=== PATIENT | male | born 1955 | race Hispanic/Latino ===

== ENCOUNTER → 2018-12-17 | Outpatient (CLI) | payer MEDICARE, BC ==
[~2018-12-17] MED LIST: AMLODIPINE BESY10 MG PO; CARVEDILOL12.5 MG PO; FENOFIBRATE160 MG PO; FUROSEMIDE40 MG PO; LANTUS100 UNITS/ SC; LEVEMIR100 UNIT/1 SQ; NOVOLOG100 UNIT/1 SC; OMEGA 3 1,0001 EACH PO; PRAVASTATIN SOD40 MG PO; SIMVASTATIN10 MG PO; SODIUM CHLORIDE 0.9% 500ML 500 ML ONE; VITAMIN D32000 UNIT PO
--- OUTSIDE RECORDS SUMMARY | 2018-12-28 11:01 | XMS REPORT | Clinical Summary ---
Author Author [facility] Address Unknown Phone Unavailable Care Team Providers Care Office Machinery Or Equipment Installer Name Role Phone Monserrat Coates MD 3 Pcp, No PCP Unavailable Allergies No Known Allergies Medications End Date Status Medication Sig Dispensed Refills Start Date Active valsartan-hydrochlorothia Take 1 tablet 0 zide (DIOVAN-HCT) 320-25 by mouth mg per tablet daily. Active carvedilol (COREG) 12.5 Take 12.5 mg 0 MG tablet by mouth 2 (two) times daily with breakfast and dinner. Active simvastatin (ZOCOR) 10 MG Take 20 mg by 0 tablet mouth nightly . Active furosemide (LASIX) 40 MG Take 40 mg by 0 tablet mouth daily. Active fenofibrate (LOFIBRA) 54 Take 160 mg 0 MG tablet by mouth daily . Active ergocalciferol Take 50,000 0 (ERGOCALCIFEROL) 50,000 Units by unit capsule mouth every 30 (thirty) days. Active amLODIPine (NORVASC) 10 Take 10 mg by 0 MG tablet mouth daily. Active insulin glargine (LANTUS) Inject 40 0 100 unit/mL injection Units subcutaneousl y 2 (two) times daily Use as directed. Active calcium carbonate (TUMS) Take 3 0 500 mg chewable tablet tablets by mouth daily. Active INSULIN ASPART (NOVOLOG Inject 15 0 FLEXPEN SUBQ) Units subcutaneousl y 2 (two) times daily before meals. Active losartan (COZAAR) 50 MG Take 50 mg by 0 tablet mouth daily. Active cholecalciferol, vitamin Take 2,000 0 D3, 2,000 unit Tab Units by mouth daily. Active niacin 500 MG tablet Take 500 mg 0 by mouth 2 (two) times daily with breakfast and dinner. Active omega-3 acid ethyl esters Take 2 g by 0 (LOVAZA) 1 gram capsule mouth 2 (two) times daily. Active Problems Problem Noted Date ESRD (end stage renal disease) on dialysis 12/09/2016 DM (diabetes mellitus) 01/05/2015 Pre-transplant evaluation for ESRD (end stage renal disease) 08/09/2013 Encounters Care Team Description Date Type Specialty Nathalia Muñoz Appointment 12/11/2018 Telephone Transplant Malu Aguila RN Awaiting transplantation of kidney (Primary Dx) 09/26/2018 Orders Only Transplant Lien Pierre MD 06/25/2018 Orders Only Transplant [place] Ponce II, MD Yao, June, MD Patient awaiting renal transplant (Primary Dx) 06/13/2018 Evaluation Transplant France Ponce II, MD Patient awaiting renal transplant; ESRD (end stage renal disease) on dialysis ([facility]) 06/13/2018 Hospital Cardiology Encounter France Ponce II, MD Encounter for preprocedural cardiovascular examination ; Patient awaiting renal transplant; ESRD (end stage renal disease) on dialysis ([facility]) 06/13/2018 Hospital Radiology Encounter Flaca Noel RN 06/06/2018 Orders Only Transplant Roro Sosa 05/14/2018 Documentation Transplant Malu Aguila RN Patient awaiting renal transplant (Primary Dx); ESRD (end stage renal disease) on dialysis ([facility]); Encounter for preprocedural cardiovascular examination 03/06/2018 Documentation Transplant after 12/27/2017 Family History Medical History Relation Name Comments Diabetes Brother Diabetes Brother Unremarkable Daughter Unremarkable Daughter Diabetes Father Hypertension Mother Unremarkable Son Unremarkable Son Unremarkable Son Unremarkable Son Relation Name Status Comments Brother Alive Brother Alive Daughter Alive 39 Daughter Alive 18 Father mi (Age 74) Mother Alive 75 Sister Alive Sister Alive Sister Alive Sister Alive Sister Alive Sister Alive Sister Alive Son Alive 37 Son Alive 35 Son Alive 32 Son Alive 29 Social History Date Tobacco Use Types Packs/Day Years Used Former Smoker Smokeless Tobacco: Never Used Comments: stopped 30yrs ago Alcohol Use Drinks/Week oz/Week Comments No stopped 1 yr ago Sex Assigned at Date Recorded Not on file Industry Job Start Date Occupation Not on file Not on file Not on file Travel End Travel History Travel Start No recent travel history available. Last Filed Vital Signs Time Taken Vital Sign Reading 06/13/2018 1:35 PM CDT Blood Pressure 147/72 06/13/2018 1:35 PM CDT Pulse 79 06/13/2018 1:35 PM CDT Temperature 36.8 C (98.3 F) 06/13/2018 1:35 PM CDT Respiratory Rate 18 06/13/2018 11:05 AM CDT Oxygen Saturation 98% - Inhaled Oxygen - Concentration 06/13/2018 1:35 PM CDT Weight 79.8 kg (175 lb 14.4 oz) 06/13/2018 1:35 PM CDT Height 167.6 cm (5' 6") 06/13/2018 1:35 PM CDT Body Mass Index 28.39 Plan of Treatment Not on file Procedures Comments Procedure Name Priority Date/Time Associated Diagnosis FLOW PRA CLASS II WITH Routine 09/10/2018 Awaiting transplantation REFLEX TO ANTIBODY 2:59 PM RAIL CAR PAINTER/SANDBLASTER of kidney SPECIFICITY ESRD (end stage renal disease) on dialysis (HCC) FLOW PRA CLASS I WITH Routine 09/10/2018 Awaiting transplantation REFLEX TO ANTIBODY 2:59 PM RAIL CAR PAINTER/SANDBLASTER of kidney SPECIFICITY ESRD (end stage renal disease) on dialysis (HCC) ECHOCARDIOGRAM REPORT - 06/14/2018 SCAN 1:20 PM CDT PSA Routine 06/13/2018 Patient awaiting renal 12:45 PM CDT transplant ESRD (end stage renal disease) on dialysis (HCC) FLOW PRA CLASS II WITH Routine 06/13/2018 Awaiting transplantation REFLEX TO ANTIBODY 12:45 PM CDT of kidney SPECIFICITY ESRD (end stage renal disease) on dialysis (HCC) FLOW PRA CLASS I WITH Routine 06/13/2018 Awaiting transplantation REFLEX TO ANTIBODY 12:45 PM CDT of kidney SPECIFICITY ESRD (end stage renal disease) on dialysis (HCC) 2D ECHO W/ DOPPLER Routine 06/13/2018 Patient awaiting renal (CW/PW/COLOR) 12:13 PM CDT transplant ESRD (end stage renal disease) on dialysis (HCC) NM CARDIAC PET PERFUSION Routine 06/13/2018 Encounter for REST AND/OR STRESS 11:12 AM CDT preprocedural cardiovascular examination Patient awaiting renal transplant ESRD (end stage renal disease) on dialysis (HCC) TREADMILL Routine 06/13/2018 TOLERANCE(NON-NUCLEAR 10:52 AM CDT TREADMILL) ECG 12-LEAD Routine 06/13/2018 10:42 AM CDT ECG 12-LEAD Routine 06/13/2018 10:42 AM CDT Procedure Note - Interface, External Ris In - 06/13/2018 11:07 AM CDT Ventricula r Rate 72 BPM Atrial Rate 72 BPM P-R Interval 236 ms QRS Duration 98 ms Q-T Interval 378 ms QTC Calculatio n(Bazett) 413 ms P Coulter 71 degrees R Coulter 108 degrees T Coulter 106 degrees Sinus rhythm with 1st degree A-V block Rightward axis Nonspecifi c T wave abnormalit y Abnormal ECG FLOW PRA CLASS II WITH Routine 06/11/2018 Awaiting transplantation REFLEX TO ANTIBODY 3:51 PM CDT of kidney SPECIFICITY ESRD (end stage renal disease) on dialysis (HCC) FLOW PRA CLASS I WITH Routine 06/11/2018 Awaiting transplantation REFLEX TO ANTIBODY 3:51 PM CDT of kidney SPECIFICITY ESRD (end stage renal disease) on dialysis ([facility]) FLOW PRA CLASS II WITH Routine 03/09/2018 Awaiting transplantation REFLEX TO ANTIBODY 12:00 PM CDT of kidney SPECIFICITY ESRD (end stage renal disease) on dialysis ([facility]) FLOW PRA CLASS I WITH Routine 03/09/2018 Awaiting transplantation REFLEX TO ANTIBODY 12:00 PM CDT of kidney SPECIFICITY ESRD (end stage renal disease) on dialysis (HCC) ECHO W CONTRAST & DOPPLER Routine 02/19/2018 ECHO W CONTRAST & DOPPLER Routine 02/19/2018 after 12/27/2017 Results * FLOW PRA CLASS II WITH REFLEX TO ANTIBODY SPECIFICITY (09/10/2018 2:59 PM RAIL CAR PAINTER/SANDBLASTER) Only the most recent of 4 results within the time period is included. Flow Class II Percent [address] [facility] Positive Flow Class Report [facility] Comments Specimen Blood Narrative Performed At Disclaimer: [facility] This test was developed and its performance characteristics determined by the [facility]. It has not been cleared or approved by the U.S. Food and Drug Administration. The FDA has determined that such clearance or approval is not necessary. This test is used for clinical purposes. It should not be regarded as investigational or for research. This laboratory is certified under the Clinical Laboratory Improvement Amendments of 1988 (CLIA-88) as qualified to perform high complexity clinical laboratory testing. Performing Organization Address City/[facility] Phone Number [facility] ONE Michele Pinzon, MS: [id number], [place] [id number] CLIA#[id number] CAP#[id number] UNOS#[id number] * FLOW PRA CLASS I WITH REFLEX TO ANTIBODY SPECIFICITY (09/10/2018 2:59 PM RAIL CAR PAINTER/SANDBLASTER) Only the most recent of 4 results within the time period is included. Flow Class I Percent [address] [facility] Positive Flow Class Report [facility] Comments Specimen Blood Narrative Performed At Disclaimer: [facility] This test was developed and its performance characteristics determined by the [facility]. It has not been cleared or approved by the U.S. Food and Drug Administration. The FDA has determined that such clearance or approval is not necessary. This test is used for clinical purposes. It should not be regarded as investigational or for research. This laboratory is certified under the Clinical Laboratory Improvement Amendments of 1988 (CLIA-88) as qualified to perform high complexity clinical laboratory testing. Performing Organization Address [facility] Phone Number [facility] ONE Michele Pinzon, MS: [id number], [place] [address] CLIA#[id number] CAP#[id number] UNOS#[id number] * ECHOCARDIOGRAM REPORT - SCAN (06/14/2018 1:20 PM CDT) Narrative Performed At * PSA (06/13/2018 12:45 PM CDT) PSA 1.2 0.0 - 4.0 ng/mL [facility] Specimen Blood Performing Organization Address City/[facility]/Zipcode Phone Number [facility] [address] [place], [place] [id number] MEDICAL CENTER * 2D Echo W/Doppler(CW/PW/Color) (06/13/2018 12:13 PM CDT) Ejection Fraction [facility] Narrative Performed At Transthoracic Echocardiography Report (TTE) [facility] Demographics [facility] [place] [facility] Patient Name Corey FLORES of Study 06/13/2018 HECTOR [id number] GenderMale Visit Number [id number] Alfredo [id number] Number op Number Date of1955 Referring Rosario RolonShashank Silvestre Physician Age62 year(s) De Ionizer Operator Karthikeyan Jacobs, JOSE MIGUEL, RDCS,RVT,RDMS AnalystAlex Bridgette Lewis MD Physician Procedure Type of Study TTE procedure:2DECHO W DOPPLER(CW/PW/COLOR) (Routine) Indications:Renal transplant evaluation . Clinical History DM, HTN, ESRD, HLD, Stroke, PVD Height: 65 inches Weight: 80.29 kg (177 lbs) BSA: 1.88 m^2 BMI: 29.45 kg/m^2 HR: 77 bpm BP: 151/70 mmHg Summary Normal left ventricular chamber size. Normal wall thickness. Normal overall left ventricular systolic function. No apparent segmental wall motion abnormalities. Estimated LVEF by qualitative assessment is normal (>60%) . Grade 1 diastolic dysfunction (impaired relaxation and low-normal LA pressure). Unable to estimate peak systolic PA pressure; inadequate TR velocity signal. No evidence of pericardial effusion. Signature Findings Left Ventricle Normal left ventricular chamber size. Normal wall thickness. Normal overall left ventricular systolic function. No apparent segmental wall motion abnormalities. Estimated LVEF by qualitative assessment is normal (>60%) . Grade 1 diastolic dysfunction (impaired relaxation and low-normal LA pressure). Left AtriumLA size is normal . Right VentricleNormal right ventricle structure and function. Right Atrium Normal right atrium. Aortic Valve Mild AoV cusp thickening. Mitral Valve Normal MV structure. Tricuspid ValveA trace of tricuspid regurgitation. Unable to estimate peak systolic PA pressure; inadequate TR velocity signal. Pulmonic Valve Normal PV structure and function by limited views and Doppler. AortaAortic root size (SInus of Valsalva diameter) is normal . PericardiumNo evidence of pericardial effusion. An echo lucent space is noted consistent with prominent pericardial fat pad. IVC/SVC/PA/PV/PleuralThe estimated RA pressure by IVC dynamics 5-10mmHg . Chambers/Structures Left Atrium LA Dimension: 3.64 cmLA Area: 19.15 cm^2 LA Volume: 62.44 ml LA Vol. Index: 33 ml/m^2 Left Ventricle LVIDd: 3.95 cm LVEDV:78.32 ml LV Septum Diastolic: 0.98 cm LV PW Diastolic: 0.95 cm Aorta Ao Root S of Sia.: 3.17 cm Doppler/Quantitative Measurements Mitral Valve MV Peak E-Wave: 0.84 m/sMV Peak A-Wave: 0.86 m/s E/A Ratio: 0.98 Peak Gradient: 2.85 mmHg MV Chris. Peak: Aortic Valve Peak Velocity: 1.01 m/sMean Velocity: 0.73 m/s Peak Gradient: 4.07 mmHg Mean Gradient: 2.43 mmHg AV VTI: 25.06 cm AV DVI: 0.8 LVOT Peak Velocity: 0.92 m/s Peak Gradient: 3.37 mmHg Mean Velocity: 0.61 m/s Mean Gradient: 1.71 mmHg LVOT VTI: 20.13 cm Procedure Note Interface, External Ris In - 06/14/2018 12:52 PM CDT Transthoracic Echocardiography Report (TTE) Demographics Patient Name ASHOK FLORES Date of Study 06/13/2018 YOUNG Gender Male Visit Number [id number] Race Unknown Room Number op Number Date of 1955 Referring Rosario Silvestre Physician Age 62 year(s) De Ionizer Operator Karthikeyan Jacobs, JOSE MIGUEL, RDCS,RVT,RDMS Toll Settlement Clerk Panchito Sanchez Interpreting Tristian Lewis MD Physician Procedure Type of Study TTE procedure:2DECHO W DOPPLER(CW/PW/COLOR) (Routine) Indications:Renal transplant evaluation . Clinical History DM, HTN, ESRD, HLD, Stroke, PVD Height: 65 inches Weight: 80.29 kg (177 lbs) BSA: 1.88 m^2 BMI: 29.45 kg/m^2 HR: 77 bpm BP: 151/70 mmHg Summary Normal left ventricular chamber size. Normal wall thickness. Normal overall left ventricular systolic function. No apparent segmental wall motion abnormalities. Estimated LVEF by qualitative assessment is normal (>60%) . Grade 1 diastolic dysfunction (impaired relaxation and low-normal LA pressure). Unable to estimate peak systolic PA pressure; inadequate TR velocity signal. No evidence of pericardial effusion. Signature Findings Left Ventricle Normal left ventricular chamber size. Normal wall thickness. Normal overall left ventricular systolic function. No apparent segmental wall motion abnormalities. Estimated LVEF by qualitative assessment is normal (>60%) . Grade 1 diastolic dysfunction (impaired relaxation and low-normal LA pressure). Left Atrium LA size is normal . Right Ventricle Normal right ventricle structure and function. Right Atrium Normal right atrium. Aortic Valve Mild AoV cusp thickening. Mitral Valve Normal MV structure. Tricuspid Valve A trace of tricuspid regurgitation. Unable to estimate peak systolic PA pressure; inadequate TR velocity signal. Pulmonic Valve Normal PV structure and function by limited views and Doppler. Aorta Aortic root size (SInus of Valsalva diameter) is normal . Pericardium No evidence of pericardial effusion. An echo lucent space is noted consistent with prominent pericardial fat pad. IVC/SVC/PA/PV/Pleural The estimated RA pressure by IVC dynamics 5-10mmHg . Chambers/Structures Left Atrium LA Dimension: 3.64 cm LA Area: 19.15 cm^2 LA Volume: 62.44 ml LA Vol. Index: 33 ml/m^2 Left Ventricle LVIDd: 3.95 cm LVEDV:78.32 ml LV Septum Diastolic: 0.98 cm LV PW Diastolic: 0.95 cm Aorta Ao Root S of Sia.: 3.17 cm Doppler/Quantitative Measurements Mitral Valve MV Peak E-Wave: 0.84 m/s MV Peak A-Wave: 0.86 m/s E/A Ratio: 0.98 Peak Gradient: 2.85 mmHg MV Chris. Peak: Aortic Valve Peak Velocity: 1.01 m/s Mean Velocity: 0.73 m/s Peak Gradient: 4.07 mmHg Mean Gradient: 2.43 mmHg AV VTI: 25.06 cm AV DVI: 0.8 LVOT Peak Velocity: 0.92 m/s Peak Gradient: 3.37 mmHg Mean Velocity: 0.61 m/s Mean Gradient: 1.71 mmHg LVOT VTI: 20.13 cm Performing Organization Address City/State/Zipcode Phone Number [facility] * NM myocardial perfusion PET (rest and stress) (06/13/2018 11:12 AM CDT) Narrative Performed At FINAL REPORT [employer] PROCEDURE: Rest/Stress MYOCARDIAL PERFUSION PET with regadenoson\\XA9\\ CPT CODE: 65090 INDICATION: Preoperative evaluation for renal transplant, risk stratification HISTORY: Cardiac risk factors: Diabetes, hypertension, dyslipidemia, ESRD, stroke. Other cardiovascular history: No reported CAD. PROTOCOL: Limited low-dose CT imaging was performed for attenuation correction. 40.0 mCi of Rb-82 chloride was injected iv at rest, and gated PET (positron emission tomography) images were obtained. Subsequently, 40.2 mCi of Rb-82 chloride was injected iv at expected peak pharmacologic effect, and gated PET images were obtained. PRELIMINARY STRESS TEST DATA FROM NONINVASIVE CARDIOLOGY: Pharmacologic stress was by 10-second iv infusion of 0.4 mg of regadenoson. Radiotracer was injected 30 seconds after start of stress. Heart rate was 70 beats/min at rest and 75 beats/min (47% of MPHR) at tracer injection. BP was 137/57 mmHg at rest and 130/51 mmHg at tracer injection. Stress was stopped for predetermined endpoint. The patient experienced no symptoms; treatment was not required. Preliminary ECG evaluation revealed sinus rhythm at rest and no ischemic changes with stress. (Final ECG interpretation and other stress and monitoring data are reported separately by Cardiology.) IMAGING FINDINGS: Study quality is good. Images obtained after rest and stress injections show normal LV activity. LV and RV volumes appear normal. Gated images obtained at rest and with stress show normal LV wall motion and thickening. LVEF at rest is 61%. LVEF at stress is 69%. IMPRESSION: 1. Normal study.2. Appropriate pharmacologic stress.3. Normal myocardial perfusion.4. Normal resting LV function. No deterioration of function is noted with pharmacologic stress.5. Normal extracardiac tracer distribution.6. No previous [facility] study for comparison. NONINVASIVE RISK STRATIFICATION: The above findings are considered low risk (<1% annual or NC) based on the following criterion: - Normal or small myocardial perfusion defect at rest or with stress encumbering <5% of the myocardium - Normal stress or no change of limited resting wall motion abnormalities during stress (JACC. 2017;69(75):3312-73.) Signed: Aneta Polo MD Report Verified Date/Time:06/13/2018 20:46:58 Reading Location: [address] Reading Room Procedure Note Interface, External Ris In - 06/13/2018 8:49 PM CDT FINAL REPORT PROCEDURE: Rest/Stress MYOCARDIAL PERFUSION PET with regadenoson\\XA9\\ CPT CODE: 70792 INDICATION: Preoperative evaluation for renal transplant, risk stratification HISTORY: Cardiac risk factors: Diabetes, hypertension, dyslipidemia, ESRD, stroke. Other cardiovascular history: No reported CAD. PROTOCOL: Limited low-dose CT imaging was performed for attenuation correction. 40.0 mCi of Rb-82 chloride was injected iv at rest, and gated PET (positron emission tomography) images were obtained. Subsequently, 40.2 mCi of Rb-82 chloride was injected iv at expected peak pharmacologic effect, and gated PET images were obtained. PRELIMINARY STRESS TEST DATA FROM NONINVASIVE CARDIOLOGY: Pharmacologic stress was by 10-second iv infusion of 0.4 mg of regadenoson. Radiotracer was injected 30 seconds after start of stress. Heart rate was 70 beats/min at rest and 75 beats/min (47% of MPHR) at tracer injection. BP was 137/57 mmHg at rest and 130/51 mmHg at tracer injection. Stress was stopped for predetermined endpoint. The patient experienced no symptoms; treatment was not required. Preliminary ECG evaluation revealed sinus rhythm at rest and no ischemic changes with stress. (Final ECG interpretation and other stress and monitoring data are reported separately by Cardiology.) IMAGING FINDINGS: Study quality is good. Images obtained after rest and stress injections show normal LV activity. LV and RV volumes appear normal. Gated images obtained at rest and with stress show normal LV wall motion and thickening. LVEF at rest is 61%. LVEF at stress is 69%. IMPRESSION: 1. Normal study. 2. Appropriate pharmacologic stress. 3. Normal myocardial perfusion. 4. Normal resting LV function. No deterioration of function is noted with pharmacologic stress. 5. Normal extracardiac tracer distribution. 6. No previous [facility] study for comparison. NONINVASIVE RISK STRATIFICATION: The above findings are considered low risk (<1% annual or NC) based on the following criterion: - Normal or small myocardial perfusion defect at rest or with stress encumbering <5% of the myocardium - Normal stress or no change of limited resting wall motion abnormalities during stress (JACC. 2017;69(17):2212-41.) Signed: Aneta Polo MD Report Verified Date/Time: 06/13/2018 20:46:58 Reading Location: [address] Reading Room Performing Organization Address City/State/Zipcode Phone Number [facility] * Treadmill tolerance(Non-Nuclear Treadmill) (06/13/2018 10:52 AM CDT) Narrative Performed At Protocol Name Abcodia Time In Exercise Phase 00:01:00 Max. Systolic BP 130 mmHg Max Diastolic BP 51 mmHg Max Heart Rate 75 BPM Max Predicted Heart Rate 158 BPM Reason For Termination Predetermined end point Reason for Test Renal Transplant Work Up/Evaluation Target HR Formula (220 - Age)*100% Arrhythmias none Resting ECG Normal sinus rhythm with 1st degree AV block nonspecific T wave abnormality ST Changes No Significant Changes Overall Impression Indeterminate due to pharmacological stress Chest Pain none HR Response To Exercise BP Response To Exercise COREG COZAAR Diovan/HCTZ LASIX NORVASC Zocor Confirmed by fellow Eliud Shaw ([id number]) on 06/13/2018 1:17:03 PM Confirmed by MD SHIN JORGE [id number]) on 06/22/2018 12:26:46 PM Procedure Note Interface, External Ris In - 06/22/2018 12:26 PM CDT Protocol Name Regabyoson Time In Exercise Phase 00:01:00 Max. Systolic BP 130 mmHg Max Diastolic BP 51 mmHg Max Heart Rate 75 BPM Max Predicted Heart Rate 158 BPM Reason For Termination Predetermined end point Reason for Test Renal Transplant Work Up/Evaluation Target HR Formula (220 - Age)*100% Arrhythmias none Resting ECG Normal sinus rhythm with 1st degree AV block nonspecific T wave abnormality ST Changes No Significant Changes Overall Impression Indeterminate due to pharmacological stress Chest Pain none HR Response To Exercise BP Response To Exercise COREG OSWALDO Ken/HCTZ LASIX NORVASC Zocor Confirmed by fellow Eliud Shaw ([id number]) on 06/13/2018 1:17:03 PM Confirmed by MD SHIN JORGE ([id number]) on 06/22/2018 12:26:46 PM Performing Organization Address City/[email or web address] Phone Number [facility] * ECG 12 lead (06/13/2018 10:42 AM CDT) Narrative Performed At Ventricular Rate 72 BPM GE MUSE Atrial Rate 72 BPM P-R Interval 236 ms QRS Duration 98 ms Q-T Interval 378 ms QTC Calculation(Bazett) 413 ms P Coulter 71 degrees R Coulter 108 degrees T Coulter 106 degrees Sinus rhythm with 1st degree A-V block Rightward axis Nonspecific T wave abnormality Abnormal ECG No previous ECGs available Confirmed by Bora REYNA, CALDERON ([id number]) on 06/14/2018 8:14:19 AM Procedure Note Interface, External Ris In - 06/14/2018 8:14 AM CDT Ventricular Rate 72 BPM Atrial Rate 72 BPM P-R Interval 236 ms QRS Duration 98 ms Q-T Interval 378 ms QTC Calculation(Bazett) 413 ms P Coulter 71 degrees R Coulter 108 degrees T Coulter 106 degrees Sinus rhythm with 1st degree A-V block Rightward axis Nonspecific T wave abnormality Abnormal ECG No previous ECGs available Confirmed by Bora REYNA BASANT ([id number]) on 06/14/2018 8:14:19 AM Performing Organization Address [employer]/Zipcode Phone Number [facility] * ECHO W CONTRAST & DOPPLER (02/19/2018) * ECHO W CONTRAST & DOPPLER (02/19/2018) after 12/27/2017 Insurance Payer Benefit Subscriber ID Type Phone Address Plan / Group MEDICARE MEDICARE A xxxxxxxxxx Medicare B BLUE CROSS/BLUE SHIELD BCBS OS xxxxxxxxxxxx PPO [phone] [address] [place] [address] O
--- OUTSIDE RECORDS SUMMARY | 2018-12-28 11:06 | XMS REPORT | Summary of Care ---
Author Author [facility] Organization [facility] Address Unknown Phone Unavailable Encounter LUÍS Jeter(TEOFILO) [phone] Date(s): 11/08/17 - 11/08/17 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) - Dependence on renal dialysis (Final) - Discharge Disposition: Home or Self Care Attending Physician: Aquiles Ruano DPM Referring Physician: Aquiles Ruano DPM Vital Signs 1 2 3 Most recent to oldest [Reference Range]: 160.02 cm (11/07/17 3:59 PM) Height 155/75 mmHg *HI* (11/08/17 9:30 PM) 133/65 mmHg (11/08/17 8:45 PM) Blood Pressure [90-140/60-90 mmHg] 160 mmHg *HI* (11/08/17 8:00 PM) Systolic Blood Pressure [90-140 mmHg] 79 mmHg (11/08/17 8:00 PM) Diastolic Blood Pressure [60-90 mmHg] 18 BRMIN (11/08/17 9:30 PM) 15 BRMIN (11/08/17 9:00 PM) 17 BRMIN (11/08/17 8:45 PM) Respiratory Rate [14-20 BRMIN] 74 bpm (2/14/18 4:45 PM) Peripheral Pulse Rate [60-100 bpm] 81.818 kg (11/07/17 3:59 PM) Weight 31.95 m2 (11/07/17 3:59 PM) Body Mass Index Problem List Condition Effective Dates Status Health Status Informant Abdominal Active bloating(Confirmed) 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(Confirmed)1 Benign hypertensive Active heart and kidney disease and end stage renal disease(Confirmed) Body mass index 30+ 01/06/14 Active - obesity2 Congestive 03/20/13 Active cardiomyopathy(Confi rmed)3 Decreased hearing of Active left ear(Confirmed) Hemodialysis Active status(Confirmed) 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(Confirmed) Noncompliance(Confir Active med) ESRD (end stage Active renal disease)(Confirmed) Gastroparesis(Confir Active med) Gustatory Active hyperhidrosis(Confir med) History of Active gangrene(Confirmed) Hemodialysis-associa 04/29/13 Active manju hypotension4 Long-term insulin Active use(Confirmed) Status post Active amputation of lesser toe of right foot(Confirmed) History of stroke Active without residual deficits(Confirmed) History of colonic Active polyps(Confirmed) Medicare annual Active wellness visit, subsequent(Confirmed ) Mixed 03/20/13 Active hyperlipidemia(Confi rmed)5 Full Active dentures(Confirmed) Screening for colon Active cancer(Confirmed) Screening for Active prostate cancer(Confirmed) Type 2 diabetes Active mellitus with autonomic neuropathy(Confirmed ) Type 2 diabetes Active mellitus with ESRD (end-stage renal disease)(Confirmed) Type 2 diabetes Active mellitus with hyperglycemia(Confir med) Oliguria(Confirmed) Active Ventricular 01/12/15 Active premature beats6, 7 Vitamin D 01/12/15 Active deficiency8, 9 1Data migrated from [employer] on 02/21/15. 2Data migrated from [employer] on 02/21/15. 3Data migrated from [employer] on 02/21/15. 4Data migrated from [employer] on 02/21/15. 5Data migrated from [employer] on 02/21/15. 6Data migrated from [employer] on 04/01/15. 7Data migrated from [employer] on 02/24/15. 8Data migrated from [employer] on 04/01/15. 9Data migrated from [employer] on 02/24/15. Allergies, Adverse Reactions, Alerts Substance Reaction Severity Status NKDA Active Medications ANES dexamethasone 4 mg, 1 mL, Route: IVP, Drug form: INJ, ONCE, Dosing Weight 81.818, kg, PRN Naus ea & Vomiting, Start date: 11/08/17 19:07:00 MARBLE INSTALLATION HELPER Notes: Concentration: 4mg/ml Start Date: 11/08/17 Stop Date: 11/08/17 Status: Discontinued ANES diphenhydrAMINE 12.5 mg, 0.25 mL, Route: IVP, Drug form: INJ, Q6H, Dosing Weight 81.818, kg, PRN Itching, Start date: 11/08/17 19:07:00 MARBLE INSTALLATION HELPER, Duration: 30 day, Stop date: 19:06:00 CDT Notes: (Same as: Benadryl) Start Date: 11/08/17 Stop Date: 11/08/17 Status: Discontinued ANES fentaNYL 50 microgram, 1 mL, Route: IVP, Drug form: INJ, Q5Min, Dosing Weight 81.818, kg, PRN Pain Score 7-10, Priority: Routine, Start date: 11/08/17 19:07:00 MARBLE INSTALLATION HELPER, Dura tion: 2 doses or times, Stop date: Limited # of times Notes: (Same as: Sublimaze) Preservative free. Start Date: 11/08/17 Stop Date: 11/08/17 Status: Discontinued ANES flumazenil 0.2 mg, 2 mL, Route: IVP, Drug form: INJ, PRN, Dosing Weight 81.818, kg, PRN Getachew zodiazepine Reversal, Initial dose, Start date: 11/08/17 19:07:00 [employer]BLE INSTALLATION HELPER, Duration: 30 day, Stop date: 12/08/17 20:06:00 CDT Notes: (Same as: Romazicon) Start Date: 11/08/17 Stop Date: 11/08/17 Status: Discontinued ANES hydrALAZINE 10 mg, 0.5 mL, Route: IVP, Drug form: INJ, Q20Min, Dosing Weight 81.818, kg, PRN Elevated BP, Start date: 11/08/17 19:07:00 MARBLE INSTALLATION HELPER, Duration: 2 doses or times, Stop date: Limited # of times Notes: (Same as: Apresoline)Push over 5 minutes Start Date: 11/08/17 Stop Date: 11/08/17 Status: Discontinued ANES HYDROmorphone 0.5 mg, 0.25 mL, Route: IVP, Drug form: INJ, Q5Min, Dosing Weight 81.818, kg, [place] N Pain Score 7-10, Start date: 11/08/17 19:07:00 MARBLE INSTALLATION HELPER, Duration: 4 doses or times , Stop date: Limited # of times Notes: Same as Dilaudid Start Date: 11/08/17 Stop Date: 11/08/17 Status: Discontinued ANES ketOROLAC 30 mg, 1 mL, Route: IVP, Drug form: INJ, ONCE, Dosing Weight 81.818, kg, Start d ate: 11/08/17 19:07:00 MARBLE INSTALLATION HELPER, Stop date: 11/08/17 19:07:00 [employer]BLE INSTALLATION HELPER Notes: (Same as:Toradol) IV bolus must be given >15 seconds. Give IM administration slowly and deeply into the muscle.Not for use > 4 days MEDICATION WASTE Product Size: 30 mgProduct Wasted: ___ mg Start Date: 11/08/17 Stop Date: 11/08/17 Status: Discontinued ANES meperidine 12.5 mg, 0.25 mL, Route: IVP, Drug form: INJ, Q30Min, Dosing Weight 81.818, kg, PRN Other -See Comment, For shivering, Start date: 11/08/17 19:07:00 MARBLE INSTALLATION HELPER, Durati on: 2 doses or times, Stop date: Limited # of times Notes: (Same As: Demerol) Start Date: 11/08/17 Stop Date: 11/08/17 Status: Discontinued ANES morphine Sulfate 2 mg, 1 mL, Route: IVP, Drug form: INJ, Q5Min, Dosing Weight 81.818, kg, PRN Bella n Score 4-6, Start date: 11/08/17 19:07:00 MARBLE INSTALLATION HELPER, Duration: 5 doses or times, Stop date: Limited # of times Notes: (Same as:MORPhine Sulfate) Start Date: 11/08/17 Stop Date: 11/08/17 Status: Discontinued ANES naloxone 0.4 mg, 1 mL, Route: IVP, Drug form: INJ, Q2MIN, Dosing Weight 81.818, kg, PRN N arcotic Reversal, Start date: 11/08/17 19:07:00 MARBLE INSTALLATION HELPER, Duration: 8 doses or times, Stop date: Limited # of times Notes: Same as Narcan Start Date: 11/08/17 Stop Date: 11/08/17 Status: Discontinued ANES ondansetron 4 mg, 2 mL, Route: IVP, Drug form: INJ, ONCE, Dosing Weight 81.818, kg, PRN Naus ea & Vomiting, Start date: 11/08/17 19:07:00 MARBLE INSTALLATION HELPER Notes: (Same as: Zofran) MEDICATION WASTE Product Size: 4 mgProduct Was manju: ___ mg Start Date: 11/08/17 Stop Date: 11/08/17 Status: Discontinued lidocaine (ANES) Route: IV, Drug form: INJ, ONCE, Stop date: 11/08/17 19:13:00 MARBLE INSTALLATION HELPER Start Date: 11/08/17 Stop Date: 11/08/17 Status: Completed propofol (ANES) Route: IV, Drug form: INJ, ONCE, Stop date: 11/08/17 19:08:00 MARBLE INSTALLATION HELPER Start Date: 11/08/17 Stop Date: 11/08/17 Status: Completed Sodium Chloride 0.9% IV (ANES) 500 mL Route: IV, Total Volume: 500, Start date: 11/08/17 18:22:00 MARBLE INSTALLATION HELPER, Stop date: 10/26 01/10 19:22:00 MARBLE INSTALLATION HELPER Start Date: 11/08/17 Stop Date: 11/08/17 Status: Completed Results No data available for this section Immunizations Given and Recorded Vaccine Date Status Refusal Reason Hx influenza vaccine-unspecified1 06/25/17 Recorded Hx influenza vaccine-unspecified2 07/09/13 Given pneumococcal 23-valent vaccine 03/22/13 Given influenza virus vaccine, inactivated3 08/10/10 Given influenza virus vaccine, inactivated4 08/05/09 Given influenza virus vaccine, inactivated5 06/15/09 Given influenza virus vaccine, inactivated6 07/14/08 Given 1Location History: [facility] 2Result Comment: done @ dialysis. Migrated from OBS ; Data migrated from [employer] on 10/27/2015. 3Result Comment: fluvirin preservative free (>3 yrs.) [[id number]]. Migrated from OBS ; Data migrated from [employer] on 10/27/2015. 4Result Comment: fluvirin preservative free (>3 yrs.) [[id number]]. Migrated from OBS ; Data migrated from [facility] on 10/27/2015. 5Result Comment: fluvirin preservative free (>3 yrs.) [[id number]]. Migrated from OBS ; Data migrated from [facility] on 10/27/2015. 6Result Comment: fluvirin preservative free (>3 yrs.) [[id number]]. Migrated from OBS ; Data migrated from [employer] on 10/27/2015. Procedures Procedure Date Related Diagnosis Body Site Status Thrombectomy of arteriovenous fistula1 12/12/17 Completed Amputation lesser toe2 11/08/17 Completed Amputation lesser toe3 11/08/17 Completed Amputation lesser toe4 2016 Completed Echocardiogram5 07/27/16 Completed Myocardial perfusion scan6 07/27/16 Completed Colonoscopy7 01/29/14 Completed AV - Creation of arteriovenous fistula8 03/25/13 Completed Amputation great toe9 Completed Cataract extraction and insertion of Completed intraocular lens Insertion of dialysis catheter into femoral Completed vein 1PREOPERATIVE DIAGNOSIS: 1. End-stage renal disease 2. Thrombosis of right brachiocephalic AV fistula POSTOPERATIVE DIAGNOSIS: 1. End-stage renal disease 2. Thrombosis of right brachiocephalic AV fistula OPERATION: 1. Open thrombectomy of right brachiocephalic AV fistula 2. Upper extremity fistulogram 3. Balloon angioplasty and stenting of right subclavian vein 4. Open thrombectomy of brachial artery 2right foot 3PREOPERATIVE DIAGNOSIS: Gangrene, right fourth toe. POSTOPERATIVE DIAGNOSES: Gangrene, right fourth toe. PROCEDURE PERFORMED: Amputation, right fourth toe. PATHOLOGY: 1. Amputated fourth toe sent for pathological analysis. 2. Deep wound culture swab for culture and sensitivity. 4Right foot 5EF: 55-60%, LV size and systolic function normal 6Normal perfusion imaging with no evidence of stress induced ischemia 7polyps, repeat in 3 years 8PREOPERATIVE DIAGNOSIS: End-stage renal disease. POSTOPERATIVE DIAGNOSIS: End-stage renal disease. OPERATION: Creation of right brachiocephalic arteriovenous fistula. 9left foot Social History Social History Type Response Substance Abuse Use: None. Exercise Exercise duration: 15. Exercise frequency: 1-2 times/week. Self assessment: Fair condition. Exercise type: Walking. Employment/School Status: Disabled due to ESRD on HD. Other: . Alcohol Never Smoking Status Never smoker; Ready to change: No; Concerns about tobacco use in household: No; Lives with someone who smokes; Cigarette Smoking Last 365 Days No; Reg Smoking Cessation Counseling No entered on: 12/20/17 Assessment and Plan No data available for this section
--- OUTSIDE RECORDS SUMMARY | 2018-12-28 11:06 | XMS REPORT | Summary of Care ---
Author Author [facility] Organization [facility] Address Unknown Phone Unavailable Encounter HQ Steffany(TEOFILO) [phone] Date(s): 11/24/18 - 11/25/18 [facility] [address] [place] [address]- [phone] Discharge Disposition: Home or Self Care Attending Physician: Vamshi Thompson MD Admitting Physician: Vamshi Thompson MD Vital Signs 1 2 3 Most recent to oldest [Reference Range]: 162.56 cm (11/24/18 4:59 PM) 162.56 cm (11/24/18 11:19 AM) Height 98.6 DegF (11/25/18 11:41 AM) 99 DegF (11/25/18 7:35 AM) 98.6 DegF (11/25/18 3:17 AM) Temperature Oral [96.4-99.1 DegF] 125/65 mmHg (11/25/18 11:41 AM) 106/64 mmHg (11/25/18 7:35 AM) 106/56 mmHg (11/25/18 3:17 AM) Blood Pressure [90-140/60-90 mmHg] 17 BRMIN (11/25/18 11:41 AM) 19 BRMIN (11/25/18 7:35 AM) 17 BRMIN (11/25/18 3:17 AM) Respiratory Rate [14-20 BRMIN] 85 bpm (11/25/18 11:41 AM) 83 bpm (11/25/18 7:35 AM) 83 bpm (11/25/18 3:17 AM) Peripheral Pulse Rate [60-100 bpm] 82.273 kg (11/24/18 4:59 PM) 79.545 kg (11/24/18 11:19 AM) Weight 31.13 m2 (11/24/18 4:59 PM) 30.1 m2 (11/24/18 11:19 AM) Body Mass Index Problem List Condition Effective [...] med) ESRD (end stage Active renal disease)(Confirmed) Sebaceous Active cyst(Confirmed) Gastroparesis(Confir Active med) Gustatory Active hyperhidrosis(Confir med) History of Active gangrene(Confirmed) Hammertoe of right Active foot(Confirmed) Hemodialysis-associa 04/29/13 Active manju hypotension4 Long-term insulin Active use(Confirmed) Status post Active amputation of lesser toe of right foot(Confirmed) History of stroke Active without residual deficits(Confirmed) History of colonic Active polyps(Confirmed) Type 2 diabetes Active mellitus with hyperglycemia(Confir med) Diabetic Resolved hypoglycemia(Confirm ed) ED (erectile Active dysfunction)(Confirm ed) Medicare annual Active wellness visit, subsequent(Confirmed ) Mixed 03/20/13 Active hyperlipidemia(Confi rmed)5 Preoperative Active clearance(Confirmed) Screening for colon Active cancer(Confirmed) Type 2 diabetes Active mellitus with autonomic neuropathy(Confirmed ) Type 2 diabetes Active mellitus with ESRD (end-stage renal disease)(Confirmed) Oliguria(Confirmed) Active Ventricular 01/12/15 Active premature beats6, 7 Vitamin D 01/12/15 Active deficiency(Confirmed )8, 9 1Data migrated from [employer] on [...] Substance Reaction Severity Status NKDA Active Medications amLODIPine 10 mg, 2 tab, Route: PO, Drug form: TAB, Daily, Dosing Weight 82.273, kg, Start date: 11/25/18 9:00:00 [employer], Duration: 30 day, Stop date: 12/24/18 9:00:00 CDT Notes: (Same as: Norvasc) Start Date: 11/25/18 Stop Date: 11/25/18 Status: Discontinued aspirin 81 mg, 1 tab, Route: PO, Drug form: ECTAB, Every Other Day, Dosing Weight 82.273 , kg, Start date: 11/25/18 9:00:00 [employer], Duration: 30 day, Stop date: 12/23/18 9: 00:00 CDT Notes: Do not crush or chew.(Same As: Ecotrin) Start Date: 11/25/18 Stop Date: 11/25/18 Status: Discontinued aspirin 81 mg, PO, Every Other Day, 0 Refill(s) Start Date: 11/24/18 Status: Ordered carvedilol 12.5 mg, 1 tab, Route: PO, Drug form: TAB, Q12H, Dosing Weight 82.273, kg, Start date: 11/24/18 21:00:00 [employer], Duration: 30 day, Stop date: 12/24/18 9:00:00 CDT Notes: Give with food. (Same As: Coreg) Start Date: 11/24/18 Stop Date: 11/25/18 Status: Discontinued cloNIDine 0.1 mg, 1 tab, Route: PO, Drug form: TAB, Q6H, Dosing Weight 82.273, kg, PRN Silvia vated BP, Start date: 11/24/18 17:55:00 [employer], Duration: 30 day, Stop date: 17:54:00 CDT Notes: (Same As: Catapres) Start Date: 11/24/18 Stop Date: 11/25/18 Status: Discontinued Dextrose 50% Syringe 25 gm, 50 mL, Route: IVP, Drug Form: INJ, Dosing Weight 82.273, kg, PRN, PRN Blo od Glucose Results, Start date: 11/24/18 17:03:00 [employer], Duration: 30 day, Stop da te: 12/24/18 18:02:00 CDT Start Date: 11/24/18 Stop Date: 11/25/18 Status: Discontinued Dextrose 50% Syringe 12.5 gm, 25 mL, Route: IVP, Drug Form: INJ, Dosing Weight 82.273, kg, PRN, PRN B lood Glucose Results, Start date: 11/24/18 17:03:00 [employer] WORK[employer], Duration: 30 day, Stop date: 12/24/18 18:02:00 CDT Start Date: 11/24/18 Stop Date: 11/25/18 Status: Discontinued furosemide 40 mg oral tablet 40 mg, 1 tab, Route: PO, Drug form: TAB, Breakfast, Dosing Weight 82.273, kg, St art date: 11/25/18 8:00:00 [employer] WORK[employer], Duration: 30 day, Stop date: 12/24/18 8:00:00 CD T Notes: (Same as: Lasix) May cause GI upset. Give with food or milk. Start Date: 11/25/18 Stop Date: 11/25/18 Status: Discontinued glucagon 1 mg, Route: IM, Drug form: PDR/INJ, PRN, Dosing Weight 82.273, kg, PRN Blood Gl ucose Results, Start date: 11/24/18 17:03:00 [employer], Duration: 30 day, Stop date: 0 12/24/18 18:02:00 CDT Start Date: 11/24/18 Stop Date: 11/25/18 Status: Discontinued insulin glargine 58 unit, 0.58 mL, Route: SUB-Q, Drug form: SOLN, Q12H, Start date: 11/24/18 21:0 0:00 [employer] WORK[employer], Duration: 30 day, Stop date: 12/24/18 9:00:00 CDT Notes: (Same as: Lantus)Do not hold insulin without contacting prescriberWASTE: F/P - Black; E - Municipal Trash Bin "single patient use only" Start Date: 11/24/18 Stop Date: 11/25/18 Status: Discontinued insulin lispro 2 unit, 0.02 mL, Route: SUB-Q, Drug form: SOLN, TID-Before Meals, Dosing Weight 82.273, kg, PRN Blood Glucose Results, Start date: 11/24/18 17:03:00 [employer] WORKER, Durati on: 30 day, Stop date: 12/24/18 17:02:00 CDT Notes: (Same as: Humalog ) Roll in palms of hands gently; Do not shake `vigorou sly. "Single Patient Use Only " WASTE: F/P - Black; E - Municipal Trash Bin St able for 28 days at room temperature.Expires in days from Da te Start Date: 11/24/18 Stop Date: 11/25/18 Status: Discontinued insulin lispro 8 unit, 0.08 mL, Route: SUB-Q, Drug form: SOLN, TID-Before Meals, Dosing Weight 82.273, kg, PRN Blood Glucose Results, Start date: 11/24/18 17:03:00 [employer] WORK[employer], Durati on: 30 day, Stop date: 12/24/18 17:02:00 CDT Notes: (Same as: Humalog ) Roll in palms of hands gently; Do not shake `vigorou sly. "Single Patient Use Only " WASTE: F/P - Black; E - Municipal Trash [address] St able for 28 days at room temperature.Expires in days from Da te Start Date: 11/24/18 Stop Date: 11/25/18 Status: Discontinued insulin lispro 6 unit, 0.06 mL, Route: SUB-Q, Drug form: SOLN, TID-Before Meals, Dosing Weight 82.273, kg, PRN Blood Glucose Results, Start date: 11/24/18 17:03:00 [employer] WORKER, Durati on: 30 day, Stop date: 12/24/18 17:02:00 CDT Notes: (Same as: Humalog ) Roll in palms of hands gently; Do not shake `vigorou sly. "Single Patient Use Only " WASTE: F/P - Black; E - Municipal Trash [address] St able for 28 days at room temperature.Expires in days from Da te Start Date: 11/24/18 Stop Date: 11/25/18 Status: Discontinued insulin lispro 4 unit, 0.04 mL, Route: SUB-Q, Drug form: SOLN, TID-Before Meals, Dosing Weight 82.273, kg, PRN Blood Glucose Results, Start date: 11/24/18 17:03:00 [employer] WORKER, Durati on: 30 day, Stop date: 12/24/18 17:02:00 CDT Notes: (Same as: Humalog ) Roll in palms of hands gently; Do not shake `vigorou sly. "Single Patient Use Only " WASTE: F/P - Black; E - Municipal Trash [address] St able for 28 days at room temperature.Expires in days from Da te Start Date: 11/24/18 Stop Date: 11/25/18 Status: Discontinued insulin lispro 4 unit, 0.04 mL, Route: SUB-Q, Drug form: SOLN, Bedtime, Dosing Weight 82.273, k g, PRN Blood Glucose Results, Start date: 11/24/18 17:03:00 [employer] WORKER, Duration: 30 da y, Stop date: 12/24/18 17:02:00 CDT Notes: (Same as: Humalog ) Roll in palms of hands gently; Do not shake `vigorou sly. "Single Patient Use Only " WASTE: F/P - Black; E - Municipal [address]ash [address] St able for 28 days at room temperature.Expires in days from Da te Start Date: 11/24/18 Stop Date: 11/25/18 Status: Discontinued insulin lispro 3 unit, 0.03 mL, Route: SUB-Q, Drug form: SOLN, Bedtime, Dosing Weight 82.273, k g, PRN Blood Glucose Results, Start date: 11/24/18 17:03:00 GRE[employer] WORKER, Duration: 30 da y, Stop date: 12/24/18 17:02:00 CDT Notes: (Same as: Humalog ) Roll in palms of hands gently; Do not shake `vigorou sly. "Single Patient Use Only " WASTE: F/P - Black; E - Municipal Trash [address] St able for 28 days at room temperature.Expires in days from Da te Start Date: 11/24/18 Stop Date: 11/25/18 Status: Discontinued insulin lispro 2 unit, 0.02 mL, Route: SUB-Q, Drug form: SOLN, Bedtime, Dosing Weight 82.273, k g, PRN Blood Glucose Results, Start date: 11/24/18 17:03:00 GRE[employer] CH[employer] WORKER, Duration: 30 da y, Stop date: 12/24/18 17:02:00 CDT Notes: (Same as: Humalog ) Roll in palms of hands gently; Do not shake `vigorou sly. "Single Patient Use Only " WASTE: F/P - Black; E - Municipal Trash [address] St able for 28 days at room temperature.Expires in days from Da te Start Date: 11/24/18 Stop Date: 11/25/18 Status: Discontinued insulin lispro 1 unit, 0.01 mL, Route: SUB-Q, Drug form: SOLN, Bedtime, Dosing Weight 82.273, k g, PRN Blood Glucose Results, Start date: 11/24/18 17:03:00 GRE[employer] CH[employer] WORKER, Duration: 30 da y, Stop date: 12/24/18 17:02:00 CDT Notes: (Same as: Humalog ) Roll in palms of hands gently; Do not shake `vigorou sly. "Single Patient Use Only " WASTE: F/P - Black; E - Municipal Trash [address] St able for 28 days at room temperature.Expires in days from Da te Start Date: 11/24/18 Stop Date: 11/25/18 Status: Discontinued insulin lispro 10 unit, 0.1 mL, Route: SUB-Q, Drug form: SOLN, TID-Before Meals, Dosing Weight 82.273, kg, PRN Blood Glucose Results, Start date: 11/24/18 17:03:00 GRE[employer] CH[employer] WORKER, Durati on: 30 day, Stop date: 12/24/18 17:02:00 CDT Notes: (Same as: Humalog ) Roll in palms of hands gently; Do not shake `vigorou sly. "Single Patient Use Only " WASTE: F/P - Black; E - Municipal Trash [address] St able for 28 days at room temperature.Expires in days from Da te Start Date: 11/24/18 Stop Date: 11/25/18 Status: Discontinued Levemir 58 unit, Route: SUB-Q, Drug form: SOLN, BID, Dosing Weight 82.273, kg, Start joseph e: 11/25/18 9:00:00 [employer] WORKER, Duration: 30 day, Stop date: 12/24/18 17:00:00 CDT Start Date: 11/25/18 Stop Date: 11/24/18 Status: Deleted Levemir 100 units/mL 58 unit, SUB-Q, BID, 0 Refill(s) Start Date: 11/24/18 Status: Ordered morphine Sulfate 2 mg, 1 mL, Route: IVP, Drug form: SOLN, Q4H, Dosing Weight 82.273, kg, PRN Pain Score 7-10, Start date: 11/24/18 17:03:00 [employer] WORKER, Duration: 30 day, Stop date: 10/13 17:02:00 CDT Start Date: 11/24/18 Stop Date: 11/25/18 Status: Discontinued pneumococcal 13-valent vaccine 0.5 mL, Route: IM, Drug Form: INJ, ONCALL, Start date: 11/24/18 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, St op date: 12/24/18 17:06:15 CDT Notes: Shake well prior to use (Same as: Prevnar 13) Start Date: 11/24/18 Stop Date: 11/25/18 Status: Canceled pravastatin 40 mg, 2 tab, Route: PO, Drug form: TAB, Bedtime, Dosing Weight 82.273, kg, Star t date: 11/24/18 21:00:00 [employer] WORK[employer], Duration: 30 day, Stop date: 12/23/18 21:00:00 CD T Notes: (Same as: Pravachol) Start Date: 11/24/18 Stop Date: 11/25/18 Status: Discontinued Saline Flush 0.9% 10 mL, Route: IVP, Drug Form: INJ, Dosing Weight 79.545, kg, PRN, PRN Line Flush , Start date: 11/24/18 11:43:00 [employer] WORKER, Duration: 30 day, Stop date: 12/24/18 12:42 :00 CDT Notes: (Same as: BD Posiflush) Start Date: 11/24/18 Stop Date: 11/24/18 Status: Discontinued Saline Flush 0.9% 5 ml, Route: IVP, Drug Form: INJ, Dosing Weight 82.273, kg, PRN, PRN Line Flush, Start date: 11/24/18 17:02:00 [employer] WORKER, Duration: 30 day, Stop date: 12/24/18 18:01: 00 CDT Notes: (Same as: BD Posiflush) Start Date: 11/24/18 Stop Date: 11/25/18 Status: Discontinued Tylenol 650 mg, 2 tab, Route: PO, Drug form: TAB, Q6H, Dosing Weight 82.273, kg, PRN Bella n 1-3/Temp > 100.4 F, Start date: 11/24/18 17:03:00 [employer] WORK[employer], Duration: 30 day, Stop date: 12/24/18 17:02:00 CDT Notes: Do not exceed 4 gm/day. (Same as: Tylenol) Start Date: 11/24/18 Stop Date: 11/25/18 Status: Discontinued Results ELECTROLYTES 1 2 3 Most recent to oldest [Reference Range]: 131 mEq/L *LOW* (11/25/18 3:12 AM) 131 mEq/L *LOW* (11/24/18 11:51 AM) Sodium Lvl [135-145 mEq/L] 4.6 mEq/L (11/25/18 3:12 AM) 4.3 mEq/L (11/24/18 11:51 AM) Potassium Lvl [3.5-5.1 mEq/L] 91 mEq/L *LOW* (11/25/18 3:12 AM) 86 mEq/L *LOW* (11/24/18 11:51 AM) Chloride Lvl [95-109 mEq/L] 33 mEq/L *HI* (11/25/18 3:12 AM) 32 mEq/L (11/24/18 11:51 AM) CO2 [24-32 mEq/L] 11.6 mEq/L (11/25/18 3:12 AM) 17.3 mEq/L (11/24/18 11:51 AM) AGAP [10.0-20.0 mEq/L] CHEM PANEL 1 2 3 Most recent to oldest [Reference Range]: 8.08 mg/dL *HI* (11/25/18 3:12 AM) 5.48 mg/dL *HI* (11/24/18 11:51 AM) Creatinine Lvl [0.50-1.40 mg/dL] 6 mL/min/1.73m2 1 *NA* (11/25/18 3:12 AM) 10 mL/min/1.73m2 2 *NA* (11/24/18 11:51 AM) eGFR 44 mg/dL *HI* (11/25/18 3:12 AM) 24 mg/dL *HI* (11/24/18 11:51 AM) BUN [7-22 mg/dL] 4 *LOW* (11/24/18 11:51 AM) B/C Ratio [6-25] 203 mg/dL *HI* (11/25/18 3:12 AM) 260 mg/dL *HI* (11/24/18 11:51 AM) Glucose Lvl [70-99 mg/dL] 7.4 g/dL (11/25/18 3:12 AM) 9.0 g/dL *HI* (11/24/18 11:51 AM) Total Protein [6.4-8.4 g/dL] 2.9 g/dL *LOW* (11/25/18 3:12 AM) 3.2 g/dL *LOW* (11/24/18 11:51 AM) Albumin Lvl [3.5-5.0 g/dL] 4.5 g/dL *HI* (11/25/18 3:12 AM) 5.8 g/dL *HI* (11/24/18 11:51 AM) Globulin [2.7-4.2 g/dL] 0.6 *LOW* (11/25/18 3:12 AM) 0.6 *LOW* (11/24/18 11:51 AM) A/G Ratio [0.7-1.6] 9.1 mg/dL (11/25/18 3:12 AM) 9.1 mg/dL (11/24/18 11:51 AM) Calcium Lvl [8.5-10.5 mg/dL] 23 unit/L (11/25/18 3:12 AM) 31 unit/L (11/24/18 11:51 AM) ALT [0-65 unit/L] 12 unit/L (11/25/18 3:12 AM) 26 unit/L (11/24/18 11:51 AM) AST [0-37 unit/L] 87 unit/L (11/25/18 3:12 AM) 152 unit/L *HI* (11/24/18 11:51 AM) Alk Phos [39-136 unit/L] 0.6 mg/dL (11/25/18 3:12 AM) 0.7 mg/dL (11/24/18 11:51 AM) Bili Total [0.2-1.3 mg/dL] 0.1 mg/dL (11/25/18 3:12 AM) Bili Direct [0.0-0.3 mg/dL] 0.5 mg/dL (11/25/18 3:12 AM) Bili Indirect [0.0-1.0 mg/dL] 1Result Comment: The eGFR is calculated using the CKD-EPI formula. In most young, healthy individuals the eGFR will be >90 mL/min/1.73m2. The eGFR declines with age. An eGFR of 60-89 may be normal in some populations, particularly the elderly, for whom the CKD-EPI formula has not been extensively validated. Use of the eGFR is not recommended in the following populations: Individuals with unstable creatinine concentrations, including patients and those with serious co-morbid conditions. Patients with extremes in muscle mass or diet. The data above are obtained from the National Kidney Disease Education Program ( NKDEP) which additionally recommends that when the eGFR is used in patients with extremes of body mass index for purposes of drug dosing, the eGFR should be mul tiplied by the estimated BMI. 2Result Comment: The eGFR is calculated using the CKD-EPI formula. In most young, healthy individuals the eGFR will be >90 mL/min/1.73m2. The eGFR declines with age. An eGFR of 60-89 may be normal in some populations, particularly the elderly, for whom the CKD-EPI formula has not been extensively validated. Use of the eGFR is not recommended in the following populations: Individuals with unstable creatinine concentrations, including patients and those with serious co-morbid conditions. Patients with extremes in muscle mass or diet. The data above are obtained from the National Kidney Disease Education Program ( NKDEP) which additionally recommends that when the eGFR is used in patients with extremes of body mass index for purposes of drug dosing, the eGFR should be mul tiplied by the estimated BMI. CARDIAC ENZYMES 1 2 3 Most recent to oldest [Reference Range]: <0.02 ng/mL (11/25/18 3:12 AM) <0.02 ng/mL (11/24/18 6:06 PM) <0.02 ng/mL (11/24/18 11:51 AM) Troponin-I [0.00-0.40 ng/mL] 73 pg/mL (11/24/18 11:51 AM) BNP [<=100 pg/mL] SPECIAL CHEMISTRY 1 2 3 Most recent to oldest [Reference Range]: 7.9 % *HI* (11/25/18 3:12 AM) Hgb A1C [<=5.6 %] ANEMIA STUDY 1 2 3 Most recent to oldest [Reference Range]: 1022 pg/mL (11/25/18 3:12 AM) Vitamin B12 Lvl [254-1320 pg/mL] HEMATOLOGY 1 2 3 Most recent to oldest [Reference Range]: 9.7 K/CMM (11/25/18 3:12 AM) 11.6 K/CMM *HI* (11/24/18 11:51 AM) WBC [3.7-10.4 K/CMM] 3.91 M/CMM *LOW* (11/25/18 3:12 AM) 4.31 M/CMM *LOW* (11/24/18 11:51 AM) RBC [4.70-6.10 M/CMM] 12.5 g/dL *LOW* (11/25/18 3:12 AM) 13.9 g/dL *LOW* (11/24/18 11:51 AM) Hgb [14.0-18.0 g/dL] 36.6 % *LOW* (11/25/18 3:12 AM) 40.1 % *LOW* (11/24/18 11:51 AM) Hct [42.0-54.0 %] 93.6 fL (11/25/18 3:12 AM) 93.0 fL (11/24/18 11:51 AM) MCV [80.0-94.0 fL] 32.0 pg *HI* (11/25/18 3:12 AM) 32.2 pg *HI* (11/24/18 11:51 AM) MCH [27.0-31.0 pg] 34.2 g/dL (11/25/18 3:12 AM) 34.6 g/dL (11/24/18 11:51 AM) MCHC [32.0-36.0 g/dL] 13.2 % (11/25/18 3:12 AM) 13.3 % (11/24/18 11:51 AM) RDW [11.5-14.5 %] 7.0 fL *LOW* (11/25/18 3:12 AM) 7.2 fL *LOW* (11/24/18 11:51 AM) MPV [7.4-10.4 fL] 237 K/CMM (11/25/18 3:12 AM) 281 K/CMM (11/24/18 11:51 AM) Platelet [133-450 K/CMM] 74.1 % (11/25/18 3:12 AM) 80.9 % *HI* (11/24/18 11:51 AM) Segs [45.0-75.0 %] 13.0 % *LOW* (11/25/18 3:12 AM) 8.6 % *LOW* (11/24/18 11:51 AM) Lymphocytes [20.0-40.0 %] 8.9 % (11/25/18 3:12 AM) 7.7 % (11/24/18 11:51 AM) Monocytes [2.0-12.0 %] 3.3 % (11/25/18 3:12 AM) 2.0 % (11/24/18 11:51 AM) Eosinophils [0.0-4.0 %] 0.7 % (11/25/18 3:12 AM) 0.8 % (11/24/18 11:51 AM) Basophils [0.0-1.0 %] 7.2 K/CMM (11/25/18 3:12 AM) 9.4 K/CMM *HI* (11/24/18 11:51 AM) Neutrophils # [1.5-8.1 K/CMM] 1.3 K/CMM (11/25/18 3:12 AM) 1.0 K/CMM (11/24/18 11:51 AM) Lymphocytes # [1.0-5.5 K/CMM] 0.9 K/CMM *HI* (11/25/18 3:12 AM) 0.9 K/CMM *HI* (11/24/18 11:51 AM) Monocytes # [0.0-0.8 K/CMM] 0.3 K/CMM (11/25/18 3:12 AM) 0.2 K/CMM (11/24/18 11:51 AM) Eosinophils # [0.0-0.5 K/CMM] 0.1 K/CMM (11/25/18 3:12 AM) 0.1 K/CMM (11/24/18 11:51 AM) Basophils # [0.0-0.2 K/CMM] 12.3 seconds (11/24/18 11:51 AM) PT [12.0-14.7 seconds] 0.93 (11/24/18 11:51 AM) INR [0.85-1.17] 29.3 seconds (11/24/18 11:51 AM) PTT [22.9-35.8 seconds] Immunizations Given and Recorded Vaccine Date Status Refusal Reason influenza virus vaccine, inactivated1 06/25/18 Recorded influenza virus vaccine, inactivated2 08/10/10 Given influenza virus vaccine, inactivated3 08/05/09 Given influenza virus vaccine, inactivated4 06/15/09 Given influenza virus vaccine, inactivated5 07/14/08 Given Hx influenza vaccine-unspecified6 06/25/17 Recorded Hx influenza vaccine-unspecified7 07/09/13 Given pneumococcal 23-valent vaccine 03/22/13 Given 1Location History: Dialysis center 2Result Comment: fluvirin preservative free (>3 yrs.) [[id number]]. Migrated from OBS ; [facility]. 3Result Comment: fluvirin preservative free (>3 yrs.) [[id number]]. Migrated from OBS ; Data migrated from [employer] on 10/27/2015. 4Result Comment: fluvirin preservative free (>3 yrs.) [[id number]]. Migrated from OBS ; Data migrated from [employer] on 10/27/2015. 5Result Comment: fluvirin preservative free (>3 yrs.) [[id number]]. Migrated from OBS ; Data migrated from [employer] on 10/27/2015. 6Location History: [facility] 7Result Comment: done @ dialysis. Migrated from OBS ; Data migrated from [employer] on 10/27/2015. Procedures Procedure Date Related Diagnosis Body Site Status Influenza vaccination 06/25/18 Completed Echocardiography1 01/24/18 Completed Screening for malignant neoplasm of prostate2 12/20/17 Completed Thrombectomy of arteriovenous fistula3 12/12/17 Completed Amputation lesser toe4 11/08/17 Completed Amputation lesser toe5 11/08/17 Completed Amputation lesser toe2016 Completed Diabetic retinal eye exam 2016 Completed Echocardiogram7 07/27/16 Completed Myocardial perfusion scan8 07/27/16 Completed Colonoscopy9 01/29/14 Completed AV - Creation of arteriovenous kkvatiz26 03/25/13 Completed Pneumococcal [id number] 03/22/13 Completed Amputation great toe12 Completed Cataract extraction and insertion of Completed intraocular lens Insertion of dialysis catheter into femoral Completed vein 1EF: 55-60% 2PSA: 1.29 3PREOPERATIVE DIAGNOSIS: 1. End-stage renal disease 2. Thrombosis of right brachiocephalic AV fistula POSTOPERATIVE DIAGNOSIS: 1. End-stage renal disease 2. Thrombosis of right brachiocephalic AV fistula OPERATION: 1. Open thrombectomy of right brachiocephalic AV fistula 2. Upper extremity fistulogram 3. Balloon angioplasty and stenting of right subclavian vein 4. Open thrombectomy of brachial artery 4right foot 5PREOPERATIVE DIAGNOSIS: Gangrene, right fourth toe. POSTOPERATIVE DIAGNOSES: Gangrene, right fourth toe. PROCEDURE PERFORMED: Amputation, right fourth toe. PATHOLOGY: 1. Amputated fourth toe sent for pathological analysis. 2. Deep wound culture swab for culture and sensitivity. 6Right foot 7EF: 55-60%, LV size and systolic function normal 8Normal perfusion imaging with no evidence of stress induced ischemia 9polyps, repeat in 3 years 10PREOPERATIVE DIAGNOSIS: End-stage renal disease. POSTOPERATIVE DIAGNOSIS: End-stage renal disease. OPERATION: Creation of right brachiocephalic arteriovenous fistula. 11Pneumovax 12left foot Social History Social History Type Response [...] Reg Smoking Cessation Counseling No entered on: 11/24/18 Assessment and Plan Extracted from: Title: Clinical Document Author: Caitlyn Dominguez MD Date: 11/25/18 Progress Note - Daily [facility] Completed: Nov, 12:50 by Caitlyn Dominguez MD RM: CCDU - 05, SE CCDUJARAMILLO ASHOK [id number] (: 1955) Attending: Vamshi Thompsonhone: service: Internal Medicine Reason for Admission: SYNCOPE,ESRD(END STAGE RENAL DISEASE) ON DIALYSIS Working DRG: Code status: None Specified=FULL CODECurrent diet: Isolation: No Isolation/Standard Precautions Allergies: NKDA SUBJECTIVE Chart reviewed and events noted. No weakness, change of sensation loss of vision, diplopia OBJECTIVE 24hr Labs 11/25 0839 POC Performing LocatioSee Note Glucose OIV876 H 11/25 0312 Glucose Xck868 H BUN44 H Creatinine Lvl8.08 H Sodium Fpa058 L Potassium Lvl4.6 Chloride Lvl91 L CO233 H AGAP11.6 Calcium Lvl9.1 eGFR6 Total Protein7.4 Albumin Lvl2.9 L Bili Total0.6 Bili Direct0.1 Bili Indirect0.5 Alk Phos87 AST12 ALT23 Globulin4.5 H A/G Ratio0.6 L Troponin-I<0.02 TSH1.580 Hgb A1C7.9 H WBC9.7 RBC3.91 L Hgb12.5 L Hct36.6 L MCV93.6 MCH32.0 H MCHC34.2 RDW13.2 Zxevgred720 MPV7.0 L Segs74.1 Monocytes8.9 Jbjjtvuwoav07.0 L Eosinophils3.3 Basophils0.7 Neutrophils #7.2 Lymphocytes #1.3 Monocytes #0.9 H Eosinophils #0.3 Basophils #0.1 11/24 2049 POC Performing LocatioSee Note Glucose CQW022 H 11/24 1806 Troponin-I<0.02 11/24 1701 POC Performing LocatioSee Note Glucose SVX389 H 11/24 1547 POC Performing LocatioSee Note Glucose FKS321 H Krishnamurthy still necessary (Yes/No): Line still necessary (Yes/No): VitalsTmp(F)ZncjlUMDSSdH8IYB7 11/25 11:4198.451094/266449--- 11/25 07:179577306/392490--- 11/25 03:1798.810479/340839--- 11/24 23:1898.801009/620970--- 11/24 19:5798.714888/832831--- 24 Hr Tmax: 99F (37.22c) at 11/25 07:35Vital Signs are the last 5 in the past 48 hours. DateWt(kg)Wt(lb)Ht(cm)Ht(in)Method 11/24 (initial) 79.55 175.00Estimated 62.56 64.00Stated I&ORecordInOutBal 0324hr Tot 0 0 0 /0224hr Tot 1 0 1 NADER Neck exam: supple and mobile. Skull and spine: Good range of motion. Straight Leg Raise Left: negative Straight Leg Raise Right: negative Spurling: negative SKULL AND SPINE Good range of motion. No pain on palpation. MENTAL STATUS Consciousness: Awake and alert. Orientation: The patient is oriented to person, place, time. Affect: Normal for situation. CRANIAL NERVES CN II (Optic Nerve): Pupils: Equal and reactive to light bilaterally. CN III, IV, : Extraocular movements are full and without nystagmus. CN V: Facial sensation is normal. CN VII: Facial motion is normal. CN VIII: Hearing is intact to finger rub bilaterally. CN IX, X: The palate elevates in the midline. CN XI: Shoulder shrug is symmetrical. CN XII: The tongue protrudes in the midline. MOTOR Bulk: Normal bulk. Tone: Normal tone in upper and lower extremities bilaterally. Fasciculations: There are no fasciculations noted. Effort: Effort appears to be normal. STRENGTH Upper Extremity Strength 5/5 in both sides Lower Extremity Strength 5/5 in both sides SENSORY diminished below the ankle . REFLEXES trace Babinski (R): Down / (L): Down GAIT nl Medications (23) Active Scheduled Meds (6): 11/25/18 amLODIPine 10 mg PO Daily 11/25/18 aspirin 81 mg PO Every Other Day 11/24/18 carvedilol 12.5 mg PO Q12H 11/25/18 furosemide (furosemide 40 mg oral tablet) 40 mg PO Breakfast 11/24/18 insulin glargine 58 unit SUB-Q Q12H 0 ml/hr 11/24/18 pravastatin 40 mg PO Bedtime Unscheduled Meds (1): 11/24/18 pneumococcal 13-valent vaccine 0.5 mL IM ONCALL PRN Meds (16): 11/24/18 Dextrose 50% in Water IV (Dextrose 50% Syringe) 12.5 gm IVP PRN 11/24/18 Dextrose 50% in Water IV (Dextrose 50% Syringe) 25 gm IVP PRN 11/24/18 acetaminophen (Tylenol) 650 mg PO Q6H 11/24/18 cloNIDine 0.1 mg PO Q6H 11/24/18 glucagon 1 mg IM PRN 11/24/18 insulin lispro 2 unit SUB-Q TID-Before Meals 11/24/18 insulin lispro 4 unit SUB-Q TID-Before Meals 11/24/18 insulin lispro 6 unit SUB-Q TID-Before Meals 11/24/18 insulin lispro 8 unit SUB-Q TID-Before Meals 11/24/18 insulin lispro 10 unit SUB-Q TID-Before Meals 11/24/18 insulin lispro 1 unit SUB-Q Bedtime 11/24/18 insulin lispro 2 unit SUB-Q Bedtime 11/24/18 insulin lispro 3 unit SUB-Q Bedtime 11/24/18 insulin lispro 4 unit SUB-Q Bedtime 11/24/18 morphine Sulfate 2 mg IVP Q4H 11/24/18 sodium chloride (Saline Flush 0.9%) 5 ml IVP PRN ASSESSMENT Syncope Hypertension. Diabetes. Mixed hyperlipidemia. nemia. End-stage renal disease on dialysis. Obesity. Chronic diastolic heart failure. PLAN: _ MRI OF BRAIN MRA of brain and neck Follow phlebotomist associate recommendation IF MRA Negative OK to be discharged PLAN
--- OUTSIDE RECORDS SUMMARY | 2018-12-28 11:06 | XMS REPORT | Summary of Care ---
Author Author [facility] Organization [facility] Address Unknown Phone Unavailable Encounter LUÍS Jeter(FIN) [id number] Date(s): 10/12/17 - 10/13/17 [facility] [address], [address] [place] [address]- [phone] Vital Signs No data available for this section Problem List Condition Effective Dates Status Health [...] Substance Reaction Severity Status NKDA Active Medications Lovaza oral capsule 2,000 mg=2 cap, PO, BID, X 90 day, # 360 cap, 1 Refill(s), Pharmacy: [id number] Start Date: 10/12/17 Stop Date: 10/12/17 Status: Completed Lovaza oral capsule 2,000 mg=2 cap, PO, BID, # 360 cap, 1 Refill(s), Pharmacy: [id number] Start Date: 10/12/17 Stop Date: 04/10/18 Status: Ordered Results No data available for this section Immunizations Given and Recorded Vaccine Date Status Refusal Reason Hx influenza vaccine-unspecified1 06/25/17 Recorded Hx influenza vaccine-unspecified2 07/09/13 Given pneumococcal 23-valent vaccine 03/22/13 Given influenza virus vaccine, inactivated3 08/10/10 Given influenza virus vaccine, inactivated4 08/05/09 Given influenza virus vaccine, inactivated5 06/15/09 Given influenza virus vaccine, inactivated6 07/14/08 Given 1Location History: [facility] 2Result Comment: done @ dialysis. Migrated from OBS ; Data migrated from [employer] on 10/27/2015. 3Result Comment: fluvirin preservative free (>3 yrs.) [[id number]]. Migrated from OBS ; Data migrated from [employer] on 10/27/2015. 4Result Comment: fluvirin preservative free (>3 yrs.) [[id number]]. Migrated from OBS ; Data migrated from [employer] on 10/27/2015. 5Result Comment: fluvirin preservative free (>3 yrs.) [[id number]]. Migrated from OBS ; Data migrated from [employer] on 10/27/2015. 6Result Comment: fluvirin preservative free (>3 yrs.) [[id number]]. Migrated from OBS ; Data migrated from [employer] on 10/27/2015. Procedures Procedure Date Related Diagnosis [...]
--- OUTSIDE RECORDS SUMMARY | 2018-12-28 11:06 | XMS REPORT | Continuity of Care Document ---
Author Author [facility] Interface Address Unknown Phone Unavailable Problems Problem Status Onset Date Classification Date Reported Comments Source SYNCOPE,ESRD(END STAGE RENAL DISEASE) ON Active 11/24/2018 [facility] SYNCOPE Active 11/24/2018 [facility] ACUTE HYPERKALEMIA, ESRD ON DIALYSIS, CL Active 02/18/2018 [facility] WEAKNESS Active 02/18/2018 [facility] Thrombosis due to vascular prosthetic devices, implants and grafts, initial encounter 12/21/2017 03/22/2018 [facility] UNK Active 12/12/2017 [facility] PORT ISSUES Active 12/09/2017 [facility] AV FISTULA THROMBOSIS Active 12/09/2017 [facility] Type 2 diabetes mellitus with diabetic peripheral angiopathy with gangrene 11/21/2017 02/14/2018 [facility] N/A Active 11/06/2017 [facility] K31.84 Active 11/30/2016 [facility] DX: [id number], NOT ELSEWHERE CLASSIFI Active 11/21/2016 [facility] DM (<span ID="[id number]">Confirmed</span>) Resolved 09/28/2016 Problem 11/26/2016 [facility] HTN (<span ID="[id number]">Confirmed</span>) Resolved 09/28/2016 Problem 11/26/2016 [facility] Discharge Diagnosis: Acute cystitis 07/28/2016 07/31/2016 [facility] BLOOD IN URINE Active 07/26/2016 [facility] Discharge Diagnosis: Hydronephrosis 03/05/2015 03/08/2015 [facility] Discharge Diagnosis: Nephrolithiasis 03/05/2015 03/08/2015 [facility] FLANK PAIN Active 03/04/2015 [facility] Ventricular premature beats<sup>6, 7</sup> Active 01/12/2015 Problem 12/07/2018 Data migrated from Rain on 02/24/15. [facility] Vitamin D deficiency<sup>8, 9</sup> Active 01/12/2015 Problem 12/07/2018 Data migrated from [employer] on 02/24/15. [facility] Screening for malignant neoplasm of prostate<sup>11</sup> Active 01/12/2015 Problem 03/08/2015 11Data migrated from [employer] on 02/24/15. [facility] Ventricular premature beats<sup>12</sup> Active 01/12/2015 Problem 03/08/2015 12Data migrated from [employer] on 02/24/15. [facility] Vitamin D deficiency<sup>13</sup> Active 01/12/2015 Problem 03/08/2015 13Data migrated from [employer] on 02/24/15. [facility] Body mass index 30+ - obesity<sup>2</sup> Active 01/06/2014 Problem 12/07/2018 Data migrated from [employer] on 02/21/15. [facility] Obesity<sup>10</sup> Active 01/06/2014 Problem 03/08/2015 10Data migrated from [employer] on 02/21/15. [facility] HBP Active 11/04/2013 [facility] CHEST PAIN Active 11/04/2013 [facility] COUGH/ HIGH BLOOD PRESSURE Active 10/13/2013 [facility] Impotence of organic origin<sup>7</sup> Active 10/07/2013 Problem 03/08/2015 7Data migrated from [employer] on 02/21/15. [facility] FLU-LIKE SYMPTOMS Active 10/03/2013 [facility] RT BACK PAIN Active 08/28/2013 [facility] Hemodialysis-associated hypotension<sup>4</sup> Active 04/29/2013 Problem 12/07/2018 Data migrated from [employer] on 02/21/15. [facility] Hemodialysis-associated hypotension<sup>6</sup> Active 04/29/2013 Problem 03/08/2015 6Data migrated from [employer] on 02/21/15. [facility] Anemia secondary to renal failure<sup>1</sup> Active 04/05/2013 Problem 12/07/2018 Data migrated from [employer] on 02/21/15. [facility] End stage renal disease<sup>5</sup> Active 04/05/2013 Problem 03/08/2015 5Data migrated from [employer] on 02/21/15. [facility] NEW ONSET RENAL FAILURE,SERVE HYPERKALEM Active 03/21/2013 [facility] WEAKNESS, FATIQUE Active 03/21/2013 [facility] Congestive cardiomyopathy<sup>3</sup> Active 03/20/2013 Problem 12/07/2018 Data migrated from [employer] on 02/21/15. [facility] Mixed hyperlipidemia<sup>5</sup> Active 03/20/2013 Problem 12/07/2018 Data migrated from [employer] on 02/21/15. [facility] Diabetic renal disease<sup>4</sup> Active 03/20/2013 Problem 03/08/2015 4Data migrated from [employer] on 02/21/15. [facility] Long-term drug therapy<sup>8</sup> Active 03/20/2013 Problem 03/08/2015 8Data migrated from [employer] on 02/21/15. [facility] Mixed hyperlipidemia<sup>9</sup> Active 03/20/2013 Problem 03/08/2015 9Data migrated from [employer] on 02/21/15. [facility] CVA Resolved 09/25/2006 Problem 10/06/2013 [facility] CVA Resolved 09/25/2006 Problem 11/08/2013 [facility] CVA (<span ID="[id number]">Confirmed</span>) Resolved 09/25/2006 Problem 03/08/2015 [facility] CRI Active Problem 11/08/2013 [facility] DM - Diabetes mellitus Active Problem 03/08/2015 [facility] ESRD - End stage renal disease Active Problem 03/08/2015 [facility] Hyperlipidemia Active Problem 03/08/2015 [facility] Hypertension Active Problem 03/08/2015 [facility] DM - Diabetes mellitus Active Problem 03/29/2013 [facility] ESRD - End stage renal disease Active Problem 03/29/2013 [facility] Hyperlipidemia Active Problem 03/29/2013 [facility] Hypertension Active Problem 03/29/2013 [facility] Abdominal bloating Active Problem 12/07/2018 [facility] Benign hypertensive heart and kidney disease and end stage renal disease Active Problem 12/07/2018 [facility] Decreased hearing of left ear Active Problem 12/07/2018 [facility] Hemodialysis status Active Problem 12/07/2018 [facility] Diabetic ulcer of right fifth toe Resolved Problem 12/07/2018 [facility] Noncompliance Active Problem 12/07/2018 [facility] ESRD (<span ID="[id number]">Confirmed</span>) Active Problem 12/07/2018 [facility] Gastroparesis Active Problem 12/07/2018 [facility] Gustatory hyperhidrosis Active Problem 12/07/2018 [facility] History of gangrene Active Problem 12/07/2018 [facility] Long-term insulin use Active Problem 12/07/2018 [facility] Status post amputation of lesser toe of right foot Active Problem 12/07/2018 [facility] History of stroke without residual deficits Active Problem 12/07/2018 [facility] History of colonic polyps Active Problem 12/07/2018 [facility] Medicare annual wellness visit, subsequent Active Problem 12/07/2018 [facility] Full dentures Active Problem 03/28/2018 [facility] Screening for colon cancer Active Problem 12/07/2018 [facility] Screening for prostate cancer Active Problem 03/28/2018 [facility] Type 2 diabetes mellitus with autonomic neuropathy Active Problem 12/07/2018 [facility] Type 2 diabetes mellitus with ESRD (<span ID="[id number]">Confirmed</span>) Active Problem 03/28/2018 [facility] Type 2 diabetes mellitus with hyperglycemia Active Problem 03/28/2018 [facility] Oliguria Active Problem 12/07/2018 [facility] ESRD on hemodialysis Active Problem 09/14/2017 [facility] Dialysis patient Active Problem 11/26/2016 [facility] ESRD (<span ID="[id number]">Confirmed</span>) Active Problem 11/26/2016 [facility] Gangrene, not elsewhere classified 02/14/2018 [facility] Type 2 diabetes mellitus with foot ulcer 02/14/2018 [facility] Non-pressure chronic ulcer of other part of right foot with necrosis of bone 02/14/2018 [facility] Hypertensive chronic kidney disease with stage 5 chronic kidney disease or end stage renal disease 02/14/2018 [facility] Hyperlipidemia, unspecified 02/14/2018 [facility] CRI (<span ID="[id number]">Confirmed</span>) Active Problem 03/08/2015 [facility] Breakdown of surgically created arteriovenous fistula, initial encounter 03/19/2018 [facility] Hypertensive heart and chronic kidney disease with heart failure and with stage 5 chronic kidney disease, or end stage renal disease 03/22/2018 [facility] Chronic diastolic heart failure 03/22/2018 [facility] End stage renal disease 03/22/2018 [facility] Type 2 diabetes mellitus with diabetic chronic kidney disease 03/22/2018 [facility] Dependence on renal dialysis 03/22/2018 [facility] Hyperkalemia 03/19/2018 [facility] Mixed hyperlipidemia 03/19/2018 [facility] Anemia in chronic kidney disease 03/19/2018 [facility] Dilated cardiomyopathy 03/19/2018 [facility] Personal history of transient ischemic attack , and cerebral infarction without residual deficits 03/19/2018 [facility] detention use of insulin 03/22/2018 [facility] Obesity, unspecified 03/19/2018 [facility] Body mass index 30.0-30.9, adult 03/19/2018 [facility] Diabetic hypoglycemia Resolved Problem 12/07/2018 [facility] ED (<span ID="[id number]">Confirmed</span>) Active Problem 12/07/2018 [facility] Sebaceous cyst Active Problem 12/07/2018 [facility] Hammertoe of right foot Active Problem 12/07/2018 [facility] Type 2 diabetes mellitus with hyperglycemia Active Problem 12/07/2018 [facility] Preoperative clearance Active Problem 12/07/2018 [facility] Type 2 diabetes mellitus with ESRD (<span ID="[id number]">Confirmed</span>) Active Problem 12/07/2018 [facility] Syncope Active Problem 12/07/[facility] RENAL FAILURE NOS Active [facility] GANGRENE, NOT ELSEWHERE CLASSIFIED Active [facility] GASTROPARESIS Active [facility] SYNCOPE AND COLLAPSE Active [facility] END STAGE RENAL DISEASE Active [facility] 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 ( Same As: Ecotrin) Inactive 11/25/2018 [facility] Amlodipine 10 mg, 2 tab, Route: PO, Drug form: TAB, Daily, Dosing Weight 82.273, kg, Start date: 11/25/18 9:00:00 [employer], Duration: 30 day, Stop date: 12/24/18 9:00:00 CDTNotes: (Same as: Norvasc) Inactive 11/25/2018 [facility] Levemir 58 unit, Route: SUB-Q, Drug form: SOLN, BID, Dosing Weight 82.273, kg, Start date: 11/25/18 9:00:00 [employer], Duration: 30 day, Stop date: 12/24/18 17:00:00 CDT No Longer Active 11/25/2018 [facility] Furosemide 40 MG Oral Tablet 40 mg, 1 tab, Route: PO, Drug form: TAB, Breakfast, Dosing Weight 82.273, kg, Start date: 11/25/18 8:00:00 [employer], Duration: 30 day, Stop date: 12/24/18 8:00:00 CDTNotes: (Same as: Lasix) May cause GI upset. Give with food or milk. Inactive 11/25/2018 [facility] carvedilol 12.5 mg, 1 tab, Route: PO, Drug form: TAB, Q12H, Dosing Weight 82.273, kg, Start date: 11/24/18 21:00:00 [employer], Duration: 30 day, Stop date: 12/24/18 9:00:00 CDTNotes: Give with food. (Same As: Coreg) No Longer Active 11/25/2018 [facility] insulin glargine 58 unit, 0.58 mL, Route: SUB-Q, Drug form: SOLN, Q12H, Start date: 11/24/18 21:00:00 [employer], Duration: 30 day, Stop date: 12/24/18 9:00:00 CDTNotes: (Same as: Lantus) Do not hold insulin without contact ing prescriber WASTE: F/P - Black; E - Municipal Trash Bin "single patient use only" No Longer Active 11/25/2018 [facility] Pravastatin 40 mg, 2 tab, Route: PO, Drug form: TAB, Bedtime, Dosing Weight 82.273, kg, Start date: 11/24/18 21:00:00 [employer], Duration: 30 day, Stop date: 12/23/18 21:00:00 CDTNotes: (Same as: Pravachol) No Longer Active 11/25/2018 [facility] Clonidine 0.1 mg, 1 tab, Route: PO, Drug form: TAB, Q6H, Dosing Weight 82.273, kg, PRN Elevated BP, Start date: 11/24/18 17:55:00 [employer], Duration: 30 day, Stop date: 12/24/18 17:54:00 CDTNotes: (Same As: Catapres) No Longer Active 11/24/2018 [facility] Streptococcus pneumoniae serotype 1 capsular antigen diphtheria [id number] protein conjugate vaccine / Streptococcus pneumoniae serotype 14 capsular antigen diphtheria [id number] protein conjugate vaccine / Streptococcus pneumoniae serotype 18C capsular antigen d 0.5 mL, Route: IM, Drug Form: INJ, ONCALL, Start date: 11/24/18 17:11:15 [employer], Stop date: 12/24/18 17:06:15 CDTNotes: Shake well prior to use (Same as: Prevnar 13) No Longer Active 11/24/2018 [facility] Morphine 2 mg, 1 mL, Route: IVP, Drug form: SOLN, Q4H, Dosing Weight 82.273, kg, PRN Pain Score 7-10, Start date: 11/24/18 17:03:00 [employer], Duration: 30 day, Stop date: 12/24/18 17:02:00 CDT No Longer Active 11/24/2018 [facility] Tylenol 650 mg, 2 tab, Route: PO, Drug form: TAB, Q6H, Dosing Weight 82.273, kg, PRN Pain 1-3/Temp > 100.4 F, Start date: 11/24/18 17:03:00 [employer], Duration: 30 day, Stop date: 12/24/18 17:02:00 CDTNotes: Do not exceed 4 gm/day. (Same as: Tylenol) No Longer Active 11/24/2018 [facility] Insulin Lispro 2 unit, 0.02 mL, Route: SUB-Q, Drug form: SOLN, TID-Before Meals, Dosing Weight 82.273, kg, PRN Blood Glucose Results, Start date: 11/24/18 17:03:00 [employer], Duration: 30 day, Stop date: 12/24/18 17:02:0 0 CDTNotes: (Same as: Humalog ) Roll in palms of hands gently; Do not shake `vigorously. "Single Patient Use Only " WASTE: F/P - Black; E - Municipal Trash Bin Stable for 28 days at room temperature. Expires in days from Date No Longer Active 11/24/2018 [facility] Dextrose 50% Syringe 25 gm, 50 mL, Route: IVP, Drug Form: INJ, Dosing Weight 82.273, kg, PRN, PRN Blood Glucose Results, Start date: 11/24/18 17:03:00 [employer], Duration: 30 day, Stop date: 12/24/18 18:02:00 CDT No Longer Active 11/24/2018 [facility] Glucagon 1 mg, Route: IM, Drug form: PDR/INJ, PRN, Dosing Weight 82.273, kg, PRN Blood Glucose Results, Start date: 11/24/18 17:03:00 [employer], Duration: 30 day, Stop date: 12/24/18 18:02:00 CDT No Longer Active 11/24/2018 [facility] Saline Flush 0.9% 5 ml, Route: IVP, Drug Form: INJ, Dosing Weight 82.273, kg, PRN, PRN Line Flush, Start date: 11/24/18 17:02:00 [employer], Duration: 30 day, Stop date: 12/24/18 18:01:00 CDTNotes: (Same as: BD Posiflush) No Longer Active 11/24/2018 [facility] insulin detemir 100 UNT/ML Injectable Solution [Levemir] 58 unit, SUB-Q, BID, 0 Refill(s) Active 11/24/2018 [facility] Aspirin 81 mg, PO, Every Other Day, 0 Refill(s) Active 11/24/2018 [facility] Saline Flush 0.9% 10 mL, Route: IVP, Drug Form: INJ, Dosing Weight 79.545, kg, PRN, PRN Line Flush, Start date: 11/24/18 11:43:00 [employer], Duration: 30 day, Stop date: 12/24/18 12:42:00 CDTNotes: (Same as: BD Posiflush) Inactive 11/24/2018 [facility] amLODIPine 10 mg oral tablet 10 mg=1 tab, PO, Daily, # 90 tab, 2 Refill(s), Pharmacy: [facility]/pharmacy #[id number] Active 11/10/2018 [facility] carvedilol 12.5 mg oral tablet 12.5 mg=1 tab, PO, BID, # 180 tab, 2 Refill(s), Pharmacy: [facility]/pharmacy #[id number] Active 11/10/2018 [facility] sildenafil 100 MG Oral Tablet [Viagra] 1/2 to 1 tablet, PO, Daily, PRN for erectile dysfunction, Take 30 minutes prior to intercourse, # 1 tab, 5 Refill(s) Active 03/21/[facility] Cefazolin 3 gm, Route: IV, QSat, Dosing Weight 81.364, kg, Start date: 02/24/18 17:00:00 CDT, Duration: 30 day, Stop date: 03/24/18 17:00:00 CDT, ABX Indication: BacteremiaNotes: (Same As: Ancef, Kefzol) M EDICATION WASTE Product Size: 1000 mg Product Wasted: ___ mg No Longer Active 02/24/2018 [facility] Cefazolin 2 gm, Route: IV, Q- and , Dosing Weight 81.364, kg, Start date: 02/22/18 17:00:00 CDT, Duration: 30 day, Stop date: 03/22/18 17:00:00 CDT, ABX Indication: BacteremiaNotes: (Same As: Ancef, Kefzol) MEDICATION WASTE Product Size: 1000 mg Product Wasted: ___ mg Inactive 02/22/2018 [facility] Cefazolin 1 gm, Route: IV, ONCE, Dosing Weight 81.364, kg, Start date: 02/21/18 21:00:00 CDT, Stop date: 02/21/18 21:00:00 CDT, ABX Indication: BacteremiaNotes: (Same As: Ancef, Kefzol) MEDICATION WASTE * Product Size: 1000 mg Product Wasted: ___ mg Inactive 02/22/2018 [facility] vancomycin + Dextrose 5% in Water IV 250 mL 1,000 mg, Route: IVPB, , gram pos cocci in clusters., Start date: 02/20/18 17:00:00 CDT, Duration: 30 day, Stop date: 03/20/18 17:00:00 CDT, ABX Indication: Open Wound ProphylaxisNotes: TIME CRITICAL MEDICATION (Same As: Vancocin) Infusion rate 2001 mg: infuse over 2.5 hours For adult patients only: Round to nearest 250 mg per Medical Staff approval MEDICATION WASTE Product Size: 1000 mg Product Wasted: ___ mg No Longer Active 02/20/2018 [facility] Nephro-Jeromy Rx 1 tab, Route: PO, Drug Form: TAB, Dosing Weight 81.364, kg, Daily, Start date: 02/20/18 9:00:00 CDT, Duration: 30 day, Stop date: 03/21/18 9:00:00 CDTNotes: (Same as: Nephro-Jeromy Rx and Diatx) Give with food. No Longer Active 02/20/2018 [facility] Furosemide 40 MG Oral Tablet 40 mg, 1 tab, Route: PO, Drug form: TAB, Daily, Dosing Weight 81.364, kg, Start date: 02/20/18 9:00:00 CDT, Duration: 30 day, Stop date: 03/21/18 9:00:00 CDTNotes: (Same as: Lasix) May cause GI upset. Give with food or milk. No Longer Active 02/20/2018 [facility] Vitamin D3 2000 intl units oral tablet 2,000 IntlUnit, 2 tab, Route: PO, Drug form: TAB, Daily, Dosing Weight 81.364, kg, Start date: 02/20/18 9:00:00 CDT, Duration: 30 day, Stop date: 03/21/18 9:00:00 CDTNotes: Same as : Vitamin D3 No Longer Active 02/20/2018 [facility] Amlodipine 10 mg, 2 tab, Route: PO, Drug form: TAB, Daily, Dosing Weight 81.364, kg, Start date: 02/20/18 9:00:00 CDT, Duration: 30 day, Stop date: 03/21/18 9:00:00 CDTNotes: (Same as: Norvasc) No Longer Active 02/20/2018 [facility] Pravastatin 40 mg, 2 tab, Route: PO, Drug form: TAB, Bedtime, Dosing Weight 81.364, kg, Start date: 02/19/18 21:00:00 CDT, Duration: 30 day, Stop date: 03/20/18 21:00:00 CDTNotes: (Same as: Pravachol) No Longer Active 02/20/2018 [facility] carvedilol 12.5 mg, 1 tab, Route: PO, Drug form: TAB, BID, Dosing Weight 81.364, kg, Start date: 02/19/18 21:00:00 CDT, Duration: 30 day, Stop date: 03/21/18 9:00:00 CDTNotes: Give with food. (Same As: Coreg) No Longer Active 02/20/2018 [facility] Vancomycin 1 gm, Route: IV, ONCE, Dosing Weight 81.364, kg, Priority: NOW, Start date: 02/19/18 19:17:00 CDT, Stop date: 02/19/18 19:17:00 CDT, ABX Indication: Other (specify in Comments)Notes: TIME CRITICAL ME DICATION (Same As: Vancocin) Infusion rate 2001 mg: infuse over 2.5 hours For adult patients only: Round to nearest 250 mg per Medical Staff approval MEDICATION WASTE Product Size: 1000 mg Product Wasted: ___ mg Inactive 02/20/2018 [facility] insulin glargine 57 unit, 0.57 mL, Route: SUB-Q, Drug form: SOLN, BID, Start date: 02/19/18 18:00:00 CDT, Duration: 30 day, Stop date: 03/21/18 17:00:00 CDTNotes: (Same as: Lantus) Do not hold insulin without contacting prescriber WASTE: F/P - Black; E - Municipal Trash Bin "single patient use only" No Longer Active 02/19/2018 [facility] [place]-3 Acid Ethyl Esters ([facility]) 1000 MG Oral Capsule [Lovaza] 2,000 mg, 2 cap, Route: PO, Drug Form: CAP, Dosing Weight 81.364, kg, BID, Start date: 02/19/18 17:00:00 CDT, Duration: 30 day, Stop date: 03/21/18 9:00:00 CDTNotes: (Same as: MaxEPA, [place] 3 fish oil ) Non-Formulary Drug No Longer Active 02/19/2018 [facility] Levemir FlexPen 57 unit, Route: SUB-Q, Drug form: SOLN, BID, Dosing Weight 81.364, kg, Start date: 02/19/18 17:00:00 CDT, Duration: 30 day, Stop date: 03/21/18 9:00:00 CDT Inactive 02/19/2018 [facility] Calcium Carbonate 1,500 mg, 3 tab, Route: CHEW, Drug form: CHEWTAB, Before Meals & Bedtime, Dosing Weight 81.364, kg, PRN Indigestion, Start date: 02/19/18 13:28:00 CDT, Duration: 30 day, Stop date: 03/21/18 13:27:00 CDTNotes: (Same As: Tums) Calcium Carbonate 500 hn=772 mg elemental calcium Dose= mg calcium carbonate ( mg elemental calcium) No Longer Active 02/19/2018 [facility] Tylenol 650 mg, 2 tab, Route: PO, Drug form: TAB, Q4H, Dosing Weight 81.364, kg, PRN For Temp > 100.4 F, Start date: 02/19/18 10:47:00 CDT, Duration: 30 day, Stop date: 03/21/18 10:46:00 CDT, temperatureNotes: Do not exceed 4 gm/day. (Same as: Tylenol) No Longer Active 02/19/2018 [facility] Insulin Lispro 4 unit, 0.04 mL, Route: SUB-Q, Drug form: SOLN, TID-Before Meals, Dosing Weight 81.364, kg, PRN Blood Glucose Results, Start date: 02/18/18 23:09:00 CDT, Duration: 30 day, Stop date: 03/20/18 23:08:0 0 CDTNotes: (Same as: Humalog ) Roll in palms of hands gently; Do not shake `vigorously. "Single Patient Use Only " WASTE: F/P - Black; E - Municipal Trash Bin Stable for 28 days at room temperature. Expires in days from Date No Longer Active 02/19/2018 [facility] Glucagon 1 mg, Route: IM, Drug form: PDR/INJ, PRN, Dosing Weight 81.364, kg, PRN Blood Glucose Results, Start date: 02/18/18 23:09:00 CDT, Duration: 30 day, Stop date: 03/20/18 23:08:00 CDT No Longer Active 02/19/2018 [facility] Dextrose 50% Syringe 25 gm, 50 mL, Route: IVP, Drug Form: INJ, Dosing Weight 81.364, kg, PRN, PRN Blood Glucose Results, Start date: 02/18/18 23:09:00 CDT, Duration: 30 day, Stop date: 03/20/18 23:08:00 CDT No Longer Active 02/19/2018 [facility] Kayexalate 60 gm, 240 mL, Route: PO, Drug form: SUSP, ONCE, Dosing Weight 81.364, kg, Start date: 02/18/18 23:09:00 CDT, Stop date: 02/18/18 23:09:00 CDTNotes: (sodium polystyrene sulfonate 15 gm/60 ml DAILY) Sh paul well before use. (Same as: Kayexalate, SPS) Inactive 02/19/2018 [facility] Sodium Bicarbonate 50 mEq, 50 mL, Route: IV, Drug form: INJ, ONCE, Dosing Weight 81.364, kg, Start date: 02/18/18 23:06:00 CDT, Stop date: 02/18/18 23:06:00 CDTNotes: (sodium bicarb 8.4% (1 mEq/ml) 50 ml syringe) No Longer Active 02/19/2018 [facility] d50 syringe 25 gm, 50 mL, Route: IV, Drug Form: INJ, Dosing Weight 81.364, kg, ONCE, Start date: 02/18/18 23:05:00 CDT, Stop date: 02/18/18 23:05:00 CDT Inactive 02/19/2018 [facility] Insulin regular 10 unit, 0.1 mL, Route: IV, Drug form: INJ, ONCE, Dosing Weight 81.364, kg, Start date: 02/18/18 23:03:00 CDT, Stop date: 02/18/18 23:03:00 CDTNotes: (Same as: Humulin R and NovoLIN R) WASTE: F/P - Black; E - Municipal Trash Bin (Do not shake) Inactive 02/19/2018 [facility] Ceftriaxone 1 gm, Route: IV, [id number], Dosing Weight 81.364, kg, Start date: 02/18/18 23:00:00 CDT, Duration: 7 day, Stop date: 02/24/18 23:00:00 CDT, ABX Indication: PneumoniaNotes: (Same As: Rocephin). Use with 100 mL NS and infuse over 30 min MEDICATION WASTE Product Size: 1000 mg Product Wasted: ___ mg No Longer Active 02/19/2018 [facility] calcium gluconate 1 gm, 50 mL, Route: IV, Drug form: INJ, Q30Min, Dosing Weight 81.364, kg, Start date: 02/18/18 17:30:00 CDT, Duration: 2 doses or times, Stop date: 02/18/18 18:00:00 CDTNotes: WASTE: F/P - Sink; E - Municipal Trash Bin Inactive 02/18/2018 [facility] Sodium polystyrene sulfonate 30 gm, 120 mL, Route: PO, Drug form: SUSP, ONCE, Dosing Weight 81.364, kg, Start date: 02/18/18 16:51:00 CDT, Stop date: 02/18/18 16:51:00 CDTNotes: (sodium polystyrene sulfonate 15 gm/60 ml DAILY) Shake well before use. (Same as: Kayexalate, SPS) Inactive 02/18/2018 [facility] Calcium Gluconate 2 gm, 20 mL, Route: IV, ONCE, Dosing Weight 81.364, kg, Start date: 02/18/18 16:51:00 CDT, Stop date: 02/18/18 16:51:00 CDTNotes: WASTE: F/P - Sink; E - Municipal Trash Bin Inactive 02/18/2018 [facility] Insulin regular 5 unit, 0.05 mL, Route: IVP, Drug form: INJ, ONCE, Dosing Weight 81.364, kg, Start date: 02/18/18 16:51:00 CDT, Stop date: 02/18/18 16:51:00 CDTNotes: (Same as: Humulin R and NovoLIN R) WASTE: F/P - Black; E - Municipal Trash Bin (Do not shake) Inactive 02/18/2018 [facility] Dextrose 50% Syringe 25 gm, 50 mL, Route: IVP, Drug Form: INJ, Dosing Weight 81.364, kg, ONCE, Start date: 02/18/18 16:51:00 CDT, Stop date: 02/18/18 16:51:00 CDT Inactive 02/18/2018 [facility] Tylenol 975 mg, 3 tab, Route: PO, Drug form: TAB, ONCE, Dosing Weight 81.364, kg, Priority: STAT, Start date: 02/18/18 15:37:00 CDT, Stop date: 02/18/18 15:37:00 CDTNotes: Do not exceed 4 gm/day. (Same as: Tylenol) Inactive 02/18/2018 [facility] cefepime 2 gm, Route: IVP, ONCE, Dosing Weight 81.364, kg, Priority: STAT, Start date: 02/18/18 15:06:00 CDT, Stop date: 02/18/18 15:06:00 CDT, ABX Indication: Intra-abdominal InfectionNotes: (Same as: Dougie strange) MEDICATION WASTE Product Size: 2000 mg Product Wasted: ___ mg Inactive 02/18/2018 [facility] Vancomycin 1,000 mg, Route: IVPB, Drug form: INJ, ONCE, Dosing Weight 81.364, kg, Time Critical Medication, Priority: STAT, Start date: 02/18/18 15:06:00 CDT, Stop date: 02/18/18 15:06:00 CDT, ABX Indication: Intra- abdominal InfectionNotes: TIME CRITICAL MEDICATION (Same As: Vancocin) Infusion rate 2001 mg: infuse over 2.5 hours For adult patients only: Round to nearest 250 mg per Medical Staff approval MEDICATION WASTE Product Size: 1000 mg Product Wasted: ___ mg Inactive 02/18/2018 [facility] Saline Flush 0.9% 10 mL, Route: IVP, Drug Form: INJ, Dosing Weight 81.364, kg, PRN, PRN Line Flush, Start date: 02/18/18 15:06:00 CDT, Duration: 30 day, Stop date: 03/20/18 15:05:00 CDTNotes: (Same as: BD Posiflush) No Longer Active 02/18/2018 [facility] Ondansetron 4 mg, 2 mL, Route: IVP, Drug form: INJ, ONCE, Dosing Weight 81.364, kg, Priority: STAT, Start date: 02/18/18 13:29:00 CDT, Stop date: 02/18/18 13:29:00 CDTNotes: (Same as: Zofran) MEDICATION WASTE Product Size: 4 mg Product Wasted: ___ mg Inactive 02/18/2018 [facility] Sodium Chloride 0.9% (Bolus) IV 1,000 mL, 1000 ml/hr, Infuse Over: 1 hr, Route: IV, 1,000, Drug form: INJ, ONCE, Priority: STAT, Dosing Weight 81.364 kg, Start date: 02/18/18 13:29:00 CDT, Stop date: 02/18/18 13:29:00 CDT Inactive 02/18/2018 [facility] Saline Flush 0.9% 10 mL, Route: IVP, Drug Form: INJ, Dosing Weight 81.364, kg, PRN, PRN Line Flush, Start date: 02/18/18 13:29:00 CDT, Duration: 30 day, Stop date: 03/20/18 13:28:00 CDTNotes: (Same as: BD Posiflush) No Longer Active 02/18/2018 [facility] 3 ML Insulin, Aspart, Human 100 UNT/ML Pen Injector [NovoLog] 26 unit, SUB-Q, TID-Before Meals, # 4 box, 2 Refill(s), Pharmacy: [id number], Dose increased Active [facility] 3 ML insulin detemir 100 UNT/ML Prefilled Syringe [Levemir] 57 unit, SUB-Q, BID, # 7 box, 2 Refill(s), [id number] This a a 90 day supply. Dose increased. Active 12/20/[facility] Acetaminophen 325 MG / Hydrocodone Bitartrate 5 MG Oral Tablet [Hematite 5/325] 1 tab, PO, Q6H, # 60 tab, 0 Refill(s) No Longer Active 12/14/2017 [facility] Pravastatin 40 mg, 2 tab, Route: PO, Drug form: TAB, Bedtime, Dosing Weight 81.875, kg, Start date: 12/13/17 21:00:00 CDT, Duration: 30 day, Stop date: 01/11/18 21:00:00 CDTNotes: (Same as: Pravachol) No Longer Active 12/14/2017 [facility] insulin glargine 55 unit, 0.55 mL, Route: SUB-Q, Drug form: SOLN, BID, Start date: 12/13/17 9:00:00 CDT, Duration: 30 day, Stop date: 01/11/18 17:00:00 CDTNotes: (Same as: Lanxiangus) Do not hold insulin without contacting prescriber WASTE: F/P - Black; E - Municipal Trash Bin "single patient use only" No Longer Active 12/13/2017 [facility] heparin 5,000 unit, 1 mL, Route: SUB-Q, Drug form: INJ, Q12H, Dosing Weight 79.091, kg, Start date: 12/13/17 9:00:00 CDT, Stop date: 01/11/18 9:00:00 CDTNotes: porcine heparin No Longer Active 12/13/2017 [facility] Levemir FlexPen 55 unit, Route: SUB-Q, Drug form: SOLN, BID, Dosing Weight 81.875, kg, Start date: 12/13/17 9:00:00 CDT, Duration: 30 day, Stop date: 01/11/18 17:00:00 CDT No Longer Active 12/13/2017 [facility] Furosemide 40 MG Oral Tablet 40 mg, 1 tab, Route: PO, Drug form: TAB, Daily, Dosing Weight 81.875, kg, Start date: 12/13/17 9:00:00 CDT, Duration: 30 day, Stop date: 01/11/18 9:00:00 CDTNotes: (Same as: Lasix) May cause GI upset. Give with food or milk. No Longer Active 12/13/2017 [facility] carvedilol 12.5 mg, 1 tab, Route: PO, Drug form: TAB, BID, Dosing Weight 81.875, kg, Start date: 12/13/17 9:00:00 CDT, Duration: 30 day, Stop date: 01/11/18 21:00:00 CDTNotes: Give with food. (Same As: Coreg) No Longer Active 12/13/2017 [facility] Amlodipine 10 mg, 2 tab, Route: PO, Drug form: TAB, Daily, Dosing Weight 81.875, kg, Start date: 12/13/17 9:00:00 CDT, Duration: 30 day, Stop date: 01/11/18 9:00:00 CDTNotes: (Same as: Norvasc) No Longer Active 12/13/2017 [facility] Humalog 25 unit, 0.25 mL, Route: SUB-Q, Drug form: SOLN, TID-Before Meals, Start date: 12/13/17 7:30:00 CDT, Duration: 30 day, Stop date: 01/11/18 16:30:00 CDTNotes: (Same as: Humalog ) Roll in palms of hands g ently; Do not shake `vigorously. "Single Patient Use Only " WASTE: F/P - Black; E - Municipal Trash Bin Stable for 28 days at room temperature. Expires in days from Date No Longer Active 12/13/2017 [facility] NovoLOG FlexPen 25 unit, Route: SUB-Q, Drug form: SOLN, TID-Before Meals, Dosing Weight 81.875, kg, Start date: 12/13/17 7:30:00 CDT, Duration: 30 day, Stop date: 01/11/18 16:30:00 CDT No Longer Active 12/13/2017 [facility] Morphine 2 mg, 1 mL, Route: IV, Drug form: SOLN, Q3H, Dosing Weight 81.875, kg, PRN Pain Score 4-6, Start date: 12/12/17 22:22:00 CDT, Duration: 30 day, Stop date: 01/11/18 22:21:00 CDT No Longer Active 12/13/2017 [facility] Tylenol 650 mg, 20.3 mL, Route: PO, Drug form: LIQ, Q4H, Dosing Weight 81.875, kg, PRN Pain 1-3/Temp > 99.5 F, Start date: 12/12/17 22:22:00 CDT, Duration: 30 day, Stop date: 01/11/18 22:21:00 CDTNotes: Max jvymjjtercpca=5501ph/day (4 gm/day). (Same as: Tylenol) No Longer Active 12/13/2017 [facility] Acetaminophen 1,000 mg, Route: PO, Drug form: TAB, ONCE, Dosing Weight 79.091, kg, PRN Pain Score 1-3, Start date: 12/12/17 17:32:00 CDT Inactive 12/12/2017 [facility] Fentanyl 25 microgram, Route: IVP, Q5Min, Dosing Weight 79.091, kg, PRN Pain Score 4-6, Priority: Routine, Start date: 12/12/17 17:32:00 CDT, Duration: 4 doses or times, Stop date: Limited # of times Inactive 12/12/2017 [facility] Oxycodone 10 mg, Route: PO, Drug form: TAB, Q4H, Dosing Weight 79.091, kg, PRN Pain Score 7-10, Start date: 12/12/17 17:32:00 CDT, Duration: 30 day, Stop date: 01/11/18 17:31:00 CDT Inactive 12/12/2017 [facility] Hydralazine 10 mg, Route: IVP, Q20Min, Dosing Weight 79.091, kg, PRN Elevated BP, Start date: 12/12/17 17:32:00 CDT, Duration: 2 doses or times, Stop date: Limited # of times Inactive 12/12/2017 [facility] esmolol 10 mg, Route: IVP, Q5Min, Dosing Weight 79.091, kg, PRN Other -See Comment, Start date: 12/12/17 17:32:00 CDT, Duration: 5 doses or times, Stop date: Limited # of times Inactive 12/12/2017 [facility] Labetalol 10 mg, Route: IVP, Q5Min, Dosing Weight 79.091, kg, PRN Elevated BP, Start date: 12/12/17 17:32:00 CDT, Duration: 5 doses or times, Stop date: Limited # of times Inactive 12/12/2017 [facility] Flumazenil 0.2 mg, Route: IVP, PRN, Dosing Weight 79.091, kg, PRN Benzodiazepine Reversal, Initial dose, Start date: 12/12/17 17:32:00 CDT, Duration: 30 day, Stop date: 01/11/18 17:31:00 CDT Inactive 12/12/2017 [facility] Meperidine 12.5 mg, Route: IVP, Q30Min, Dosing Weight 79.091, kg, PRN Other -See Comment, For shivering, Start date: 12/12/17 17:32:00 CDT, Duration: 2 doses or times, Stop date: Limited # of times Inactive 12/12/2017 [facility] Diphenhydramine 12.5 mg, Route: IVP, Drug form: INJ, Q6H, Dosing Weight 79.091, kg, PRN Itching, Start date: 12/12/17 17:32:00 CDT, Duration: 30 day, Stop date: 01/11/18 17:31:00 CDT Inactive 12/12/2017 [facility] Ondansetron 4 mg, Route: IVP, ONCE, Dosing Weight 79.091, kg, PRN Nausea & Vomiting, Start date: 12/12/17 17:32:00 CDT Inactive 12/12/2017 [facility] Albuterol 0.83 MG/ML Inhalant Solution 2.49 mg, Route: NEB, Q20Min, Dosing Weight 79.091, kg, PRN Wheezing, Priority: STAT, Start date: 12/12/17 17:32:00 CDT, Duration: 30 day, Stop date: 01/11/18 17:31:00 CDT Inactive 12/12/2017 [facility] Naloxone 0.4 mg, Route: IVP, Q2MIN, Dosing Weight 79.091, kg, PRN Narcotic Reversal, Start date: 12/12/17 17:32:00 CDT, Duration: 8 doses or times, Stop date: Limited # of times Inactive 12/12/2017 [facility] OneTouch Ultra Blue Blood Glucose Test Strip Check blood sugar four times daily., MISC, QID, # 400 ea, Insulin dependent, Does not use insulin pump, Last DM eval date 09/11/17, 3 Refill(s) Active 12/12/2017 [facility] neostigmine (ANES) Route: IV, Drug form: INJ, ONCE, Stop date: 12/12/17 15:38:00 CDT Inactive 12/12/2017 [facility] glycopyrrolate (ANES) Route: IV, Drug form: INJ, ONCE, Stop date: 12/12/17 15:38:00 CDT Inactive 12/12/2017 [facility] protamine (ANES) Route: IV, Drug form: INJ, ONCE, Stop date: 12/12/17 15:38:00 CDT Inactive 12/12/2017 [facility] Hextend (ANES) 500 mL Route: IV, Drug Form: INJ, Start date: 12/12/17 14:25:00 CDT, Stop date: 12/12/17 15:25:00 CDT Inactive 12/12/2017 [facility] ondansetron (ANES) Route: IV, Drug form: INJ, ONCE, Stop date: 12/12/17 14:25:00 CDT Inactive 12/12/2017 [facility] acetaminophen (ANES) Route: IV, Drug form: INJ, ONCE, Stop date: 12/12/17 14:25:00 CDT Inactive 12/12/2017 [facility] heparin (ANES) Route: IV, Drug form: INJ, ONCE, Stop date: 12/12/17 14:20:00 CDT Inactive 12/12/2017 [facility] ceFAZolin (ANES) Route: IV, Drug form: INJ, ONCE, Stop date: 12/12/17 14:05:00 CDT Inactive 12/12/2017 [facility] rocuronium (ANES) Route: IV, Drug form: INJ, ONCE, Stop date: 12/12/17 14:05:00 CDT Inactive 12/12/2017 [facility] propofol (ANES) Route: IV, Drug form: INJ, ONCE, Stop date: 12/12/17 14:05:00 CDT Inactive 12/12/2017 [facility] fentaNYL (ANES) Route: IV, Drug form: INJ, ONCE, Stop date: 12/12/17 14:05:00 CDT Inactive 12/12/2017 [facility] lidocaine (ANES) Route: IV, Drug form: INJ, ONCE, Stop date: 12/12/17 14:05:00 CDT Inactive 12/12/2017 [facility] midazolam (ANES) Route: IV, Drug form: SOLN, ONCE, Stop date: 12/12/17 14:00:00 CDT Inactive 12/12/2017 [facility] vancomycin (ANES) 1000 mg Route: IV, Drug form: INJ, Start date: 12/12/17 13:15:00 CDT, Stop date: 12/12/17 14:15:00 CDT Inactive 12/12/2017 [facility] Sodium Chloride 0.9% IV (ANES) 500 mL Route: IV, Total Volume: 500, Start date: 12/12/17 13:10:00 CDT, Stop date: 12/12/17 14:10:00 CDT Inactive 12/12/2017 [facility] Sodium Chloride 0.9% IV 500 mL 500 mL, Rate: 25 ml/hr, Infuse over: 20 hr, Route: IV, Dosing Weight 79.091 kg, Total Volume: 500, Start date: 12/12/17 12:12:00 CDT, Duration: 30 day, Stop date: 01/11/18 12:11:00 CDT, 1.91, m2 Inactive 12/12/2017 [facility] Vancomycin 1 gm, Route: IVPB, Drug form: INJ, PRE OP, Dosing Weight 81.818, kg, Start date: 12/12/17 12:00:00 CDT, Duration: 1 day, Stop date: 12/13/17 11:59:00 CDT, ABX Indication: Surgical Prophylaxis Inactive 12/12/2017 [facility] Ancef 2 gm, Route: IVPB, PRE OP, Dosing Weight 81.818, kg, Start date: 12/12/17 12:00:00 CDT, Duration: 1 day, Stop date: 12/13/17 11:59:00 CDT, ABX Indication: Surgical Prophylaxis Inactive 12/12/2017 [facility] Nephro-Jeromy Rx 1 tab, Route: PO, Drug Form: TAB, Dosing Weight 81.818, kg, Daily, Start date: 12/11/17 17:00:00 CDT, Duration: 30 day, Stop date: 01/09/18 17:00:00 CDTNotes: (Same as: Nephro-Jeromy Rx and Diatx) Give with food. Inactive 12/11/2017 [facility] Furosemide 40 MG Oral Tablet 40 mg, 1 tab, Route: PO, Drug form: TAB, Daily, Dosing Weight 81.818, kg, Start date: 12/10/17 9:00:00 CDT, Duration: 30 day, Stop date: 01/08/18 9:00:00 CDTNotes: (Same as: Lasix) May cause GI upset. Give with food or milk. No Longer Active 12/10/2017 [facility] Morphine 6 mg, 3 mL, Route: PO, Drug form: SOLN, Q6H, Dosing Weight 81.818, kg, PRN Pain Score 7-10, Start date: 12/09/17 21:37:00 CDT, Duration: 30 day, Stop date: 01/08/18 21:36:00 CDTNotes: (Same as:MORPhine Sulfate) No Longer Active 12/10/2017 [facility] insulin glargine 55 unit, 0.55 mL, Route: SUB-Q, Drug form: SOLN, BID, Start date: 12/09/17 21:00:00 CDT, Duration: 30 day, Stop date: 01/08/18 9:00:00 CDTNotes: (Same as: Lantus) Do not hold insulin without contacting prescriber WASTE: F/P - Black; E - Municipal Trash Bin "single patient use only" No Longer Active 12/10/2017 [facility] Pravastatin 40 mg, 2 tab, Route: PO, Drug form: TAB, Bedtime, Dosing Weight 81.818, kg, Start date: 12/09/17 21:00:00 CDT, Duration: 30 day, Stop date: 01/07/18 21:00:00 CDTNotes: (Same as: Pravachol) No Longer Active 12/10/2017 [facility] carvedilol 12.5 mg, 1 tab, Route: PO, Drug form: TAB, BID, Dosing Weight 81.818, kg, Start date: 12/09/17 21:00:00 CDT, Duration: 30 day, Stop date: 01/08/18 9:00:00 CDTNotes: Give with food. (Same As: Coreg) No Longer Active 12/10/2017 [facility] Levemir FlexPen 55 unit, Route: SUB-Q, Drug form: SOLN, BID, Dosing Weight 81.818, kg, Start date: 12/09/17 17:00:00 CDT, Duration: 30 day, Stop date: 01/08/18 9:00:00 CDT Inactive 12/09/2017 [facility] Amlodipine 10 mg, 2 tab, Route: PO, Drug form: TAB, Daily, Dosing Weight 81.818, kg, Start date: 12/09/17 17:00:00 CDT, Duration: 30 day, Stop date: 01/08/18 9:00:00 CDTNotes: (Same as: Norvas) No Longer Active 12/09/2017 [facility] Humalog 25 unit, 0.25 mL, Route: SUB-Q, Drug form: SOLN, TID-Before Meals, Start date: 12/09/17 16:30:00 CDT, Duration: 30 day, Stop date: 01/08/18 11:30:00 CDTNotes: (Same as: Humalog ) Roll in palms of hands gently; Do not shake `vigorously. "Single Patient Use Only " WASTE: F/P - Black; E - Municipal Trash Bin Stable for 28 days at room temperature. Expires in days from Date No Longer Active 12/09/2017 [facility] NovoLOG FlexPen 25 unit, Route: SUB-Q, Drug form: SOLN, TID-Before Meals, Dosing Weight 81.818, kg, Start date: 12/09/17 16:30:00 CDT, Duration: 30 day, Stop date: 01/08/18 11:30:00 CDT Inactive 12/09/2017 [facility] Dilaudid 1 mg, 0.5 tab, Route: PO, Drug form: TAB, ONCE, Dosing Weight 81.818, kg, Start date: 12/09/17 15:40:00 CDT, Stop date: 12/09/17 15:40:00 CDTNotes: (Same as: Dilaudid) Inactive 12/09/2017 [facility] Calcium Carbonate 1,500 mg, 3 tab, Route: CHEW, Drug form: CHEWTAB, Before Meals & Bedtime, Dosing Weight 81.818, kg, PRN Indigestion, Start date: 12/09/17 14:18:00 CDT, Duration: 30 day, Stop date: 01/08/18 14:17:00 CDTNotes: (Same As: Tums) Calcium Carbonate 500 sa=872 mg elemental calcium Dose= mg calcium carbonate ( mg elemental calcium) No Longer Active 12/09/2017 [facility] alteplase 2 mg injection 2 mg, 2 mL, Route: INJ, Drug form: INJ, ONCE, Dosing Weight 81.818, kg, Start date: 12/09/17 9:20:00 CDT, Stop date: 12/09/17 9:20:00 CDT, Occluded CVAD >/=7 FrenchNotes: "Syringe for catheter clearance or interventional radiology use. Reconstitute each vial of Cathflo Activase with 2.2 ml Sterile Water resulting in a 1 mg/ml solution. (Same as: Activase) MEDICATION WASTE Product Size: 2 mg Product Wasted: ___ mg No Longer Active 12/09/2017 [facility] lidocaine (ANES) Route: IV, Drug form: INJ, ONCE, Stop date: 11/08/17 19:13:00 [employer] Inactive 11/09/2017 [facility] propofol (ANES) Route: IV, Drug form: INJ, ONCE, Stop date: 11/08/17 19:08:00 [employer] Inactive 11/09/2017 [facility] Meperidine 12.5 mg, 0.25 mL, Route: IVP, Drug form: INJ, Q30Min, Dosing Weight 81.818, kg, PRN Other -See Comment, For shivering, Start date: 11/08/17 19:07:00 [employer], Duration: 2 doses or times, Stop date: Limited # of timesNotes: (Same As: Demerol) Inactive 11/09/2017 [facility] Diphenhydramine 12.5 mg, 0.25 mL, Route: IVP, Drug form: INJ, Q6H, Dosing Weight 81.818, kg, PRN Itching, Start date: 11/08/17 19:07:00 [employer], Duration: 30 day, Stop date: 12/08/17 19:06:00 CDTNotes: (Same as: Christine simental) Inactive 11/09/2017 [facility] Naloxone 0.4 mg, 1 mL, Route: IVP, Drug form: INJ, Q2MIN, Dosing Weight 81.818, kg, PRN Narcotic Reversal, Start date: 11/08/17 19:07:00 [employer], Duration: 8 doses or times, Stop date: Limited # of timesNotes: Same as Narcan Inactive 11/09/2017 [facility] Dexamethasone 4 mg, 1 mL, Route: IVP, Drug form: INJ, ONCE, Dosing Weight 81.818, kg, PRN Nausea & Vomiting, Start date: 11/08/17 19:07:00 CSTNotes: Concentration: 4mg/ml Inactive 11/09/2017 [facility] Ondansetron 4 mg, 2 mL, Route: IVP, Drug form: INJ, ONCE, Dosing Weight 81.818, kg, PRN Nausea & Vomiting, Start date: 11/08/17 19:07:00 CSTNotes: (Same as: Zofran) MEDICATION WASTE Product Size: 4 mg Product Wasted: ___ mg Inactive 11/09/2017 [facility] Ketorolac 30 mg, 1 mL, Route: IVP, Drug form: INJ, ONCE, Dosing Weight 81.818, kg, Start date: 11/08/17 19:07:00 [employer], Stop date: 11/08/17 19:07:00 CSTNotes: (Same as:Toradol) IV bolus must be given >15 seconds. Give IM administration slowly and deeply into the muscle. Not for use > 4 days MEDICATION WASTE Product Size: 30 mg Product Wasted: ___ mg Inactive 11/09/2017 [facility] Hydromorphone 0.5 mg, 0.25 mL, Route: IVP, Drug form: INJ, Q5Min, Dosing Weight 81.818, kg, PRN Pain Score 7-10, Start date: 11/08/17 19:07:00 [employer], Duration: 4 doses or times, Stop date: Limited # of timesNotes: S giovani as Dilaudid Inactive 11/09/2017 [facility] Morphine 2 mg, 1 mL, Route: IVP, Drug form: INJ, Q5Min, Dosing Weight 81.818, kg, PRN Pain Score 4-6, Start date: 11/08/17 19:07:00 [employer], Duration: 5 doses or times, Stop date: Limited # of timesNotes: (Same a s:MORPhine Sulfate) Inactive 11/09/2017 [facility] Flumazenil 0.2 mg, 2 mL, Route: IVP, Drug form: INJ, PRN, Dosing Weight 81.818, kg, PRN Benzodiazepine Reversal, Initial dose, Start date: 11/08/17 19:07:00 [employer], Duration: 30 day, Stop date: 12/08/17 20:06:00 C DTNotes: (Same as: Romazicon) Inactive 11/09/2017 [facility] Fentanyl 50 microgram, 1 mL, Route: IVP, Drug form: INJ, Q5Min, Dosing Weight 81.818, kg, PRN Pain Score 7-10, Priority: Routine, Start date: 11/08/17 19:07:00 [employer], Duration: 2 doses or times, Stop date: Limited # of timesNotes: (Same as: Sublimaze) Preservative free. Inactive 11/09/2017 [facility] Hydralazine 10 mg, 0.5 mL, Route: IVP, Drug form: INJ, Q20Min, Dosing Weight 81.818, kg, PRN Elevated BP, Start date: 11/08/17 19:07:00 [employer], Duration: 2 doses or times, Stop date: Limited # of timesNotes: (Same as: Apresoline) Push over 5 minutes Inactive 11/09/2017 [facility] Sodium Chloride 0.9% IV (ANES) 500 mL Route: IV, Total Volume: 500, Start date: 11/08/17 18:22:00 [employer], Stop date: 11/08/17 19:22:00 [employer] Inactive 11/09/2017 [facility] [place]-3 Acid Ethyl Esters ([facility]ING) 1000 MG Oral Capsule [Lovaza] 2,000 mg=2 cap, PO, BID, # 360 cap, 1 Refill(s), Pharmacy: [facility]/pharm[facility] #[id number] Active 10/12/2017 [facility] [place]-3 Acid Ethyl Esters ([facility]ING) 1000 MG Oral Capsule [Lovaza] 2,000 mg=2 cap, PO, BID, X 90 day, # 360 cap, 1 Refill(s), [id number] 3 ML insulin detemir 100 UNT/ML Prefilled Syringe [Levemir] 55 unit, SUB-Q, BID, # 7 box, 2 Refill(s), This a a 90 day supply Active 09/11/2017 [facility] 3 ML Insulin, Aspart, Human 100 UNT/ML Pen Injector [NovoLog] 25 unit, SUB-Q, TID-Before Meals, # 4 box, 2 Refill(s) Active 09/11/2017 [facility] carvedilol 12.5 mg oral tablet 12.5 mg=1 tab, PO, BID, # 180 tab, 2 Refill(s) Active 09/11/2017 [facility] amLODIPine 10 mg oral tablet 10 mg=1 tab, PO, Daily, # 90 tab, 2 Refill(s) Active 09/11/[facility] cefpodoxime 100 mg oral tablet 100 mg=1 tab, PO, Q12H, X 7 day, # 14 tab, 0 Refill(s) Active 07/28/2016 [facility] Ceftriaxone 1 gm, Route: IVPB, ONCE, Dosing Weight 79.545, kg, Priority: STAT, Start date: 07/28/16 15:41:00 CDT, Stop date: 07/28/16 15:41:00 CDTNotes: (Same As: Rocephin). Use with 100 mL NS and infuse over 30 m in MEDICATION WASTE Product Size: 1000 mg Product Wasted: ___ mg Inactive 07/28/2016 [facility] Saline Flush 0.9% 10 mL, Route: IVP, Drug Form: INJ, Dosing Weight 79.545, kg, PRN, PRN Line Flush, Start date: 07/28/16 13:16:00 CDT, Duration: 30 day, Stop date: 08/27/16 12:15:00 CSTNotes: (Same as: BD Posiflush) Inactive 07/28/2016 [facility] Ondansetron 4 MG Disintegrating Tablet [Zofran] 4 mg=1 tab, PO, TID, Dissolve tab under tongue, X 3 day, # 15 tab, 0 Refill(s)Special Instructions: Dissolve tab under tongue Active 03/05/2015 [facility] Tamsulosin hydrochloride 0.4 MG Oral Capsule [Flomax] 0.4 mg=1 cap, PO, Daily, # 14 cap, 0 Refill(s) Active 03/05/2015 [facility] Zofran 4 mg, Route: IVP, Drug form: INJ, ONCE, Dosing Weight 81.818, kg, Priority: STAT, Start date: 03/05/15 1:39:00, Stop date: 03/05/15 1:39:00 Inactive 03/05/2015 [facility] Morphine 4 mg, Route: IVP, Drug form: INJ, ONCE, Dosing Weight 81.818, kg, Priority: STAT, Start date: 03/05/15 1:39:00, Stop date: 03/05/15 1:39:00 Inactive 03/05/2015 [facility] Nephro-Jeromy Rx 1 tab, Route: PO, Drug Form: TAB, Dosing Weight 73, kg, Daily, Start date: 11/06/13 9:00:00, Duration: 30 day, Stop date: 12/05/13 9:00:00(Same as: Nephro-Jeromy Rx and Diatx) Give with food. No Longer Active [place] 11/06/2013 [facility] simvastatin 10 mg oral tablet 10 mg=1 tab, PO, Bedtime, # 30 tab, 0 Refill(s) Active [place] 11/05/2013 [facility] Norvasc 10 mg oral tablet 10 mg=1 tab, PO, Daily, # 30 tab, 0 Refill(s) Active [place] 11/05/2013 [facility] predniSONE 20 mg oral tablet 60 mg=3 tab, PO, Daily, Take 3 tablets for 60 mg dose, # 15 tab, 0 Refill(s)Take 3 tablets for 60 mg dose Inactive [place] 11/05/2013 [facility] nitroglycerin 0.4 mg sublingual tablet 0.4 mg, 1 tab, Route: SL, Drug form: TAB, Q5Min, PRN Chest Pain, Start date: 11/05/13 14:20:00, Duration: 30 day, Stop date: 12/05/13 15:19:00(Same as:Nitroquick, Nitrostat) "Do Not Crush" Sublingual tablet Inactive [place] 11/05/2013 [facility] atropine 0.5 mg, 5 mL, Route: IVP, Drug form: INJ, PRN, PRN Bradycardia, Start date: 11/05/13 14:20:00, Duration: 30 day, Stop date: 12/05/13 15:19:00 Inactive [place] 11/05/2013 [facility] Saline Flush 0.9% 5 ml, Route: IVP, Drug Form: INJ, Dosing Weight 73, kg, Q12H, Start date: 11/05/13 9:00:00, Duration: 30 day, Stop date: 12/04/13 21:00:00(Same as: BD Posiflush) Inactive [facility] 11/05/2013 [facility] nitroglycerin SL Tab 0.4 mg, 1 tab, Route: SL, Drug form: TAB, Q5Min, Dosing Weight 73, kg, PRN Chest Pain, Start date: 11/05/13 1:19:00, Duration: 3 doses or times, Stop date: Limited # of times(Same as:Nitroquick, Nitrostat) "Do Not Crush" Sublingual tablet Inactive [facility] 11/05/2013 [facility] Saline Flush 0.9% 5 ml, Route: IVP, Drug Form: INJ, Dosing Weight 73, kg, PRN, PRN Line Flush, Start date: 11/05/13 1:19:00, Duration: 30 day, Stop date: 12/05/13 2:18:00(Same as: BD Posiflush) Inactive [facility] 11/05/2013 [facility] aspirin 325 mg tablet 325 mg, 1 tab, Route: PO, Drug form: TAB, ONCE, Dosing Weight 73, kg, Start date: 11/05/13 1:19:00, Stop date: 11/05/13 1:19:00Take with food. Inactive [facility] 11/05/2013 [facility] insulin aspart 2 unit, 0.02 mL, Route: SUB-Q, Drug form: SOLN, Sliding Scale, Dosing Weight 73, kg, PRN Blood Glucose Results, Start date: 11/05/13 1:19:00, Duration: 30 day, Stop date: 12/05/13 2:18:00Roll in palms of hands gently; Do not shake vigorously. (Same as: NovoLOG) "single patient use only" Stable for 28 days at room temperature. Expires in days from Date Inactive [facility] 11/05/2013 [facility] Dextrose 50% Syringe 12.5 gm, 25 mL, Route: IVP, Drug Form: INJ, Dosing Weight 73, kg, PRN, PRN Blood Glucose Results, Start date: 11/05/13 1:19:00, Duration: 30 day, Stop date: 12/05/13 2:18:00 Inactive [facility] 11/05/2013 [facility] glucagon 1 mg, Route: IM, Drug form: PDR/INJ, PRN, Dosing Weight 73, kg, PRN Blood Glucose Results, Start date: 11/05/13 1:19:00, Duration: 30 day, Stop date: 12/05/13 2:18:00 Inactive [facility] 11/05/2013 [facility] nitroglycerin 2% ointment 0.5 inch, Route: TOP, Drug Form: OINT, Dosing Weight 73, kg, ONCE, STAT, Start date: 11/04/13 22:13:00, Stop date: 11/04/13 22:13:001 gram is approximately 1 inch of nitroglycerin ointment (20 mg NTG per gram) (Same as:Nitro-Bid) Inactive [facility] 11/05/2013 [facility] aspirin 324 mg, 4 tab, Route: PO, Drug form: CHEWTAB, ONCE, Dosing Weight 73, kg, Priority: STAT, Start date: 11/04/13 21:46:00, Stop date: 11/04/13 21:46:00Take with food. Inactive [facility] 11/05/2013 [facility] Saline Flush 0.9% 5 mL, Route: IVP, Drug Form: INJ, Dosing Weight 73, kg, Q8H, PRN Line Flush, Start date: 11/04/13 21:46:00, Duration: 30 day, Stop date: 12/04/13 21:45:00, Administer at least once every 8 hoursAdmin ister at least once every 8 hours(Same as: BD Posiflush) No Longer Active 11/05/2013 [facility] predniSONE 20 mg oral tablet 60 mg=3 tab, PO, Daily, Take 3 tablets for 60 mg dose, # 15 tab, 0 Refill(s)Take 3 tablets for 60 mg dose Active [facility] 10/13/2013 [facility] acetaminophen-hydrocodone 334 mg-5 mg/10 mL oral elixir 15 ml, Route: PO, Drug Form: ELIX, Dosing Weight 77.273, kg, ONCE, Start date: 10/13/13 14:44:00, Stop date: 10/13/13 14:44:00(acetaminophen-hydrocodone 334-5 mg/10 ml oral ELIX) Do not exceed 4gm/day of acetaminophen. Inactive 10/13/2013 [facility] DuoNeb inhalation solution 3 ml, Route: INHALATION, Drug Form: SOLN, Dosing Weight 77.273, kg, PRN, PRN Respiratory Protocol, Start date: 10/13/13 14:44:00, Duration: 30 day, Stop date: 11/12/13 14:43:00(Same as: Duoneb) Inactive [place] 10/13/2013 [facility] Tylenol 500 mg, Route: PO, ONCE, Dosing Weight 73.267, kg, Start date: 10/04/13 2:28:00, Stop date: 10/04/13 2:28:00 Inactive 10/04/2013 [facility] Tamiflu 75 mg oral capsule 75 mg=1 cap, PO, BID, # 14 cap, 0 Refill(s) Active [facility] 10/04/2013 [facility] azithromycin 500 mg, 250 mL, Route: IVPB, Drug form: PDR/INJ, ONCE, Dosing Weight 73.267, kg, Priority: STAT, Start date: 10/03/13 23:35:00, Stop date: 10/03/13 23:35:00Same as: Zithromax No Longer Active 10/04/2013 [facility] ondansetron 4 mg, 2 mL, Route: IVP, Drug form: INJ, ONCE, Dosing Weight 73.267, kg, Priority: STAT, Start date: 10/03/13 23:34:00, Stop date: 10/03/13 23:34:00(Same as: Zofran) No Longer Active [facility] 10/04/2013 [facility] Saline Flush 0.9% 5 mL, Route: IVP, Drug Form: INJ, Dosing Weight 73.267, kg, Q8H, PRN Line Flush, Start date: 10/03/13 23:34:00, Duration: 30 day, Stop date: 11/02/13 23:33:00, Administer at least once every 8 hoursAdminister at least once every 8 hours(Same as: BD Posiflush) No Longer Active [facility] 10/04/2013 [facility] Tylenol 975 mg, Route: PO, Drug form: TAB, ONCE, Dosing Weight 73.267, kg, Priority: STAT, Start date: 10/03/13 20:07:00, Stop date: 10/03/13 20:07:00 Inactive [facility] 10/04/2013 [facility] lactulose 20 gm, 30 ml, Route: PO, Drug Form: SYRP, Dosing Weight 73.267, kg, Daily, PRN Constipation, NOW, Start date: 03/27/13 14:40:00, Duration: 30 day, Stop date: 04/26/13 14:39:00 PO No Longer Active Jay 03/27/2013 [facility] albumin human 25 gm, 100 mL, Route: IV, Drug form: INJ, ONCE, Start date: 03/27/13 10:30:00, Stop date: 03/27/13 10:30:00 IV Active [facility] 03/27/2013 [facility] Sodium Chloride 0.9% IV IV, 500 ml/hr, Q30Min, Start date: 03/27/13 10:00:00, Duration: 2, 250 ml IV Active Jay 03/27/2013 [facility] mannitol 20% intravenous solution 25 gm, 125 mL, Route: IV, Drug form: INJ, ONCE, Start date: 03/27/13 9:54:00, Stop date: 03/27/13 9:54:00 IV Active Jay 03/27/2013 [facility] acetaminophen-hydrocodone 325 mg-5 mg oral tablet 2 tab, Route: PO, Drug Form: TAB, Q4H, PRN Pain Score 4-6, Start date: 03/25/13 18:15:00, Duration: 30 day, Stop date: 04/24/13 18:14:00 PO No Longer Active [place] 03/25/2013 [facility] acetaminophen-hydrocodone 325 mg-5 mg oral tablet 1 tab, Route: PO, Drug Form: TAB, Q4H, PRN Pain Score 1-3, Start date: 03/25/13 18:14:00, Duration: 30 day, Stop date: 04/24/13 18:13:00 PO No Longer Active [place] 03/25/2013 [facility] Sodium Chloride 0.9% IV 500 mL 500 mL, Rate: 25 ml/hr, Infuse over: 20 hr, Route: IV, Dosing Weight 73.267 kg, Total Volume: 500, Start date: 03/25/13 14:43:00, Duration: 30 day, Stop date: 04/24/13 14:42:00 IV No Longer Active [place] 03/25/2013 [facility] Sodium Chloride 0.9% IV 1000 mL 1,000 mL, Rate: 25 ml/hr, Infuse over: 40 hr, Route: IV, Dosing Weight 73.267 kg, Total Volume: 1,000, Start date: 03/25/13 14:42:00, Duration: 30 day, Stop date: 04/24/13 14:41:00 IV No Longer Active [place] 03/25/2013 [facility] NovoLog FlexPen 4 unit, 0.04 mL, Route: SUB-Q, Drug form: SOLN, Bedtime, PRN Blood Glucose Results, Start date: 03/25/13 0:47:00, Duration: 30 day, Stop date: 04/24/13 0:46:00 SUB-Q No Longer Active [place] 03/25/2013 [facility] NovoLog FlexPen 10 unit, 0.1 mL, Route: SUB-Q, Drug form: SOLN, Sliding Scale, PRN Blood Glucose Results, Start date: 03/25/13 0:46:00, Duration: 30 day, Stop date: 04/24/13 0:45:00 SUB-Q No Longer Active Jay 03/25/2013 [facility] Dextrose 50% in Water IV 50 mL, Route: IVP, Start date: 03/25/13 0:46:00, Duration: 30 day, Stop date: 04/24/13 0:45:00, PRN Blood Glucose Results IVP No Longer Active 03/25/2013 [facility] glucagon 1 mg, Route: IM, Drug form: PDR/INJ, PRN, PRN Blood Glucose Results, Start date: 03/25/13 0:46:00, Duration: 30 day, Stop date: 04/24/13 0:45:00 IM No Longer Active 03/25/2013 [facility] Rocephin + Sodium Chloride 0.9% IV 100 mL 1 gm, Route: IVPB, [id number], Dosing Weight 73.267, kg, Start date: 03/23/13 16:00:00, Duration: 30 day, Stop date: 04/21/13 16:00:00 IVPB No Longer Active 03/23/2013 [facility] hydrochlorothiazide-valsartan 25 mg-320 mg oral tablet 1 tab, Route: PO, Drug Form: TAB, Dosing Weight 73.267, kg, Daily, Start date: 03/23/13 9:00:00, Duration: 30 day, Stop date: 04/21/13 9:00:00 PO No Longer Active 03/23/2013 [facility] insulin aspart 10 unit, 0.1 mL, Route: SUB-Q, Drug form: SOLN, Breakfast, Dosing Weight 73.267, kg, Start date: 03/23/13 8:00:00, Duration: 30 day, Stop date: 04/21/13 8:00:00 SUB-Q No Longer Active 03/23/2013 [facility] Levemir FlexPen 50 unit, 0.5 mL, Route: SUB-Q, Drug form: INJ, Bedtime, Start date: 03/22/13 21:00:00, Duration: 30 day, Stop date: 04/20/13 21:00:00 SUB-Q No Longer Active 03/23/2013 [facility] Lantus 50 unit, Route: SUB-Q, Drug form: INJ, Bedtime, Dosing Weight 73.267, kg, Start date: 03/22/13 21:00:00, Duration: 30 day, Stop date: 04/20/13 21:00:00 SUB-Q No Longer Active 03/23/2013 [facility] epoetin leonarda 2,000 unit, 1 mL, Route: IV, Drug form: INJ, Q-M-W-F, Start date: 03/22/13 17:00:00, Duration: 30 day, Stop date: 04/19/13 17:00:00 IV No Longer Active [facility] 03/22/2013 [facility] insulin aspart 10 unit, 0.1 mL, Route: SUB-Q, Drug form: SOLN, Dinner, Dosing Weight 73.267, kg, Start date: 03/22/13 17:00:00, Duration: 30 day, Stop date: 04/20/13 17:00:00 SUB-Q No Longer Active [facility] 03/22/2013 [facility] Nephro-Jeromy Rx 1 tab, Route: PO, Drug Form: TAB, Dosing Weight 73.267, kg, QPM, Start date: 03/22/13 17:00:00, Duration: 30 day, Stop date: 04/20/13 17:00:00 PO No Longer Active [facility] 03/22/2013 [facility] Epogen 3,000 unit, 1 mL, Route: IV, Drug form: INJ, Q-M-W-F, Dosing Weight 73.267, kg, Start date: 03/22/13 17:00:00, Duration: 30 day, Stop date: 04/19/13 17:00:00 IV No Longer Active [facility] 03/22/2013 [facility] fenofibrate 48 mg, 1 tab, Route: PO, Drug form: TAB, QPM, Dosing Weight 73.267, kg, Start date: 03/22/13 17:00:00, Duration: 30 day, Stop date: 04/20/13 17:00:00 PO No Longer Active [facility] 03/22/2013 [facility] cefazolin 2 gm, Route: IVPB, ONCE, Dosing Weight 73.267, kg, Start date: 03/22/13 11:30:00, Duration: 1 doses or times, Stop date: 03/22/13 11:30:00 IVPB No Longer Active [facility] 03/22/2013 [facility] Diovan 320 mg, 2 tab, Route: PO, Drug form: TAB, Daily, Start date: 03/22/13 11:04:00, Duration: 30 day, Stop date: 04/21/13 9:00:00 PO No Longer Active [facility] 03/22/2013 [facility] hydrochlorothiazide 25 mg oral tablet 25 mg, 1 tab, Route: PO, Drug form: TAB, Daily, Start date: 03/22/13 11:04:00, Duration: 30 day, Stop date: 04/21/13 9:00:00 PO No Longer Active [facility] 03/22/2013 [facility] furosemide 40 mg, 1 tab, Route: PO, Drug form: TAB, Daily, Dosing Weight 73.267, kg, Start date: 03/22/13 11:00:00, Duration: 30 day, Stop date: 04/21/13 9:00:00 PO No Longer Active [place] 03/22/2013 [facility] Coreg 12.5 mg, 1 tab, Route: PO, Drug form: TAB, Q12H, Dosing Weight 73.267, kg, Start date: 03/22/13 11:00:00, Duration: 30 day, Stop date: 04/21/13 9:00:00 PO No Longer Active [facility] 03/22/2013 [facility] pneumococcal 23-valent vaccine 0.5 ml, Route: IM, Drug Form: INJ, Start date: 03/22/13 9:00:00, Stop date: 03/22/13 9:00:00 Inactive [facility] 03/22/2013 [facility] calcium gluconate + Sodium Chloride 0.9% IV 50 mL 1 gm, 10 mL, Route: IV, ONCE, Dosing Weight 73.267, kg, Start date: 03/22/13 4:16:00, Stop date: 03/22/13 4:16:00 IV No Longer Active [facility] 03/22/2013 [facility] furosemide 20 mg, 2 mL, Route: IV, Drug form: INJ, ONCE, Dosing Weight 73.267, kg, Start date: 03/22/13 4:15:00, Stop date: 03/22/13 4:15:00 IV No Longer Active [facility] 03/22/2013 [facility] d50 syringe 25 gm, 50 mL, Route: IVP, Drug Form: INJ, Dosing Weight 73.267, kg, ONCE, Start date: 03/22/13 4:14:00, Stop date: 03/22/13 4:14:00 IVP No Longer Active [facility] 03/22/2013 [facility] Insulin regular 10 unit, 0.1 mL, Route: IV, Drug form: INJ, ONCE, Dosing Weight 73.267, kg, Start date: 03/22/13 4:13:00, Stop date: 03/22/13 4:13:00 IV No Longer Active [facility] 03/22/2013 [facility] sodium bicarbonate 8.4% 10 mEq, 10 mL, Route: IVP, Drug Form: INJ, Dosing Weight 73.267, kg, ONCE, Start date: 03/22/13 4:11:00, Stop date: 03/22/13 4:11:00 IVP No Longer Active [facility] 03/22/2013 [facility] Zofran 4 mg, 1 tab, Route: PO, Drug form: TAB, Q12H, Dosing Weight 73.267, kg, PRN as needed for nausea/vomiting, Start date: 03/22/13 3:51:00, Duration: 30 day, Stop date: 04/21/13 3:50:00 PO No Longer Active [facility] 03/22/2013 [facility] Zofran 4 mg, 2 mL, Route: IV, Drug form: INJ, Q12H, Dosing Weight 73.267, kg, PRN as needed for nausea/vomiting, Start date: 03/22/13 3:50:00, Duration: 30 day, Stop date: 04/21/13 3:49:00 IV No Longer Active 03/22/2013 [facility] insulin aspart 10 unit, SUB-Q, Dinner, Substitution Allowed, INJ SUB-Q Active 03/22/2013 [facility] fenofibrate 54 mg, PO, Daily, Substitution Allowed, TAB PO Active 03/22/2013 [facility] Coreg 12.5 mg, PO, BID, Substitution Allowed, TAB PO Active 03/22/2013 [facility] insulin aspart 10 unit, SUB-Q, Breakfast, Substitution Allowed, INJ SUB-Q Active 03/22/2013 [facility] furosemide 40 mg, PO, Daily, Substitution Allowed, TAB PO Active 03/22/2013 [facility] Lantus 50 unit, SUB-Q, Bedtime, Substitution Allowed, INJ SUB-Q Active 03/22/2013 [facility] hydrochlorothiazide-valsartan 25 mg-320 mg oral tablet 1 tab, PO, Daily, Substitution Allowed, Maintenance, TAB PO Active 03/22/2013 [facility] Saline Flush 0.9% 5 ml, Route: IVP, Drug Form: INJ, Dosing Weight 80.455, kg, PRN, PRN Line Flush, Start date: 03/22/13 2:09:00, Duration: 30 day, Stop date: 04/21/13 2:08:00 IVP No Longer Active [facility] 03/22/2013 [facility] sodium bicarbonate 75 mEq + Sodium Chloride 0.45% IV 1,000 mL 1,000 mL, Rate: 100 ml/hr, Infuse over: 10.8 hr, Route: IV, Dosing Weight 80.455 kg, Total Volume: 1,075, Start date: 03/22/13 1:34:00, Duration: 30 day, Stop date: 04/21/13 1:33:00 IV No Longer Active [facility] 03/22/2013 [facility] albuterol 0.083% inhalation solution 19.92 mg, 24 mL, Route: NEB, Drug form: SOLN, Continuous, Dosing Weight 80.455, kg, PRN Abnormal Lab Result, Start date: 03/21/13 22:53:00, Duration: 30 day, Stop date: 04/20/13 22:52:00 NEB No Longer Active [facility] 03/22/2013 [facility] furosemide 40 mg, Route: IVP, ONCE, Dosing Weight 80.455, kg, Priority: STAT, Start date: 03/21/13 22:53:00, Stop date: 03/21/13 22:53:00 IVP No Longer Active [facility] 03/22/2013 [facility] Sodium Chloride 0.9% (Bolus) IV 500 mL 500 mL, Rate: 1,000 ml/hr, Infuse over: 30 minutes, Route: IV, Dosing Weight 80.455 kg, Total Volume: 500, Priority: STAT, Start date: 03/21/13 22:46:00, Duration: 1 doses or times, Stop date: 03/21/13 23:15:00 IV No Longer Active [facility] 03/22/2013 [facility] albuterol 0.083% inhalation solution 20 mg, Route: NEB, ONCE, Dosing Weight 80.455, kg, Start date: 03/21/13 22:46:00, Stop date: 03/21/13 22:46:00 NEB No Longer Active [facility] 03/22/2013 [facility] sodium polystyrene sulfonate 30 gm, Route: PO, ONCE, Dosing Weight 80.455, kg, Start date: 03/21/13 22:46:00, Duration: 1 doses or times, Stop date: 03/21/13 22:46:00 PO No Longer Active [facility] 03/22/2013 [facility] sodium bicarbonate 50 mEq, Route: IVP, ONCE, Dosing Weight 80.455, kg, Priority: STAT, Start date: 03/21/13 22:30:00, Stop date: 03/21/13 22:30:00 IVP No Longer Active [facility] 03/22/2013 [facility] sodium polystyrene sulfonate 30 gm, Route: PO, Drug form: SUSP, ONCE, Dosing Weight 80.455, kg, Priority: STAT, Start date: 03/21/13 22:30:00, Stop date: 03/21/13 22:30:00 PO No Longer Active [facility] 03/22/2013 [facility] calcium gluconate 1,000 mg, Route: IVP, ONCE, Dosing Weight 80.455, kg, Priority: STAT, Start date: 03/21/13 22:30:00, Stop date: 03/21/13 22:30:00 IVP No Longer Active [facility] 03/22/2013 [facility] Insulin regular 5 unit, Route: IVP, ONCE, Dosing Weight 80.455, kg, Priority: STAT, Start date: 03/21/13 22:30:00, Stop date: 03/21/13 22:30:00 IVP No Longer Active [facility] 03/22/2013 [facility] Dextrose 50% Syringe 25 gm, Route: IVP, Dosing Weight 80.455, kg, ONCE, STAT, Start date: 03/21/13 22:30:00, Stop date: 03/21/13 22:30:00 IVP No Longer Active [facility] 03/22/2013 [facility] Saline Flush 0.9% 5 mL, Route: IVP, Drug Form: INJ, Dosing Weight 80.455, kg, PRN, PRN Line Flush, Start date: 03/21/13 22:30:00, Duration: 30 day, Stop date: 04/20/13 22:29:00 IVP No Longer Active [facility] 03/22/2013 [facility] Saline Flush 0.9% 5 mL, Route: IVP, Drug Form: INJ, Dosing Weight 80.455, kg, Q8H, PRN Line Flush, Start date: 03/21/13 21:27:00, Duration: 30 day, Stop date: 04/20/13 21:26:00, Administer at least once every 8 hoursAdminister at least once every 8 hours IVP No Longer Active [facility] 03/22/2013 [facility] Allergies, Adverse Reactions, Alerts Substance Category Reaction Severity Reaction type Status Date Reported Comments Source Immunizations Immunization Date Given Site Status Last Updated Comments Source influenza virus vaccine, inactivated<sup>1</sup> 06/25/2018 completed [facility] Location History: Dialysis center [facility] influenza vaccine-unspecified<sup>1</sup> 06/25/2017 completed [place] Location History: [facility] D[facility] Hx influenza vaccine-unspecified<sup>6</sup> 06/25/2017 completed [place] Location History: [facility] Dialysis [facility] Hx influenza vaccine-unspecified<sup>2</sup> 07/09/2013 completed GE Result Comment: done @ dialysis. Migrated from OBS ; Data migrated from [employer] on 10/27/2015. [facility] Hx influenza vaccine-unspecified<sup>1</sup> 07/09/2013 completed GE Result Comment: done @ dialysis. Migrated from OBS ; Data migrated from [employer] on 10/27/2015. [facility] Hx influenza vaccine-unspecified<sup>7</sup> 07/09/2013 completed GE Result Comment: done @ dialysis. Migrated from OBS ; Data migrated from [employer] on 10/27/2015. [facility] pneumococcal 23-valent vaccine 03/22/2013 completed [facility] pneumococcal 23-valent vaccine 03/22/2013 Left Deltoid completed [facility] influenza virus vaccine, inactivated<sup>3</sup> 08/10/2010 completed GE Result Comment: fluvirin preservative free (>3 yrs.) [[id number]]. Migrated from OBS ; Data migrated from [employer] on 10/27/2015. [facility] influenza virus vaccine, inactivated<sup>2</sup> 08/10/2010 completed GE Result Comment: fluvirin preservative free (>3 yrs.) [[id number]]. Migrated from OBS ; Data migrated from [employer] on 10/27/2015. [facility] influenza virus vaccine, inactivated<sup>4</sup> 08/05/2009 completed GE Result Comment: fluvirin preservative free (>3 yrs.) [[id number]]. Migrated from OBS ; Data migrated from [employer] on 10/27/2015. [facility] influenza virus vaccine, inactivated<sup>3</sup> 08/05/2009 completed GE Result Comment: fluvirin preservative free (>3 yrs.) [[id number]]. Migrated from OBS ; Data migrated from [employer] on 10/27/2015. [facility] influenza virus vaccine, inactivated<sup>5</sup> 06/15/2009 completed GE Result Comment: fluvirin preservative free (>3 yrs.) [[id number]]. Migrated from OBS ; Data migrated from [employer] on 10/27/2015. [facility] influenza virus vaccine, inactivated<sup>4</sup> 06/15/2009 completed GE Result Comment: fluvirin preservative free (>3 yrs.) [[id number]]. Migrated from OBS ; Data migrated from [employer] on 10/27/2015. [facility] influenza virus vaccine, inactivated<sup>6</sup> 07/14/2008 completed GE Result Comment: fluvirin preservative free (>3 yrs.) [[id number]]. Migrated from OBS ; Data migrated from [employer] on 10/27/2015. [facility] influenza virus vaccine, inactivated<sup>5</sup> 07/14/2008 completed GE Result Comment: fluvirin preservative free (>3 yrs.) [[id number]]. Migrated from OBS ; Data migrated from [employer] on 10/27/2015. [facility] Results Order Name Results Value Reference Range Date Interpretation Comments Source Brain wo contrast MRA Brain wo contrast MRA INDICATION: Syncopal episode. COMPARISON: Brain CT 11/24/2018 TECHNIQUE: -Brain MR: Multiplanar non-contrast MRI images of the brain. -Brain MRA: Three-dimensional time of flight brain MR angiography of intracranial vessels is performed, and maximum intensity projection reformatted images are presented in multiple three-dimensional rotational projections. -Neck MRA: Two-dimensional time of flight neck MR angiography of extracranial arterial system was performed and reformatted images are presented in three-dimensional maximum intensity rotational projections. Three-dimensional [id number] MR angiography centered at the carotid bifurcations was included. IV contrast: None. FINDINGS: SCALP AND CALVARIUM: No focal abnormalities. VENTRICLES AND SULCI: Mild age related volume loss. No acute hydrocephalus. EXTRA-AXIAL SPACES: No abnormal signal or abnormal fluid collection. BRAIN PARENCHYMA: There is no abnormal restricted diffusion. There are a few T2 FLAIR hyperintense foci in the supratentorial white matter (less than 15) that are nonspecific, but favor microvascular ischemic changes. There is no mass effect or midline shift. There is no magnetic susceptibility to suggest intraparenchymal hemorrhage. SKULL BASE: The skull base, craniocervical junction, and brainstem are unremarkable. CHIASM/SELLA: The optic chiasm and sella are unremarkable. PARANASAL SINUSES AND MASTOIDS: Mild T2 hyperintense mucosal thickening of the maxillary sinuses. The paranasal sinuses and mastoid air cells are otherwise clear. BRAIN MRA: The exam is degraded by motion artifacts ANTERIOR CIRCULATION: Right: Internal carotid artery: Loss of signal at the lacerum and cavernous segments. Anterior cerebral artery: Patent. Middle cerebral artery: Patent. Left: Internal carotid artery: Loss of signal at the lacerum and cavernous segments. Anterior cerebral artery: Normal caliber. Middle cerebral artery: Loss of signal at the M1 segment, without occlusion. Communicating arteries: Anterior: Normal. Posterior: Not visualized POSTERIOR CIRCULATION: Right vertebral artery: Near complete loss of signal. Left vertebral artery: Loss of signal, without occlusion. Basilar artery: Loss of signal at the mid vessel, without occlusion. Right posterior cerebral artery: Patent. Left posterior cerebral artery: Patent. No signs of aneurysm. Neck MRA: There are motion artifacts. Aortic arch: Conventional anatomy. RIGHT-SIDED EXTRACRANIAL SYSTEM: Common carotid artery: No hemodynamically significant stenosis. Internal carotid artery: Mild loss of signal without convincing signs of hemodynamically significant stenosis. Right vertebral artery: Patent. LEFT-SIDED EXTRACRANIAL SYSTEM: Common carotid artery: No hemodynamically significant stenosis. Internal carotid artery: Mild loss of signal, without signs of hemodynamically significant stenosis. Left vertebral artery: Patent. Any reported ICA stenoses directly reference the distal internal carotid diameter as the denominator for stenosis measurement. (NASCET criteria) IMPRESSION: BRAIN: 1. No acute infarction or acute intracranial abnormality. 2. Age-related volume loss and mild microvascular ischemic changes. BRAIN MRA: 1. Mild to moderate stenosis of the right and left internal carotid arteries, basilar artery and M1 left MCA due to atherosclerotic plaque. 2. 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 3. No gross signs of aneurysm NECK MRA: 1. No convincing signs of hemodynamically significant stenosis of the internal carotid arteries, despite motion artifacts. This finding can be further characterized with carotid Doppler. 2. Patent vertebral arteries SL: WR3-M 11/25/2018 - - Read by: Christofer Ruano MD Dictated Date/time: 11/25/18 15:58 Electronically Signed by: Christofer Ruano MD 11/25/18 16:12 FINAL REPORT [facility] Neck wo contrast MRA Neck wo contrast MRA INDICATION: Syncopal episode. COMPARISON: Brain CT 11/24/2018 TECHNIQUE: -Brain MR: Multiplanar non-contrast MRI images of the brain. -Brain MRA: Three-dimensional time of flight brain MR angiography of intracranial vessels is performed, and maximum intensity projection reformatted images are presented in multiple three-dimensional rotational projections. -Neck MRA: Two-dimensional time of flight neck MR angiography of extracranial arterial system was performed and reformatted images are presented in three-dimensional maximum intensity rotational projections. Three-dimensional [id number] MR angiography centered at the carotid bifurcations was included. IV contrast: None. FINDINGS: SCALP AND CALVARIUM: No focal abnormalities. VENTRICLES AND SULCI: Mild age related volume loss. No acute hydrocephalus. EXTRA-AXIAL SPACES: No abnormal signal or abnormal fluid collection. BRAIN PARENCHYMA: There is no abnormal restricted diffusion. There are a few T2 FLAIR hyperintense foci in the supratentorial white matter (less than 15) that are nonspecific, but favor microvascular ischemic changes. There is no mass effect or midline shift. There is no magnetic susceptibility to suggest intraparenchymal hemorrhage. SKULL BASE: The skull base, craniocervical junction, and brainstem are unremarkable. CHIASM/SELLA: The optic chiasm and sella are unremarkable. PARANASAL SINUSES AND MASTOIDS: Mild T2 hyperintense mucosal thickening of the maxillary sinuses. The paranasal sinuses and mastoid air cells are otherwise clear. BRAIN MRA: The exam is degraded by motion artifacts ANTERIOR CIRCULATION: Right: Internal carotid artery: Loss of signal at the lacerum and cavernous segments. Anterior cerebral artery: Patent. Middle cerebral artery: Patent. Left: Internal carotid artery: Loss of signal at the lacerum and cavernous segments. Anterior cerebral artery: Normal caliber. Middle cerebral artery: Loss of signal at the M1 segment, without occlusion. Communicating arteries: Anterior: Normal. Posterior: Not visualized POSTERIOR CIRCULATION: Right vertebral artery: Near complete loss of signal. Left vertebral artery: Loss of signal, without occlusion. Basilar artery: Loss of signal at the mid vessel, without occlusion. Right posterior cerebral artery: Patent. Left posterior cerebral artery: Patent. No signs of aneurysm. Neck MRA: There are motion artifacts. Aortic arch: Conventional anatomy. RIGHT-SIDED EXTRACRANIAL SYSTEM: Common carotid artery: No hemodynamically significant stenosis. Internal carotid artery: Mild loss of signal without convincing signs of hemodynamically significant stenosis. Right vertebral artery: Patent. LEFT-SIDED EXTRACRANIAL SYSTEM: Common carotid artery: No hemodynamically significant stenosis. Internal carotid artery: Mild loss of signal, without signs of hemodynamically significant stenosis. Left vertebral artery: Patent. Any reported ICA stenoses directly reference the distal internal carotid diameter as the denominator for stenosis measurement. (NASCET criteria) IMPRESSION: BRAIN: 1. No acute infarction or acute intracranial abnormality. 2. Age-related volume loss and mild microvascular ischemic changes. BRAIN MRA: 1. Mild to moderate stenosis of the right and left internal carotid arteries, basilar artery and M1 left MCA due to atherosclerotic plaque. 2. 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 3. No gross signs of aneurysm NECK MRA: 1. No convincing signs of hemodynamically significant stenosis of the internal carotid arteries, despite motion artifacts. This finding can be further characterized with carotid Doppler. 2. Patent vertebral arteries SL: WR3-M 11/25/2018 - - Read by: Christofer Ruano MD Dictated Date/time: 11/25/18 15:58 Electronically Signed by: Christofer Ruano MD 11/25/18 16:12 FINAL REPORT [facility] Brain wo contrast MRI Brain wo contrast MRI INDICATION: Syncopal episode. COMPARISON: Brain CT 11/24/2018 TECHNIQUE: -Brain MR: Multiplanar non-contrast MRI images of the brain. -Brain MRA: Three-dimensional time of flight brain MR angiography of intracranial vessels is performed, and maximum intensity projection reformatted images are presented in multiple three-dimensional rotational projections. -Neck MRA: Two-dimensional time of flight neck MR angiography of extracranial arterial system was performed and reformatted images are presented in three-dimensional maximum intensity rotational projections. Three-dimensional exph-yb-xgxowy MR angiography centered at the carotid bifurcations was included. IV contrast: None. FINDINGS: SCALP AND CALVARIUM: No focal abnormalities. VENTRICLES AND SULCI: Mild age related volume loss. No acute hydrocephalus. EXTRA-AXIAL SPACES: No abnormal signal or abnormal fluid collection. BRAIN PARENCHYMA: There is no abnormal restricted diffusion. There are a few T2 FLAIR hyperintense foci in the supratentorial white matter (less than 15) that are nonspecific, but favor microvascular ischemic changes. There is no mass effect or midline shift. There is no magnetic susceptibility to suggest intraparenchymal hemorrhage. SKULL BASE: The skull base, craniocervical junction, and brainstem are unremarkable. CHIASM/SELLA: The optic chiasm and sella are unremarkable. PARANASAL SINUSES AND MASTOIDS: Mild T2 hyperintense mucosal thickening of the maxillary sinuses. The paranasal sinuses and mastoid air cells are otherwise clear. BRAIN MRA: The exam is degraded by motion artifacts ANTERIOR CIRCULATION: Right: Internal carotid artery: Loss of signal at the lacerum and cavernous segments. Anterior cerebral artery: Patent. Middle cerebral artery: Patent. Left: Internal carotid artery: Loss of signal at the lacerum and cavernous segments. Anterior cerebral artery: Normal caliber. Middle cerebral artery: Loss of signal at the M1 segment, without occlusion. Communicating arteries: Anterior: Normal. Posterior: Not visualized POSTERIOR CIRCULATION: Right vertebral artery: Near complete loss of signal. Left vertebral artery: Loss of signal, without occlusion. Basilar artery: Loss of signal at the mid vessel, without occlusion. Right posterior cerebral artery: Patent. Left posterior cerebral artery: Patent. No signs of aneurysm. Neck MRA: There are motion artifacts. Aortic arch: Conventional anatomy. RIGHT-SIDED EXTRACRANIAL SYSTEM: Common carotid artery: No hemodynamically significant stenosis. Internal carotid artery: Mild loss of signal without convincing signs of hemodynamically significant stenosis. Right vertebral artery: Patent. LEFT-SIDED EXTRACRANIAL SYSTEM: Common carotid artery: No hemodynamically significant stenosis. Internal carotid artery: Mild loss of signal, without signs of hemodynamically significant stenosis. Left vertebral artery: Patent. Any reported ICA stenoses directly reference the distal internal carotid diameter as the denominator for stenosis measurement. (NASCET criteria) IMPRESSION: BRAIN: 1. No acute infarction or acute intracranial abnormality. 2. Age-related volume loss and mild microvascular ischemic changes. BRAIN MRA: 1. Mild to moderate stenosis of the right and left internal carotid arteries, basilar artery and M1 left MCA due to atherosclerotic plaque. 2. 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 3. No gross signs of aneurysm NECK MRA: 1. No convincing signs of hemodynamically significant stenosis of the internal carotid arteries, despite motion artifacts. This finding can be further characterized with carotid Doppler. 2. Patent vertebral arteries SL: WR3-M 11/25/2018 - - Read by: Christofer Ruano MD Dictated Date/time: 11/25/18 15:58 Electronically Signed by: Christofer Ruano MD 11/25/18 16:12 FINAL REPORT [facility] ANEMIA STUDY Vitamin B12 Lvl 1022 pg/mL 254 - 1320 11/25/2018 [facility] CARDIAC ENZYMES Troponin-I null 0.00 - 0.40 11/25/2018 [facility] CHEM PANEL eGFR 6 mL/min/1.73m2 11/25/2018 Result Comment: The eGFR is calculated using the [...] from the National Kidney Disease Education Program (NKDEP) which additionally recommends that when the eGFR is used in patients with extremes of body mass index for purposes of drug dosing, the eGFR should be multiplied by the estimated BMI. [facility] CHEM PANEL AGAP 11.6 meq/L 10.0 - 20.0 11/25/2018 [facility] CHEM PANEL Calcium Lvl 9.1 mg/dL 8.5 - 10.5 11/25/2018 [facility] CHEM PANEL Glucose Lvl 203 mg/dL 70 - 99 11/25/2018 [facility] CHEM PANEL Chloride Lvl 91 meq/L 95 - 109 11/25/2018 [facility] CHEM PANEL CO2 33 meq/L 24 - 32 11/25/2018 [facility] CHEM PANEL BUN 44 mg/dL 7 - 22 11/25/2018 [facility] CHEM PANEL Potassium Lvl 4.6 meq/L 3.5 - 5.1 11/25/2018 [facility] CHEM PANEL Sodium Lvl 131 meq/L 135 - 145 11/25/2018 [facility] CHEM PANEL Creatinine Lvl 8.08 mg/dL 0.50 - 1.40 11/25/2018 [facility] CHEM PANEL Globulin 4.5 g/dL 2.7 - 4.2 11/25/2018 [facility] CHEM PANEL Bili Indirect 0.5 mg/dL 0.0 - 1.0 11/25/2018 [facility] CHEM PANEL A/G Ratio 0.6 0.7 - 1.6 11/25/2018 [facility] CHEM PANEL Bili Direct 0.1 mg/dL 0.0 - 0.3 11/25/2018 [facility] CHEM PANEL Alk Phos 87 unit/L 39 - 136 11/25/2018 [facility] CHEM PANEL Bili Total 0.6 mg/dL 0.2 - 1.3 11/25/2018 [facility] CHEM PANEL AST 12 unit/L 0 - 37 11/25/2018 [facility] CHEM PANEL Albumin Lvl 2.9 g/dL 3.5 - 5.0 11/25/2018 [facility] CHEM PANEL ALT 23 unit/L 0 - 65 11/25/2018 [facility] CHEM PANEL Total Protein 7.4 g/dL 6.4 - 8.4 11/25/2018 [facility] HEMATOLOGY Platelet 237 K/CMM 133 - 450 11/25/2018 [facility] HEMATOLOGY RDW 13.2 % 11.5 - 14.5 11/25/2018 [facility] HEMATOLOGY MCHC 34.2 g/dL 32.0 - 36.0 11/25/2018 [facility] HEMATOLOGY Hgb 12.5 g/dL 14.0 - 18.0 11/25/2018 [facility] HEMATOLOGY RBC 3.91 M/CMM 4.70 - 6.10 11/25/2018 [facility] HEMATOLOGY WBC 9.7 K/CMM 3.7 - 10.4 11/25/2018 [facility] HEMATOLOGY MPV 7.0 fL 7.4 - 10.4 11/25/2018 [facility] HEMATOLOGY MCV 93.6 fL 80.0 - 94.0 11/25/2018 [facility] HEMATOLOGY Hct 36.6 % 42.0 - 54.0 11/25/2018 [facility] HEMATOLOGY MCH 32.0 pg 27.0 - 31.0 11/25/2018 [facility] HEMATOLOGY Neutrophils # 7.2 K/CMM 1.5 - 8.1 11/25/2018 [facility] HEMATOLOGY Basophils 0.7 % 0.0 - 1.0 11/25/2018 [facility] HEMATOLOGY Monocytes # 0.9 K/CMM 0.0 - 0.8 11/25/2018 [facility] HEMATOLOGY Lymphocytes # 1.3 K/CMM 1.0 - 5.5 11/25/2018 [facility] HEMATOLOGY Eosinophils # 0.3 K/CMM 0.0 - 0.5 11/25/2018 [facility] Basophils # 0.1 K/CMM 0.0 - 0.2 11/25/2018 [facility] Monocytes 8.9 % 2.0 - 12.0 11/25/2018 [facility] HEMATOLOGY Eosinophils 3.3 % 0.0 - 4.0 11/25/2018 [facility] HEMATOLOGY Lymphocytes 13.0 % 20.0 - 40.0 11/25/2018 [facility] HEMATOLOGY Segs 74.1 % 45.0 - 75.0 11/25/2018 [facility] SPECIAL CHEMISTRY Hgb A1C 7.9 % <=5.6 % 11/25/2018 [facility] CARDIAC ENZYMES Troponin-I null 0.00 - 0.40 11/25/2018 [facility] CARDIAC ENZYMES BNP 73 pg/mL <=100 pg/mL 11/24/2018 [facility] CARDIAC ENZYMES Troponin-I null 0.00 - 0.40 11/24/2018 [facility] CHEM PANEL A/G Ratio 0.6 0.7 - 1.6 11/24/2018 [facility] CHEM PANEL ALT 31 unit/L 0 - 65 11/24/2018 [facility] CHEM PANEL AST 26 unit/L 0 - 37 11/24/2018 [facility] CHEM PANEL Alk Phos 152 unit/L 39 - 136 11/24/2018 [facility] CHEM PANEL Bili Total 0.7 mg/dL 0.2 - 1.3 11/24/2018 [facility] CHEM PANEL Creatinine Lvl 5.48 mg/dL 0.50 - 1.40 11/24/2018 [facility] CHEM PANEL BUN 24 mg/dL 7 - 22 11/24/2018 [facility] CHEM PANEL Glucose Lvl 260 mg/dL 70 - 99 11/24/2018 [facility] CHEM PANEL Sodium Lvl 131 meq/L 135 - 145 11/24/2018 [facility] CHEM PANEL AGAP 17.3 meq/L 10.0 - 20.0 11/24/2018 [facility] CHEM PANEL CO2 32 meq/L 24 - 32 11/24/2018 [facility] CHEM PANEL Chloride Lvl 86 meq/L 95 - 109 11/24/2018 [facility] CHEM PANEL Potassium Lvl 4.3 meq/L 3.5 - 5.1 11/24/2018 [facility] CHEM PANEL Calcium Lvl 9.1 mg/dL 8.5 - 10.5 11/24/2018 [facility] CHEM PANEL Total Protein 9.0 g/dL 6.4 - 8.4 11/24/2018 [facility] CHEM PANEL B/C Ratio 4 6 - 25 11/24/2018 [facility] CHEM PANEL Globulin 5.8 g/dL 2.7 - 4.2 11/24/2018 [facility] CHEM PANEL Albumin Lvl 3.2 g/dL 3.5 - 5.0 11/24/2018 [facility] CHEM PANEL eGFR 10 mL/min/1.73m2 11/24/2018 Result Comment: The eGFR is calculated using the [...] from the National Kidney Disease Education Program (NKDEP) which additionally recommends that when the eGFR is used in patients with extremes of body mass index for purposes of drug dosing, the eGFR should be multiplied by the estimated BMI. [facility] HEMATOLOGY PTT 29.3 s 22.9 - 35.8 11/24/2018 [facility] HEMATOLOGY RBC 4.31 M/CMM 4.70 - 6.10 11/24/2018 [facility] Hgb 13.9 g/dL 14.0 - 18.0 11/24/2018 [facility] Hct 40.1 % 42.0 - 54.0 11/24/2018 [facility] MCV 93.0 fL 80.0 - 94.0 11/24/2018 [facility] RDW 13.3 % 11.5 - 14.5 11/24/2018 [facility] MPV 7.2 fL 7.4 - 10.4 11/24/2018 [facility] MCHC 34.6 g/dL 32.0 - 36.0 11/24/2018 [facility] Platelet 281 K/CMM 133 - 450 11/24/2018 [facility] MCH 32.2 pg 27.0 - 31.0 11/24/2018 [facility] WBC 11.6 K/CMM 3.7 - 10.4 11/24/2018 [facility] PT 12.3 s 12.0 - 14.7 11/24/2018 [facility] INR 0.93 0.85 - 1.17 11/24/2018 [facility] Eosinophils 2.0 % 0.0 - 4.0 11/24/2018 [facility] Lymphocytes # 1.0 K/CMM 1.0 - 5.5 11/24/2018 [facility] Neutrophils # 9.4 K/CMM 1.5 - 8.1 11/24/2018 [facility] Basophils 0.8 % 0.0 - 1.0 11/24/2018 [facility] Monocytes # 0.9 K/CMM 0.0 - 0.8 11/24/2018 [facility] Eosinophils # 0.2 K/CMM 0.0 - 0.5 11/24/2018 [facility] Basophils # 0.1 K/CMM 0.0 - 0.2 11/24/2018 [facility] Segs 80.9 % 45.0 - 75.0 11/24/2018 [facility] Monocytes 7.7 % 2.0 - 12.0 11/24/2018 [facility] Lymphocytes 8.6 % 20.0 - 40.0 11/24/2018 [facility] Ribs bilateral DX Ribs bilateral DX Ribs bilateral DX Age: 63 years /o Male Clinical Indication: - pain after chest compressions; Comparison: 11/24/2018 at 11:47 FINDINGS: AP and oblique views of the right ribs / chest show no rib fractures. The costovertebral junctions are unremarkable. There are no associated pleural effusions or pneumothorax. There are no underlying pulmonary contusions noted. Incidental findings include advanced atherosclerotic vascular disease, particularly the infrarenal abdominal aorta. There is also expandable intravascular stent (overlapping) in the left subclavian/axillary region. IMPRESSION: 1. Unremarkable right rib series. : [id number] 11/24/2018 - - Read by: Nicolás Saba MD Dictated Date/time: 11/24/18 14:34 Electronically Signed by: Nicolás Saba MD 11/24/18 14:37 FINAL REPORT [facility] Chest 1view DX Chest 1view DX Portable chest:There is mild calcification the aortic arch. The cardiomediastinal silhouette, pulmonary vasculature and ryan are within normal limits. The lungs and pleural spaces are clear. There are no significant osseous abnormalities. Right axillary venous stents are noted. There is no significant change compared to 02/22/2018. IMPRESSION: No acute radiographic abnormalities in the chest. DLAWRENCE-PC 11/24/2018 - - Read by: Jayesh Jeffries MD Dictated Date/time: 11/24/18 12:13 Electronically Signed by: Jayesh Jeffries MD 11/24/18 12:14 FINAL REPORT [facility] Brain contrast CT Brain wo contrast CT Patient Name: ASHOK LOCKHART : 1955; Age: 63 years Male MR: [id number] Study: Brain wo contrast CT 11/24/2018 11:43 [employer] Clinical Indication: - syncope. reports syncopal episode at dialysis ([facility] [address]) today with chest compressions x 3 minutes??? reports HD was not completed but that it lasted 4 hrs? PMH: ESRD, DM, HTN COMPARISON: None TECHNIQUE: CT images were obtained from the foramen magnum to the vertex without the use of intravenous contrast on a multidetector CT. Coronal and sagittal reconstructions were obtained. CT imaging performed at this location utilizes radiation dose optimization techniques which include one or more of the following: -Automated exposure control -Adjustment of the mA and/or kV according to patient size -Use of iterative reconstruction technique CT Radiation Dose DLP 983 mGy-cm FINDINGS: BRAIN PARENCHYMA: There is generalized brain parenchymal atrophy related to the patient's age. Nonspecific periventricular white matter disease changes are noted. Atherosclerotic calcifications are present within the carotid siphons and distal vertebral arteries. There are no focal mass lesions on this noncontrast head CT. There is no mass effect, midline shift or edema. There are no intra-axial or extra-axial fluid collections. There is no intraventricular or intraparenchymal hemorrhage. There is no noncontrast CT evidence of a subacute stroke. The pineal, sellar, brainstem, cerebellum and skull base regions appear normal. VENTRICLES: The lateral ventricles, third and fourth ventricles appear normal. The basilar cisterns are normal. ORBITS, MASTOIDS AND PARANASAL SINUSES: The visualized orbits are normal. The visualized paranasal sinuses are normal. The mastoid air cells are clear. SKULL: There are no calvarial abnormalities seen. If there is further concern for intracranial pathology or acute stroke, MRI of the brain may be performed for complete assessment. IMPRESSION: Chronic age-related and small vessel ischemic changes without mass, hemorrhage or subacute stroke. SL: [id number] 11/24/2018 - - Read by: Jose Luis Campos MD Dictated Date/time: 11/24/18 13:15 Electronically Signed by: Jose Luis Campos MD 11/24/18 13:19 FINAL REPORT [facility] Chest 1view DX Chest 1view DX Clinical Indication: Dyspnea - sob; Comparison: 02/18/2018 FINDINGS: AP chest radiographs shows normal lung volumes without interstitial or airspace opacities, pleural effusions or pneumothorax. The heart size and pulmonary vasculature are normal. The trachea is midline. There are no clinically significant osseous abnormalities noted. IMPRESSION: No chest radiographic evidence of acute cardiopulmonary disease. SL: [id number] 02/22/2018 - - Read by: Mac Mayo MD Dictated Date/time: 02/22/18 14:23 Electronically Signed by: Mac Mayo MD 02/22/18 14:23 FINAL REPORT [facility] ELECTROLYTES AGAP 18.6 meq/L 10.0 - 20.0 02/22/2018 [facility] ELECTROLYTES Sodium Lvl 135 meq/L 135 - 145 02/22/2018 [facility] ELECTROLYTES Potassium Lvl 3.6 meq/L 3.5 - 5.1 02/22/2018 [facility] ELECTROLYTES Chloride Lvl 97 meq/L 95 - 109 02/22/2018 [facility] ELECTROLYTES Calcium Lvl 8.5 mg/dL 8.5 - 10.5 02/22/2018 [facility] ELECTROLYTES CO2 23 meq/L 24 - 32 02/22/2018 [facility] ELECTROLYTES eGFR 5 mL/min/1.73m2 02/22/2018 Result Comment: The eGFR is calculated using the [...] from the National Kidney Disease Education Program (NKDEP) which additionally recommends that when the eGFR is used in patients with extremes of body mass index for purposes of drug dosing, the eGFR should be multiplied by the estimated BMI. [facility] ELECTROLYTES Glucose Lvl 138 mg/dL 70 - 99 02/22/2018 [facility] ELECTROLYTES BUN 69 mg/dL 7 - 22 02/22/2018 [facility] ELECTROLYTES Creatinine Lvl 9.96 mg/dL 0.50 - 1.40 02/22/2018 [facility] HEMATOLOGY Segs 60.3 % 45.0 - 75.0 02/22/2018 [facility] HEMATOLOGY Eosinophils 5.9 % 0.0 - 4.0 02/22/2018 [facility] Monocytes 14.9 % 2.0 - 12.0 02/22/2018 [facility] Lymphocytes 18.3 % 20.0 - 40.0 02/22/2018 [facility] HEMATOLOGY Basophils 0.6 % 0.0 - 1.0 02/22/2018 [facility] HEMATOLOGY Segs-Bands # 3.7 K/CMM 1.5 - 8.1 02/22/2018 [facility] HEMATOLOGY Eosinophils # 0.4 K/CMM 0.0 - 0.5 02/22/2018 [facility] HEMATOLOGY Monocytes # 0.9 K/CMM 0.0 - 0.8 02/22/2018 [facility] Lymphocytes # 1.1 K/CMM 1.0 - 5.5 02/22/2018 [facility] MCH 31.9 pg 27.0 - 31.0 02/22/2018 [facility] HEMATOLOGY MCHC 34.6 g/dL 32.0 - 36.0 02/22/2018 [facility] HEMATOLOGY Platelet 143 K/CMM 133 - 450 02/22/2018 [facility] HEMATOLOGY MPV 7.9 fL 7.4 - 10.4 02/22/2018 [facility] HEMATOLOGY RDW 13.9 % 11.5 - 14.5 02/22/2018 [facility] Hgb 12.9 g/dL 14.0 - 18.0 02/22/2018 [facility] HEMATOLOGY Hct 37.3 % 42.0 - 54.0 02/22/2018 [facility] MCV 92.1 fL 80.0 - 94.0 02/22/2018 [facility] WBC 6.2 K/CMM 3.7 - 10.4 02/22/2018 [facility] RBC 4.05 M/CMM 4.70 - 6.10 02/22/2018 [facility] SPECIAL CHEMISTRY Hgb A1C 8.0 % <=5.6 % 02/22/2018 [facility] CHEM PANEL eGFR 7 mL/min/1.73m2 02/21/2018 Result Comment: The eGFR is calculated using the [...] from the National Kidney Disease Education Program (NKDEP) which additionally recommends that when the eGFR is used in patients with extremes of body mass index for purposes of drug dosing, the eGFR should be multiplied by the estimated BMI. [facility] CHEM PANEL Calcium Lvl 8.6 mg/dL 8.5 - 10.5 02/21/2018 [facility] CHEM PANEL Sodium Lvl 137 meq/L 135 - 145 02/21/2018 [facility] CHEM PANEL Potassium Lvl 3.5 meq/L 3.5 - 5.1 02/21/2018 [facility] CHEM PANEL CO2 27 meq/L 24 - 32 02/21/2018 [facility] CHEM PANEL AGAP 19.5 meq/L 10.0 - 20.0 02/21/2018 [facility] CHEM PANEL Chloride Lvl 94 meq/L 95 - 109 02/21/2018 [facility] CHEM PANEL Creatinine Lvl 7.61 mg/dL 0.50 - 1.40 02/21/2018 [facility] CHEM PANEL Glucose Lvl 224 mg/dL 70 - 99 02/21/2018 [facility] CHEM PANEL BUN 43 mg/dL 7 - 22 02/21/2018 [facility] HEMATOLOGY WBC 6.6 K/CMM 3.7 - 10.4 02/21/2018 [facility] HEMATOLOGY RBC 3.95 M/CMM 4.70 - 6.10 02/21/2018 [facility] Hgb 12.3 g/dL 14.0 - 18.0 02/21/2018 [facility] RDW 14.2 % 11.5 - 14.5 02/21/2018 [facility] Platelet 135 K/CMM 133 - 450 02/21/2018 [facility] MPV 8.0 fL 7.4 - 10.4 02/21/2018 [facility] MCHC 33.9 g/dL 32.0 - 36.0 02/21/2018 [facility] Hct 36.4 % 42.0 - 54.0 02/21/2018 [facility] MCV 92.2 fL 80.0 - 94.0 02/21/2018 [facility] MCH 31.3 pg 27.0 - 31.0 02/21/2018 [facility] Basophils # 0.1 K/CMM 0.0 - 0.2 02/21/2018 [facility] Eosinophils # 0.2 K/CMM 0.0 - 0.5 02/21/2018 [facility] Monocytes # 1.2 K/CMM 0.0 - 0.8 02/21/2018 [facility] Lymphocytes 15.3 % 20.0 - 40.0 02/21/2018 [facility] Monocytes 17.6 % 2.0 - 12.0 02/21/2018 [facility] Segs 62.8 % 45.0 - 75.0 02/21/2018 [facility] Plt Morph Normal (02/21/18 4:35 AM) 02/21/2018 [facility] RBC Morph Normal (02/21/18 4:35 AM) 02/21/2018 [facility] Lymphocytes # 1.0 K/CMM 1.0 - 5.5 02/21/2018 [facility] Eosinophils 3.5 % 0.0 - 4.0 02/21/2018 [facility] HEMATOLOGY Segs-Bands # 4.2 K/CMM 1.5 - 8.1 02/21/2018 [facility] HEMATOLOGY Basophils 0.8 % 0.0 - 1.0 02/21/2018 [facility] CHEM PANEL eGFR 5 mL/min/1.73m2 02/20/2018 Result Comment: The eGFR is calculated using the [...] from the National Kidney Disease Education Program (NKDEP) which additionally recommends that when the eGFR is used in patients with extremes of body mass index for purposes of drug dosing, the eGFR should be multiplied by the estimated BMI. [facility] CHEM PANEL Calcium Lvl 8.5 mg/dL 8.5 - 10.5 02/20/2018 [facility] CHEM PANEL CO2 29 meq/L 24 - 32 02/20/2018 [facility] CHEM PANEL Potassium Lvl 4.1 meq/L 3.5 - 5.1 02/20/2018 [facility] CHEM PANEL Chloride Lvl 93 meq/L 95 - 109 02/20/2018 [facility] CHEM PANEL Sodium Lvl 135 meq/L 135 - 145 02/20/2018 [facility] CHEM PANEL Glucose Lvl 352 mg/dL 70 - 99 02/20/2018 [facility] CHEM PANEL BUN 61 mg/dL 7 - 22 02/20/2018 [facility] CHEM PANEL Creatinine Lvl 10.40 mg/dL 0.50 - 1.40 02/20/2018 [facility] CHEM PANEL AGAP 17.1 meq/L 10.0 - 20.0 02/20/2018 [facility] HEMATOLOGY MPV 7.8 fL 7.4 - 10.4 02/20/2018 [facility] RDW 14.3 % 11.5 - 14.5 02/20/2018 [facility] Platelet 119 K/CMM 133 - 450 02/20/2018 [facility] Hct 36.0 % 42.0 - 54.0 02/20/2018 [facility] MCV 92.0 fL 80.0 - 94.0 02/20/2018 [facility] MCHC 33.6 g/dL 32.0 - 36.0 02/20/2018 [facility] MCH 30.9 pg 27.0 - 31.0 02/20/2018 [facility] RBC 3.91 M/CMM 4.70 - 6.10 02/20/2018 [facility] Hgb 12.1 g/dL 14.0 - 18.0 02/20/2018 [facility] WBC 6.0 K/CMM 3.7 - 10.4 02/20/2018 [facility] Eosinophils # 0.1 K/CMM 0.0 - 0.5 02/20/2018 [facility] Monocytes # 0.9 K/CMM 0.0 - 0.8 02/20/2018 [facility] Basophils 0.6 % 0.0 - 1.0 02/20/2018 [facility] Segs-Bands # 4.3 K/CMM 1.5 - 8.1 02/20/2018 [facility] Segs 72.1 % 45.0 - 75.0 02/20/2018 [facility] Lymphocytes 10.2 % 20.0 - 40.0 02/20/2018 [facility] Lymphocytes # 0.6 K/CMM 1.0 - 5.5 02/20/2018 [facility] Monocytes 14.8 % 2.0 - 12.0 02/20/2018 [facility] Eosinophils 2.3 % 0.0 - 4.0 02/20/2018 [facility] VIRAL - SEROLOGY Influ B Negative (02/20/18 9:05 AM) Negative 02/20/2018 [facility] VIRAL - SEROLOGY Influ A Negative (02/20/18 9:05 AM) Negative 02/20/2018 [facility] IMMUNOLOGY Hep Bs Ag Negative *NA* (02/19/18 3:50 AM) Negative 02/19/2018 [facility] CHEM PANEL Lactic Acid Lvl 2.0 mMol/L 0.5 - 2.2 02/18/2018 [facility] CHEM PANEL Procalcitonin Lvl 0.73 ng/mL 0.00 - 0.10 02/18/2018 [facility] PT 14.8 s 12.0 - 14.7 02/18/2018 [facility] HEMATOLOGY INR 1.16 0.85 - 1.17 02/18/2018 [facility] HEMATOLOGY PTT 29.1 s 22.9 - 35.8 02/18/2018 [facility] S. aureus Detected *ABN* (02/18/18 4:35 PM) Not Detected 02/18/2018 [facility] S. anginosus grp Not Detected (02/18/18 4:35 PM) Not Detected 02/18/2018 [facility] S. agalactiae Not Detected (02/18/18 4:35 PM) Not Detected 02/18/2018 [facility] S. lugdunensis Not Detected (02/18/18 4:35 PM) Not Detected 02/18/2018 [facility] S. epidermidis Not Detected (02/18/18 4:35 PM) Not Detected 02/18/2018 [facility] E. faecalis Not Detected (02/18/18 4:35 PM) Not Detected 02/18/2018 [facility] S. pyogenes Not Detected (02/18/18 4:35 PM) Not Detected 02/18/2018 [facility] S. pneumoniae Not Detected (02/18/18 4:35 PM) Not Detected 02/18/2018 [facility] Listeria spp. Not Detected (02/18/18 4:35 PM) Not Detected 02/18/2018 [facility] E. faecium Not Detected (02/18/18 4:35 PM) Not Detected 02/18/2018 [facility] Streptococcus spp. Not Detected (02/18/18 4:35 PM) Not Detected 02/18/2018 [facility] Staphylococcus spp. Detected *ABN* (02/18/18 4:35 PM) Not Detected 02/18/2018 [facility] vanB Vancomycin Resistance Not Detected (02/18/18 4:35 PM) Not Detected 02/18/2018 [facility] Jono Vancomycin Resistance Not Detected (02/18/18 4:35 PM) Not Detected 02/18/2018 [facility] mecA Methicillin Resistance Not Detected (02/18/18 4:35 PM) Not Detected 02/18/2018 [facility] URINE AND STOOL UA Color Ltyellow 02/18/2018 [facility] URINE AND STOOL UA Urobilinogen <=1.0 mg/dL 0.1 - 1.0 02/18/2018 [facility] URINE AND STOOL UA Protein 100 mg/dL Negative mg/dL 02/18/2018 [facility] URINE AND STOOL UA pH 8.0 5.0 - 8.0 02/18/2018 [facility] URINE AND STOOL UA Spec Grav 1.009 <=1.030 02/18/2018 [facility] URINE AND STOOL UA Glucose 500 mg/dL Negative mg/dL 02/18/2018 [facility] URINE AND STOOL UA RBC 2 /HPF 0 - 2 02/18/2018 [facility] URINE AND STOOL UA Sq Epi Occasional /LPF Few /LPF 02/18/2018 [facility] URINE AND STOOL UA WBC null 0 - 5 02/18/2018 [facility] URINE AND STOOL UA Leuk Est Negative (02/18/18 4:35 PM) Negative 02/18/2018 [facility] URINE AND STOOL UA Nitrite Negative (02/18/18 4:35 PM) Negative 02/18/2018 [facility] URINE AND STOOL UA Blood Small *ABN* (02/18/18 4:35 PM) Negative 02/18/2018 [facility] URINE AND STOOL UA Bili Negative *NA* (02/18/18 4:35 PM) Negative 02/18/2018 [facility] URINE AND STOOL UA Ketones Negative mg/dL Negative mg/dL 02/18/2018 [facility] URINE AND STOOL UA Turbidity Clear (02/18/18 4:35 PM) Clear 02/18/2018 [facility] CARDIAC ENZYMES Troponin-I null 0.00 - 0.40 02/18/2018 [facility] CARDIAC ENZYMES Total CK 130 unit/L 12 - 191 02/18/2018 [facility] CARDIAC ENZYMES CK MB 1.6 ng/mL 0.5 - 3.6 02/18/2018 [facility] CARDIAC ENZYMES CK MB Index 1.2 0.0 - 2.5 02/18/2018 [facility] CHEM PANEL Lactic Acid Lvl 2.9 mMol/L 0.5 - 2.2 02/18/2018 [facility] CHEM PANEL Lipase Lvl 209 unit/L 73 - 393 02/18/2018 [facility] CHEM PANEL Bili Total 0.6 mg/dL 0.2 - 1.3 02/18/2018 [facility] CHEM PANEL Globulin 5.2 g/dL 2.7 - 4.2 02/18/2018 [facility] CHEM PANEL B/C Ratio 6 6 - 25 02/18/2018 [facility] CHEM PANEL A/G Ratio 0.7 0.7 - 1.6 02/18/2018 [facility] CHEM PANEL Albumin Lvl 3.5 g/dL 3.5 - 5.0 02/18/2018 [facility] CHEM PANEL Total Protein 8.7 g/dL 6.4 - 8.4 02/18/2018 [facility] CHEM PANEL AST 27 unit/L 0 - 37 02/18/2018 [facility] CHEM PANEL ALT 39 unit/L 0 - 65 02/18/2018 [facility] CHEM PANEL Alk Phos 85 unit/L 39 - 136 02/18/2018 [facility] HEMATOLOGY Basophils # 0.1 K/CMM 0.0 - 0.2 02/18/2018 [facility] Abdomen/Pelvis wo IV contrast CT Abdomen/Pelvis wo IV contrast CT CT SCAN OF THE ABDOMEN [<AND PELVIS>] WITHOUT CONTRAST. HX: Clinical Indication: - fever, abdominal pain, vomiting; . Comparison: CT abdomen pelvis of 07/28/2016. Technique: Helical CT images were obtained from the domes the diaphragms to the symphysis pubis without the administration of oral or intravenous contrast. The lack of IV contrast lowers the sensitivity for diagnostic evaluation. ABDOMEN AND PELVIS: Small 5.0 mm posterior inferior right upper lobe pulmonary nodule is present adjacent to the fissure. The heart is normal in size. Grossly normal gallbladder. Diffuse fatty liver infiltration. The unenhanced spleen, pancreas, and right adrenal are normal in appearance. Grossly normal appendix. Stable small left adrenal nodules are present. The bladder is nondistended. Extensive atherosclerotic calcification abdominal aorta and iliac arteries. Enlarged heterogeneous prostate. Small fat-containing right and moderate left inguinal hernias are present. IMPRESSION: 1. No definite obstructive uropathy. 2. Grossly normal appendix. 3. Stable small left adrenal nodules are present. 4. Small 5.0 mm posterior inferior right upper lobe pulmonary nodule is present adjacent to the fissure. SL: [id number] 02/18/2018 - - Read by: Tristian Short MD Dictated Date/time: 02/18/18 15:31 Electronically Signed by: Tristian Short MD 02/18/18 15:37 FINAL REPORT [facility] Chest 1view DX Chest 1view DX Portable chest: Right axillary and subclavian venous stents are noted. The cardiomediastinal silhouette and pulmonary vasculature are within normal limits. The lungs and pleural spaces are clear. There are no acute osseous abnormalities. There is no significant change compared to 12/09/2017. IMPRESSION: No acute radiographic abnormality in the chest. SL [id number] 02/18/2018 - - Read by: Jayesh Jeffries MD Dictated Date/time: 02/18/18 14:12 Electronically Signed by: Jayesh Jeffries MD 02/18/18 14:12 FINAL REPORT [facility] CHEM PANEL eGFR 5 mL/min/1.73m2 12/13/2017 Result Comment: The eGFR is calculated using the [...] from the National Kidney Disease Education Program (NKDEP) which additionally recommends that when the eGFR is used in patients with extremes of body mass index for purposes of drug dosing, the eGFR should be multiplied by the estimated BMI. [facility] CHEM PANEL CO2 20 meq/L 24 - 32 12/13/2017 [facility] CHEM PANEL AGAP 17.2 meq/L 10.0 - 20.0 12/13/2017 [facility] CHEM PANEL Calcium Lvl 8.8 mg/dL 8.5 - 10.5 12/13/2017 [facility] CHEM PANEL Chloride Lvl 102 meq/L 95 - 109 12/13/2017 [facility] CHEM PANEL Glucose Lvl 98 mg/dL 70 - 99 12/13/2017 [facility] CHEM PANEL BUN 74 mg/dL 7 - 22 12/13/2017 [facility] CHEM PANEL Creatinine Lvl 10.80 mg/dL 0.50 - 1.40 12/13/2017 [facility] CHEM PANEL Potassium Lvl 5.2 meq/L 3.5 - 5.1 12/13/2017 [facility] CHEM PANEL Sodium Lvl 134 meq/L 135 - 145 12/13/2017 [facility] HEMATOLOGY Segs 69.2 % 45.0 - 75.0 12/13/2017 [facility] HEMATOLOGY Lymphocytes 15.7 % 20.0 - 40.0 12/13/2017 [facility] HEMATOLOGY Monocytes 10.5 % 2.0 - 12.0 12/13/2017 [facility] HEMATOLOGY Segs-Bands # 6.4 K/CMM 1.5 - 8.1 12/13/2017 [facility] HEMATOLOGY Lymphocytes # 1.4 K/CMM 1.0 - 5.5 12/13/2017 [facility] HEMATOLOGY Eosinophils 3.8 % 0.0 - 4.0 12/13/2017 [facility] HEMATOLOGY Basophils 0.8 % 0.0 - 1.0 12/13/2017 [facility] HEMATOLOGY Monocytes # 1.0 K/CMM 0.0 - 0.8 12/13/2017 [facility] HEMATOLOGY Eosinophils # 0.4 K/CMM 0.0 - 0.5 12/13/2017 [facility] HEMATOLOGY Basophils # 0.1 K/CMM 0.0 - 0.2 12/13/2017 [facility] Platelet 140 K/CMM 133 - 450 12/13/2017 [facility] MPV 7.4 fL 7.4 - 10.4 12/13/2017 [facility] Hgb 11.1 g/dL 14.0 - 18.0 12/13/2017 [facility] WBC 9.2 K/CMM 3.7 - 10.4 12/13/2017 [facility] RBC 3.65 M/CMM 4.70 - 6.10 12/13/2017 [facility] RDW 16.9 % 11.5 - 14.5 12/13/2017 [facility] MCHC 34.1 g/dL 32.0 - 36.0 12/13/2017 [facility] Hct 32.6 % 42.0 - 54.0 12/13/2017 [facility] MCV 89.3 fL 80.0 - 94.0 12/13/2017 [facility] MCH 30.4 pg 27.0 - 31.0 12/13/2017 [facility] BLOOD BANK RESULTS RBC product Product available (12/12/17 2:24 PM) 12/12/2017 [facility] BLOOD BANK RESULTS ABO/Rh O POS 12/12/2017 [facility] BLOOD BANK RESULTS Antibody Scrn Negative (12/12/17 11:39 AM) 12/12/2017 [facility] CHEM PANEL Glucose Lvl 143 mg/dL 70 - 99 12/12/2017 [facility] ELECTROLYTES Potassium Lvl 5.5 meq/L 3.5 - 5.1 12/12/2017 [facility] CHEM PANEL Bili Indirect 0.2 mg/dL 0.0 - 1.0 12/11/2017 [facility] CHEM PANEL A/G Ratio 0.6 0.7 - 1.6 12/11/2017 [facility] CHEM PANEL Globulin 4.9 g/dL 2.7 - 4.2 12/11/2017 [facility] CHEM PANEL Bili Direct 0.1 mg/dL 0.0 - 0.3 12/11/2017 [facility] CHEM PANEL Bili Total 0.3 mg/dL 0.2 - 1.3 12/11/2017 [facility] CHEM PANEL Alk Phos 85 unit/L 39 - 136 12/11/2017 [facility] CHEM PANEL AST 18 unit/L 0 - 37 12/11/2017 [facility] CHEM PANEL Total Protein 7.9 g/dL 6.4 - 8.4 12/11/2017 [facility] CHEM PANEL ALT 28 unit/L 0 - 65 12/11/2017 [facility] CHEM PANEL Albumin Lvl 3.0 g/dL 3.5 - 5.0 12/11/2017 [facility] ELECTROLYTES AGAP 21.2 meq/L 10.0 - 20.0 12/11/2017 [facility] ELECTROLYTES eGFR 4 mL/min/1.73m2 12/11/2017 Result Comment: The eGFR is calculated using the [...] from the National Kidney Disease Education Program (NKDEP) which additionally recommends that when the eGFR is used in patients with extremes of body mass index for purposes of drug dosing, the eGFR should be multiplied by the estimated BMI. [facility] ELECTROLYTES Calcium Lvl 9.9 mg/dL 8.5 - 10.5 12/11/2017 [facility] ELECTROLYTES Chloride Lvl 96 meq/L 95 - 109 12/11/2017 [facility] ELECTROLYTES Potassium Lvl 5.2 meq/L 3.5 - 5.1 12/11/2017 [facility] ELECTROLYTES CO2 22 meq/L 24 - 32 12/11/2017 [facility] ELECTROLYTES Creatinine Lvl 11.10 mg/dL 0.50 - 1.40 12/11/2017 [facility] ELECTROLYTES Sodium Lvl 134 meq/L 135 - 145 12/11/2017 [facility] ELECTROLYTES BUN 80 mg/dL 7 - 22 12/11/2017 [facility] ELECTROLYTES Glucose Lvl 223 mg/dL 70 - 99 12/11/2017 [facility] HEMATOLOGY MCHC 33.9 g/dL 32.0 - 36.0 12/11/2017 [facility] HEMATOLOGY RDW 15.4 % 11.5 - 14.5 12/11/2017 [facility] HEMATOLOGY Hct 36.0 % 42.0 - 54.0 12/11/2017 [facility] HEMATOLOGY MCV 91.3 fL 80.0 - 94.0 12/11/2017 [facility] MCH 30.9 pg 27.0 - 31.0 12/11/2017 [facility] Platelet 156 K/CMM 133 - 450 12/11/2017 [facility] MPV 7.5 fL 7.4 - 10.4 12/11/2017 [facility] RBC 3.94 M/CMM 4.70 - 6.10 12/11/2017 [facility] Hgb 12.2 g/dL 14.0 - 18.0 12/11/2017 [facility] WBC 8.8 K/CMM 3.7 - 10.4 12/11/2017 [facility] Segs 60.8 % 45.0 - 75.0 12/11/2017 [facility] Monocytes 12.0 % 2.0 - 12.0 12/11/2017 [facility] Eosinophils 4.5 % 0.0 - 4.0 12/11/2017 [facility] Lymphocytes 21.8 % 20.0 - 40.0 12/11/2017 [facility] Lymphocytes # 1.9 K/CMM 1.0 - 5.5 12/11/2017 [facility] HEMATOLOGY Monocytes # 1.1 K/CMM 0.0 - 0.8 12/11/2017 [facility] HEMATOLOGY Eosinophils # 0.4 K/CMM 0.0 - 0.5 12/11/2017 [facility] HEMATOLOGY Basophils # 0.1 K/CMM 0.0 - 0.2 12/11/2017 [facility] Basophils 0.9 % 0.0 - 1.0 12/11/2017 [facility] Segs-Bands # 5.4 K/CMM 1.5 - 8.1 12/11/2017 [facility] SPECIAL CHEMISTRY Hgb A1C 8.4 % <=5.6 % 12/11/2017 [facility] IMMUNOLOGY Hep Bs Ag Negative *NA* (12/09/17 4:48 PM) Negative 12/09/2017 [facility] Chest 1view DX Chest 1view DX Clinical Indication: Dyspnea - Comparison: 03/05/2015 Technique: X-ray chest frontal projection FINDINGS: There is no consolidation, pleural effusion or pneumothorax. The heart is normal in size. The mediastinum and ryan are unremarkable. The visualized bones and soft tissues are within normal limits. IMPRESSION: No chest radiographic evidence of acute cardiopulmonary disease. SL: [id number] 12/09/2017 - - Read by: Bridgett Ramírez MD Dictated Date/time: 12/09/17 21:00 Electronically Signed by: Bridgett Ramírez MD 12/09/17 21:00 FINAL REPORT [facility] CHEM PANEL eGFR 5 mL/min/1.73m2 12/09/2017 Result Comment: The eGFR is calculated using the [...] from the National Kidney Disease Education Program (NKDEP) which additionally recommends that when the eGFR is used in patients with extremes of body mass index for purposes of drug dosing, the eGFR should be multiplied by the estimated BMI. [facility] CHEM PANEL Creatinine Lvl 10.70 mg/dL 0.50 - 1.40 12/09/2017 [facility] CHEM PANEL BUN 78 mg/dL 7 - 22 12/09/2017 [facility] CHEM PANEL Chloride Lvl 99 meq/L 95 - 109 12/09/2017 [facility] CHEM PANEL CO2 22 meq/L 24 - 32 12/09/2017 [facility] CHEM PANEL Potassium Lvl 5.2 meq/L 3.5 - 5.1 12/09/2017 [facility] CHEM PANEL Sodium Lvl 137 meq/L 135 - 145 12/09/2017 [facility] CHEM PANEL Glucose Lvl 200 mg/dL 70 - 99 12/09/2017 [facility] CHEM PANEL Calcium Lvl 9.1 mg/dL 8.5 - 10.5 12/09/2017 [facility] CHEM PANEL AGAP 21.2 meq/L 10.0 - 20.0 12/09/2017 [facility] HEMATOLOGY INR 0.95 0.85 - 1.17 12/09/2017 [facility] PT 12.7 s 12.0 - 14.7 12/09/2017 [facility] PTT 30.2 s 22.9 - 35.8 12/09/2017 [facility] MCHC 33.7 g/dL 32.0 - 36.0 12/09/2017 [facility] MCH 30.9 pg 27.0 - 31.0 12/09/2017 [facility] MPV 7.3 fL 7.4 - 10.4 12/09/2017 [facility] Platelet 184 K/CMM 133 - 450 12/09/2017 [facility] RDW 15.6 % 11.5 - 14.5 12/09/2017 [facility] RBC 3.96 M/CMM 4.70 - 6.10 12/09/2017 [facility] WBC 7.3 K/CMM 3.7 - 10.4 12/09/2017 [facility] MCV 91.6 fL 80.0 - 94.0 12/09/2017 [facility] Hct 36.3 % 42.0 - 54.0 12/09/2017 [facility] Hgb 12.2 g/dL 14.0 - 18.0 12/09/2017 [facility] Monocytes # 0.8 K/CMM 0.0 - 0.8 12/09/2017 [facility] Lymphocytes # 1.6 K/CMM 1.0 - 5.5 12/09/2017 [facility] Segs-Bands # 4.4 K/CMM 1.5 - 8.1 12/09/2017 [facility] Basophils 1.2 % 0.0 - 1.0 12/09/2017 [facility] Eosinophils 5.8 % 0.0 - 4.0 12/09/2017 [facility] Basophils # 0.1 K/CMM 0.0 - 0.2 12/09/2017 [facility] Eosinophils # 0.4 K/CMM 0.0 - 0.5 12/09/2017 [facility] HEMATOLOGY Monocytes 10.6 % 2.0 - 12.0 12/09/2017 [facility] HEMATOLOGY Lymphocytes 22.4 % 20.0 - 40.0 12/09/2017 [facility] HEMATOLOGY Segs 60.0 % 45.0 - 75.0 12/09/2017 [facility] Hemodialysis Graft/Fistula US Hemodialysis Graft/Fistula US 10 Patient Name: ASHOK LOCKHART : 1955; Age: 62 years y/o Male MR: [id number] * Color duplex sonography of right upper extremity dialysis arteriovenous fistula. HISTORY: End-stage renal disease, unsuccessful dialysis utilizing a right upper extremity fistula. TECHNIQUE: Color duplex (color flow, spectral Doppler, and grayscale imaging) imaging of the right upper extremity was performed for evaluation of the fistula. IMPRESSION: 1. The patient has a right brachiocephalic arteriovenous fistula. 2. The fistula is occluded as a draining cephalic vein is thrombosed and occluded just distal to its origin. The draining cephalic vein measures approximately 10 mm in diameter. 3. The arteriovenous anastomosis well demonstrated. Pain. Arterial flow is demonstrated in the distal brachial artery adjacent to this. 4. No hematoma or fluid collection is seen within the soft tissues. SL: [id number] 12/09/2017 - - Read by: Julio Cesar Garcia MD Dictated Date/time: 12/09/17 10:32 Electronically Signed by: Julio Cesar Garcia MD 12/09/17 10:54 FINAL REPORT [facility] Stomach emptying UT Stomach emptying NM Patient Name: ASHOK LOCKHART : 1955; Age: 61 years Male MR: [id number] Study: Stomach emptying NM 12/09/2016 8:07 AM CDT Clinical Indication: gastroparesis COMPARISON: None TECHNIQUE: 1 mCi of sulfur colloid meal was administered orally. Images were performed in anterior projection and an excretion curve plotted. FINDINGS: There is prompt activity identified within the stomach and prompt excretion into the small bowel thereafter. The slope of the excretion curve is within normal limits. The T half life is 103 minutes. (Normal range of 45min- 110min). % excretion at approx. 60 minutes: 33 % % excretion at approx. 90 minutes: 46 % % excretion at approx. 120 minutes: 58 % % excretion at approx. 180 minutes: 68 % % excretion at approx. 240 minutes: 85 % (Normal >90%) IMPRESSION: Essentially normal excretion curve with a slightly greater than expected degree of retained content at 240 minutes. 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 FINDINGS: Amputation of the little toe at the level of the mid distal shaft of the fifth metatarsal is noted. An overlying wound dressing is in place. There is prominent abnormal soft tissue induration at the amputation stump which extends to abut the distal fourth metatarsal and proximal phalanx of the fourth toe. This soft tissue duration is nonspecific and may be related to cellulitis and/or postoperative fibrotic scarring. There is mild dystrophic soft tissue mineralization within this area of soft tissue induration. No definite erosion of the distal fourth metatarsal or proximal phalanx of the fourth toe to suggest CT evidence of destructive osteomyelitis. No drainable abscess or soft tissue fluid collection. Remainder of the foot demonstrates diffuse muscular fatty atrophy and arterial vascular calcifications. No other osseous abnormalities are seen. No fracture or dislocation. IMPRESSION: 1. Changes of fifth toe amputation at the level of the mid distal fifth metatarsal shaft. 2. Marked soft tissue induration with mild soft tissue mineralization at the amputation stump may represent cellulitis and/or postoperative fibrosis. No abscess or soft tissue gas is seen. 3. No definite acute osseous erosions are seen to suggest CT evidence of osteomyelitis. MRI of the forefoot can provide more sensitive assessment for osteomyelitis. SL: [id number] 11/23/2016 - - Read by: Modesto Birch MD Dictated Date/time: 11/23/16 14:22 Electronically Signed by: Modesto Birch MD 11/23/16 14:35 FINAL REPORT [facility] URINE AND STOOL UA Bacteria Occasional /HPF None Seen /HPF 07/28/2016 [facility] URINE AND STOOL UA RBC >100 /HPF 0 - 2 07/28/2016 [facility] URINE AND STOOL UA WBC 3-5 /HPF 0 - 5 07/28/2016 [facility] URINE AND STOOL UA Sq Epi Occasional /LPF Few /LPF 07/28/2016 Result Comment: Microscopic done on unspun specimen due to <1 ml urine received. [facility] URINE AND STOOL UA Leuk Est Trace *ABN* (07/28/16 1:59 PM) Negative 07/28/2016 [facility] [facility] URINE AND STOOL UA Color Red *ABN* (07/28/16 1:59 PM) Yellow 07/28/2016 [facility] URINE AND STOOL UA Blood Large *ABN* (07/28/16 1:59 PM) Negative 07/28/2016 [facility] URINE AND STOOL UA Protein >=300 mg/dL Negative mg/dL 07/28/2016 [facility] URINE AND STOOL UA Glucose >=1000 mg/dL Negative mg/dL 07/28/2016 [facility] URINE AND STOOL UA pH 6.0 5.0 - 8.0 07/28/2016 [facility] URINE AND STOOL UA Spec Grav >=1.030 *ABN* (07/28/16 1:59 PM) <=1.030 07/28/2016 [facility] URINE AND STOOL UA Turbidity Cloudy *ABN* (07/28/16 1:59 PM) Clear 07/28/2016 [facility] URINE AND STOOL UA Nitrite Negative (07/28/16 1:59 PM) Negative 07/28/2016 [facility] URINE AND STOOL UA Urobilinogen 0.2 EU/dL 0.1 - 1.0 07/28/2016 [facility] URINE AND STOOL UA Bili Small *ABN* (07/28/16 1:59 PM) Negative 07/28/2016 [facility] URINE AND STOOL UA Ketones Trace *ABN* (07/28/16 1:59 PM) Negative 07/28/2016 [facility] ELECTROLYTES AGAP 15.5 meq/L 10.0 - 20.0 07/28/2016 [facility] ELECTROLYTES B/C Ratio 4 6 - 25 07/28/2016 [facility] ELECTROLYTES Globulin 5.6 g/dL 2.7 - 4.2 07/28/2016 [facility] ELECTROLYTES A/G Ratio 0.6 0.7 - 1.6 07/28/2016 [facility] ELECTROLYTES Alk Phos 111 unit/L 39 - 136 07/28/2016 [facility] ELECTROLYTES AST 39 unit/L 0 - 37 07/28/2016 [facility] ELECTROLYTES Bili Total 0.4 mg/dL 0.2 - 1.3 07/28/2016 [facility] ELECTROLYTES eGFR 9 mL/min/1.73m2 07/28/2016 Result Comment: The eGFR is calculated using the [...] from the National Kidney Disease Education Program (NKDEP) which additionally recommends that when the eGFR is used in patients with extremes of body mass index for purposes of drug dosing, the eGFR should be multiplied by the estimated BMI. [facility] ELECTROLYTES Glucose Lvl 293 mg/dL 70 - 99 07/28/2016 [facility] ELECTROLYTES Creatinine Lvl 6.30 mg/dL 0.50 - 1.40 07/28/2016 [facility] ELECTROLYTES BUN 25 mg/dL 7 - 22 07/28/2016 [facility] ELECTROLYTES ALT 37 unit/L 0 - 65 07/28/2016 [facility] ELECTROLYTES Total Protein 9.0 g/dL 6.4 - 8.4 07/28/2016 [facility] ELECTROLYTES Albumin Lvl 3.4 g/dL 3.5 - 5.0 07/28/2016 [facility] ELECTROLYTES Chloride Lvl 93 meq/L 95 - 109 07/28/2016 [facility] ELECTROLYTES Sodium Lvl 134 meq/L 135 - 145 07/28/2016 [facility] ELECTROLYTES Potassium Lvl 4.5 meq/L 3.5 - 5.1 07/28/2016 [facility] ELECTROLYTES Calcium Lvl 9.6 mg/dL 8.5 - 10.5 07/28/2016 [facility] ELECTROLYTES CO2 30 meq/L 24 - 32 07/28/2016 [facility] HEMATOLOGY MPV 7.5 fL 7.4 - 10.4 07/28/2016 [facility] HEMATOLOGY Platelet 269 K/CMM 133 - 450 07/28/2016 [facility] HEMATOLOGY MCV 92.2 fL 80.0 - 94.0 07/28/2016 [facility] HEMATOLOGY MCHC 31.9 g/dL 32.0 - 36.0 07/28/2016 [facility] HEMATOLOGY RDW 14.5 % 11.5 - 14.5 07/28/2016 [facility] HEMATOLOGY Hct 43.3 % 42.0 - 54.0 07/28/2016 [facility] HEMATOLOGY MCH 29.5 pg 27.0 - 31.0 07/28/2016 [facility] HEMATOLOGY WBC 12.1 K/CMM 3.7 - 10.4 07/28/2016 [facility] HEMATOLOGY Hgb 13.8 g/dL 14.0 - 18.0 07/28/2016 [facility] HEMATOLOGY RBC 4.69 M/CMM 4.70 - 6.10 07/28/2016 [facility] HEMATOLOGY INR 0.97 0.85 - 1.17 07/28/2016 [facility] HEMATOLOGY PT 13.1 s 12.0 - 14.7 07/28/2016 [facility] HEMATOLOGY PTT 30.1 s 22.9 - 35.8 07/28/2016 [facility] HEMATOLOGY Lymphocytes # 1.2 K/CMM 1.0 - 5.5 07/28/2016 [facility] HEMATOLOGY Monocytes # 1.3 K/CMM 0.0 - 0.8 07/28/2016 [facility] HEMATOLOGY Eosinophils # 0.2 K/CMM 0.0 - 0.5 07/28/2016 [facility] HEMATOLOGY Segs-Bands # 9.2 K/CMM 1.5 - 8.1 07/28/2016 [facility] HEMATOLOGY Basophils # 0.2 K/CMM 0.0 - 0.2 07/28/2016 [facility] HEMATOLOGY Eosinophils 1.9 % 0.0 - 4.0 07/28/2016 [facility] HEMATOLOGY Plt Morph Normal (07/28/16 1:58 PM) 07/28/2016 [facility] HEMATOLOGY Monocytes 11.1 % 2.0 - 12.0 07/28/2016 [facility] HEMATOLOGY Lymphocytes 9.8 % 20.0 - 40.0 07/28/2016 [facility] HEMATOLOGY Segs 76.0 % 45.0 - 75.0 07/28/2016 [facility] RBC Morph Normal (07/28/16 1:58 PM) 07/28/2016 [facility] Basophils 1.2 % 0.0 - 1.0 07/28/2016 [facility] Renal Stone CT Renal Stone CT Patient Name: KIRAMaikel LOCKHART : 1955; Age: 60 years y/o Male MR: [id number] Study: Renal Stone CT 07/28/2016 1:16 PM CDT Ordering Physician: Clinical Indication: Abdominal pain, acute; Comparison: 03/05/2015 TECHNIQUE: Noncontrasted helical imaging was performed from the kidneys through the symphysis as a renal stone protocol. Multiplanar reformations are available. FINDINGS: This examination is limited for the evaluation of solid organs and vascular structures due to withheld intravenous contrast -- the standard for urinary calculus assessment CT. KIDNEYS: Left hydronephrosis and hydroureter. The ureter is dilated to the urinary bladder junction. There is no obstructive calculus currently demonstrated. Punctate calcifications within both kidneys are present. Most of these are likely vascular. There is no intrinsic renal lesion otherwise. LOWER CHEST: The lung bases are clear.2 SOLID ORGANS: Hepatic steatosis without focal lesion or duct dilatation. Pancreas, spleen, adrenal glands and gallbladder are otherwise unremarkable. BOWEL: No acute bowel pathology. PERITONEUM: No free intraperitoneal fluid or air. RETROPERITONEUM: No adenopathy. Aorta is normal. PELVIS: No pelvic mass. Urinary bladder wall thickening. There are bladder is poorly distended however. Prostate is large. No other pathologic pelvic mass or fluid. MUSCULOSKELETAL: The skeleton is intact. IMPRESSION: Left hydronephrosis and hydroureter, with distention to the ureterovesicular junction. No obstructive calculus is currently evident. Clinically consider the possibility of recent stone passage. Poorly distended thick walled urinary bladder. Correlate clinically for cystitis. Large prostate. SL: [id number] 07/28/2016 - - Read by: Elvis Damian MD Dictated Date/time: 07/28/16 14:47 Electronically Signed by: Elvis Damian MD 07/28/16 14:52 FINAL REPORT [facility] ELECTROLYTES Sodium Lvl 137 meq/L 135 - 145 03/05/2015 [facility] ELECTROLYTES Potassium Lvl 5.5 meq/L 3.5 - 5.1 03/05/2015 [facility] ELECTROLYTES Chloride Lvl 104 meq/L 95 - 109 03/05/2015 [facility] ELECTROLYTES eGFR 6 mL/min/1.73m2 03/05/2015 1Result Comment: The eGFR is calculated using [...] from the National Kidney Disease Education Program (NKDEP) which additionally recommends that when the eGFR is used in patients with extremes of body mass index for purposes of drug dosing, the eGFR should be multiplied by the estimated BMI. [facility] ELECTROLYTES Total Protein 8.5 g/dL 6.4 - 8.4 03/05/2015 [facility] ELECTROLYTES Calcium Lvl 9.3 mg/dL 8.5 - 10.5 03/05/2015 [facility] ELECTROLYTES Alk Phos 92 unit/L 39 - 136 03/05/2015 [facility] ELECTROLYTES Bili Total 0.4 mg/dL 0.2 - 1.3 03/05/2015 [facility] ELECTROLYTES Albumin Lvl 4.1 g/dL 3.5 - 5.0 03/05/2015 [facility] ELECTROLYTES ALT 47 unit/L 0 - 65 03/05/2015 [facility] ELECTROLYTES AST 19 unit/L 0 - 37 03/05/2015 [facility] ELECTROLYTES Glucose Lvl 170 mg/dL 70 - 99 03/05/2015 2Interpretive Data: Adult reference range values reflect the clinical guidelines of the [employer]. [facility] ELECTROLYTES BUN 49 mg/dL 7 - 22 03/05/2015 [facility] ELECTROLYTES CO2 21 meq/L 24 - 32 03/05/2015 [facility] Creatinine Lvl 8.6 mg/dL 0.5 - 1.4 03/05/2015 [facility] ELECTROLYTES A/G Ratio 0.9 0.7 - 1.6 03/05/2015 [facility] ELECTROLYTES B/C Ratio 6 6 - 25 03/05/2015 [facility] ELECTROLYTES Globulin 4.4 g/dL 2.0 - 4.0 03/05/2015 [facility] ELECTROLYTES AGAP 17.5 meq/L 10.0 - 20.0 03/05/2015 [facility] Platelet 280 K/CMM 133 - 450 03/05/2015 [facility] MPV 7.8 fL 7.4 - 10.4 03/05/2015 [facility] RDW 14.3 % 11.5 - 14.5 03/05/2015 [facility] MCHC 33.8 g/dL 32.0 - 36.0 03/05/2015 [facility] Hgb 12.6 g/dL 14.0 - 18.0 03/05/2015 [facility] MCH 30.3 pg 27.0 - 31.0 03/05/2015 [facility] MCV 89.4 fL 80.0 - 94.0 03/05/2015 [facility] Hct 37.1 % 42.0 - 54.0 03/05/2015 [facility] WBC 10.8 K/CMM 3.7 - 10.4 03/05/2015 [facility] RBC 4.15 M/CMM 4.70 - 6.10 03/05/2015 [facility] Segs 82.3 % 45.0 - 75.0 03/05/2015 [facility] Lymphocytes 9.4 % 20.0 - 40.0 03/05/2015 [facility] Eosinophils 2.5 % 0.0 - 4.0 03/05/2015 [facility] Monocytes 4.9 % 2.0 - 12.0 03/05/2015 [facility] Eosinophils # 0.3 K/CMM 0.0 - 0.5 03/05/2015 [facility] Basophils # 0.1 K/CMM 0.0 - 0.2 03/05/2015 [facility] Lymphocytes # 1.0 K/CMM 1.0 - 5.5 03/05/2015 [facility] Monocytes # 0.5 K/CMM 0.0 - 0.8 03/05/2015 [facility] Basophils 0.9 % 0.0 - 1.0 03/05/2015 [facility] Segs-Bands # 8.9 K/CMM 1.5 - 8.1 03/05/2015 [facility] ED Abdomen/Pelvis IV contrast only CT ED Abdomen/Pelvis IV contrast only CT HISTORY: Right flank pain. Right hydronephrosis and hydroureter. The ureter is dilated to the ureterovesicular junction. A specific obstructive calculus is not clearly demonstrated. There is however calcification which could be within the prostatic urethra. A punctate nonobstructive left renal upper pole calculus is also demonstrated. Fatty liver. Upper abdominal viscera otherwise without acute abnormality. No bowel obstruction. No free air. No abdominal aortic aneurysm. Normal appendix. No evidence for diverticulitis. IMPRESSION: Right hydronephrosis and hydroureter to the UVJ. Ureteral calculus not identified however. 3 mm calculus within the prostate could possibly be within the prostatic urethra. SL:12 03/05/2015 - - Read by: Elvis Damian MD Dictated Date/time: 03/05/15 03:21 Electronically Signed by: Elvis Damian MD 03/05/15 03:25 FINAL REPORT [facility] URINE AND STOOL UA Color Ltyellow 03/05/2015 [facility] URINE AND STOOL UA Urobilinogen <=1.0 mg/dL 0.1 - 1.0 03/05/2015 [facility] URINE AND STOOL UA WBC 1 /HPF 0 - 5 03/05/2015 [facility] URINE AND STOOL UA Bacteria Occasional /HPF None Seen /HPF 03/05/2015 [facility] URINE AND STOOL UA RBC 6 /HPF 0 - 2 03/05/2015 [facility] URINE AND STOOL UA Sq Epi Occasional /LPF Few /LPF 03/05/2015 [facility] URINE AND STOOL UA Nitrite Negative (03/04/15 9:29 PM) Negative 03/05/2015 [facility] URINE AND STOOL UA Leuk Est Negative (03/04/15 9:29 PM) Negative 03/05/2015 [facility] URINE AND STOOL UA Turbidity Clear (03/04/15 9:29 PM) Clear 03/05/2015 [facility] URINE AND STOOL UA pH 7.0 5.0 - 8.0 03/05/2015 [facility] URINE AND STOOL UA Protein 100 mg/dL Negative mg/dL 03/05/2015 [facility] URINE AND STOOL UA Spec Grav 1.008 <=1.030 03/05/2015 [facility] URINE AND STOOL UA Blood Small *ABN* (03/04/15 9:29 PM) Negative 03/05/2015 [facility] URINE AND STOOL UA Glucose 500 mg/dL Negative mg/dL 03/05/2015 [facility] URINE AND STOOL UA Ketones Negative mg/dL Negative mg/dL 03/05/2015 [facility] URINE AND STOOL UA Bili Negative *NA* (03/04/15 9:29 PM) Negative 03/05/2015 [facility] CHEM PANEL Lipase Lvl 267 unit/L 73 - 393 03/05/2015 [facility] Abdomen acute series w chest 1 view DX Abdomen acute series w chest 1 view DX HISTORY: Abdominal pain. One view chest with 2 views abdomen. Chest radiograph normal. No free air beneath the diaphragm. No acute infiltrate. Two views abdomen demonstrate normal nonobstructive bowel gas pattern without fluid level or free air. IMPRESSION: Negative SL:12 03/04/2015 - - Read by: Elvis Damian MD Dictated Date/time: 03/05/15 00:14 Electronically Signed by: Elvis Damian MD 03/05/15 00:14 FINAL REPORT [facility] BEDSIDE GLUCOSE TESTING Glucose POC 326 mg/dL 70 - 99 11/05/2013 [place] 1Interpretive Data: Upper Reportable Limit: 200 mg/dL. [facility] CHEMISTRY Hgb A1C 8.3 % <=5.6 11/05/2013 [facility] CHEMISTRY eGFR 18 mL/min/1.73m2 11/05/2013 4Result Comment: The eGFR is calculated using the [...] from the National Kidney Disease Education Program (NKDEP) which additionally recommends that when the eGFR is used in patients with extremes of body mass index for purposes of drug dosing, the eGFR should be multiplied by the estimated BMI. [facility] CHEMISTRY Calcium Lvl 9.1 mg/dL 8.5 - 10.5 11/05/2013 Normal [facility] CHEMISTRY AGAP 14.9 meq/L 10.0 - 20.0 11/05/2013 Normal [facility] CHEMISTRY CO2 28 meq/L 24 - 32 11/05/2013 Normal [facility] CHEMISTRY Sodium Lvl 143 meq/L 135 - 145 11/05/2013 Normal [facility] CHEMISTRY Creatinine Lvl 3.6 mg/dL 0.5 - 1.4 11/05/2013 HI [facility] CHEMISTRY Chloride Lvl 104 meq/L 95 - 109 11/05/2013 Normal [facility] CHEMISTRY Potassium Lvl 3.9 meq/L 3.5 - 5.1 11/05/2013 Normal [facility] CHEMISTRY Glucose Lvl 187 mg/dL 70 - 99 11/05/2013 [place] 6Interpretive Data: Adult reference range values reflect the clinical guidelines of the [place] [employer]. [facility] CHEMISTRY BUN 19 mg/dL 7 - 22 11/05/2013 Normal [facility] HEMATOLOGY Basophils # 0.0 K/CMM 0.0 - 0.2 11/05/2013 Normal [facility] HEMATOLOGY Monocytes # 0.6 K/CMM 0.0 - 0.8 11/05/2013 Normal [facility] HEMATOLOGY Eosinophils # 0.3 K/CMM 0.0 - 0.5 11/05/2013 Normal [facility] HEMATOLOGY Lymphocytes 16.8 % 20.0 - 40.0 11/05/2013 LOW [facility] HEMATOLOGY Segs 71.8 % 45.0 - 75.0 11/05/2013 Normal [facility] HEMATOLOGY Monocytes 7.0 % 2.0 - 12.0 11/05/2013 Normal [facility] HEMATOLOGY Lymphocytes # 1.4 K/CMM 1.0 - 5.5 11/05/2013 Normal [facility] HEMATOLOGY Eosinophils 4.0 % 0.0 - 4.0 11/05/2013 Normal [facility] HEMATOLOGY Segs-Bands # 6.2 K/CMM 1.5 - 8.1 11/05/2013 Normal [facility] HEMATOLOGY Basophils 0.4 % 0.0 - 1.0 11/05/2013 Normal [facility] HEMATOLOGY Hct 40.1 % 42.0 - 54.0 11/05/2013 LOW [facility] HEMATOLOGY Hgb 13.4 g/dL 14.0 - 18.0 11/05/2013 LOW [facility] HEMATOLOGY RBC X 10x6 4.47 M/CMM 4.70 - 6.10 11/05/2013 LOW [facility] HEMATOLOGY WBC X 10x3 8.6 K/CMM 3.7 - 10.4 11/05/2013 Normal [facility] HEMATOLOGY MCV 89.8 fL 80.0 - 94.0 11/05/2013 Normal [facility] HEMATOLOGY MCH 30.1 pg 27.0 - 31.0 11/05/2013 Normal [facility] HEMATOLOGY MCHC 33.5 g/dL 32.0 - 36.0 11/05/2013 Normal [facility] HEMATOLOGY RDW 14.1 % 11.5 - 14.5 11/05/2013 Normal [facility] HEMATOLOGY MPV 7.0 fL 7.4 - 10.4 11/05/2013 LOW [facility] HEMATOLOGY Platelet 291 K/CMM 133 - 450 11/05/2013 Normal [facility] HEMATOLOGY PROTIME 12.7 s 12.0 - 14.7 11/05/2013 Normal [facility] HEMATOLOGY INR 0.96 0.85 - 1.17 11/05/2013 Normal 10Interpretive Data: RECOMMENDED RANGES FOR PROTIME INR: 2.0-3.0 for most medical and surgical thromboembolic states. 2.5-3.5 for artificial heart valves and recurrent embolism. INR SHOULD BE USED ONLY FOR PATIENTS ON STABLE ANTICOAGULANT THERAPY. [facility] CHEMISTRY CK-MB INDEX 1.3 0.0 - 2.5 11/05/2013 Normal [facility] CHEMISTRY CK MB 2.4 ng/mL 0.5 - 3.6 11/05/2013 Normal [facility] CHEMISTRY Troponin-I 0.04 ng/mL 0.00 - 0.40 11/05/2013 Normal [facility] CHEMISTRY Total CK 183 unit/L 12 - 191 11/05/2013 Normal [facility] IMMUNOLOGY Hep Bs Ag Negative *NA* (11/05/2013 10:00:00) Negative 11/05/2013 [facility] BEDSIDE GLUCOSE TESTING Glucose POC 164 mg/dL 70 - 99 11/05/2013 [place] 2Interpretive Data: Upper Reportable Limit: 200 mg/dL. [facility] BEDSIDE GLUCOSE TESTING Gluc POC Comment 1 Notified RN/ 11/05/2013 [facility] BEDSIDE GLUCOSE TESTING Glucose POC 223 mg/dL 70 - 99 11/05/2013 [place] 3Interpretive Data: Upper Reportable Limit: 200 mg/dL. [facility] Total CK 182 unit/L 12 - 191 11/05/2013 Normal [facility] CHEMISTRY Troponin-I 0.03 ng/mL 0.00 - 0.40 11/05/2013 Normal [facility] CHEMISTRY CHD Risk 7.51 4.00 - 7.30 11/05/2013 [facility] CHEMISTRY Chol 278 mg/dL <=199 11/05/2013 [facility] CHEMISTRY HDL 37 mg/dL >=61 11/05/2013 LOW [facility] CHEMISTRY LDL (Calculated) See Note mg/dL <=99 11/05/2013 9Result Comment: LDL cholesterol cannot be calculated due to very high triglycerides (>400 mg/dL). Recommend Direct LDL if clinically indicated. [facility] CHEMISTRY Trig 440 mg/dL <=149 11/05/2013 [facility] CHEMISTRY CK-MB INDEX 1.2 0.0 - 2.5 11/05/2013 Normal [facility] CHEMISTRY CK MB 2.2 ng/mL 0.5 - 3.6 11/05/2013 Normal [facility] HEMATOLOGY Hgb 11.9 g/dL 14.0 - 18.0 11/05/2013 LOW [facility] HEMATOLOGY WBC X 10x3 8.2 K/CMM 3.7 - 10.4 11/05/2013 Normal [facility] HEMATOLOGY RBC X 10x6 3.96 M/CMM 4.70 - 6.10 11/05/2013 LOW [facility] HEMATOLOGY RDW 14.2 % 11.5 - 14.5 11/05/2013 Normal [facility] HEMATOLOGY Platelet 256 K/CMM 133 - 450 11/05/2013 Normal [facility] HEMATOLOGY MPV 7.3 fL 7.4 - 10.4 11/05/2013 LOW [facility] HEMATOLOGY Hct 35.3 % 42.0 - 54.0 11/05/2013 LOW [facility] HEMATOLOGY MCV 89.3 fL 80.0 - 94.0 11/05/2013 Normal [facility] HEMATOLOGY MCH 30.2 pg 27.0 - 31.0 11/05/2013 Normal [facility] HEMATOLOGY MCHC 33.8 g/dL 32.0 - 36.0 11/05/2013 Normal [facility] HEMATOLOGY Monocytes # 0.7 K/CMM 0.0 - 0.8 11/05/2013 Normal [facility] HEMATOLOGY Eosinophils # 0.5 K/CMM 0.0 - 0.5 11/05/2013 Normal [facility] HEMATOLOGY Segs-Bands # 5.1 K/CMM 1.5 - 8.1 11/05/2013 Normal [facility] HEMATOLOGY Lymphocytes # 1.8 K/CMM 1.0 - 5.5 11/05/2013 Normal [facility] HEMATOLOGY Basophils # 0.0 K/CMM 0.0 - 0.2 11/05/2013 Normal [facility] HEMATOLOGY Lymphocytes 21.8 % 20.0 - 40.0 11/05/2013 Normal [facility] HEMATOLOGY Monocytes 8.9 % 2.0 - 12.0 11/05/2013 Normal [facility] HEMATOLOGY Segs 62.9 % 45.0 - 75.0 11/05/2013 Normal [facility] HEMATOLOGY Eosinophils 6.1 % 0.0 - 4.0 11/05/2013 [facility] HEMATOLOGY Basophils 0.3 % 0.0 - 1.0 11/05/2013 Normal [facility] URINALYSIS UA Color Ltyellow 11/05/2013 [facility] URINALYSIS UA Urobilinogen <=1.0 mg/dL 0.1 - 1.0 11/05/2013 [facility] URINALYSIS UA Sq Epi Occasional /LPF Few 11/05/2013 [facility] URINALYSIS UA Leuk Est Negative (11/05/2013 03:00:36) Negative 11/05/2013 Normal [facility] URINALYSIS UA RBC 2 /HPF 0 - 2 11/05/2013 Normal [facility] URINALYSIS UA WBC null 0 - 5 11/05/2013 Normal [facility] URINALYSIS UA Hyal Cast 2 /LPF 0 - 2 11/05/2013 Normal [facility] URINALYSIS UA Glucose 500 mg/dL Negative 11/05/2013 ABN [facility] URINALYSIS UA Blood Small *ABN* (11/05/2013 03:00:36) Negative 11/05/2013 ABN [facility] URINALYSIS UA Protein >=300 mg/dL Negative 11/05/2013 ABN [facility] URINALYSIS UA Bili Negative *NA* (11/05/2013 03:00:36) Negative 11/05/2013 [facility] URINALYSIS UA Ketones Negative mg/dL Negative 11/05/2013 [facility] URINALYSIS UA Nitrite Negative (11/05/2013 03:00:36) Negative 11/05/2013 Normal [facility] URINALYSIS UA pH 7.0 5.0 - 8.0 11/05/2013 Normal [facility] URINALYSIS UA Spec Grav 1.009 <=1.030 11/05/2013 Normal [facility] URINALYSIS UA Turbidity Clear (11/05/2013 03:00:36) Clear 11/05/2013 Normal [facility] CHEMISTRY CK-MB INDEX 1.2 0.0 - 2.5 11/05/2013 Normal [facility] CHEMISTRY BNP 236 pg/mL <=100 11/05/2013 [place] 8Interpretive Data: Elevated results are in line with increasing severity of congestive heart failure. Minor elevations between 100 and 300 may be seen with Myocardial Ischemia, Sodium retaining drugs, and compensated/treated heart failure. [facility] CHEMISTRY Phosphorus 3.4 mg/dL 2.5 - 4.5 11/05/2013 Normal [facility] CHEMISTRY Magnesium Lvl 2.2 mg/dL 1.8 - 2.4 11/05/2013 Normal [facility] CHEMISTRY CK MB 3.0 ng/mL 0.5 - 3.6 11/05/2013 Normal [facility] CHEMISTRY Total CK 253 unit/L 12 - 191 11/05/2013 HI [facility] CHEMISTRY eGFR 8 mL/min/1.73m2 11/05/2013 5Result Comment: The eGFR is calculated using the [...] from the National Kidney Disease Education Program (NKDEP) which additionally recommends that when the eGFR is used in patients with extremes of body mass index for purposes of drug dosing, the eGFR should be multiplied by the estimated BMI. [facility] CHEMISTRY A/G Ratio 0.9 0.7 - 1.6 11/05/2013 Normal [facility] CHEMISTRY Globulin 3.9 g/dL 2.0 - 4.0 11/05/2013 Normal [facility] CHEMISTRY CO2 26 meq/L 24 - 32 11/05/2013 Normal [facility] CHEMISTRY Total Protein 7.4 g/dL 6.4 - 8.4 11/05/2013 Normal [facility] CHEMISTRY Calcium Lvl 9.4 mg/dL 8.5 - 10.5 11/05/2013 Normal [facility] CHEMISTRY ALANINE AMINOTRANSFERASE 29 unit/L 0 - 65 11/05/2013 Normal [facility] CHEMISTRY Albumin Lvl 3.5 g/dL 3.5 - 5.0 11/05/2013 Normal [facility] CHEMISTRY Alk Phos 193 unit/L 39 - 136 11/05/2013 HI [facility] CHEMISTRY Bili Total 0.3 mg/dL 0.2 - 1.3 11/05/2013 Normal [facility] CHEMISTRY ASPARTATE TRANSAMINASE 18 unit/L 0 - 37 11/05/2013 Normal [facility] CHEMISTRY B/C Ratio 7 6 - 25 11/05/2013 Normal [facility] CHEMISTRY AGAP 14.7 meq/L 10.0 - 20.0 11/05/2013 Normal [facility] CHEMISTRY Glucose Lvl 264 mg/dL 70 - 99 11/05/2013 [place] 7Interpretive Data: Adult reference range values reflect the clinical guidelines of the [employer]. [facility] CHEMISTRY Creatinine Lvl 7.1 mg/dL 0.5 - 1.4 11/05/2013 [facility] CHEMISTRY BUN 49 mg/dL 7 - 22 11/05/2013 [facility] CHEMISTRY Chloride Lvl 101 meq/L 95 - 109 11/05/2013 [facility] CHEMISTRY Sodium Lvl 138 meq/L 135 - 145 11/05/2013 [facility] CHEMISTRY Potassium Lvl 3.7 meq/L 3.5 - 5.1 11/05/2013 [facility] CHEMISTRY Troponin-I 0.04 ng/mL 0.00 - 0.40 11/05/2013 [facility] HEMATOLOGY Monocytes 6.8 % 2.0 - 12.0 11/05/2013 [facility] HEMATOLOGY Segs-Bands # 5.0 K/CMM 1.5 - 8.1 11/05/2013 [facility] HEMATOLOGY Lymphocytes # 1.8 K/CMM 1.0 - 5.5 11/05/2013 [facility] HEMATOLOGY Segs 63.6 % 45.0 - 75.0 11/05/2013 Normal [facility] HEMATOLOGY Lymphocytes 23.1 % 20.0 - 40.0 11/05/2013 [facility] HEMATOLOGY Eosinophils 6.1 % 0.0 - 4.0 11/05/2013 [facility] HEMATOLOGY Eosinophils # 0.5 K/CMM 0.0 - 0.5 11/05/2013 [facility] HEMATOLOGY Basophils 0.4 % 0.0 - 1.0 11/05/2013 Normal [facility] HEMATOLOGY Monocytes # 0.5 K/CMM 0.0 - 0.8 11/05/2013 [facility] HEMATOLOGY Basophils # 0.0 K/CMM 0.0 - 0.2 11/05/2013 Normal [facility] HEMATOLOGY MCHC 33.8 g/dL 32.0 - 36.0 11/05/2013 Normal [facility] HEMATOLOGY RDW 14.4 % 11.5 - 14.5 11/05/2013 Normal [facility] HEMATOLOGY MPV 7.4 fL 7.4 - 10.4 11/05/2013 Normal [facility] HEMATOLOGY Platelet 273 K/CMM 133 - 450 11/05/2013 Normal [facility] HEMATOLOGY MCH 30.4 pg 27.0 - 31.0 11/05/2013 Normal [facility] HEMATOLOGY MCV 90.0 fL 80.0 - 94.0 11/05/2013 Normal [facility] HEMATOLOGY Hct 36.3 % 42.0 - 54.0 11/05/2013 LOW [facility] HEMATOLOGY Hgb 12.3 g/dL 14.0 - 18.0 11/05/2013 LOW [facility] HEMATOLOGY RBC X 10x6 4.03 M/CMM 4.70 - 6.10 11/05/2013 LOW [facility] WBC X 10x3 7.9 K/CMM 3.7 - 10.4 11/05/2013 Normal [facility] HEMATOLOGY aPTT 26.7 s 22.9 - 35.8 11/05/2013 Normal 12Interpretive Data: Heparin Therapeutic Range: 57 - 92 [facility] HEMATOLOGY PROTIME 12.6 s 12.0 - 14.7 11/05/2013 Normal [facility] HEMATOLOGY INR 0.95 0.85 - 1.17 11/05/2013 Normal 11Interpretive Data: RECOMMENDED RANGES FOR PROTIME INR: 2.0-3.0 for most medical and surgical thromboembolic states. 2.5-3.5 for artificial heart valves and recurrent embolism. INR SHOULD BE USED ONLY FOR PATIENTS ON STABLE ANTICOAGULANT THERAPY. [facility] IMMUNOLOGY CDC HIV 4th GEN Negative (11/04/2013 23:00:00) Negative 11/05/2013 Normal [facility] Chest 1view Chest 1view EXAMINATION: Chest 1view CLINICAL HISTORY: Chest pain Since 10/13/2013, no important interval change has occurred. The hypoinflated lungs are clear of consolidation, pleural effusion, and pneumothorax. The heart size remains mildly enlarged accentuated by hypoinflation and film technique. SL:17 11/04/2013 - - Read by: Francisco J Daly Dictated Date/time: 11/04/13 22:20 Electronically Signed by: Francisco J Daly MD 11/04/13 22:21 FINAL REPORT [facility] Chest 2 views Chest 2 views Chest 2 views. COMPARISON: 10/03/2013. FINDINGS: The lungs are clear but mildly underinflated. There are no effusions or other pleural abnormalities. The cardiomediastinal silhouette and the pulmonary vasculature are within normal limits. No significant bony abnormality is noted. IMPRESSION: No acute abnormality is noted in the chest. SL:13 10/13/2013 - - Read by: John Colvin Dictated Date/time: 10/13/13 15:36 Electronically Signed by: John Colvin MD 10/13/13 15:37 FINAL REPORT [facility] CHEMISTRY Phosphorus 4.9 mg/dL 2.5 - 4.5 10/04/2013 HI [facility] CHEMISTRY Magnesium Lvl 2.1 mg/dL 1.8 - 2.4 10/04/2013 Normal [facility] CHEMISTRY Total CK 373 unit/L 12 - 191 10/04/2013 HI [facility] CHEMISTRY BNP 312 pg/mL <=100 10/04/2013 [place] 5Interpretive Data: Elevated results are in line with increasing severity of congestive heart failure. Minor elevations between 100 and 300 may be seen with Myocardial Ischemia, Sodium retaining drugs, and compensated/treated heart failure. [facility] CHEMISTRY CK MB 0.8 ng/mL 0.5 - 3.6 10/04/2013 Normal [facility] CHEMISTRY eGFR 6 mL/min/1.73m2 10/04/2013 3Result Comment: The eGFR is calculated using the [...] from the National Kidney Disease Education Program (NKDEP) which additionally recommends that when the eGFR is used in patients with extremes of body mass index for purposes of drug dosing, the eGFR should be multiplied by the estimated BMI. [facility] CHEMISTRY Chloride Lvl 97 meq/L 95 - 109 10/04/2013 Normal [facility] CHEMISTRY CO2 23 meq/L 24 - 32 10/04/2013 LOW [facility] CHEMISTRY Total Protein 8.4 g/dL 6.4 - 8.4 10/04/2013 Normal [facility] CHEMISTRY Albumin Lvl 3.7 g/dL 3.5 - 5.0 10/04/2013 Normal [facility] CHEMISTRY Calcium Lvl 8.0 mg/dL 8.5 - 10.5 10/04/2013 LOW [facility] CHEMISTRY Globulin 4.7 g/dL 2.0 - 4.0 10/04/2013 HI [facility] CHEMISTRY A/G Ratio 0.8 0.7 - 1.6 10/04/2013 Normal [facility] CHEMISTRY B/C Ratio 8 6 - 25 10/04/2013 Normal [facility] CHEMISTRY BUN 69 mg/dL 7 - 22 10/04/2013 HI [facility] CHEMISTRY Potassium Lvl 4.0 meq/L 3.5 - 5.1 10/04/2013 Normal [facility] CHEMISTRY Glucose Lvl 257 mg/dL 70 - 99 10/04/2013 [place] 4Interpretive Data: Adult reference range values reflect the clinical guidelines of the [place] [employer]. [facility] CHEMISTRY Creatinine Lvl 8.4 mg/dL 0.5 - 1.4 10/04/2013 HI [facility] CHEMISTRY Sodium Lvl 133 meq/L 135 - 145 10/04/2013 LOW [facility] CHEMISTRY Alk Phos 112 unit/L 39 - 136 10/04/2013 Normal [facility] CHEMISTRY Bili Total 0.3 mg/dL 0.2 - 1.3 10/04/2013 Normal [facility] CHEMISTRY AGAP 17.0 meq/L 10.0 - 20.0 10/04/2013 Normal [facility] CHEMISTRY ALANINE AMINOTRANSFERASE 24 unit/L 0 - 65 10/04/2013 Normal [facility] CHEMISTRY ASPARTATE TRANSAMINASE 21 unit/L 0 - 37 10/04/2013 Normal [facility] CHEMISTRY Troponin-I 0.03 ng/mL 0.00 - 0.40 10/04/2013 Normal [facility] CHEMISTRY CK-MB INDEX 0.2 0.0 - 2.5 10/04/2013 Normal [facility] HEMATOLOGY PROTIME 14.0 s 12.0 - 14.7 10/04/2013 Normal [facility] HEMATOLOGY aPTT 35.5 s 22.9 - 35.8 10/04/2013 Normal 7Interpretive Data: Heparin Therapeutic Range: 57 - 92 [facility] HEMATOLOGY INR 1.09 0.85 - 1.17 10/04/2013 Normal 6Interpretive Data: RECOMMENDED RANGES FOR PROTIME INR: 2.0-3.0 for most medical and surgical thromboembolic states. 2.5-3.5 for artificial heart valves and recurrent embolism. INR SHOULD BE USED ONLY FOR PATIENTS ON STABLE ANTICOAGULANT THERAPY. [facility] HEMATOLOGY MPV 7.7 fL 7.4 - 10.4 10/04/2013 Normal [facility] HEMATOLOGY MCHC 33.6 g/dL 32.0 - 36.0 10/04/2013 Normal [facility] HEMATOLOGY Platelet 233 K/CMM 133 - 450 10/04/2013 Normal [facility] HEMATOLOGY RDW 14.3 % 11.5 - 14.5 10/04/2013 Normal [facility] HEMATOLOGY WBC X 10x3 10.1 K/CMM 3.7 - 10.4 10/04/2013 Normal [facility] HEMATOLOGY RBC X 10x6 3.65 M/CMM 4.70 - 6.10 10/04/2013 LOW [facility] HEMATOLOGY MCH 30.7 pg 27.0 - 31.0 10/04/2013 Normal [facility] HEMATOLOGY Hct 33.3 % 42.0 - 54.0 10/04/2013 LOW [facility] HEMATOLOGY Hgb 11.2 g/dL 14.0 - 18.0 10/04/2013 LOW [facility] HEMATOLOGY MCV 91.2 fL 80.0 - 94.0 10/04/2013 Normal [facility] HEMATOLOGY Monocytes 11.9 % 2.0 - 12.0 10/04/2013 Normal [facility] HEMATOLOGY Lymphocytes 11.5 % 20.0 - 40.0 10/04/2013 LOW [facility] HEMATOLOGY Segs 74.8 % 45.0 - 75.0 10/04/2013 Normal [facility] HEMATOLOGY Lymphocytes # 1.2 K/CMM 1.0 - 5.5 10/04/2013 Normal [facility] HEMATOLOGY Segs-Bands # 7.6 K/CMM 1.5 - 8.1 10/04/2013 Normal [facility] HEMATOLOGY Eosinophils # 0.2 K/CMM 0.0 - 0.5 10/04/2013 Normal [facility] HEMATOLOGY Monocytes # 1.2 K/CMM 0.0 - 0.8 10/04/2013 HI [facility] HEMATOLOGY Eosinophils 1.5 % 0.0 - 4.0 10/04/2013 Normal [facility] HEMATOLOGY Basophils 0.3 % 0.0 - 1.0 10/04/2013 Normal [facility] HEMATOLOGY Basophils # 0.0 K/CMM 0.0 - 0.2 10/04/2013 Normal [facility] URINALYSIS UA Color Ltyellow 10/04/2013 [facility] URINALYSIS UA Urobilinogen <=1.0 mg/dL 0.1 - 1.0 10/04/2013 [facility] URINALYSIS UA Turbidity Clear (10/03/2013 23:43:00) Clear 10/04/2013 Normal [facility] URINALYSIS UA Spec Grav 1.011 <=1.030 10/04/2013 Normal [facility] URINALYSIS UA pH 7.0 5.0 - 8.0 10/04/2013 Normal [facility] URINALYSIS UA Ketones Negative mg/dL Negative 10/04/2013 [facility] URINALYSIS UA Blood Small *ABN* (10/03/2013 23:43:00) Negative 10/04/2013 ABN [facility] URINALYSIS UA Bili Negative *NA* (10/03/2013 23:43:00) Negative 10/04/2013 [facility] URINALYSIS UA Protein >=300 mg/dL Negative 10/04/2013 ABN [facility] URINALYSIS UA Glucose 500 mg/dL Negative 10/04/2013 ABN [facility] URINALYSIS UA RBC 2 /HPF 0 - 2 10/04/2013 Normal [facility] URINALYSIS UA Bacteria Occasional /HPF None Seen 10/04/2013 [facility] URINALYSIS UA Sq Epi None Seen 10/04/2013 [facility] URINALYSIS UA WBC null 0 - 5 10/04/2013 Normal [facility] URINALYSIS UA Leuk Est Negative (10/03/2013 23:43:00) Negative 10/04/2013 Normal [facility] URINALYSIS UA Nitrite Negative (10/03/2013 23:43:00) Negative 10/04/2013 Normal [facility] Chest 1view Chest 1view PROCEDURE: Chest 1view REASON FOR EXAM: See Clinic Indication CLINICAL INDICATION: Cough and fever COMPARISON: 03/26/2013. FINDINGS: No acute process. No focal consolidation, pleural effusion, or pneumothorax. Stable cardiac silhouette and mediastinum. SL: 14 10/03/2013 - - Read by: Tristian Short Dictated Date/time: 10/03/13 21:30 Electronically Signed by: Tristian Short MD 10/03/13 21:30 FINAL REPORT [facility] VIRAL - SEROLOGY Influ B Negative 2 (10/03/2013 00:33:00) Negative 10/03/2013 Normal 2Interpretive Data: Influenza A&B Antigen: Due to the low sensitivity of this test a negative result does not exclude influenza virus infection. A diagnosis of influenza should be considered based on a patient's clinical presentation and empiric antiviral treatment should be considered, if indicated. If more conclusive testing is desired, follow-up confirmatory testing with either viral culture or PCR is warranted. [facility] VIRAL - SEROLOGY Influ A Positive 1 *ABN* (10/03/2013 00:33:00) Negative 10/03/2013 ABN 1Result Comment: "Significant Findings called to terrance krishnan__at 10/04/2013 02:05__by jw__.Read Back OK." [facility] Renal US Renal US HISTORY: Back pain. Right kidney 10.6 x 5.5 x 5.8 cm. Left kidney 9.8 x 5.2 x 4.2 cm. No hydronephrosis or focal renal lesion demonstrated. There is a tiny echogenic focus in the right renal lower pole which may represent a nonobstructive calculus. Visualized urinary bladder is not remarkable. IMPRESSION: No acute findings. Tiny echogenic focus in the right renal lower pole may represent a nonobstructive calculus or an arterial vascular calcification. SL:13 09/04/2013 - - Read by: Elvis Damian Dictated Date/time: 09/04/13 15:55 Electronically Signed by: Elvis Damian MD 09/04/13 15:57 FINAL REPORT [facility] BEDSIDE GLUCOSE TESTING Comment1 Notify HOOD 03/27/2013 [facility] BEDSIDE GLUCOSE TESTING Gluc POC Lif[place]n 145 mg/dL 70 - 99 03/27/2013 [place] 1Interpretive Data: Upper Reportable Limit: 200 mg/dL. [facility] BEDSIDE GLUCOSE TESTING Gluc POC Lif[place]n 263 mg/dL 70 - 99 03/27/2013 [place] 2Interpretive Data: Upper Reportable Limit: 200 mg/dL. [facility] BEDSIDE GLUCOSE TESTING Comment1 Notify HOOD 03/27/2013 [facility] BEDSIDE GLUCOSE TESTING Comment1 Notify HOOD 03/27/2013 [facility] GLUCOSE TESTING Gluc POC Lif[place]n 340 mg/dL 70 - 99 03/27/2013 [place] 3Interpretive Data: Upper Reportable Limit: 200 mg/dL. [facility] CHEMISTRY eGFR 11 mL/min/1.73m2 03/26/2013 4Result Comment: The eGFR is calculated using the [...] from the National Kidney Disease Education Program (NKDEP) which additionally recommends that when the eGFR is used in patients with extremes of body mass index for purposes of drug dosing, the eGFR should be multiplied by the estimated BMI. [facility] CHEMISTRY Calcium Lvl 8.1 mg/dL 8.5 - 10.5 03/26/2013 LOW [facility] CHEMISTRY Glucose Lvl 242 mg/dL 70 - 99 03/26/2013 [place] 7Interpretive Data: Adult reference range values reflect the clinical guidelines of the [place] [employer]. [facility] CHEMISTRY BUN 49 mg/dL 7 - 22 03/26/2013 [facility] CHEMISTRY Creatinine Lvl 5.3 mg/dL 0.5 - 1.4 03/26/2013 [facility] CHEMISTRY CO2 26 meq/L 24 - 32 03/26/2013 Normal [facility] CHEMISTRY Sodium Lvl 136 meq/L 135 - 145 03/26/2013 Normal [facility] CHEMISTRY Potassium Lvl 4.6 meq/L 3.5 - 5.1 03/26/2013 Normal [facility] CHEMISTRY Chloride Lvl 99 meq/L 95 - 109 03/26/2013 Normal [facility] CHEMISTRY AGAP 15.6 meq/L 10.0 - 20.0 03/26/2013 Normal [facility] HEMATOLOGY Segs-Bands # 9.4 K/CMM 1.5 - 8.1 03/26/2013 [facility] HEMATOLOGY Basophils 0.2 % 0.0 - 1.0 03/26/2013 Normal [facility] HEMATOLOGY Eosinophils 2.6 % 0.0 - 4.0 03/26/2013 Normal [facility] HEMATOLOGY Monocytes 8.1 % 2.0 - 12.0 03/26/2013 Normal [facility] HEMATOLOGY Basophils # 0.0 K/CMM 0.0 - 0.2 03/26/2013 Normal [facility] HEMATOLOGY Eosinophils # 0.3 K/CMM 0.0 - 0.5 03/26/2013 Normal [facility] HEMATOLOGY Monocytes # 0.9 K/CMM 0.0 - 0.8 03/26/2013 [facility] HEMATOLOGY Lymphocytes # 0.9 K/CMM 1.0 - 5.5 03/26/2013 LOW [facility] HEMATOLOGY Segs 81.1 % 45.0 - 75.0 03/26/2013 HI [facility] HEMATOLOGY Lymphocytes 8.0 % 20.0 - 40.0 03/26/2013 LOW [facility] HEMATOLOGY MPV 7.2 fL 7.4 - 10.4 03/26/2013 [facility] HEMATOLOGY Hct 27.5 % 42.0 - 54.0 03/26/2013 [facility] HEMATOLOGY Hgb 9.2 g/dL 14.0 - 18.0 03/26/2013 [facility] HEMATOLOGY RBC 3.08 M/CMM 4.70 - 6.10 03/26/2013 [facility] MCH 29.9 pg 27.0 - 31.0 03/26/2013 Normal [facility] HEMATOLOGY MCV 89.3 fL 80.0 - 94.0 03/26/2013 Normal [facility] RDW 14.2 % 11.5 - 14.5 03/26/2013 Normal [facility] MCHC 33.4 g/dL 32.0 - 36.0 03/26/2013 Normal [facility] HEMATOLOGY Platelet 228 K/CMM 133 - 450 03/26/2013 [facility] WBC 11.3 K/CMM 3.7 - 10.4 03/26/2013 [facility] Chest 1view Chest 1view CHEST RADIOGRAPH SINGLE VIEW INDICATION: Dyspnea COMPARISON: Chest radiograph 03/21/2013 IMPRESSION: 1. There has been interval placement of a right IJ dual-lumen catheter, the distal end superimposed over the expected region of the atriocaval junction, in satisfactory position. No pneumothorax is visualized. 2. No acute intrathoracic abnormalities are seen. SL: 16 03/26/2013 - - Read by: Frederic Sykes Dictated Date/time: 03/26/13 11:11 Electronically Signed by: Frederic Sykes MD 03/26/13 11:12 FINAL REPORT [facility] CHEMISTRY Potassium Lvl 3.8 meq/L 3.5 - 5.1 03/25/2013 Normal [facility] CHEMISTRY AGAP 19.2 meq/L 10.0 - 20.0 03/25/2013 Normal [facility] CHEMISTRY Sodium Lvl 139 meq/L 135 - 145 03/25/2013 Normal [facility] CHEMISTRY Chloride Lvl 103 meq/L 95 - 109 03/25/2013 Normal [facility] CHEMISTRY Potassium Lvl 4.2 meq/L 3.5 - 5.1 03/25/2013 Normal [facility] CHEMISTRY eGFR 8 mL/min/1.73m2 03/25/2013 NA 5Result Comment: The eGFR is calculated using the [...] from the National Kidney Disease Education Program (NKDEP) which additionally recommends that when the eGFR is used in patients with extremes of body mass index for purposes of drug dosing, the eGFR should be multiplied by the estimated BMI. [facility] CHEMISTRY CO2 21 meq/L 24 - 32 03/25/2013 LOW [facility] CHEMISTRY Calcium Lvl 8.0 mg/dL 8.5 - 10.5 03/25/2013 [facility] CHEMISTRY Creatinine Lvl 6.9 mg/dL 0.5 - 1.4 03/25/2013 [facility] CHEMISTRY BUN 79 mg/dL 7 - 22 03/25/2013 [facility] CHEMISTRY Glucose Lvl 149 mg/dL 70 - 99 03/25/2013 [place] 8Interpretive Data: Adult reference range values reflect the clinical guidelines of the [place] [employer]. [facility] HEMATOLOGY Basophils # 0.0 K/CMM 0.0 - 0.2 03/25/2013 Normal [facility] HEMATOLOGY Eosinophils # 0.4 K/CMM 0.0 - 0.5 03/25/2013 Normal [facility] HEMATOLOGY Eosinophils 4.1 % 0.0 - 4.0 03/25/2013 [facility] HEMATOLOGY Monocytes 8.2 % 2.0 - 12.0 03/25/2013 Normal [facility] HEMATOLOGY Basophils 0.4 % 0.0 - 1.0 03/25/2013 Normal [facility] HEMATOLOGY Monocytes # 0.9 K/CMM 0.0 - 0.8 03/25/2013 [facility] HEMATOLOGY Segs 74.9 % 45.0 - 75.0 03/25/2013 Normal [facility] HEMATOLOGY Lymphocytes # 1.3 K/CMM 1.0 - 5.5 03/25/2013 Normal [facility] HEMATOLOGY Segs-Bands # 8.0 K/CMM 1.5 - 8.1 03/25/2013 Normal [facility] HEMATOLOGY Lymphocytes 12.4 % 20.0 - 40.0 03/25/2013 LOW [facility] HEMATOLOGY MCV 89.4 fL 80.0 - 94.0 03/25/2013 Normal [facility] HEMATOLOGY MCH 29.2 pg 27.0 - 31.0 03/25/2013 Normal [facility] HEMATOLOGY Platelet 241 K/CMM 133 - 450 03/25/2013 Normal [facility] HEMATOLOGY RDW 13.9 % 11.5 - 14.5 03/25/2013 Normal [facility] HEMATOLOGY MCHC 32.7 g/dL 32.0 - 36.0 03/25/2013 Normal [facility] HEMATOLOGY MPV 7.5 fL 7.4 - 10.4 03/25/2013 Normal [facility] HEMATOLOGY Hct 29.1 % 42.0 - 54.0 03/25/2013 LOW [facility] HEMATOLOGY Hgb 9.5 g/dL 14.0 - 18.0 03/25/2013 LOW [facility] RBC 3.26 M/CMM 4.70 - 6.10 03/25/2013 LOW [facility] HEMATOLOGY WBC 10.7 K/CMM 3.7 - 10.4 03/25/2013 HI [facility] Renal US Renal US HISTORY: Renal insufficiency. Right kidney is 10 x 5.4 x 4.6 cm. Left kidney is 11 x 6 x 4 cm. Renal cortical echogenicity is diffusely mildly increased. Does could be secondary to underlying chronic medical renal disease. Very small echogenic foci within both kidneys could be either vascular calcifications or nonobstructive renal calculi. There is no hydronephrosis. The visualized urinary bladder is not remarkable. IMPRESSION: Mildly echogenic kidneys suggesting chronic medical renal disease. No acute findings. Small echogenic foci may represent renal vascular calcifications or small nonobstructive calculi. SL: 14 03/23/2013 - - Read by: Elvis Damian Dictated Date/time: 03/24/13 09:36 Electronically Signed by: Elvis Damian MD 03/24/13 09:38 FINAL REPORT [facility] CHEMISTRY Phosphorus 7.6 mg/dL 2.5 - 4.5 03/23/2013 [facility] CHEMISTRY Hgb A1C 9.5 % <=5.6 03/23/2013 [place] 11Interpretive Data: The reference range is based on the clinical practice guidelines of the [place] [employer] for diabetes screening; levels of 5.7%-6.4% are indicative of pre-diabetes. [facility] CHEMISTRY TSH 1.290 uIU/mL 0.360 - 3.740 03/23/2013 Normal [facility] CHEMISTRY eGFR 7 mL/min/1.73m2 03/23/2013 NA 6Result Comment: The eGFR is calculated using the [...] from the National Kidney Disease Education Program (NKDEP) which additionally recommends that when the eGFR is used in patients with extremes of body mass index for purposes of drug dosing, the eGFR should be multiplied by the estimated BMI. [facility] CHEMISTRY AGAP 20.1 meq/L 10.0 - 20.0 03/23/2013 [facility] CHEMISTRY Calcium Lvl 7.6 mg/dL 8.5 - 10.5 03/23/2013 LOW [facility] CHEMISTRY Creatinine Lvl 7.8 mg/dL 0.5 - 1.4 03/23/2013 HI [facility] CHEMISTRY CO2 21 meq/L 24 - 32 03/23/2013 LOW [facility] CHEMISTRY BUN 86 mg/dL 7 - 22 03/23/2013 [facility] CHEMISTRY Glucose Lvl 222 mg/dL 70 - 99 03/23/2013 [place] 9Interpretive Data: Adult reference range values reflect the clinical guidelines of the [place] [employer]. [facility] CHEMISTRY Sodium Lvl 142 meq/L 135 - 145 03/23/2013 Normal [facility] CHEMISTRY Chloride Lvl 105 meq/L 95 - 109 03/23/2013 Normal [facility] HEMATOLOGY Platelet 250 K/CMM 133 - 450 03/23/2013 Normal [facility] HEMATOLOGY MPV 7.6 fL 7.4 - 10.4 03/23/2013 Normal [facility] HEMATOLOGY Hct 30.6 % 42.0 - 54.0 03/23/2013 LOW [facility] HEMATOLOGY MCH 29.0 pg 27.0 - 31.0 03/23/2013 Normal [facility] HEMATOLOGY MCHC 32.9 g/dL 32.0 - 36.0 03/23/2013 Normal [facility] HEMATOLOGY RDW 14.4 % 11.5 - 14.5 03/23/2013 Normal [facility] HEMATOLOGY MCV 88.1 fL 80.0 - 94.0 03/23/2013 Normal [facility] HEMATOLOGY Hgb 10.1 g/dL 14.0 - 18.0 03/23/2013 LOW [facility] HEMATOLOGY WBC 9.7 K/CMM 3.7 - 10.4 03/23/2013 Normal [facility] HEMATOLOGY RBC 3.47 M/CMM 4.70 - 6.10 03/23/2013 LOW [facility] HEMATOLOGY Eosinophils # 0.2 K/CMM 0.0 - 0.5 03/23/2013 Normal [facility] HEMATOLOGY Monocytes # 1.0 K/CMM 0.0 - 0.8 03/23/2013 HI [facility] HEMATOLOGY Lymphocytes # 1.3 K/CMM 1.0 - 5.5 03/23/2013 Normal [facility] HEMATOLOGY Basophils 0.1 % 0.0 - 1.0 03/23/2013 Normal [facility] HEMATOLOGY Segs-Bands # 7.3 K/CMM 1.5 - 8.1 03/23/2013 Normal [facility] Eosinophils 2.0 % 0.0 - 4.0 03/23/2013 Normal [facility] Lymphocytes 12.9 % 20.0 - 40.0 03/23/2013 LOW [facility] HEMATOLOGY Segs 75.0 % 45.0 - 75.0 03/23/2013 Normal [facility] Basophils # 0.0 K/CMM 0.0 - 0.2 03/23/2013 [facility] Monocytes 10.0 % 2.0 - 12.0 03/23/2013 Normal [facility] IMMUNOLOGY Hep C Ab Negative *NA* (03/22/2013 10:57:00) Negative 03/22/2013 [facility] IMMUNOLOGY Hep Bs Ag Negative *NA* (03/22/2013 10:57:00) Negative 03/22/2013 [facility] Hep Bs Ab null <=7.4 03/22/2013 Normal 12Interpretive Data: <=7.4 mIU/mL--------Negative for Anti-HBs. Not immune to HBV infection. 7.5-12.4 mIU/mL--Borderline for Anti-HBs and immune status should be further assessed by considering other factors such as clinical status follow-up testing, associated risk factors, and the use of additional diagnostic information. >12.4 mIU/mL-------Positive for Anti-HBs. Immune to HBV infection [facility] IMMUNOLOGY Hep B Core Ab Negative *NA* (03/22/2013 10:57:00) Negative 03/22/2013 NA [facility] Extremity venous Duplex bilat US Extremity venous Duplex bilat US Please refer to Dr. Cm's heart lab report. 03/22/2013 - - Electronically Signed by: Steven Zamora 03/24/13 09:48 FINAL REPORT [facility] CHEMISTRY BNP 61 pg/mL <=100 03/22/2013 Normal 10Interpretive Data: Elevated results are in line with increasing severity of congestive heart failure. Minor elevations between 100 and 300 may be seen with Myocardial Ischemia, Sodium retaining drugs, and compensated/treated heart failure. [facility] CHEMISTRY Total Protein 7.8 g/dL 6.4 - 8.4 03/22/2013 Normal [facility] CHEMISTRY B/C Ratio 12 6 - 25 03/22/2013 Normal [facility] CHEMISTRY Globulin 4.2 g/dL 2.0 - 4.0 03/22/2013 HI [facility] CHEMISTRY Albumin Lvl 3.6 g/dL 3.5 - 5.0 03/22/2013 Normal [facility] CHEMISTRY A/G Ratio 0.9 0.7 - 1.6 03/22/2013 Normal [facility] CHEMISTRY Alk Phos 87 unit/L 39 - 136 03/22/2013 Normal [facility] CHEMISTRY ALT 28 unit/L 0 - 65 03/22/2013 Normal [facility] CHEMISTRY AST 11 unit/L 0 - 37 03/22/2013 Normal [facility] CHEMISTRY Bili Total 0.3 mg/dL 0.2 - 1.3 03/22/2013 Normal [facility] CHEMISTRY A/G Ratio 0.9 0.7 - 1.6 03/22/2013 Normal [facility] CHEMISTRY Globulin 4.3 g/dL 2.0 - 4.0 03/22/2013 HI [facility] CHEMISTRY B/C Ratio 11 6 - 25 03/22/2013 Normal [facility] CHEMISTRY Bili Total 0.2 mg/dL 0.2 - 1.3 03/22/2013 Normal [facility] CHEMISTRY AST 11 unit/L 0 - 37 03/22/2013 Normal [facility] CHEMISTRY ALT 31 unit/L 0 - 65 03/22/2013 Normal [facility] CHEMISTRY Alk Phos 105 unit/L 39 - 136 03/22/2013 Normal [facility] CHEMISTRY Albumin Lvl 3.7 g/dL 3.5 - 5.0 03/22/2013 Normal [facility] CHEMISTRY Total Protein 8.0 g/dL 6.4 - 8.4 03/22/2013 Normal [facility] CHEMISTRY Troponin-I null 0.00 - 0.40 03/22/2013 Normal [facility] CHEMISTRY CK MB 7.9 ng/mL 0.5 - 3.6 03/22/2013 [facility] CHEMISTRY Total CK 486 unit/L 12 - 191 03/22/2013 [facility] CHEMISTRY CK MB Index 1.6 0.0 - 2.5 03/22/2013 Normal [facility] URINALYSIS UA Urobilinogen <=1.0 mg/dL
*NA*
(03/21/2013 20:00:00) <sup> </sup> 0.1 - 1.0 03/22/2013 [facility] URINALYSIS UA Sq Epi None Seen 03/22/2013 [facility] URINALYSIS UA Hyal Cast 11 /LPF 0 - 2 03/22/2013 [facility] URINALYSIS UA Protein 100 mg/dL *ABN* (03/21/2013 20:00:00) Negative 03/22/2013 ABN [facility] URINALYSIS UA pH 5.0 5.0 - 8.0 03/22/2013 Normal [facility] URINALYSIS UA Turbidity Marked *ABN* (03/21/2013 20:00:00) Clear 03/22/2013 ABN [facility] URINALYSIS UA Spec Grav 1.014 <=1.030 03/22/2013 Normal [facility] URINALYSIS UA Amorph [place] Occasional /HPF *NA* (03/21/2013 20:00:00) None Seen 03/22/2013 [facility] URINALYSIS UA Mucus Few /LPF *NA* (03/21/2013 20:00:00) None Seen 03/22/2013 [facility] URINALYSIS UA RBC 1 /HPF 0 - 2 03/22/2013 Normal [facility] URINALYSIS UA Bacteria Occasional /HPF *NA* (03/21/2013 20:00:00) None Seen 03/22/2013 [facility] URINALYSIS UA WBC 8 /HPF 0 - 5 03/22/2013 [facility] URINALYSIS UA Leuk Est Negative (03/21/2013 20:00:00) Negative 03/22/2013 Normal [facility] URINALYSIS UA Nitrite Negative (03/21/2013 20:00:00) Negative 03/22/2013 Normal [facility] URINALYSIS UA Blood Moderate *ABN* (03/21/2013 20:00:00) Negative 03/22/2013 ABN [facility] URINALYSIS UA Bili Negative *NA* (03/21/2013 20:00:00) Negative 03/22/2013 NA [facility] URINALYSIS UA Ketones Negative mg/dL *NA* (03/21/2013 20:00:00) Negative 03/22/2013 NA [facility] URINALYSIS UA Glucose 150 mg/dL *ABN* (03/21/2013 20:00:00) Negative 03/22/2013 ABN [facility] URINALYSIS UA Color Yellow *NA* (03/21/2013 20:00:00) Yellow 03/22/2013 NA [facility] Vital Signs Vital Sign Value Date Comments Source Height 165.1 cm 12/05/2018 [facility] Weight 80.17 12/05/2018 [facility] BMI Calculated 29.41 12/05/2018 [facility] Systolic (mm Hg) 141 12/05/2018 [facility] Diastolic (mm Hg) 67 12/05/2018 [facility] Heart Rate 87 12/05/2018 [facility] Respitory Rate 16 12/05/2018 [facility] Temperature Oral (F) 97.5 F 12/05/2018 [facility] Heart Rate 85 11/25/2018 [facility] Respitory Rate 17 11/25/2018 [facility] Systolic (mm Hg) 125 11/25/2018 [facility] Diastolic (mm Hg) 65 11/25/2018 [facility] Temperature Oral (F) 98.6 F 11/25/2018 [facility] Systolic (mm Hg) 106 11/25/2018 [facility] Diastolic (mm Hg) 64 11/25/2018 [facility] Heart Rate 83 11/25/2018 [facility] Temperature Oral (F) 99 F 11/25/2018 [facility] Respitory Rate 19 11/25/2018 [facility] Temperature Oral (F) 98.6 F 11/25/2018 [facility] Heart Rate 83 11/25/2018 [facility] Systolic (mm Hg) 106 11/25/2018 [facility] Diastolic (mm Hg) 56 11/25/2018 [facility] Respitory Rate 17 11/25/2018 [facility] BMI Calculated 31.13 11/24/2018 [facility] Height 162.56 cm 11/24/2018 [facility] Weight 82.273 11/24/2018 [facility] Height 162.56 cm 11/24/2018 [facility] BMI Calculated 30.1 11/24/2018 [facility] Weight 79.545 11/24/2018 [facility] BMI Calculated 29.58 10/31/2018 [facility] Height 165.1 cm 10/31/2018 [facility] Weight 80.625 10/31/2018 [facility] Systolic (mm Hg) 127 10/31/2018 [facility] Diastolic (mm Hg) 67 10/31/2018 [facility] Heart Rate 61 10/31/2018 [facility] Respitory Rate 18 10/31/2018 [facility] Temperature Oral (F) 98.5 F 10/31/2018 [facility] Heart Rate 81 03/21/2018 [facility] Respitory Rate 16 03/21/2018 [facility] Systolic (mm Hg) 195 03/21/2018 [facility] Diastolic (mm Hg) 88 03/21/2018 [facility] Temperature Oral (F) 97.9 F 03/21/2018 [facility] BMI Calculated 29.27 03/21/2018 [facility] Weight 79.773 03/21/2018 [facility] Height 165.1 cm 03/21/2018 [facility] Systolic (mm Hg) 132 02/22/2018 [facility] Diastolic (mm Hg) 61 02/22/2018 [facility] Heart Rate 76 02/22/2018 [facility] Temperature Oral (F) 98.7 F 02/22/2018 [facility] Respitory Rate 18 02/22/2018 [facility] Temperature Oral (F) 98.8 F 02/22/2018 [facility] Systolic (mm Hg) 114 02/22/2018 [facility] Diastolic (mm Hg) 69 02/22/2018 [facility] Respitory Rate 16 02/22/2018 [facility] Heart Rate 70 02/22/2018 [facility] Temperature Oral (F) 98.5 F 02/22/2018 [facility] Heart Rate 68 02/22/2018 [facility] Respitory Rate 18 02/22/2018 [facility] Systolic (mm Hg) 171 02/22/2018 [facility] Diastolic (mm Hg) 74 02/22/2018 [facility] Height 165.1 cm 02/18/2018 [facility] BMI Calculated 29.85 02/18/2018 [facility] Weight 81.364 02/18/2018 [facility] Weight 81.136 12/20/2017 [facility] BMI Calculated 30.7 12/20/2017 [facility] Height 162.56 cm 12/20/2017 [facility] Heart Rate 75 12/20/2017 [facility] Respitory Rate 17 12/20/2017 [facility] Temperature Oral (F) 98.3 F 12/20/2017 [facility] Systolic (mm Hg) 147 12/20/2017 [facility] Diastolic (mm Hg) 71 12/20/2017 [facility] Systolic (mm Hg) 121 12/14/2017 [facility] Diastolic (mm Hg) 64 12/14/2017 [facility] Respitory Rate 16 12/14/2017 [facility] Heart Rate 84 12/14/2017 [facility] Temperature Oral (F) 97.8 F 12/14/2017 [facility] Temperature Oral (F) 98.6 F 12/14/2017 [facility] Heart Rate 80 12/14/2017 [facility] Respitory Rate 16 12/14/2017 [facility] Systolic (mm Hg) 126 12/14/2017 [facility] Diastolic (mm Hg) 66 12/14/2017 [facility] Temperature Oral (F) 98.6 F 12/14/2017 [facility] Heart Rate 83 12/14/2017 [facility] Systolic (mm Hg) 106 12/14/2017 [facility] Diastolic (mm Hg) 57 12/14/2017 [facility] Respitory Rate 18 12/13/2017 [facility] Weight 81.875 12/13/2017 [facility] Height 162.56 cm 12/13/2017 [facility] BMI Calculated 30.98 12/13/2017 [facility] Height 162.56 cm 12/12/2017 [facility] Weight 79.091 12/12/2017 [facility] BMI Calculated 29.93 12/12/2017 [facility] Temperature Oral (F) 98.1 F 12/12/2017 [facility] Heart Rate 80 12/12/2017 [facility] Respitory Rate 18 12/12/2017 [facility] Systolic (mm Hg) 159 12/12/2017 [facility] Diastolic (mm Hg) 73 12/12/2017 [facility] Systolic (mm Hg) 131 12/11/2017 [facility] Diastolic (mm Hg) 74 12/11/2017 [facility] Heart Rate 80 12/11/2017 [facility] Respitory Rate 17 12/11/2017 [facility] Temperature Oral (F) 98.2 F 12/11/2017 [facility] Respitory Rate 16 12/11/2017 [facility] Systolic (mm Hg) 103 12/11/2017 [facility] Diastolic (mm Hg) 62 12/11/2017 [facility] Temperature Oral (F) 97.2 F 12/11/2017 [facility] Heart Rate 75 12/11/2017 [facility] Height 162.56 cm 12/09/2017 [facility] Weight 81.818 12/09/2017 [facility] BMI Calculated 30.96 12/09/2017 [facility] Height 162.56 cm 12/09/2017 [facility] Weight 81.818 12/09/2017 [facility] BMI Calculated 30.96 12/09/2017 [facility] Respitory Rate 18 11/09/2017 [facility] Systolic (mm Hg) 155 11/09/2017 [facility] Diastolic (mm Hg) 75 11/09/2017 [facility] Respitory Rate 15 11/09/2017 [facility] Systolic (mm Hg) 133 11/09/2017 [facility] Diastolic (mm Hg) 65 11/09/2017 [facility] Respitory Rate 17 11/09/2017 [facility] Diastolic (mm Hg) 79 11/09/2017 [facility] Systolic (mm Hg) 160 11/09/2017 [facility] Heart Rate 74 11/08/2017 [facility] Weight 81.818 11/07/2017 [facility] Height 160.02 cm 11/07/2017 [facility] BMI Calculated 31.95 11/07/2017 [facility] Weight 82.273 09/11/2017 [facility] BMI Calculated 29.28 09/11/2017 [facility] Height 167.64 cm 09/11/2017 [facility] Temperature Oral (F) 98.1 F 09/11/2017 [facility] Respitory Rate 16 09/11/2017 [facility] Heart Rate 82 09/11/2017 [facility] Systolic (mm Hg) 195 09/11/2017 [facility] Diastolic (mm Hg) 93 09/11/2017 [facility] Temperature Oral (F) 98.4 F 07/28/2016 [facility] Heart Rate 88 07/28/2016 [facility] Systolic (mm Hg) 134 07/28/2016 [facility] Diastolic (mm Hg) 68 07/28/2016 [facility] Systolic (mm Hg) 122 07/28/2016 [facility] Diastolic (mm Hg) 52 07/28/2016 [facility] Heart Rate 89 07/28/2016 [facility] Respitory Rate 16 07/28/2016 [facility] Height 167.64 cm 07/28/2016 [facility] BMI Calculated 28.3 07/28/2016 [facility] Weight 79.545 07/28/2016 [facility] Temperature Oral (F) 98.5 F 07/28/2016 [facility] Systolic (mm Hg) 134 07/28/2016 [facility] Diastolic (mm Hg) 83 07/28/2016 [facility] Heart Rate 95 07/28/2016 [facility] Respitory Rate 18 07/28/2016 [facility] Heart Rate 76 03/05/2015 [facility] Temperature Oral (F) 97.8 F 03/05/2015 [facility] Respitory Rate 18 03/05/2015 [facility] Systolic (mm Hg) 148 03/05/2015 [facility] Diastolic (mm Hg) 77 03/05/2015 [facility] Systolic (mm Hg) 158 03/05/2015 [facility] Diastolic (mm Hg) 75 03/05/2015 [facility] Temperature Oral (F) 97.8 F 03/05/2015 [facility] Heart Rate 78 03/05/2015 [facility] Respitory Rate 18 03/05/2015 [facility] Systolic (mm Hg) 158 03/05/2015 [facility] Diastolic (mm Hg) 72 03/05/2015 [facility] Heart Rate 77 03/05/2015 [facility] Respitory Rate 18 03/05/2015 [facility] Temperature Oral (F) 97.8 F 03/05/2015 [facility] Weight 81.818 03/05/2015 [facility] BMI Calculated 29.11 03/05/2015 [facility] Height 167.64 cm 03/05/2015 [facility] Diastolic (mm Hg) 83 11/05/2013 [facility] Systolic (mm Hg) 164 11/05/2013 [facility] Respitory Rate 24 11/05/2013 [facility] Respitory Rate 17 11/05/2013 [facility] Systolic (mm Hg) 157 11/05/2013 [facility] Diastolic (mm Hg) 93 11/05/2013 [facility] Diastolic (mm Hg) 78 11/05/2013 [facility] Systolic (mm Hg) 152 11/05/2013 [facility] Heart Rate 105 11/05/2013 [facility] Temperature Oral (F) 97.9 F 11/05/2013 [facility] Respitory Rate 15 11/05/2013 [facility] Heart Rate 80 11/05/2013 [facility] Heart Rate 84 11/05/2013 [facility] Temperature Oral (F) 98.8 F 11/05/2013 [facility] Height 167.64 cm 11/05/2013 [facility] Weight 73 11/05/2013 [facility] Temperature Oral (F) 98.3 F 11/05/2013 [facility] Diastolic (mm Hg) 81 10/13/2013 [facility] Systolic (mm Hg) 181 10/13/2013 [facility] Respitory Rate 20 10/13/2013 [facility] Temperature Oral (F) 98.1 F 10/13/2013 [facility] Heart Rate 86 10/13/2013 [facility] Diastolic (mm Hg) 82 10/13/2013 [facility] Systolic (mm Hg) 184 10/13/2013 [facility] Heart Rate 94 10/13/2013 [facility] Respitory Rate 18 10/13/2013 [facility] Temperature Oral (F) 98.5 F 10/13/2013 [facility] Weight 77.273 10/13/2013 [facility] Height 167.64 cm 10/13/2013 [facility] Heart Rate 90 10/04/2013 [facility] Respitory Rate 18 10/04/2013 [facility] Diastolic (mm Hg) 80 10/04/2013 [facility] Systolic (mm Hg) 140 10/04/2013 [facility] Temperature Oral (F) 99.2 F 10/04/2013 [facility] Heart Rate 94 10/04/2013 [facility] Respitory Rate 18 10/04/2013 [facility] Diastolic (mm Hg) 80 10/04/2013 [facility] Systolic (mm Hg) 146 10/04/2013 [facility] Temperature Oral (F) 100.5 F 10/04/2013 [facility] Temperature Oral (F) 99.3 F 10/04/2013 [facility] Diastolic (mm Hg) 69 10/04/2013 [facility] Heart Rate 88 10/04/2013 [facility] Systolic (mm Hg) 150 10/04/2013 [facility] Respitory Rate 18 10/04/2013 [facility] Respitory Rate 18 03/27/2013 [facility] Heart Rate 99 03/27/2013 [facility] Temperature Oral (F) 98.3 F 03/27/2013 [facility] Diastolic (mm Hg) 71 03/27/2013 [facility] Systolic (mm Hg) 131 03/27/2013 [facility] Heart Rate 92 03/27/2013 [facility] Temperature Oral (F) 98.6 F 03/27/2013 [facility] Diastolic (mm Hg) 71 03/27/2013 [facility] Systolic (mm Hg) 131 03/27/2013 [facility] Respitory Rate 17 03/27/2013 [facility] Respitory Rate 17 03/27/2013 [facility] Systolic (mm Hg) 130 03/27/2013 [facility] Diastolic (mm Hg) 73 03/27/2013 [facility] Heart Rate 97 03/27/2013 [facility] Temperature Oral (F) 98.9 F 03/27/2013 [facility] Height 167.64 cm 03/22/2013 [facility] Weight 73.267 03/22/2013 [facility] Height 167.64 cm 03/22/2013 [facility] Weight 80.455 03/22/2013 [facility] Encounters Location Location Details Encounter Type Encounter Number Reason For Visit Attending Provider ADM Date DC Date Status Source [facility] Inpatient [id number] RELL CHAUDHARY 03/21/2013 03/27/2013 Active [facility] Outpatient [id number] RT BACK PAIN SIBTAIN ALI 09/04/2013 09/04/2013 Active [facility] Emergency [id number] DAMONVIDHYA JACOBO 10/03/2013 10/04/2013 Active [facility] Emergency [id number] COUGH/ HIGH BLOOD PRESSURE DIAMOND THRASHER 10/13/2013 10/13/2013 Active [facility] OU [id number] RELL CHAUDHARY 11/05/2013 11/05/2013 Active [facility] [id number] Yamilex Fadowole 03/05/2015 03/05/2015 [facility] Outpatient [id number] ADDISON ORTIZ 05/22/2015 Active [facility] Outpatient [id number] ADDISON ORTIZ 08/27/2015 Active [facility] Outpatient [id number] ADDISON ORTIZ 08/28/2015 Active [facility] Outpatient [id number] ADDISON ORTIZ 12/28/2015 Active [facility] Outpatient [id number] ADDISON ORTIZ 03/25/2016 Active [facility] Outpatient [id number] ADDISON ORTIZ 07/01/2016 Active [facility] Emergency [id number] Yamilex Fadowole 07/28/2016 07/28/2016 [facility] Outpatient [id number] RANDELL WONG 09/28/2016 Active [facility] Outpatient [id number] Jose Raul Munoz 11/23/2016 11/24/2016 [facility] Outpatient [id number] ADDISON ORTIZ 11/28/2016 Active [facility] Outpatient [id number] Addison Ortiz 12/09/2016 12/10/2016 [facility] Outpatient [id number] ADDISON ORTIZ 12/26/2016 Active [facility] Outpatient [id number] ADDISON ORTIZ 02/24/2017 Active [facility] Outpatient [id number] ADDISON ORTIZ 06/02/2017 Active [facility] Outpatient [id number] ADDISON ORTIZ 09/11/2017 Active [facility] Primary Care [facility] Outpatient [id number] Addison Ortiz 09/11/2017 09/12/2017 [facility] Primary Care [facility] Phone Message [id number] 10/12/2017 10/14/2017 [facility] Day Surgery [id number] Aquiles Raea 11/08/2017 11/09/2017 [facility] Primary Care [facility] Phone Message [id number] 12/08/2017 12/10/2017 [facility] Observation [id number] Rell Chaudhary 12/09/2017 12/12/2017 [facility] Primary Care [facility] Phone Message [id number] 12/11/2017 12/13/2017 [facility] Observation [id number] Jamil Alex 12/12/2017 12/14/2017 [facility] Primary Care [facility] Phone Message [id number] 12/15/2017 12/17/2017 [facility] Outpatient [id number] ADDISON ORTIZ 12/20/2017 Active [facility] Primary Care [facility] Outpatient [id number] Addison Ortiz 12/20/2017 12/21/2017 [facility] Inpatient [id number] Rell Chaudhary 02/18/2018 02/22/2018 [facility] Outpatient [id number] ADDISON ORTIZ 03/21/2018 Active [facility] Primary Care [facility] Outpatient [id number] Addison Ortiz 03/21/2018 03/22/2018 [facility] Outpatient [id number] ADDISON ORTIZ 06/29/2018 Active [facility] Outpatient [id number] ADDISON ORTIZ 10/31/2018 [facility] Outpatient [id number] Addison Ortiz 10/31/2018 11/01/2018 [facility] Phone Message [id number] 11/09/2018 11/11/2018 [facility] Phone Message [id number] 11/09/2018 11/11/2018 [facility] Observation [id number] Rell Chaudhary 11/24/2018 11/25/2018 [facility] Outpatient [id number] ADDISON ORTIZ 12/05/2018 [facility] Outpatient [id number] Addison Ortiz 12/05/2018 12/06/2018 [facility] Outpatient [id number] ADDISON ORTIZ 01/28/2019 [facility] Procedures Procedure Code Date Perfomer Comments Source Influenza vaccination [id number] 06/25/2018 [facility] Influenza vaccination [id number] 06/25/2018 [facility] Echocardiography<sup>1</sup> [id number] 01/24/2018 EF: 55-60% [facility] Echocardiography<sup>1</sup> [id number] 01/24/2018 EF: 55-60% [facility] Screening for malignant neoplasm of prostate<sup>2</sup> [id number] 12/20/2017 PSA: 1.29 [facility] Screening for malignant neoplasm of prostate<sup>2</sup> [id number] 12/20/2017 PSA: 1.29 [facility] Thrombectomy of arteriovenous fistula<sup>2</sup> [id number] 12/12/2017 PREOPERATIVE DIAGNOSIS: 1. End-stage renal disease 2. Thrombosis of right brachiocephalic AV fistula POSTOPERATIVE DIAGNOSIS: 1. End-stage renal disease 2. Thrombosis of right brachiocephalic AV fistula OPERATION: 1. Open thrombectomy of right brachiocephalic AV fistula 2. Upper extremity fistulogram 3. Balloon angioplasty and stenting of right subclavian vein 4. Open thrombectomy of brachial artery [facility] Thrombectomy of arteriovenous fistula<sup>1</sup> [id number] 12/12/2017 PREOPERATIVE DIAGNOSIS: 1. End-stage renal disease 2. Thrombosis of right brachiocephalic AV fistula POSTOPERATIVE DIAGNOSIS: 1. End-stage renal disease 2. Thrombosis of right brachiocephalic AV fistula OPERATION: 1. Open thrombectomy of right brachiocephalic AV fistula 2. Upper extremity fistulogram 3. Balloon angioplasty and stenting of right subclavian vein 4. Open thrombectomy of brachial artery [facility] Thrombectomy of arteriovenous fistula<sup>1</sup> [id number] 12/12/2017 PREOPERATIVE DIAGNOSIS: 1. End-stage renal disease 2. Thrombosis of right brachiocephalic AV fistula POSTOPERATIVE DIAGNOSIS: 1. End-stage renal disease 2. Thrombosis of right brachiocephalic AV fistula OPERATION: 1. Open thrombectomy of right brachiocephalic AV fistula 2. Upper extremity fistulogram 3. Balloon angioplasty and stenting of right subclavian vein 4. Open thrombectomy of brachial artery [facility] Thrombectomy of arteriovenous fistula<sup>2</sup> [id number] 12/12/2017 PREOPERATIVE DIAGNOSIS: 1. End-stage renal disease 2. Thrombosis of right brachiocephalic AV fistula POSTOPERATIVE DIAGNOSIS: 1. End-stage renal disease 2. Thrombosis of right brachiocephalic AV fistula OPERATION: 1. Open thrombectomy of right brachiocephalic AV fistula 2. Upper extremity fistulogram 3. Balloon angioplasty and stenting of right subclavian vein 4. Open thrombectomy of brachial artery [facility] Thrombectomy of arteriovenous fistula<sup>3</sup> [id number] 12/12/2017 PREOPERATIVE DIAGNOSIS: 1. End-stage renal disease 2. Thrombosis of right brachiocephalic AV fistula POSTOPERATIVE DIAGNOSIS: 1. End-stage renal disease 2. Thrombosis of right brachiocephalic AV fistula OPERATION: 1. Open thrombectomy of right brachiocephalic AV fistula 2. Upper extremity fistulogram 3. Balloon angioplasty and stenting of right subclavian vein 4. Open thrombectomy of brachial artery [facility] Thrombectomy of arteriovenous fistula<sup>3</sup> [id number] 12/12/2017 PREOPERATIVE DIAGNOSIS: 1. End-stage renal disease 2. Thrombosis of right brachiocephalic AV fistula POSTOPERATIVE DIAGNOSIS: 1. End-stage renal disease 2. Thrombosis of right brachiocephalic AV fistula OPERATION: 1. Open thrombectomy of right brachiocephalic AV fistula 2. Upper extremity fistulogram 3. Balloon angioplasty and stenting of right subclavian vein 4. Open thrombectomy of brachial artery [facility] Amputation lesser toe<sup>3</sup> [id number] 11/08/2017 right foot [facility] Amputation lesser toe<sup>4</sup> [id number] 11/08/2017 right foot [facility] Amputation lesser toe<sup>2</sup> [id number] 11/08/2017 right foot [facility] Amputation lesser toe<sup>2</sup> [id number] 11/08/2017 right foot [facility] Amputation lesser toe<sup>3</sup> [id number] 11/08/2017 PREOPERATIVE DIAGNOSIS: Gangrene, right fourth toe. POSTOPERATIVE DIAGNOSES: Gangrene, right fourth toe. PROCEDURE PERFORMED: Amputation, right fourth toe. PATHOLOGY: 1. Amputated fourth toe sent for pathological analysis. 2. Deep wound culture swab for culture and sensitivity. [facility] Amputation lesser toe<sup>3</sup> [id number] 11/08/2017 right foot [facility] Amputation lesser toe<sup>4</sup> [id number] 11/08/2017 right foot [facility] Amputation lesser toe<sup>5</sup> [id number] 11/08/2017 PREOPERATIVE DIAGNOSIS: Gangrene, right fourth toe. POSTOPERATIVE DIAGNOSES: Gangrene, right fourth toe. PROCEDURE PERFORMED: Amputation, right fourth toe. PATHOLOGY: 1. Amputated fourth toe sent for pathological analysis. 2. Deep wound culture swab for culture and sensitivity. [facility] Amputation lesser toe<sup>5</sup> [id number] 11/08/2017 PREOPERATIVE DIAGNOSIS: Gangrene, right fourth toe. POSTOPERATIVE DIAGNOSES: Gangrene, right fourth toe. PROCEDURE PERFORMED: Amputation, right fourth toe. PATHOLOGY: 1. Amputated fourth toe sent for pathological analysis. 2. Deep wound culture swab for culture and sensitivity. [facility] Influenza vaccination [id number] 06/25/2017 [facility] Amputation lesser toe<sup>5</sup> [id number] 09/25/2016 Right foot [facility] Amputation lesser toe<sup>1</sup> [id number] 09/25/2016 Right foot [facility] Amputation lesser toe<sup>4</sup> [id number] 09/25/2016 Right foot [facility] Amputation lesser toe<sup>4</sup> [id number] 09/25/2016 Right foot [facility] Amputation lesser toe<sup>5</sup> [id number] 09/25/2016 Right foot [facility] Amputation lesser toe<sup>1</sup> [id number] 09/25/2016 Right foot [facility] Amputation lesser toe<sup>6</sup> [id number] 09/25/2016 Right foot [facility] Diabetic retinal eye exam [id number] 09/25/2016 [facility] Amputation lesser toe<sup>6</sup> [id number] 09/25/2016 Right foot [facility] Diabetic retinal eye exam [id number] 09/25/2016 [facility] Echocardiogram<sup>6</sup> [id number] 07/27/2016 EF: 55-60%, LV size and systolic function normal [facility] Myocardial perfusion scan<sup>7</sup> [id number] 07/27/2016 Normal perfusion imaging with no evidence of stress induced ischemia [facility] Echocardiogram<sup>2</sup> [id number] 07/27/2016 EF: 55-60%, LV size and systolic function normal [facility] Myocardial perfusion scan<sup>3</sup> [id number] 07/27/2016 Normal perfusion imaging with no evidence of stress induced ischemia [facility] Echocardiogram<sup>5</sup> [id number] 07/27/2016 EF: 55-60%, LV size and systolic function normal [facility] Myocardial perfusion scan<sup>6</sup> [id number] 07/27/2016 Normal perfusion imaging with no evidence of stress induced ischemia [facility] Echocardiogram<sup>1</sup> [id number] 07/27/2016 EF: 55-60%, LV size and systolic function normal [facility] Myocardial perfusion scan<sup>2</sup> [id number] 07/27/2016 Normal perfusion imaging with no evidence of stress induced ischemia [facility] Echocardiogram<sup>5</sup> [id number] 07/27/2016 EF: 55-60%, LV size and systolic function normal [facility] Myocardial perfusion scan<sup>6</sup> [id number] 07/27/2016 Normal perfusion imaging with no evidence of stress induced ischemia [facility] Echocardiogram<sup>6</sup> [id number] 07/27/2016 EF: 55-60%, LV size and systolic function normal [facility] Myocardial perfusion scan<sup>7</sup> [id number] 07/27/2016 Normal perfusion imaging with no evidence of stress induced ischemia [facility] Echocardiogram<sup>2</sup> [id number] 07/27/2016 EF: 55-60%, LV size and systolic function normal [facility] Myocardial perfusion scan<sup>3</sup> [id number] 07/27/2016 Normal perfusion imaging with no evidence of stress induced ischemia [facility] Echocardiogram<sup>7</sup> [id number] 07/27/2016 EF: 55-60%, LV size and systolic function normal [facility] Myocardial perfusion scan<sup>8</sup> [id number] 07/27/2016 Normal perfusion imaging with no evidence of stress induced ischemia [facility] Echocardiogram<sup>7</sup> [id number] 07/27/2016 EF: 55-60%, LV size and systolic function normal [facility] Myocardial perfusion scan<sup>8</sup> [id number] 07/27/2016 Normal perfusion imaging with no evidence of stress induced ischemia [facility] Colonoscopy<sup>8</sup> [id number] 01/29/2014 polyps, repeat in 3 years [facility] Colonoscopy<sup>4</sup> [id number] 01/29/2014 polyps, repeat in 3 years [facility] Colonoscopy<sup>7</sup> [id number] 01/29/2014 polyps, repeat in 3 years [facility] Colonoscopy<sup>3</sup> [id number] 01/29/2014 polyps, repeat in 3 years [facility] Colonoscopy<sup>7</sup> [id number] 01/29/2014 polyps, repeat in 3 years [facility] Colonoscopy<sup>1</sup> [id number] 01/29/2014 polyps, repeat in 3 years [facility] Colonoscopy<sup>8</sup> [id number] 01/29/2014 polyps, repeat in 3 years [facility] Colonoscopy<sup>4</sup> [id number] 01/29/2014 polyps, repeat in 3 years [facility] Colonoscopy<sup>9</sup> [id number] 01/29/2014 polyps, repeat in 3 years [facility] Colonoscopy<sup>9</sup> [id number] 01/29/2014 polyps, repeat in 3 years [facility] AV - Creation of arteriovenous fistula<sup>9</sup> [id number] 03/25/2013 PREOPERATIVE DIAGNOSIS: End-stage renal disease. POSTOPERATIVE DIAGNOSIS: End-stage renal disease. OPERATION: Creation of right brachiocephalic arteriovenous fistula. [facility] AV - Creation of arteriovenous fistula<sup>8</sup> [id number] 03/25/2013 PREOPERATIVE DIAGNOSIS: End-stage renal disease. POSTOPERATIVE DIAGNOSIS: End-stage renal disease. OPERATION: Creation of right brachiocephalic arteriovenous fistula. [facility] AV - Creation of arteriovenous fistula<sup>8</sup> [id number] 03/25/2013 PREOPERATIVE DIAGNOSIS: End-stage renal disease. POSTOPERATIVE DIAGNOSIS: End-stage renal disease. OPERATION: Creation of right brachiocephalic arteriovenous fistula. [facility] AV - Creation of arteriovenous fistula<sup>9</sup> [id number] 03/25/2013 PREOPERATIVE DIAGNOSIS: End-stage renal disease. POSTOPERATIVE DIAGNOSIS: End-stage renal disease. OPERATION: Creation of right brachiocephalic arteriovenous fistula. [facility] AV - Creation of arteriovenous fistula<sup>10</sup> [id number] 03/25/2013 PREOPERATIVE DIAGNOSIS: End-stage renal disease. POSTOPERATIVE DIAGNOSIS: End-stage renal disease. OPERATION: Creation of right brachiocephalic arteriovenous fistula. [facility] AV - Creation of arteriovenous fistula<sup>10</sup> [id number] 03/25/2013 PREOPERATIVE DIAGNOSIS: End-stage renal disease. POSTOPERATIVE DIAGNOSIS: End-stage renal disease. OPERATION: Creation of right brachiocephalic arteriovenous fistula. [facility] Pneumococcal vaccination<sup>11</sup> [id number] 03/22/2013 Pneumovax [facility] Pneumococcal vaccination<sup>11</sup> [id number] 03/22/2013 Pneumovax [facility] Amputation of the foot [id number] [facility] Cataract extraction and insertion of intraocular lens [id number] [facility] Amputation great toe<sup>10</sup> [id number] left foot [facility] Cataract extraction and insertion of intraocular lens [id number] [facility] Insertion of dialysis catheter into femoral vein [id number] [facility] Amputation great toe<sup>5</sup> [id number] left foot [facility] AV - Creation of arteriovenous fistula [id number] [facility] Amputation great toe<sup>9</sup> [id number] left foot [facility] Amputation great toe<sup>4</sup> [id number] left foot [facility] AV - Creation of arteriovenous fistula [id number] [facility] Cataract extraction and insertion of intraocular lens [id number] [facility] Amputation great toe<sup>9</sup> [id number] left foot [facility] Cataract extraction and insertion of intraocular lens [id number] [facility] Insertion of dialysis catheter into femoral vein [id number] [facility] Amputation of the foot [id number] [facility] Insertion of stent into arteriovenous fistula [id number] [facility] Amputation great toe<sup>2</sup> [id number] left foot [facility] Amputation great toe<sup>10</sup> [id number] left foot [facility] Insertion of dialysis catheter into femoral vein [id number] [facility] Amputation great toe<sup>5</sup> [id number] left foot [facility] Amputation great toe<sup>12</sup> [id number] left foot [facility] Amputation great toe<sup>12</sup> [id number] left foot [facility]
--- OUTSIDE RECORDS SUMMARY | 2018-12-28 11:06 | XMS REPORT | Summary of Care ---
Author Author [facility] Organization [facility] Address Unknown Phone Unavailable Encounter HQ [email or web address]_[email or web address](FIN) [id number] Date(s): 09/11/17 - 09/11/17 [facility] [address], [address] [place], [place] [address]- [phone] Discharge Disposition: Home or Self Care Attending Physician: Tamra Landin MD Vital Signs Most recent to 1 oldest [Reference Range]: Height 167.64 cm (09/11/17 10:38 AM) Temperature Oral 98.1 DegF [96.4-99.1 DegF] (09/11/17 10:38 AM) Blood Pressure 195/93 mmHg [90-140/60-90 mmHg] *HI* (09/11/17 10:38 AM) Respiratory Rate 16 BRMIN [14-20 BRMIN] (09/11/17 10:38 AM) Peripheral Pulse 82 bpm Rate [60-100 bpm] (09/11/17 10:38 AM) Weight 82.273 kg (09/11/17 10:38 AM) Body Mass Index 29.28 m2 (09/11/17 10:38 AM) Problem List Condition Effective Dates Status Health Status Informant Abdominal Active bloating(Confirmed) 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(Confirmed)1 Benign hypertensive Active heart and kidney disease and end stage renal disease(Confirmed) Body mass index 30+ 01/06/14 Active - obesity2 Congestive 03/20/13 Active cardiomyopathy(Confi rmed)3 Decreased hearing of Active left ear(Confirmed) 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(Confirmed) Noncompliance(Confir Active med) ESRD on Active hemodialysis(Confirm ed) Gastroparesis(Confir Active med) Hemodialysis-associa 04/29/13 Active manju hypotension4 Long-term insulin Active use(Confirmed) History of stroke Active without residual deficits(Confirmed) History of colonic Active polyps(Confirmed) Mixed 03/20/13 Active hyperlipidemia(Confi rmed)5 Screening for colon Active cancer(Confirmed) Screening for [...] Severity Status NKDA Active Medications amLODIPine 10 mg oral tablet 10 mg=1 tab, PO, Daily, # 90 tab, 2 Refill(s) Start Date: 09/11/17 Status: Ordered carvedilol 12.5 mg oral tablet 12.5 mg=1 tab, PO, BID, # 180 tab, 2 Refill(s) Start Date: 09/11/17 Status: Ordered Levemir FlexPen 100 units/mL subcutaneous solution 55 unit, SUB-Q, BID, # 7 box, 2 Refill(s), This a a 90 day supply Start Date: 09/11/17 Status: Ordered NovoLOG FlexPen 100 units/mL subcutaneous solution 25 unit, SUB-Q, TID-Before Meals, # 4 box, 2 Refill(s) Start Date: 09/11/17 Status: Ordered Results No data available for this section Immunizations Given and Recorded Vaccine Date Status Refusal Reason Hx influenza vaccine-unspecified1 07/09/13 Given pneumococcal 23-valent vaccine 03/22/13 Given influenza virus vaccine, inactivated2 08/10/10 Given influenza virus vaccine, inactivated3 08/05/09 Given influenza virus vaccine, inactivated4 06/15/09 Given influenza virus vaccine, inactivated5 07/14/08 Given 1Result Comment: done @ dialysis. Migrated from OBS ; Data migrated from [employer] on 10/27/2015. 2Result Comment: fluvirin preservative free (>3 yrs.) [[id number]]. Migrated from OBS ; Data migrated from [employer] on 10/27/2015. 3Result Comment: fluvirin preservative free (>3 yrs.) [[id number]]. Migrated from OBS ; Data migrated from [employer] on 10/27/2015. 4Result Comment: fluvirin preservative free (>3 yrs.) [[id number]]. Migrated from OBS ; Data migrated from [employer] on 10/27/2015. 5Result Comment: fluvirin preservative free (>3 yrs.) [[id number]]. Migrated from OBS ; Data migrated from [employer] on 10/27/2015. Procedures Procedure Date Related Diagnosis Body Site Amputation lesser toe2016 Echocardiogram2 07/27/16 Myocardial perfusion scan3 07/27/16 Colonoscopy4 01/29/14 Amputation great toe5 AV - Creation of arteriovenous fistula Cataract extraction and insertion of intraocular lens 1Right foot 2EF: 55-60%, LV size and systolic function normal 3Normal perfusion imaging with no evidence of stress induced ischemia 4polyps, repeat in 3 years 5left foot Social History Social History Type Response Substance Abuse Use: None. Exercise Exercise duration: 15. Exercise frequency: 1-2 times/week. Self assessment: Fair condition. Exercise type: Walking. Employment/School Status: Disabled due to ESRD on HD. Other: . Alcohol Never Smoking Status Never smoker; Ready to change: No; Concerns about tobacco use in household: No; Exposure to Tobacco Smoke None; Cigarette Smoking Last 365 Days No; Reg Smoking Cessation Counseling No Assessment and Plan No data available for this section
--- OUTSIDE RECORDS SUMMARY | 2018-12-28 11:07 | XMS REPORT | Summary of Care ---
Author Author [facility] Organization [facility] Address Unknown Phone Unavailable Encounter HQ Steffany(FIN) [id number] Date(s): 12/12/17 - 12/14/17 [facility] [address] [place] [address]- Encounter Diagnosis Thrombosis due to vascular prosthetic devices, implants and grafts, initial enco unter (Final) - 12/20/17 Hypertensive heart and chronic kidney disease with heart failure and with stage 5 chronic kidney disease, or end stage renal disease (Final) - Type 2 diabetes mellitus with diabetic chronic kidney disease (Final) - Chronic diastolic (congestive) heart failure (Final) - End stage renal disease (Final) - Dependence on renal dialysis (Final) - nursing home (current) use of insulin (Final) - Discharge Disposition: Home or Self Care Attending Physician: Jamil Johnson MD Referring Physician: Jaiml Johnson MD Vital Signs 1 2 3 Most recent to oldest [Reference Range]: 162.56 cm (12/12/17 8:38 PM) 162.56 cm (12/12/17 11:42 AM) Height 97.8 DegF (12/14/17 12:02 PM) 98.6 DegF (12/14/17 7:38 AM) 98.6 DegF (12/14/17 3:40 AM) Temperature Oral [96.4-99.1 DegF] 121/64 mmHg (12/14/17 12:02 PM) 126/66 mmHg (12/14/17 7:38 AM) 106/57 mmHg (12/14/17 3:40 AM) Blood Pressure [90-140/60-90 mmHg] 16 BRMIN (12/14/17 12:02 PM) 16 BRMIN (12/14/17 7:38 AM) 18 BRMIN (12/13/17 8:05 AM) Respiratory Rate [14-20 BRMIN] 84 bpm (12/14/17 12:02 PM) 80 bpm (12/14/17 7:38 AM) 83 bpm (12/14/17 3:40 AM) Peripheral Pulse Rate [60-100 bpm] 81.875 kg (12/12/17 8:38 PM) 79.091 kg (12/12/17 11:42 AM) Weight 30.98 m2 (12/12/17 8:38 PM) 29.93 m2 (12/12/17 11:42 AM) Body Mass Index Problem List Condition [...] residual deficits(Confirmed) History of colonic Active polyps(Confirmed) Diabetic Active hypoglycemia(Confirm ed) ED (erectile Active dysfunction)(Confirm ed) [...] Substance Reaction Severity Status NKDA Active Medications acetaminophen (ANES) Route: IV, Drug form: INJ, ONCE, Stop date: 12/12/17 14:25:00 CDT Start Date: 12/12/17 Stop Date: 12/12/17 Status: Completed amLODIPine 10 mg, 2 tab, Route: PO, Drug form: TAB, Daily, Dosing Weight 81.875, kg, Start date: 12/13/17 9:00:00 CDT, Duration: 30 day, Stop date: 01/11/18 9:00:00 CDT Notes: (Same as: Rodo) Start Date: 12/13/17 Stop Date: 12/14/17 Status: Discontinued Ancef 2 gm, Route: IVPB, PRE OP, Dosing Weight 81.818, kg, Start date: 12/12/17 12:00: 00 CDT, Duration: 1 day, Stop date: 12/13/17 11:59:00 CDT, ABX Indication: Surgi ryan Prophylaxis Start Date: 12/12/17 Stop Date: 12/12/17 Status: Completed ANES acetaminophen 1,000 mg, Route: PO, Drug form: TAB, ONCE, Dosing Weight 79.091, kg, PRN Pain Sc ore 1-3, Start date: 12/12/17 17:32:00 CDT Start Date: 12/12/17 Stop Date: 12/12/17 Status: Discontinued ANES albuterol 0.083% inhalation solution 2.49 mg, Route: NEB, Q20Min, Dosing Weight 79.091, kg, PRN Wheezing, Priority: S TAT, Start date: 12/12/17 17:32:00 CDT, Duration: 30 day, Stop date: 01/11/18 17 :31:00 CDT Start Date: 12/12/17 Stop Date: 12/12/17 Status: Discontinued ANES diphenhydrAMINE 12.5 mg, Route: IVP, Drug form: INJ, Q6H, Dosing Weight 79.091, kg, PRN Itching, Start date: 12/12/17 17:32:00 CDT, Duration: 30 day, Stop date: 01/11/18 17:31: 00 CDT Start Date: 12/12/17 Stop Date: 12/12/17 Status: Discontinued ANES esmolol 10 mg, Route: IVP, Q5Min, Dosing Weight 79.091, kg, PRN Other -See Comment, Star t date: 12/12/17 17:32:00 CDT, Duration: 5 doses or times, Stop date: Limited # of times Start Date: 12/12/17 Stop Date: 12/12/17 Status: Discontinued ANES fentaNYL 25 microgram, Route: IVP, Q5Min, Dosing Weight 79.091, kg, PRN Pain Score 4-6, P riority: Routine, Start date: 12/12/17 17:32:00 CDT, Duration: 4 doses or times, Stop date: Limited # of times Start Date: 12/12/17 Stop Date: 12/12/17 Status: Discontinued ANES flumazenil 0.2 mg, Route: IVP, PRN, Dosing Weight 79.091, kg, PRN Benzodiazepine Reversal, Initial dose, Start date: 12/12/17 17:32:00 CDT, Duration: 30 day, Stop date: 17:31:00 CDT Start Date: 12/12/17 Stop Date: 12/12/17 Status: Discontinued ANES hydrALAZINE 10 mg, Route: IVP, Q20Min, Dosing Weight 79.091, kg, PRN Elevated BP, Start date : 12/12/17 17:32:00 CDT, Duration: 2 doses or times, Stop date: Limited # of norman es Start Date: 12/12/17 Stop Date: 12/12/17 Status: Discontinued ANES labetalol 10 mg, Route: IVP, Q5Min, Dosing Weight 79.091, kg, PRN Elevated BP, Start date: 12/12/17 17:32:00 CDT, Duration: 5 doses or times, Stop date: Limited # of times Start Date: 12/12/17 Stop Date: 12/12/17 Status: Discontinued ANES meperidine 12.5 mg, Route: IVP, Q30Min, Dosing Weight 79.091, kg, PRN Other -See Comment, F or shivering, Start date: 12/12/17 17:32:00 CDT, Duration: 2 doses or times, Sto p date: Limited # of times Start Date: 12/12/17 Stop Date: 12/12/17 Status: Discontinued ANES naloxone 0.4 mg, Route: IVP, Q2MIN, Dosing Weight 79.091, kg, PRN Narcotic Reversal, Star t date: 12/12/17 17:32:00 CDT, Duration: 8 doses or times, Stop date: Limited # of times Start Date: 12/12/17 Stop Date: 12/12/17 Status: Discontinued ANES ondansetron 4 mg, Route: IVP, ONCE, Dosing Weight 79.091, kg, PRN Nausea & Vomiting, Start date: 12/12/17 17:32:00 CDT Start Date: 12/12/17 Stop Date: 12/12/17 Status: Discontinued ANES oxyCODONE 10 mg, Route: PO, Drug form: TAB, Q4H, Dosing Weight 79.091, kg, PRN Pain Score 7-10, Start date: 12/12/17 17:32:00 CDT, Duration: 30 day, Stop date: 01/11/18 1 7:31:00 CDT Start Date: 12/12/17 Stop Date: 12/12/17 Status: Discontinued carvedilol 12.5 mg, 1 tab, Route: PO, Drug form: TAB, BID, Dosing Weight 81.875, kg, Start date: 12/13/17 9:00:00 CDT, Duration: 30 day, Stop date: 01/11/18 21:00:00 CDT Notes: Give with food. (Same As: Coreg) Start Date: 12/13/17 Stop Date: 12/14/17 Status: Discontinued ceFAZolin (ANES) Route: IV, Drug form: INJ, ONCE, Stop date: 12/12/17 14:05:00 CDT Start Date: 12/12/17 Stop Date: 12/12/17 Status: Completed fentaNYL (ANES) Route: IV, Drug form: INJ, ONCE, Stop date: 12/12/17 14:05:00 CDT Start Date: 12/12/17 Stop Date: 12/12/17 Status: Completed furosemide 40 mg oral tablet 40 mg, 1 tab, Route: PO, Drug form: TAB, Daily, Dosing Weight 81.875, kg, Start date: 12/13/17 9:00:00 CDT, Duration: 30 day, Stop date: 01/11/18 9:00:00 CDT Notes: (Same as: Lasix) May cause GI upset. Give with food or milk. Start Date: 12/13/17 Stop Date: 12/14/17 Status: Discontinued glycopyrrolate (ANES) Route: IV, Drug form: INJ, ONCE, Stop date: 12/12/17 15:38:00 CDT Start Date: 12/12/17 Stop Date: 12/12/17 Status: Completed heparin 5,000 unit, 1 mL, Route: SUB-Q, Drug form: INJ, Q12H, Dosing Weight 79.091, kg, Start date: 12/13/17 9:00:00 CDT, Stop date: 01/11/18 9:00:00 CDT Notes: porcine heparin Start Date: 12/13/17 Stop Date: 12/14/17 Status: Discontinued heparin (ANES) Route: IV, Drug form: INJ, ONCE, Stop date: 12/12/17 14:20:00 CDT Start Date: 12/12/17 Stop Date: 12/12/17 Status: Completed He[place]end (ANES) 500 mL Route: IV, Drug Form: INJ, Start date: 12/12/17 14:25:00 CDT, Stop date: 8 15:25:00 CDT Start Date: 12/12/17 Stop Date: 12/12/17 Status: Completed Humalog 25 unit, 0.25 mL, Route: SUB-Q, Drug form: SOLN, TID-Before Meals, Start date: 0 12/13/17 7:30:00 CDT, Duration: 30 day, Stop date: 01/11/18 16:30:00 CDT Notes: (Same as: Humalog ) Roll in palms of hands gently; Do not shake `vigorou sly. "Single Patient Use Only " WASTE: F/P - Black; E - [facility] Trash [address] St able for 28 days at room temperature.Expires in days from Da te Start Date: 12/13/17 Stop Date: 12/14/17 Status: Discontinued insulin glargine 55 unit, 0.55 mL, Route: SUB-Q, Drug form: SOLN, BID, Start date: 12/13/17 9:00: 00 CDT, Duration: 30 day, Stop date: 01/11/18 17:00:00 CDT Notes: (Same as: Lantus)Do not hold insulin without contacting prescriberWASTE: F/P - Black; E - Municipal Trash Bin "single patient use only" Start Date: 12/13/17 Stop Date: 12/14/17 Status: Discontinued Levemir FlexPen 55 unit, Route: SUB-Q, Drug form: SOLN, BID, Dosing Weight 81.875, kg, Start joseph e: 12/13/17 9:00:00 CDT, Duration: 30 day, Stop date: 01/11/18 17:00:00 CDT Start Date: 12/13/17 Stop Date: 12/12/17 Status: Deleted lidocaine (ANES) Route: IV, Drug form: INJ, ONCE, Stop date: 12/12/17 14:05:00 CDT Start Date: 12/12/17 Stop Date: 12/12/17 Status: Completed midazolam (ANES) Route: IV, Drug form: SOLN, ONCE, Stop date: 12/12/17 14:00:00 CDT Start Date: 12/12/17 Stop Date: 12/12/17 Status: Completed morphine Sulfate 2 mg, 1 mL, Route: IV, Drug form: SOLN, Q3H, Dosing Weight 81.875, kg, PRN Pain Score 4-6, Start date: 12/12/17 22:22:00 CDT, Duration: 30 day, Stop date: 01/11 22:21:00 CDT Start Date: 12/12/17 Stop Date: 12/14/17 Status: Discontinued neostigmine (ANES) Route: IV, Drug form: INJ, ONCE, Stop date: 12/12/17 15:38:00 CDT Start Date: 12/12/17 Stop Date: 12/12/17 Status: Completed [place] 5/325 oral tablet 1 tab, PO, Q6H, # 60 tab, 0 Refill(s) Start Date: 12/14/17 Stop Date: 01/22/18 Status: Completed NovoLOG FlexPen 25 unit, Route: SUB-Q, Drug form: SOLN, TID-Before Meals, Dosing Weight 81.875, kg, Start date: 12/13/17 7:30:00 CDT, Duration: 30 day, Stop date: 01/11/18 16:3 0:00 CDT Start Date: 12/13/17 Stop Date: 12/12/17 Status: Deleted ondansetron (ANES) Route: IV, Drug form: INJ, ONCE, Stop date: 12/12/17 14:25:00 CDT Start Date: 12/12/17 Stop Date: 12/12/17 Status: Completed pravastatin 40 mg, 2 tab, Route: PO, Drug form: TAB, Bedtime, Dosing Weight 81.875, kg, Star t date: 12/13/17 21:00:00 CDT, Duration: 30 day, Stop date: 01/11/18 21:00:00 CD T Notes: (Same as: Pravachol) Start Date: 12/13/17 Stop Date: 12/14/17 Status: Discontinued propofol (ANES) Route: IV, Drug form: INJ, ONCE, Stop date: 12/12/17 14:05:00 CDT Start Date: 12/12/17 Stop Date: 12/12/17 Status: Completed protamine (ANES) Route: IV, Drug form: INJ, ONCE, Stop date: 12/12/17 15:38:00 CDT Start Date: 12/12/17 Stop Date: 12/12/17 Status: Completed rocuronium (ANES) Route: IV, Drug form: INJ, ONCE, Stop date: 12/12/17 14:05:00 CDT Start Date: 12/12/17 Stop Date: 12/12/17 Status: Completed Sodium Chloride 0.9% IV (ANES) 500 mL Route: IV, Total Volume: 500, Start date: 12/12/17 13:10:00 CDT, Stop date: 11/24 14:10:00 CDT Start Date: 12/12/17 Stop Date: 12/12/17 Status: Completed Sodium Chloride 0.9% IV 500 mL 500 mL, Rate: 25 ml/hr, Infuse over: 20 hr, Route: IV, Dosing Weight 79.091 kg, Total Volume: 500, Start date: 12/12/17 12:12:00 CDT, Duration: 30 day, Stop joseph e: 01/11/18 12:11:00 CDT, 1.91, m2 Start Date: 12/12/17 Stop Date: 12/12/17 Status: Discontinued Tylenol 650 mg, 20.3 mL, Route: PO, Drug form: LIQ, Q4H, Dosing Weight 81.875, kg, PRN P ain 1-3/Temp > 99.5 F, Start date: 12/12/17 22:22:00 CDT, Duration: 30 day, Stop date: 01/11/18 22:21:00 CDT Notes: Max jqvritykvifqt=3357lf/day (4 gm/day). (Same as: Tylenol) Start Date: 12/12/17 Stop Date: 12/14/17 Status: Discontinued vancomycin 1 gm, Route: IVPB, Drug form: INJ, PRE OP, Dosing Weight 81.818, kg, Start date: 12/12/17 12:00:00 CDT, Duration: 1 day, Stop date: 12/13/17 11:59:00 CDT, ABX I ndication: Surgical Prophylaxis Start Date: 12/12/17 Stop Date: 12/12/17 Status: Completed vancomycin (ANES) 1000 mg Route: IV, Drug form: INJ, Start date: 12/12/17 13:15:00 CDT, Stop date: 8 14:15:00 CDT Start Date: 12/12/17 Stop Date: 12/12/17 Status: Completed Results BLOOD BANK RESULTS Most recent to 1 2 oldest [Reference Range]: ABO/Rh O POS *Unknown* (12/12/17 11:39 AM) Antibody Scrn Negative (12/12/17 11:39 AM) RBC product Product available (12/12/17 2:24 PM) ELECTROLYTES Most recent to 1 2 oldest [Reference Range]: Sodium Lvl [135-145 134 mEq/L mEq/L] *LOW* (12/13/17 4:44 AM) Potassium Lvl 5.2 mEq/L 5.5 mEq/L [3.5-5.1 mEq/L] *HI* *HI* (12/13/17 4:44 AM) (12/12/17 11:39 AM) Chloride Lvl [95-109 102 mEq/L mEq/L] (12/13/17 4:44 AM) CO2 [24-32 mEq/L] 20 mEq/L *LOW* (12/13/17 4:44 AM) AGAP [10.0-20.0 17.2 mEq/L mEq/L] (12/13/17 4:44 AM) CHEM PANEL Most recent to 1 2 oldest [Reference Range]: Creatinine Lvl 10.80 mg/dL [0.50-1.40 mg/dL] *HI* (12/13/17 4:44 AM) eGFR 5 mL/min/1.73m2 1 *NA* (12/13/17 4:44 AM) BUN [7-22 mg/dL] 74 mg/dL *HI* (12/13/17 4:44 AM) Glucose Lvl [70-99 98 mg/dL 143 mg/dL mg/dL] (12/13/17 4:44 AM) *HI* (12/12/17 11:39 AM) Calcium Lvl 8.8 mg/dL [8.5-10.5 mg/dL] (12/13/17 4:44 AM) 1Result Comment: The eGFR is calculated using [...] be mul tiplied by the estimated BMI. HEMATOLOGY Most recent to 1 2 oldest [Reference Range]: WBC [3.7-10.4 K/CMM] 9.2 K/CMM (12/13/17 4:44 AM) RBC [4.70-6.10 3.65 M/CMM M/CMM] *LOW* (12/13/17 4:44 AM) Hgb [14.0-18.0 g/dL] 11.1 g/dL *LOW* (12/13/17 4:44 AM) Hct [42.0-54.0 %] 32.6 % *LOW* (12/13/17 4:44 AM) MCV [80.0-94.0 fL] 89.3 fL (12/13/17 4:44 AM) MCH [27.0-31.0 pg] 30.4 pg (12/13/17 4:44 AM) MCHC [32.0-36.0 34.1 g/dL g/dL] (12/13/17 4:44 AM) RDW [11.5-14.5 %] 16.9 % *HI* (12/13/17 4:44 AM) MPV [7.4-10.4 fL] 7.4 fL (12/13/17 4:44 AM) Platelet [133-450 140 K/CMM K/CMM] (12/13/17 4:44 AM) Segs [45.0-75.0 %] 69.2 % (12/13/17 4:44 AM) Lymphocytes 15.7 % [20.0-40.0 %] *LOW* (12/13/17 4:44 AM) Monocytes [2.0-12.0 10.5 % %] (12/13/17 4:44 AM) Eosinophils [0.0-4.0 3.8 % %] (12/13/17 4:44 AM) Basophils [0.0-1.0 0.8 % %] (12/13/17 4:44 AM) Segs-Bands # 6.4 K/CMM [1.5-8.1 K/CMM] (12/13/17 4:44 AM) Lymphocytes # 1.4 K/CMM [1.0-5.5 K/CMM] (12/13/17 4:44 AM) Monocytes # [0.0-0.8 1.0 K/CMM K/CMM] *HI* (12/13/17 4:44 AM) Eosinophils # 0.4 K/CMM [0.0-0.5 K/CMM] (12/13/17 4:44 AM) Basophils # [0.0-0.2 0.1 K/CMM K/CMM] (12/13/17 4:44 AM) Immunizations Given and Recorded Vaccine Date Status Refusal Reason Hx influenza vaccine-unspecified1 06/25/17 Recorded Hx influenza vaccine-unspecified2 07/09/13 Given pneumococcal 23-valent vaccine 03/22/13 Given influenza virus vaccine, inactivated3 08/10/10 Given influenza virus vaccine, inactivated4 08/05/09 Given influenza virus vaccine, inactivated5 06/15/09 Given influenza virus vaccine, inactivated6 07/14/08 Given 1Location History: [facility] 2Result Comment: done @ dialysis. Migrated from OBS ; Data migrated from [employer] on 10/27/2015. 3Result Comment: fluvirin preservative free (>3 yrs.) [[id number]]. Migrated from OBS ; Data migrated from [employer] on 10/27/2015. 4Result Comment: fluvirin preservative free (>3 yrs.) [[id number]]. Migrated from OBS ; Data migrated from [employer] on 10/27/2015. 5Result Comment: fluvirin preservative free (>3 yrs.) [[id number]]. Migrated from OBS ; Data migrated from [employer] on 10/27/2015. 6Result Comment: fluvirin preservative free (>3 yrs.) [[id number]]. Migrated from OBS ; Data migrated from [employer] on 10/27/2015. Procedures Procedure Date Related Diagnosis Body Site Status Echocardiography1 01/24/18 Completed Thrombectomy of arteriovenous fistula2 12/12/17 Completed Amputation lesser toe3 11/08/17 Completed Amputation lesser toe4 11/08/17 Completed Amputation lesser toe5 2016 Completed Echocardiogram6 07/27/16 Completed Myocardial perfusion scan7 07/27/16 Completed Colonoscopy8 01/29/14 Completed AV - Creation of arteriovenous fistula9 03/25/13 Completed Amputation great toe10 Completed Cataract extraction and insertion of Completed intraocular lens Insertion of dialysis catheter into femoral Completed vein 1EF: 55-60% 2PREOPERATIVE DIAGNOSIS: 1. End-stage renal disease 2. Thrombosis of right brachiocephalic AV fistula POSTOPERATIVE DIAGNOSIS: 1. End-stage renal disease 2. Thrombosis of right brachiocephalic AV fistula OPERATION: 1. Open thrombectomy of right brachiocephalic AV fistula 2. Upper extremity fistulogram 3. Balloon angioplasty and stenting of right subclavian vein 4. Open thrombectomy of brachial artery 3right foot 4PREOPERATIVE DIAGNOSIS: Gangrene, right fourth toe. POSTOPERATIVE DIAGNOSES: Gangrene, right fourth toe. PROCEDURE PERFORMED: Amputation, right fourth toe. PATHOLOGY: 1. Amputated fourth toe sent for pathological analysis. 2. Deep wound culture swab for culture and sensitivity. 5Right foot 6EF: 55-60%, LV size and systolic function normal 7Normal perfusion imaging with no evidence of stress induced ischemia 8polyps, repeat in 3 years 9PREOPERATIVE DIAGNOSIS: End-stage renal disease. POSTOPERATIVE DIAGNOSIS: End-stage renal disease. OPERATION: Creation of right brachiocephalic arteriovenous fistula. 10left foot Social History Social History Type Response [...] Reg Smoking Cessation Counseling No entered on: 03/21/18 Assessment and Plan Extracted from: Title: Clinical Document Author: Jamil Johnson MD Date: 12/12/17 DATE OF : 1955 DATE OF OPERATION/PROCEDURE: 12/12/2017 PREOPERATIVE DIAGNOSIS: 1. End-stage renal disease 2. Thrombosis of right brachiocephalic AV fistula POSTOPERATIVE DIAGNOSIS: 1. End-stage renal disease 2. Thrombosis of right brachiocephalic AV fistula OPERATION: 1. Open thrombectomy of right brachiocephalic AV fistula 2. Upper extremity fistulogram 3. Balloon angioplasty and stenting of right subclavian vein 4. Open thrombectomy of brachial artery SURGEON: Dr. Jamil Johnson. ASSISTING SURGEON: None ANESTHESIA: General with LMA FINDING: Palpable thrill at the end of this procedure. INDICATIONS FOR PROCEDURE: This is a 62 years old male who has end-stage renal disease who has thrombosis of his right brachiocephalic AV fistula. Thrombectomy, fistulogram and intervention was indicated for maintaining patency of the fistula. Risks benefits and options were discussed with the patient who appropriately consented for the procedure. Informed consent was obtained PROCEDURE IN DETAIL: Prior to surgery, the risks, benefits and complications, and alternatives were discussed with the patient and appropriately consent was obtained. Patient was transferred to the operating room and made comfortable in the supine position. General anesthesia with LMA intubation was performed by the anesthesiologist. Right upper extremity was prepared using Chloraprep solution and sterile drapes placed. Open exposure of cephalic vein was performed close to the anastomosis. Proximal distal clamps applied venotomy was performed in cephalic vein. Thrombectomy from the arterial segment was performed by using 4 Isabel. [id number] thrombectomy was performed from the cephalic vein subclavian vein and subclavian vein stent. Post thrombectomy patient had adequate back bleed fistulogram was obtained which revealed patent vein in the forearm however there is severe stenosis in the stent proximal segment in the subclavian vein. I extended the stent by using a 10 MAGDALENA by using an 11 x 5 Biobond stent graft and then postdilated by using 12 mm balloon. The venotomy was then approximated by using 5-0 Prolene patient had palpable thrill in the AV fistula. Completion angiogram was then obtained which revealed patent arteriovenous anastomosis however thrombus was present in the brachial artery distal to the anastomosis. I have performed a distal incision to expose the brachial artery. Systemic heparin was redosed. Clamps applied arteriotomy was performed thrombectomy of the brachial artery was performed by using 4 Isabel. Completion arteriogram revealed patent flow with the right dominant radial artery in the arm and diminutive but patent basilar artery. Patent palmar arch. Was also identified. Both wounds were then approximated by using Vicryl Monocryl Dermabond dressing was applied patient was then awakened and transferred to PACU in stable condition. Continue outpatient patient had blood loss of 800 mL he required 2 units of packed RBCs and had evidence of hypertension requiring medications of vasopressors therefore decided to proceed to observe the patient overnight.
--- OUTSIDE RECORDS SUMMARY | 2018-12-28 11:07 | XMS REPORT | Summary of Care ---
Author Author [facility] Organization [facility] Address Unknown Phone Unavailable Encounter HQ Steffany(FIN) [id number] Date(s): 03/21/18 - 03/21/18 [facility] [address], [address] [place] [address]- [phone] Discharge Disposition: Home or Self Care Attending Physician: Tamra Landin MD Vital Signs Most recent to 1 oldest [Reference Range]: Height 165.1 cm (03/21/18 9:17 AM) Temperature Oral 97.9 DegF [96.4-99.1 DegF] (03/21/18 9:17 AM) Blood Pressure 195/88 mmHg [90-140/60-90 mmHg] *HI* (03/21/18 9:17 AM) Respiratory Rate 16 BRMIN [14-20 BRMIN] (03/21/18 9:17 AM) Peripheral Pulse 81 bpm Rate [60-100 bpm] (03/21/18 9:17 AM) Weight 79.773 kg (03/21/18 9:17 AM) Body Mass Index 29.27 m2 (03/21/18 9:17 AM) Problem List Condition Effective Dates Status [...] Substance Reaction Severity Status NKDA Active Medications Viagra 100 mg oral tablet 1/2 to 1 tablet, PO, Daily, PRN for erectile dysfunction, Take 30 minutes prior to intercourse, # 1 tab, 5 Refill(s) Start Date: 03/21/18 Status: Ordered Results No data available for this section Immunizations Given and Recorded Vaccine Date Status Refusal Reason Hx influenza vaccine-unspecified1 06/25/17 Recorded Hx influenza vaccine-unspecified2 07/09/13 Given pneumococcal 23-valent vaccine 03/22/13 Given influenza virus vaccine, inactivated3 08/10/10 Given influenza virus vaccine, inactivated4 08/05/09 Given influenza virus vaccine, inactivated5 06/15/09 Given influenza virus vaccine, inactivated6 10/20/08 Given 1Location History: [facility] 2Result Comment: done @ dialysis. Migrated from OBS ; Data migrated from [employer] on 10/27/2015. 3Result Comment: fluvirin preservative free (>3 yrs.) [[id number]]. Migrated from OBS ; Data migrated from [employer] on 10/27/2015. 4Result Comment: fluvirin preservative free (>3 yrs.) [[id number]]. Migrated from OBS ; Data migrated from [employer] on 10/27/2015. 5Result Comment: fluvirin preservative free (>3 yrs.) [[id number]]. Migrated from OBS ; Data migrated from [employer] on 10/27/2015. 6Result Comment: fluvirin preservative free (>3 yrs.) [[id number]]. Migrated from OBS ; Data migrated from [employer] on 10/27/2015. Procedures Procedure Date Related Diagnosis Body Site Status Echocardiography1 01/24/18 Completed Thrombectomy of arteriovenous fistula2 12/12/17 Completed Amputation lesser toe3 11/08/17 Completed Amputation lesser toe4 11/08/17 Completed Amputation lesser toe2016 Completed Echocardiogram6 07/27/16 Completed Myocardial perfusion scan7 [...] No entered on: 03/21/18 Assessment and Plan No data available for this section
--- OUTSIDE RECORDS SUMMARY | 2018-12-28 11:07 | XMS REPORT | Summary of Care ---
Author Author [facility] Primary Care [facility] Organization [facility] Address Unknown Phone Unavailable Encounter LUÍS Jeter(FIN) [id number] Date(s): 12/11/17 - 12/12/17 [facility] [address], [address] [place], [place] [id number]- [phone] Vital Signs No data available for this [...] 01/12/15 Active deficiency8, 9 1Data migrated from [employer] on 02/21/15. 2Data migrated from [employer] [...] Substance Reaction Severity Status NKDA Active Medications OneTouch Ultra Blue Blood Glucose Test Strip Check blood sugar four times daily., MISC, QID, # 400 ea, Insulin dependent, Amador s not use insulin pump, Last DM eval date 09/11/17, 3 Refill(s) Start Date: 12/12/17 Status: Ordered Results No data available for this section Immunizations Given and Recorded Vaccine Date Status Refusal Reason Hx influenza vaccine-unspecified1 06/25/17 Recorded Hx influenza vaccine-unspecified2 07/09/13 Given pneumococcal 23-valent vaccine 03/22/13 Given influenza virus vaccine, inactivated3 08/10/10 Given influenza virus vaccine, inactivated4 08/05/09 Given influenza virus vaccine, inactivated5 06/15/09 Given influenza virus vaccine, inactivated6 07/14/08 Given 1Location History: [facility] 2Result Comment: done @ dialysis. Migrated from OBS ; Data migrated from [employer] on 10/27/2015. 3Result Comment: fluvirin preservative free (>3 yrs.) [[id number]]. Migrated from OBS ; Data migrated from [employer] on 10/27/2015. 4Result Comment: fluvirin preservative free (>3 yrs.) [[id number]]. Migrated from OBS ; Data migrated from [employer] on 10/27/2015. 5Result Comment: fluvirin preservative free (>3 yrs.) [[id number]]. Migrated from OBS ; Data migrated from [employer] on 10/27/2015. 6Result Comment: fluvirin preservative free (>3 yrs.) [[id number]]. Migrated from OBS ; Data migrated from [employer] on 10/27/2015. Procedures Procedure Date Related Diagnosis [...] Reg Smoking Cessation Counseling No entered on: 02/18/18 Assessment and Plan No data available for this section
--- OUTSIDE RECORDS SUMMARY | 2018-12-28 11:07 | XMS REPORT | Summary of Care ---
Author Author [facility] Organization [facility] Address Unknown Phone Unavailable Encounter HQ Steffany(TEOFILO) [id number] Date(s): 12/09/17 - 12/11/17 [facility] [address] [place] [address]- Encounter Diagnosis Thrombosis due to vascular prosthetic devices, implants and grafts, initial enco unter (Final) - 12/21/17 Breakdown (mechanical) of surgically created arteriovenous fistula, initial enco unter (Final) - Hypertensive heart and chronic kidney disease with heart failure and with stage 5 chronic kidney disease, or end stage renal disease (Final) - Chronic diastolic (congestive) heart failure (Final) - End stage renal disease (Final) - Type 2 diabetes mellitus with diabetic chronic kidney disease (Final) - Dependence on renal dialysis (Final) - Hyperkalemia (Final) - Mixed hyperlipidemia (Final) - Anemia in chronic kidney disease (Final) - Dilated cardiomyopathy (Final) - Personal history of transient ischemic attack (TIA), and cerebral infarction wit hout residual deficits (Final) - tank terminal gauger (current) use of insulin (Final) - Obesity, unspecified (Final) - Body mass index (BMI) 30.0-30.9, adult (Final) - Discharge Disposition: Home or Self Care Attending Physician: Vamshi Thompson MD Admitting Physician: Vamshi Thompson MD Vital Signs 1 2 3 Most recent to oldest [Reference Range]: 162.56 cm (12/09/17 12:49 PM) 162.56 cm (12/09/17 8:38 AM) Height 98.1 DegF (12/11/17 7:18 PM) 98.2 DegF (12/11/17 4:07 PM) 97.2 DegF (12/11/17 2:55 PM) Temperature Oral [96.4-99.1 DegF] 159/73 mmHg *HI* (12/11/17 7:18 PM) 131/74 mmHg (12/11/17 4:07 PM) 103/62 mmHg (12/11/17 2:55 PM) Blood Pressure [90-140/60-90 mmHg] 18 BRMIN (12/11/17 7:18 PM) 17 BRMIN (12/11/17 4:07 PM) 16 BRMIN (12/11/17 2:55 PM) Respiratory Rate [14-20 BRMIN] 80 bpm (12/11/17 7:18 PM) 80 bpm (12/11/17 4:07 PM) 75 bpm (12/11/17 7:00 AM) Peripheral Pulse Rate [60-100 bpm] 81.818 kg (12/09/17 12:49 PM) 81.818 kg (12/09/17 8:38 AM) Weight 30.96 m2 (12/09/17 12:49 PM) 30.96 m2 (12/09/17 8:38 AM) Body Mass Index Problem List Condition [...] Substance Reaction Severity Status NKDA Active Medications alteplase 2 mg injection 2 mg, 2 mL, Route: INJ, Drug form: INJ, ONCE, Dosing Weight 81.818, kg, Start da te: 12/09/17 9:20:00 CDT, Stop date: 12/09/17 9:20:00 CDT, Occluded CVAD >/=7 Uzbek Notes: "Syringe for catheter clearance or interventional radiology use.Reconstit valdemar each vial of Cathflo Activase with 2.2 ml Sterile Water resulting in a 1 mg/ ml solution. (Same as: Activase) MEDICATION WASTE Product Size: 2 mgProd uct Wasted: ___ mg Start Date: 12/09/17 Stop Date: 12/21/17 Status: Discontinued amLODIPine 10 mg, 2 tab, Route: PO, Drug form: TAB, Daily, Dosing Weight 81.818, kg, Start date: 12/09/17 17:00:00 CDT, Duration: 30 day, Stop date: 01/08/18 9:00:00 CDT Notes: (Same as: Norvasc) Start Date: 12/09/17 Stop Date: 12/11/17 Status: Discontinued calcium carbonate 1,500 mg, 3 tab, Route: CHEW, Drug form: CHEWTAB, Before Meals & Bedtime, Dosing Weight 81.818, kg, PRN Indigestion, Start date: 12/09/17 14:18:00 CDT, Duration: 30 day, Stop date: 01/08/18 14:17:00 CDT Notes: (Same As: Tums)Calcium Carbonate 500 np=639 mg elemental calcium Dose=_ mg calcium carbonate ( mg elemental calcium) Start Date: 12/09/17 Stop Date: 12/11/17 Status: Discontinued carvedilol 12.5 mg, 1 tab, Route: PO, Drug form: TAB, BID, Dosing Weight 81.818, kg, Start date: 12/09/17 21:00:00 CDT, Duration: 30 day, Stop date: 01/08/18 9:00:00 CDT Notes: Give with food. (Same As: Coreg) Start Date: 12/09/17 Stop Date: 12/11/17 Status: Discontinued Dilaudid 1 mg, 0.5 tab, Route: PO, Drug form: TAB, ONCE, Dosing Weight 81.818, kg, Start date: 12/09/17 15:40:00 CDT, Stop date: 12/09/17 15:40:00 CDT Notes: (Same as: Dilaudid) Start Date: 12/09/17 Stop Date: 12/09/17 Status: Completed furosemide 40 mg oral tablet 40 mg, 1 tab, Route: PO, Drug form: TAB, Daily, Dosing Weight 81.818, kg, Start date: 12/10/17 9:00:00 CDT, Duration: 30 day, Stop date: 01/08/18 9:00:00 CDT Notes: (Same as: Lasix) May cause GI upset. Give with food or milk. Start Date: 12/10/17 Stop Date: 12/11/17 Status: Discontinued Humalog 25 unit, 0.25 mL, Route: SUB-Q, Drug form: SOLN, TID-Before Meals, Start date: 0 12/09/17 16:30:00 CDT, Duration: 30 day, Stop date: 01/08/18 11:30:00 CDT Notes: (Same as: Humalog ) Roll in palms of hands gently; Do not shake `vigorou sly. "Single Patient Use Only " WASTE: F/P - Black; E - Municipal Trash [address] St able for 28 days at room temperature.Expires in days from Da te Start Date: 12/09/17 Stop Date: 12/11/17 Status: Discontinued insulin glargine 55 unit, 0.55 mL, Route: SUB-Q, Drug form: SOLN, BID, Start date: 12/09/17 21:00 :00 CDT, Duration: 30 day, Stop date: 01/08/18 9:00:00 CDT Notes: (Same as: Lantus)Do not hold insulin without contacting prescriberWASTE: F/P - Black; E - Municipal Trash Bin "single patient use only" Start Date: 12/09/17 Stop Date: 12/11/17 Status: Discontinued Levemir FlexPen 55 unit, Route: SUB-Q, Drug form: SOLN, BID, Dosing Weight 81.818, kg, Start joseph e: 12/09/17 17:00:00 CDT, Duration: 30 day, Stop date: 01/08/18 9:00:00 CDT Start Date: 12/09/17 Stop Date: 12/09/17 Status: Deleted morphine Sulfate 6 mg, 3 mL, Route: PO, Drug form: SOLN, Q6H, Dosing Weight 81.818, kg, PRN Pain Score 7-10, Start date: 12/09/17 21:37:00 CDT, Duration: 30 day, Stop date: 12/24 03/12 21:36:00 CDT Notes: (Same as:MORPhine Sulfate) Start Date: 12/09/17 Stop Date: 12/11/17 Status: Discontinued Nephro-Jeromy Rx 1 tab, Route: PO, Drug Form: TAB, Dosing Weight 81.818, kg, Daily, Start date: 0 12/11/17 17:00:00 CDT, Duration: 30 day, Stop date: 01/09/18 17:00:00 CDT Notes: (Same as: Nephro-Jeromy Rx and Diatx) Give with food. Start Date: 12/11/17 Stop Date: 12/11/17 Status: Discontinued NovoLOG FlexPen 25 unit, Route: SUB-Q, Drug form: SOLN, TID-Before Meals, Dosing Weight 81.818, kg, Start date: 12/09/17 16:30:00 CDT, Duration: 30 day, Stop date: 01/08/18 11: 30:00 CDT Start Date: 12/09/17 Stop Date: 12/09/17 Status: Deleted pravastatin 40 mg, 2 tab, Route: PO, Drug form: TAB, Bedtime, Dosing Weight 81.818, kg, Star t date: 12/09/17 21:00:00 CDT, Duration: 30 day, Stop date: 01/07/18 21:00:00 CD T Notes: (Same as: Pravachol) Start Date: 12/09/17 Stop Date: 12/11/17 Status: Discontinued Results ELECTROLYTES Most recent to 1 2 oldest [Reference Range]: Sodium Lvl [135-145 134 mEq/L 137 mEq/L mEq/L] *LOW* (12/09/17 9:26 AM) (12/11/17 3:37 AM) Potassium Lvl 5.2 mEq/L 5.2 mEq/L [3.5-5.1 mEq/L] *HI* *HI* (12/11/17 3:37 AM) (12/09/17 9:26 AM) Chloride Lvl [95-109 96 mEq/L 99 mEq/L mEq/L] (12/11/17 3:37 AM) (12/09/17 9:26 AM) CO2 [24-32 mEq/L] 22 mEq/L 22 mEq/L *LOW* *LOW* (12/11/17 3:37 AM) (12/09/17 9:26 AM) AGAP [10.0-20.0 21.2 mEq/L 21.2 mEq/L mEq/L] *HI* *HI* (12/11/17 3:37 AM) (12/09/17 9:26 AM) CHEM PANEL Most recent to 1 2 oldest [Reference Range]: Creatinine Lvl 11.10 mg/dL 10.70 mg/dL [0.50-1.40 mg/dL] *HI* *HI* (12/11/17 3:37 AM) (12/09/17 9:26 AM) eGFR 4 mL/min/1.73m2 1 5 mL/min/1.73m2 2 *NA* *NA* (12/11/17 3:37 AM) (12/09/17 9:26 AM) BUN [7-22 mg/dL] 80 mg/dL 78 mg/dL *HI* *HI* (12/11/17 3:37 AM) (12/09/17 9:26 AM) Glucose Lvl [70-99 223 mg/dL 200 mg/dL mg/dL] *HI* *HI* (12/11/17 3:37 AM) (12/09/17 9:26 AM) Total Protein 7.9 g/dL [6.4-8.4 g/dL] (12/11/17 3:37 AM) Albumin Lvl [3.5-5.0 3.0 g/dL g/dL] *LOW* (12/11/17 3:37 AM) Globulin [2.7-4.2 4.9 g/dL g/dL] *HI* (12/11/17 3:37 AM) A/G Ratio [0.7-1.6] 0.6 *LOW* (12/11/17 3:37 AM) Calcium Lvl 9.9 mg/dL 9.1 mg/dL [8.5-10.5 mg/dL] (12/11/17 3:37 AM) (12/09/17 9:26 AM) ALT [0-65 unit/L] 28 unit/L (12/11/17 3:37 AM) AST [0-37 unit/L] 18 unit/L (12/11/17 3:37 AM) Alk Phos [39-136 85 unit/L unit/L] (12/11/17 3:37 AM) Bili Total [0.2-1.3 0.3 mg/dL mg/dL] (12/11/17 3:37 AM) Bili Direct [0.0-0.3 0.1 mg/dL mg/dL] (12/11/17 3:37 AM) Bili Indirect 0.2 mg/dL [0.0-1.0 mg/dL] (12/11/17 3:37 AM) 1Result Comment: The eGFR is calculated [...] be mul tiplied by the estimated BMI. SPECIAL CHEMISTRY Most recent to [Reference Range]: Hgb A1C [<=5.6 %] 8.4 % *HI* (12/11/17 3:37 AM) IMMUNOLOGY Most recent to [Reference Range]: Hep Bs Ag [Negative] Negative *NA* (12/09/17 4:48 PM) HEMATOLOGY Most recent to [Reference Range]: WBC [3.7-10.4 K/CMM] 8.8 K/CMM 7.3 K/CMM (12/11/17 3:37 AM) (12/09/17 9:26 AM) RBC [4.70-6.10 3.94 M/CMM 3.96 M/CMM M/CMM] *LOW* *LOW* (12/11/17 3:37 AM) (12/09/17 9:26 AM) Hgb [14.0-18.0 g/dL] 12.2 g/dL 12.2 g/dL *LOW* *LOW* (12/11/17 3:37 AM) (12/09/17 9:26 AM) Hct [42.0-54.0 %] 36.0 % 36.3 % *LOW* *LOW* (12/11/17 3:37 AM) (12/09/17 9:26 AM) MCV [80.0-94.0 fL] 91.3 fL 91.6 fL (12/11/17 3:37 AM) (12/09/17 9:26 AM) MCH [27.0-31.0 pg] 30.9 pg 30.9 pg (12/11/17 3:37 AM) (12/09/17 9:26 AM) MCHC [32.0-36.0 33.9 g/dL 33.7 g/dL g/dL] (12/11/17 3:37 AM) (12/09/17 9:26 AM) RDW [11.5-14.5 %] 15.4 % 15.6 % *HI* *HI* (12/11/17 3:37 AM) (12/09/17 9:26 AM) MPV [7.4-10.4 fL] 7.5 fL 7.3 fL (12/11/17 3:37 AM) *LOW* (12/09/17 9:26 AM) Platelet [133-450 156 K/CMM 184 K/CMM K/CMM] (12/11/17 3:37 AM) (12/09/17 9:26 AM) Segs [45.0-75.0 %] 60.8 % 60.0 % (12/11/17 3:37 AM) (12/09/17 9:26 AM) Lymphocytes 21.8 % 22.4 % [20.0-40.0 %] (12/11/17 3:37 AM) (12/09/17 9:26 AM) Monocytes [2.0-12.0 12.0 % 10.6 % %] (12/11/17 3:37 AM) (12/09/17 9:26 AM) Eosinophils [0.0-4.0 4.5 % 5.8 % %] *HI* *HI* (12/11/17 3:37 AM) (12/09/17 9:26 AM) Basophils [0.0-1.0 0.9 % 1.2 % %] (12/11/17 3:37 AM) *HI* (12/09/17 9:26 AM) Segs-Bands # 5.4 K/CMM 4.4 K/CMM [1.5-8.1 K/CMM] (12/11/17 3:37 AM) (12/09/17 9:26 AM) Lymphocytes # 1.9 K/CMM 1.6 K/CMM [1.0-5.5 K/CMM] (12/11/17 3:37 AM) (12/09/17 9:26 AM) Monocytes # [0.0-0.8 1.1 K/CMM 0.8 K/CMM K/CMM] *HI* (12/09/17 9:26 AM) (12/11/17 3:37 AM) Eosinophils # 0.4 K/CMM 0.4 K/CMM [0.0-0.5 K/CMM] (12/11/17 3:37 AM) (12/09/17 9:26 AM) Basophils # [0.0-0.2 0.1 K/CMM 0.1 K/CMM K/CMM] (12/11/17 3:37 AM) (12/09/17 9:26 AM) PT [12.0-14.7 12.7 seconds seconds] (12/09/17 9:26 AM) INR [0.85-1.17] 0.95 (12/09/17 9:26 AM) PTT [22.9-35.8 30.2 seconds seconds] (12/09/17 9:26 AM) Immunizations Given and Recorded Vaccine Date Status Refusal Reason Hx influenza vaccine-unspecified1 06/25/17 Recorded Hx influenza vaccine-unspecified2 07/09/13 Given pneumococcal 23-valent vaccine 03/22/13 Given influenza virus vaccine, inactivated3 08/10/10 Given influenza virus vaccine, inactivated4 08/05/09 Given influenza virus vaccine, inactivated5 06/15/09 Given influenza virus vaccine, inactivated6 07/14/08 Given 1Location History: [facility] 2Result Comment: done @ dialysis. Migrated from OBS ; Data migrated from [employer] on 10/27/2015. 3Result Comment: fluvirin preservative free (>3 yrs.) [[id number]]. Migrated from OBS ; Data migrated from [employer] on 10/27/2015. 4Result Comment: fluvirin preservative free (>3 yrs.) [[id number]]. Migrated from OBS ; Data migrated from [employer] on 10/27/2015. 5Result Comment: fluvirin preservative free (>3 yrs.) [[id number]]. Migrated from OBS ; Data migrated from [employer] on 10/27/2015. 6Result Comment: fluvirin preservative free (>3 yrs.) [[id number]]. Migrated from OBS ; Data migrated from [employer] on 10/27/2015. Procedures Procedure Date Related Diagnosis [...] No entered on: 02/18/18 Assessment and Plan Extracted from: Title: Clinical Document Author: Ignacio Coates MD Date: 12/11/17 NEPHROLOGY PROGRESS NOTE IGNACIO COATES MD SUBJECTIVE: pt feels and looks fine no sob, n/v or cp no new issues overnight OBJECTIVE: Input/Output RecordInOutBal 4hr Tot 0 0 0 1824hr Tot 0 0 0 Vitals and Temp: VitalsTmp(F)[id number] 12/11 07:0098.450046/406991--- 12/11 03:1098.956375/292583--- 12/10 23:3498.155577/428119--- 12/10 19:2898.691315/952850--- 12/10 11:0198.166256/495984--- 24 Hr Tmax: 98.3F (36.83c) at 12/10 19:28Vital Signs are the last 5 in the past 48 hours. EXAM: In no acute distress CHEST: Revealed fair air entry. No significant rales or rhonchi. HEART: S1, S2 with no significant murmurs. ABDOMEN: Soft. Non tender. Bowel sounds are positive. EXTREMITIES: No pedal edema. CENTRAL NERVOUS SYSTEM: Pt. was awake and alert. There was no gross motor deficit noted. LABORATORY DATA: Labs (Last four charted values) WBC 8.8(DEC 11)7.3(DEC 09) Hgb L 12.2(DEC 11)L 12.2(DEC 09) Hct L 36.0(DEC 11)L 36.3(DEC 09) Plt 156(DEC 11)184(DEC 09) Na L 134(DEC 11)137(DEC 09) K H 5.2(DEC 11)H 5.2(DEC 09) CO2 L 22(DEC 11)L 22(DEC 09) Cl 96(DEC 11)99(DEC 09) Cr H 11.10(DEC 11)H 10.70(DEC 09) BUN H 80(DEC 11)H 78(DEC 09) Glucose Random H 223(DEC 11)H 200(DEC 09) Ca 9.9(DEC 11)9.1(DEC 09) PT 12.7(DEC 09) INR 0.95(DEC 09) PTT 30.2(DEC 09) IMPRESSION: ESRD on HD TTS AV access clotted with a temp hd cath in [employer] Stable lytes and met. profile with mild hyperkalemia PLAN: HD later today and thrombectomy today or in am Continue present treatment. Labs in am Further recommendations to follow MEDS: Scheduled Meds (6):amLODIPine, carvedilol, furosemide (furosemide 40 mg oral tablet), insulin glargine, insulin lispro (Humalog), pravastatin Unscheduled Meds: None PRN Meds (2):calcium carbonate, morphine Sulfate One Time Meds: None Continuous Infusions: None Extracted from: Title: Clinical Document Author: Jamil Johnson MD Date: 12/09/17 DATE OF : 1955 DATE OF OPERATION: 12/09/2017 PREOPERATIVE DIAGNOSIS: End-stage renal disease, need for temporary hemodialysis access POSTOPERATIVE DIAGNOSIS: End-stage renal disease, need for temporary inguinal success OPERATION: Ultrasound-guided right femoral access Right femoral vein temporary dialysis catheter placement (trialysis catheter) SURGEON: Dr. Jamil Johnson. ASSISTING SURGEON: None ANESTHESIA: Local anesthesia. INDICATIONS FOR PROCEDURE: A temporary dialysis catheter placement is indicated. Risks benefits and options were discussed with the patient who appropriately consented for the procedure. Informed consent was obtained PROCEDURE IN DETAIL: Prior to surgery, the risks, benefits and complications, and alternatives were discussed with the patient and appropriately consent was obtained. Ultrasound-guided femoral vein access was obtained and maintained by using a 035 wire. Serial dilation of tract was performed. Dialysis catheter was then advanced over the wire by using Seldinger technique. Catheter was secured to skin by using nylon suture. Each port was aspirated and flushed and then packed with heparin. Sterile dressing was then placed
--- OUTSIDE RECORDS SUMMARY | 2018-12-28 11:07 | XMS REPORT | Summary of Care ---
Author Author [facility] Primary [facility] Organization [facility] Address Unknown Phone Unavailable Encounter LUÍS Jeter(FIN) [id number] Date(s): 12/08/17 - 12/09/17 [facility] [address], [address] [place], [place] [address]- [phone] Vital Signs No data available for this [...] Substance Reaction Severity Status NKDA Active Medications No data available for this section Results No data available for this section Immunizations Given and Recorded Vaccine Date Status Refusal Reason Hx influenza vaccine-unspecified1 06/25/17 Recorded Hx influenza vaccine-unspecified2 07/09/13 Given pneumococcal 23-valent vaccine 03/22/13 Given influenza virus vaccine, inactivated3 08/10/10 Given influenza virus vaccine, inactivated4 08/05/09 Given influenza virus vaccine, inactivated5 06/15/09 Given influenza virus vaccine, inactivated6 07/14/08 Given 1Location History: [facility] 2Result Comment: done @ dialysis. Migrated from OBS ; Data migrated from [employer] on 10/27/2015. 3Result Comment: fluvirin preservative free (>3 yrs.) [[id number]]. Migrated from OBS ; Data migrated from [employer] on 10/27/2015. 4Result Comment: fluvirin preservative free (>3 yrs.) [[id number]]. Migrated from OBS ; Data migrated from [employer] on 10/27/2015. 5Result Comment: fluvirin preservative free (>3 yrs.) [[id number]]. Migrated from OBS ; Data migrated from [employer] on 10/27/2015. 6Result Comment: fluvirin preservative free (>3 yrs.) [[id number]]. Migrated from OBS ; Data migrated from [...]
--- OUTSIDE RECORDS SUMMARY | 2018-12-28 11:07 | XMS REPORT | Summary of Care ---
Author Author [facility] Primary Care [facility] Organization [facility] Address Unknown Phone Unavailable Encounter LUÍS Jeter(FIN) [id number] Date(s): 12/15/17 - 12/16/17 [facility] [address], [address] [place] [address]- [phone] Vital Signs No data available for this [...] virus vaccine, inactivated6 07/14/08 Given 1Location History: [facility] 2Result Comment: done @ dialysis. Migrated from OBS ; Data migrated from [employer] on 10/27/2015. 3Result Comment: fluvirin preservative free (>3 yrs.) [[id number]]. Migrated from OBS ; Data migrated from [employer] on 10/27/2015. 4Result Comment: fluvirin preservative free (>3 yrs.) [[id number]]. Migrated from OBS ; Data migrated from [employer] on 10/27/2015. 5Result Comment: fluvirin preservative free (>3 yrs.) [[id number]]. Migrated from OBS ; Data migrated from [employer] on 10/27/2015. 6Result Comment: fluvirin preservative free (>3 yrs.) [[id number]]. Migrated from OBS ; Data migrated from [...]
--- OUTSIDE RECORDS SUMMARY | 2018-12-28 11:07 | XMS REPORT | Summary of Care ---
Author Author [facility] Organization [facility] Address Unknown Phone Unavailable Encounter LUÍS Jeter(TEOFILO) [id number] Date(s): 02/18/18 - 02/22/18 [facility] [address] [place] [address]- [phone] Discharge Disposition: Home or Self Care Attending Physician: Vamshi Thompson MD Admitting Physician: Vamshi Thompson MD Vital Signs 1 2 3 Most recent to oldest [Reference Range]: 165.1 cm (02/18/18 1:25 PM) Height 98.7 DegF (02/22/18 3:37 PM) 98.8 DegF (02/22/18 2:04 PM) 98.5 DegF (02/22/18 12:15 PM) Temperature Oral [96.4-99.1 DegF] 132/61 mmHg (02/22/18 3:37 PM) 114/69 mmHg (02/22/18 2:04 PM) 171/74 mmHg *HI* (02/22/18 8:05 AM) Blood Pressure [90-140/60-90 mmHg] 18 BRMIN (02/22/18 3:37 PM) 16 BRMIN (02/22/18 2:04 PM) 18 BRMIN (02/22/18 8:05 AM) Respiratory Rate [14-20 BRMIN] 76 bpm (02/22/18 3:37 PM) 70 bpm (02/22/18 2:04 PM) 68 bpm (02/22/18 8:05 AM) Peripheral Pulse Rate [60-100 bpm] 81.364 kg (02/18/18 1:25 PM) Weight 29.85 m2 (02/18/18 1:25 PM) Body Mass Index Problem List Condition [...] 30 day, Stop date: 03/21/18 9:00:00 CDT Notes: (Same as: Norezekielc) Start Date: 02/20/18 Stop Date: 02/22/18 Status: Discontinued calcium carbonate 1,500 mg, 3 tab, Route: CHEW, Drug form: CHEWTAB, Before Meals & Bedtime, Dosing Weight 81.364, kg, PRN Indigestion, Start date: 02/19/18 13:28:00 CDT, Duration: 30 day, Stop date: 03/21/18 13:27:00 CDT Notes: (Same As: Tumsascha)Calcium Carbonate 500 ig=702 mg elemental calcium Dose=_ mg calcium carbonate ( mg elemental calcium) Start Date: 02/19/18 Stop Date: 02/22/18 Status: Discontinued calcium gluconate 1 gm, 50 mL, Route: IV, Drug form: INJ, Q30Min, Dosing Weight 81.364, kg, Start date: 02/18/18 17:30:00 CDT, Duration: 2 doses or times, Stop date: 02/18/18 18: 00:00 CDT Notes: WASTE: F/P - Sink; E - Municipal Trash Bin Start Date: 02/18/18 Stop Date: 02/18/18 Status: Completed calcium gluconate + Sodium Chloride 0.9% IV 100 mL 2 gm, 20 mL, Route: IV, ONCE, Dosing Weight 81.364, kg, Start date: 02/18/18 16: 51:00 CDT, Stop date: 02/18/18 16:51:00 CDT Notes: WASTE: F/P - Sink; E - Municipal Trash Bin Start Date: 02/18/18 Stop Date: 02/18/18 Status: Deleted carvedilol 12.5 mg, 1 tab, Route: PO, Drug form: TAB, BID, Dosing Weight 81.364, kg, Start date: 02/19/18 21:00:00 CDT, Duration: 30 day, Stop date: 03/21/18 9:00:00 CDT Notes: Give with food. (Same As: Coreg) Start Date: 02/19/18 Stop Date: 02/22/18 Status: Discontinued ceFAZolin + sterile water 10 mL 1 gm, Route: IV, ONCE, Dosing Weight 81.364, kg, Start date: 02/21/18 21:00:00 C DT, Stop date: 02/21/18 21:00:00 CDT, ABX Indication: Bacteremia Notes: (Same As: Ancef, Kefzol) MEDICATION WASTE Product Size: 1000 mgP roduct Wasted: ___ mg Start Date: 02/21/18 Stop Date: 02/21/18 Status: Completed ceFAZolin + sterile water 20 mL 2 gm, Route: IV, Q-Tu and Th, Dosing Weight 81.364, kg, Start date: 02/22/18 17: 00:00 CDT, Duration: 30 day, Stop date: 03/22/18 17:00:00 CDT, ABX Indication: B acteremia Notes: (Same As: Ancef, Kefzol) MEDICATION WASTE Product Size: 1000 mgP roduct Wasted: ___ mg Start Date: 02/22/18 Stop Date: 02/22/18 Status: Discontinued ceFAZolin + sterile water 30 mL 3 gm, Route: IV, QSat, Dosing Weight 81.364, kg, Start date: 02/24/18 17:00:00 C DT, Duration: 30 day, Stop date: 03/24/18 17:00:00 CDT, ABX Indication: Bacterem ia Notes: (Same As: Ancef Kefzol) MEDICATION WASTE Product Size: 1000 mgP roduct Wasted: ___ mg Start Date: 02/24/18 Stop Date: 02/22/18 Status: Canceled cefepime + sterile water 20 mL 2 gm, Route: IVP, ONCE, Dosing Weight 81.364, kg, Priority: STAT, Start date: 15:06:00 CDT, Stop date: 02/18/18 15:06:00 CDT, ABX Indication: Intra-abd ominal Infection Notes: (Same as: Maxipime) MEDICATION WASTE Product Size: 2000 mgProduc t Wasted: ___ mg Start Date: 02/18/18 Stop Date: 02/18/18 Status: Completed cefTRIAXone + sterile water 10 mL 1 gm, Route: IV, [id number], Dosing Weight 81.364, kg, Start date: 02/18/18 23:00:0 0 CDT, Duration: 7 day, Stop date: 02/24/18 23:00:00 CDT, ABX Indication: Pneumo yessy Notes: (Same As: Rocephin).Use with 100 mL NS and infuse over 30 min MEDICA TION WASTE Product Size: 1000 mgProduct Wasted: ___ mg Start Date: 02/18/18 Stop Date: 02/21/18 Status: Discontinued d50 syringe 25 gm, 50 mL, Route: IV, Drug Form: INJ, Dosing Weight 81.364, kg, ONCE, Start d ate: 02/18/18 23:05:00 CDT, Stop date: 02/18/18 23:05:00 CDT Start Date: 02/18/18 Stop Date: 02/18/18 Status: Completed Dextrose 50% Syringe 25 gm, 50 mL, Route: IVP, Drug Form: INJ, Dosing Weight 81.364, kg, ONCE, Start date: 02/18/18 16:51:00 CDT, Stop date: 02/18/18 16:51:00 CDT Start Date: 02/18/18 Stop Date: 02/18/18 Status: Completed Dextrose 50% Syringe 25 gm, 50 mL, Route: IVP, Drug Form: INJ, Dosing Weight 81.364, kg, PRN, PRN Blo od Glucose Results, Start date: 02/18/18 23:09:00 CDT, Duration: 30 day, Stop da te: 03/20/18 23:08:00 CDT Start Date: 02/18/18 Stop Date: 02/22/18 Status: Discontinued Dextrose 50% Syringe 12.5 gm, 25 mL, Route: IVP, Drug Form: INJ, Dosing Weight 81.364, kg, PRN, PRN B lood Glucose Results, Start date: 02/18/18 23:09:00 CDT, Duration: 30 day, Stop date: 03/20/18 23:08:00 CDT Start Date: 02/18/18 Stop Date: 02/22/18 Status: Discontinued furosemide 40 mg oral tablet 40 mg, 1 tab, Route: PO, Drug form: TAB, Daily, Dosing Weight 81.364, kg, Start date: 02/20/18 9:00:00 CDT, Duration: 30 day, Stop date: 03/21/18 9:00:00 CDT Notes: (Same as: Lasix) May cause GI upset. Give with food or milk. Start Date: 02/20/18 Stop Date: 02/22/18 Status: Discontinued glucagon 1 mg, Route: IM, Drug form: PDR/INJ, PRN, Dosing Weight 81.364, kg, PRN Blood Gl ucose Results, Start date: 02/18/18 23:09:00 CDT, Duration: 30 day, Stop date: 0 03/20/18 23:08:00 CDT Start Date: 02/18/18 Stop Date: 02/22/18 Status: Discontinued insulin glargine 57 unit, 0.57 mL, Route: SUB-Q, Drug form: SOLN, BID, Start date: 02/19/18 18:00 :00 CDT, Duration: 30 day, Stop date: 03/21/18 17:00:00 CDT Notes: (Same as: Lantus)Do not hold insulin without contacting prescriberWASTE: F/P - Black; E - Municipal Trash Bin "single patient use only" Start Date: 02/19/18 Stop Date: 02/22/18 Status: Discontinued insulin lispro 4 unit, 0.04 mL, Route: SUB-Q, Drug form: SOLN, TID-Before Meals, Dosing Weight 81.364, kg, PRN Blood Glucose Results, Start date: 02/18/18 23:09:00 CDT, Durati on: 30 day, Stop date: 03/20/18 23:08:00 CDT Notes: (Same as: Humalog ) Roll in palms of hands gently; Do not shake `vigorou sly. "Single Patient Use Only " WASTE: F/P - Black; E - Municipal Trash Bin St able for 28 days at room temperature.Expires in days from Da te Start Date: 02/18/18 Stop Date: 02/22/18 Status: Discontinued insulin lispro 6 unit, 0.06 mL, Route: SUB-Q, Drug form: SOLN, TID-Before Meals, Dosing Weight 81.364, kg, PRN Blood Glucose Results, Start date: 02/18/18 23:09:00 CDT, Durati on: 30 day, Stop date: 03/20/18 23:08:00 CDT Notes: (Same as: Humalog ) Roll in palms of hands gently; Do not shake `vigorou sly. "Single Patient Use Only " WASTE: F/P - Black; E - Municipal Trash Bin St able for 28 days at room temperature.Expires in days from Da te Start Date: 02/18/18 Stop Date: 02/22/18 Status: Discontinued insulin lispro 2 unit, 0.02 mL, Route: SUB-Q, Drug form: SOLN, TID-Before Meals, Dosing Weight 81.364, kg, PRN Blood Glucose Results, Start date: 02/18/18 23:09:00 CDT, Durati on: 30 day, Stop date: 03/20/18 23:08:00 CDT Notes: (Same as: Humalog ) Roll in palms of hands gently; Do not shake `vigorou sly. "Single Patient Use Only " WASTE: F/P - Black; E - Municipal Trash Bin St able for 28 days at room temperature.Expires in days from Da te Start Date: 02/18/18 Stop Date: 02/22/18 Status: Discontinued insulin lispro 8 unit, 0.08 mL, Route: SUB-Q, Drug form: SOLN, TID-Before Meals, Dosing Weight 81.364, kg, PRN Blood Glucose Results, Start date: 02/18/18 23:09:00 CDT, Durati on: 30 day, Stop date: 03/20/18 23:08:00 CDT Notes: (Same as: Humalog ) Roll in palms of hands gently; Do not shake `vigorou sly. "Single Patient Use Only " WASTE: F/P - Black; E - Municipal Trash Bin St able for 28 days at room temperature.Expires in days from Da te Start Date: 02/18/18 Stop Date: 02/22/18 Status: Discontinued insulin lispro 10 unit, 0.1 mL, Route: SUB-Q, Drug form: SOLN, TID-Before Meals, Dosing Weight 81.364, kg, PRN Blood Glucose Results, Start date: 02/18/18 23:09:00 CDT, Durati on: 30 day, Stop date: 03/20/18 23:08:00 CDT Notes: (Same as: Humalog ) Roll in palms of hands gently; Do not shake `april mcbride. "Single Patient Use Only " WASTE: F/P - Black; E - Municipal Trash Bin St able for 28 days at room temperature.Expires in days from Da te Start Date: 02/18/18 Stop Date: 02/22/18 Status: Discontinued Insulin regular 5 unit, 0.05 mL, Route: IVP, Drug form: INJ, ONCE, Dosing Weight 81.364, kg, Sta rt date: 02/18/18 16:51:00 CDT, Stop date: 02/18/18 16:51:00 CDT Notes: (Same as: Humulin R and NovoLIN R)WASTE: F/P - Black; E - Municipal Trash Bin (Do not shake) Start Date: 02/18/18 Stop Date: 02/18/18 Status: Completed Insulin regular 10 unit, 0.1 mL, Route: IV, Drug form: INJ, ONCE, Dosing Weight 81.364, kg, Star t date: 02/18/18 23:03:00 CDT, Stop date: 02/18/18 23:03:00 CDT Notes: (Same as: Humulin R and NovoLIN R)WASTE: F/P - Black; E - Municipal Trash Bin (Do not shake) Start Date: 02/18/18 Stop Date: 02/18/18 Status: Completed Kayexalate 60 gm, 240 mL, Route: PO, Drug form: SUSP, ONCE, Dosing Weight 81.364, kg, Start date: 02/18/18 23:09:00 CDT, Stop date: 02/18/18 23:09:00 CDT Notes: (sodium polystyrene sulfonate 15 gm/60 ml DAILY) Shake well before use. (Same as: Kayexalate, SPS) Start Date: 02/18/18 Stop Date: 02/18/18 Status: Completed Levemir FlexPen 57 unit, Route: SUB-Q, Drug form: SOLN, BID, Dosing Weight 81.364, kg, Start joseph e: 02/19/18 17:00:00 CDT, Duration: 30 day, Stop date: 03/21/18 9:00:00 CDT Start Date: 02/19/18 Stop Date: 02/19/18 Status: Deleted Lovaza oral capsule 2,000 mg, 2 cap, Route: PO, Drug Form: CAP, Dosing Weight 81.364, kg, BID, Start date: 02/19/18 17:00:00 CDT, Duration: 30 day, Stop date: 03/21/18 9:00:00 CDT Notes: (Same as: MaxEPA, [place] 3 fish oil )Non-Formulary Drug Start Date: 02/19/18 Stop Date: 02/22/18 Status: Discontinued Nephro-Sindy Rx 1 tab, Route: PO, Drug Form: TAB, Dosing Weight 81.364, kg, Daily, Start date: 0 02/20/18 9:00:00 CDT, Duration: 30 day, Stop date: 03/21/18 9:00:00 CDT Notes: (Same as: Nephro-Sindy Rx and Diatx) Give with food. Start Date: 02/20/18 Stop Date: 02/22/18 Status: Discontinued ondansetron 4 mg, 2 mL, Route: IVP, Drug form: INJ, ONCE, Dosing Weight 81.364, kg, Priority : STAT, Start date: 02/18/18 13:29:00 CDT, Stop date: 02/18/18 13:29:00 CDT Notes: (Same as: Zofran) MEDICATION WASTE Product Size: 4 mgProduct Was manju: ___ mg Start Date: 02/18/18 Stop Date: 02/18/18 Status: Completed pravastatin 40 mg, 2 tab, Route: PO, Drug form: TAB, Bedtime, Dosing Weight 81.364, kg, Star t date: 02/19/18 21:00:00 CDT, Duration: 30 day, Stop date: 03/20/18 21:00:00 CD T Notes: (Same as: Pravachol) Start Date: 02/19/18 Stop Date: 02/22/18 Status: Discontinued Saline Flush 0.9% 10 mL, Route: IVP, Drug Form: INJ, Dosing Weight 81.364, kg, PRN, PRN Line Flush , Start date: 02/18/18 15:06:00 CDT, Duration: 30 day, Stop date: 03/20/18 15:05 :00 CDT Notes: (Same as: BD Posiflush) Start Date: 02/18/18 Stop Date: 02/22/18 Status: Discontinued Saline Flush 0.9% 10 mL, Route: IVP, Drug Form: INJ, Dosing Weight 81.364, kg, PRN, PRN Line Flush , Start date: 02/18/18 13:29:00 CDT, Duration: 30 day, Stop date: 03/20/18 13:28 :00 CDT Notes: (Same as: BD Posiflush) Start Date: 02/18/18 Stop Date: 02/22/18 Status: Discontinued sodium bicarbonate 50 mEq, 50 mL, Route: IV, Drug form: INJ, ONCE, Dosing Weight 81.364, kg, Start date: 02/18/18 23:06:00 CDT, Stop date: 02/18/18 23:06:00 CDT Notes: (sodium bicarb 8.4% (1 mEq/ml) 50 ml syringe) Start Date: 02/18/18 Stop Date: 02/19/18 Status: Completed Sodium Chloride 0.9% (Bolus) IV 1,000 mL, 1000 ml/hr, Infuse Over: 1 hr, Route: IV, 1,000, Drug form: INJ, ONCE, Priority: STAT, Dosing Weight 81.364 kg, Start date: 02/18/18 13:29:00 CDT, Stop date: 02/18/18 13:29:00 CDT Start Date: 02/18/18 Stop Date: 02/18/18 Status: Completed sodium polystyrene sulfonate 30 gm, 120 mL, Route: PO, Drug form: SUSP, ONCE, Dosing Weight 81.364, kg, Start date: 02/18/18 16:51:00 CDT, Stop date: 02/18/18 16:51:00 CDT Notes: (sodium polystyrene sulfonate 15 gm/60 ml DAILY) Shake well before use. (Same as: Kayexalate, SPS) Start Date: 02/18/18 Stop Date: 02/18/18 Status: Completed Tylenol 975 mg, 3 tab, Route: PO, Drug form: TAB, ONCE, Dosing Weight 81.364, kg, Priori ty: STAT, Start date: 02/18/18 15:37:00 CDT, Stop date: 02/18/18 15:37:00 CDT Notes: Do not exceed 4 gm/day. (Same as: Tylenol) Start Date: 02/18/18 Stop Date: 02/18/18 Status: Completed Tylenol 650 mg, 2 tab, Route: PO, Drug form: TAB, Q4H, Dosing Weight 81.364, kg, PRN For Temp > 100.4 F, Start date: 02/19/18 10:47:00 CDT, Duration: 30 day, Stop date: 03/21/18 10:46:00 CDT, temperature Notes: Do not exceed 4 gm/day. (Same as: Tylenol) Start Date: 02/19/18 Stop Date: 02/22/18 Status: Discontinued vancomycin + Dextrose 5% in Water IV 250 mL 1,000 mg, Route: IVPB, , gram pos cocci in clusters., Start date: 01/24 06/12 17:00:00 CDT, Duration: 30 day, Stop date: 03/20/18 17:00:00 CDT, ABX Indic ation: Open Wound Prophylaxis Notes: TIME CRITICAL MEDICATION(Same As: Vancocin)Infusion rate< 1000 mg: infuse over 1 [id number] - 1500 mg: infuse over 1.5 [id number] - 2000 mg: infuse over 2 hours> 2001 mg: infuse over 2.5 hoursFor adult patients only: Round to nearest 250 mg per Medical Staff approval MEDICATION WASTE Product Size: 1000 mgProduct Wasted: ___ mg Start Date: 02/20/18 Stop Date: 02/21/18 Status: Discontinued vancomycin + Dextrose 5% in Water IV 250 mL 1,000 mg, Route: IVPB, Drug form: INJ, ONCE, Dosing Weight 81.364, kg, Time Crit ical Medication, Priority: STAT, Start date: 02/18/18 15:06:00 CDT, Stop date: 0 02/18/18 15:06:00 CDT, ABX Indication: Intra-abdominal Infection Notes: TIME CRITICAL MEDICATION(Same As: Vancocin)Infusion rate< 1000 mg: infuse over 1 [id number] - 1500 mg: infuse over 1.5 [id number] - 2000 mg: infuse over 2 hours> 2001 mg: infuse over 2.5 hoursFor adult patients only: Round to nearest 250 mg per Medical Staff approval MEDICATION WASTE Product Size: 1000 mgProduct Wasted: ___ mg Start Date: 02/18/18 Stop Date: 02/18/18 Status: Completed vancomycin + Dextrose 5% in Water IV 250 mL 1 gm, Route: IV, ONCE, Dosing Weight 81.364, kg, Priority: NOW, Start date: 01/24 05/12 19:17:00 CDT, Stop date: 02/19/18 19:17:00 CDT, ABX Indication: Other (spec jm in Comments) Notes: TIME CRITICAL MEDICATION(Same As: Vancocin)Infusion rate< 1000 mg: infuse over 1 [id number] - 1500 mg: infuse over 1.5 [id number] - 2000 mg: infuse over 2 hours> 2001 mg: infuse over 2.5 hoursFor adult patients only: Round to nearest 250 mg per Medical Staff approval MEDICATION WASTE Product Size: 1000 mgProduct Wasted: ___ mg Start Date: 02/19/18 Stop Date: 02/19/18 Status: Completed Vitamin D3 2000 intl units oral tablet 2,000 IntlUnit, 2 tab, Route: PO, Drug form: TAB, Daily, Dosing Weight 81.364, k g, Start date: 02/20/18 9:00:00 CDT, Duration: 30 day, Stop date: 03/21/18 9:00: 00 CDT Notes: Same as : Vitamin D3 Start Date: 02/20/18 Stop Date: 02/22/18 Status: Discontinued Results ELECTROLYTES 1 2 3 Most recent to oldest [Reference Range]: 135 mEq/L (02/22/18 4:58 AM) 137 mEq/L (02/21/18 4:35 AM) 135 mEq/L (02/20/18 10:20 AM) Sodium Lvl [135-145 mEq/L] 3.6 mEq/L (02/22/18 4:58 AM) 3.5 mEq/L (02/21/18 4:35 AM) 4.1 mEq/L (02/20/18 10:20 AM) Potassium Lvl [3.5-5.1 mEq/L] 97 mEq/L (02/22/18 4:58 AM) 94 mEq/L *LOW* (02/21/18 4:35 AM) 93 mEq/L *LOW* (02/20/18 10:20 AM) Chloride Lvl [95-109 mEq/L] 23 mEq/L *LOW* (02/22/18 4:58 AM) 27 mEq/L (02/21/18 4:35 AM) 29 mEq/L (02/20/18 10:20 AM) CO2 [24-32 mEq/L] 18.6 mEq/L (02/22/18 4:58 AM) 19.5 mEq/L (02/21/18 4:35 AM) 17.1 mEq/L (02/20/18 10:20 AM) AGAP [10.0-20.0 mEq/L] CHEM PANEL 1 2 3 Most recent to oldest [Reference Range]: 9.96 mg/dL *HI* (02/22/18 4:58 AM) 7.61 mg/dL *HI* (02/21/18 4:35 AM) 10.40 mg/dL *HI* (02/20/18 10:20 AM) Creatinine Lvl [0.50-1.40 mg/dL] 5 mL/min/1.73m2 1 *NA* (02/22/18 4:58 AM) 7 mL/min/1.73m2 2 *NA* (02/21/18 4:35 AM) 5 mL/min/1.73m2 3 *NA* (02/20/18 10:20 AM) eGFR 69 mg/dL *HI* (02/22/18 4:58 AM) 43 mg/dL *HI* (02/21/18 4:35 AM) 61 mg/dL *HI* (02/20/18 10:20 AM) BUN [7-22 mg/dL] 6 (02/18/18 2:03 PM) B/C Ratio [6-25] 138 mg/dL *HI* (02/22/18 4:58 AM) 224 mg/dL *HI* (02/21/18 4:35 AM) 352 mg/dL *HI* (02/20/18 10:20 AM) Glucose Lvl [70-99 mg/dL] 8.7 g/dL *HI* (02/18/18 2:03 PM) Total Protein [6.4-8.4 g/dL] 3.5 g/dL (02/18/18 2:03 PM) Albumin Lvl [3.5-5.0 g/dL] 5.2 g/dL *HI* (02/18/18 2:03 PM) Globulin [2.7-4.2 g/dL] 0.7 (02/18/18 2:03 PM) A/G Ratio [0.7-1.6] 8.5 mg/dL (02/22/18 4:58 AM) 8.6 mg/dL (02/21/18 4:35 AM) 8.5 mg/dL (02/20/18 10:20 AM) Calcium Lvl [8.5-10.5 mg/dL] 39 unit/L (02/18/18 2:03 PM) ALT [0-65 unit/L] 27 unit/L (02/18/18 2:03 PM) AST [0-37 unit/L] 85 unit/L (02/18/18 2:03 PM) Alk Phos [39-136 unit/L] 0.6 mg/dL (02/18/18 2:03 PM) Bili Total [0.2-1.3 mg/dL] 209 unit/L (02/18/18 2:03 PM) Lipase Lvl [73-393 unit/L] 2.0 mMol/L (02/18/18 4:35 PM) 2.9 mMol/L *HI* (02/18/18 2:03 PM) Lactic Acid Lvl [0.5-2.2 mMol/L] 0.73 ng/mL *HI* (02/18/18 4:35 PM) Procalcitonin Lvl [0.00-0.10 ng/mL] 1Result Comment: The eGFR is calculated using [...] be mul tiplied by the estimated BMI. 3Result Comment: The eGFR is calculated using [...] 3 Most recent to oldest [Reference Range]: 130 unit/L (02/18/18 2:03 PM) Total CK [12-191 unit/L] 1.6 ng/mL (02/18/18 2:03 PM) CK MB [0.5-3.6 ng/mL] 1.2 (02/18/18 2:03 PM) CK MB Index [0.0-2.5] <0.02 ng/mL (02/18/18 2:03 PM) Troponin-I [0.00-0.40 ng/mL] SPECIAL CHEMISTRY 1 2 3 Most recent to oldest [Reference Range]: 8.0 % *HI* (02/22/18 4:58 AM) Hgb A1C [<=5.6 %] URINE AND STOOL 1 2 3 Most recent to oldest [Reference Range]: Clear (02/18/18 4:35 PM) UA Turbidity [Clear] Ltyellow *NA* (02/18/18 4:35 PM) UA Color 8.0 (02/18/18 4:35 PM) UA pH [5.0-8.0] 1.009 (02/18/18 4:35 PM) UA Spec Grav [<=1.030] 500 mg/dL *ABN* (02/18/18 4:35 PM) UA Glucose [Negative mg/dL] Small *ABN* (02/18/18 4:35 PM) UA Blood [Negative] Negative mg/dL *NA* (02/18/18 4:35 PM) UA Ketones [Negative mg/dL] 100 mg/dL *ABN* (02/18/18 4:35 PM) UA Protein [Negative mg/dL] <=1.0 mg/dL *NA* (02/18/18 4:35 PM) UA Urobilinogen [0.1-1.0 mg/dL] Negative *NA* (02/18/18 4:35 PM) UA Bili [Negative] Negative (02/18/18 4:35 PM) UA Leuk Est [Negative] Negative (02/18/18 4:35 PM) UA Nitrite [Negative] <1 /HPF (02/18/18 4:35 PM) UA WBC [0-5 /HPF] 2 /HPF (02/18/18 4:35 PM) UA RBC [0-2 /HPF] Occasional /LPF *NA* (02/18/18 4:35 PM) UA Sq Epi [Few /LPF] IMMUNOLOGY 1 2 3 Most recent to oldest [Reference Range]: Negative *NA* (02/19/18 3:50 AM) Hep Bs Ag [Negative] HEMATOLOGY 1 2 3 Most recent to oldest [Reference Range]: 6.2 K/CMM (02/22/18 4:58 AM) 6.6 K/CMM (02/21/18 4:35 AM) 6.0 K/CMM (02/20/18 10:20 AM) WBC [3.7-10.4 K/CMM] 4.05 M/CMM *LOW* (02/22/18 4:58 AM) 3.95 M/CMM *LOW* (02/21/18 4:35 AM) 3.91 M/CMM *LOW* (02/20/18 10:20 AM) RBC [4.70-6.10 M/CMM] 12.9 g/dL *LOW* (02/22/18 4:58 AM) 12.3 g/dL *LOW* (02/21/18 4:35 AM) 12.1 g/dL *LOW* (02/20/18 10:20 AM) Hgb [14.0-18.0 g/dL] 37.3 % *LOW* (02/22/18 4:58 AM) 36.4 % *LOW* (02/21/18 4:35 AM) 36.0 % *LOW* (02/20/18 10:20 AM) Hct [42.0-54.0 %] 92.1 fL (02/22/18 4:58 AM) 92.2 fL (02/21/18 4:35 AM) 92.0 fL (02/20/18 10:20 AM) MCV [80.0-94.0 fL] 31.9 pg *HI* (02/22/18 4:58 AM) 31.3 pg *HI* (02/21/18 4:35 AM) 30.9 pg (02/20/18 10:20 AM) MCH [27.0-31.0 pg] 34.6 g/dL (02/22/18 4:58 AM) 33.9 g/dL (02/21/18 4:35 AM) 33.6 g/dL (02/20/18 10:20 AM) MCHC [32.0-36.0 g/dL] 13.9 % (02/22/18 4:58 AM) 14.2 % (02/21/18 4:35 AM) 14.3 % (02/20/18 10:20 AM) RDW [11.5-14.5 %] 7.9 fL (02/22/18 4:58 AM) 8.0 fL (02/21/18 4:35 AM) 7.8 fL (02/20/18 10:20 AM) MPV [7.4-10.4 fL] 143 K/CMM (02/22/18 4:58 AM) 135 K/CMM (02/21/18 4:35 AM) 119 K/CMM *LOW* (02/20/18 10:20 AM) Platelet [133-450 K/CMM] 60.3 % (02/22/18 4:58 AM) 62.8 % (02/21/18 4:35 AM) 72.1 % (02/20/18 10:20 AM) Segs [45.0-75.0 %] 18.3 % *LOW* (02/22/18 4:58 AM) 15.3 % *LOW* (02/21/18 4:35 AM) 10.2 % *LOW* (02/20/18 10:20 AM) Lymphocytes [20.0-40.0 %] 14.9 % *HI* (02/22/18 4:58 AM) 17.6 % *HI* (02/21/18 4:35 AM) 14.8 % *HI* (02/20/18 10:20 AM) Monocytes [2.0-12.0 %] 5.9 % *HI* (02/22/18 4:58 AM) 3.5 % (02/21/18 4:35 AM) 2.3 % (02/20/18 10:20 AM) Eosinophils [0.0-4.0 %] 0.6 % (02/22/18 4:58 AM) 0.8 % (02/21/18 4:35 AM) 0.6 % (02/20/18 10:20 AM) Basophils [0.0-1.0 %] 3.7 K/CMM (02/22/18 4:58 AM) 4.2 K/CMM (02/21/18 4:35 AM) 4.3 K/CMM (02/20/18 10:20 AM) Segs-Bands # [1.5-8.1 K/CMM] 1.1 K/CMM (02/22/18 4:58 AM) 1.0 K/CMM (02/21/18 4:35 AM) 0.6 K/CMM *LOW* (02/20/18 10:20 AM) Lymphocytes # [1.0-5.5 K/CMM] 0.9 K/CMM *HI* (02/22/18 4:58 AM) 1.2 K/CMM *HI* (02/21/18 4:35 AM) 0.9 K/CMM *HI* (02/20/18 10:20 AM) Monocytes # [0.0-0.8 K/CMM] 0.4 K/CMM (02/22/18 4:58 AM) 0.2 K/CMM (02/21/18 4:35 AM) 0.1 K/CMM (02/20/18 10:20 AM) Eosinophils # [0.0-0.5 K/CMM] 0.1 K/CMM (02/21/18 4:35 AM) 0.1 K/CMM (02/18/18 2:03 PM) Basophils # [0.0-0.2 K/CMM] Normal (02/21/18 4:35 AM) RBC Morph Normal (02/21/18 4:35 AM) Plt Morph 14.8 seconds *HI* (02/18/18 4:35 PM) PT [12.0-14.7 seconds] 1.16 (02/18/18 4:35 PM) INR [0.85-1.17] 29.1 seconds (02/18/18 4:35 PM) PTT [22.9-35.8 seconds] MOLECULAR DIAGNOSTIC 1 2 3 Most recent to oldest [Reference Range]: Detected *ABN* (02/18/18 4:35 PM) S. aureus [Not Detected] Not Detected (02/18/18 4:35 PM) S. epidermidis [Not Detected] Not Detected (02/18/18 4:35 PM) S. lugdunensis [Not Detected] Not Detected (02/18/18 4:35 PM) S. anginosus grp [Not Detected] Not Detected (02/18/18 4:35 PM) S. agalactiae [Not Detected] Not Detected (02/18/18 4:35 PM) S. pneumoniae [Not Detected] Not Detected (02/18/18 4:35 PM) S. pyogenes [Not Detected] Not Detected (02/18/18 4:35 PM) E. faecalis [Not Detected] Not Detected (02/18/18 4:35 PM) E. faecium [Not Detected] Detected *ABN* (02/18/18 4:35 PM) Staphylococcus spp. [Not Detected] Not Detected (02/18/18 4:35 PM) Streptococcus spp. [Not Detected] Not Detected (02/18/18 4:35 PM) Listeria spp. [Not Detected] Not Detected (02/18/18 4:35 PM) mecA Methicillin Resistance [Not Detected] Not Detected (02/18/18 4:35 PM) Jono Vancomycin Resistance [Not Detected] Not Detected (02/18/18 4:35 PM) vanB Vancomycin Resistance [Not Detected] VIRAL - SEROLOGY 1 2 3 Most recent to oldest [Reference Range]: Negative (02/20/18 9:05 AM) Influ A [Negative] Negative (02/20/18 9:05 AM) Influ B [Negative] Immunizations Given and Recorded Vaccine Date Status Refusal Reason Hx influenza vaccine-unspecified1 06/25/17 Recorded Hx influenza vaccine-unspecified2 07/09/13 Given pneumococcal 23-valent vaccine 03/22/13 Given influenza virus vaccine, inactivated3 08/10/10 Given influenza virus vaccine, inactivated4 08/05/09 Given influenza virus vaccine, inactivated5 06/15/09 Given influenza virus vaccine, inactivated6 07/14/08 Given 1Location History: [facility] 2Result Comment: done @ dialysis. Migrated from [facility] ; Data migrated from [facility] on 10/27/2015. 3Result Comment: fluvirin preservative free (>3 yrs.) [[id number]]. Migrated from [facility] ; Data migrated from [employer] on 10/27/2015. 4Result Comment: fluvirin preservative free (>3 yrs.) [[id number]]. Migrated from [facility] ; Data migrated from [place] on 10/27/2015. 5Result Comment: fluvirin preservative free (>3 yrs.) [[id number]]. Migrated from [facility] ; Data migrated from [employer] on 10/27/2015. 6Result Comment: fluvirin preservative free (>3 yrs.) [[id number]]. Migrated from [facility] ; Data migrated from [employer] on 10/27/2015. Procedures Procedure Date Related Diagnosis [...] Plan Extracted from: Title: Clinical Document Author: Joni Walsh Date: 02/22/18 Progres Note [facility] Infectious Disease JONI SHARMA MD SUBJECTIVES NO N/V/F/D/CHILLS/CP/SOB SEEN AT [facility]JECT[facility] Labs (Last four charted values) WBC 6.2(FEBRUARY 22)6.6(FEBRUARY 21)6.0(FEBRUARY 20)8.1(FEBRUARY 18) Hgb L 12.9(FEBRUARY 22)L 12.3(FEBRUARY 21)L 12.1(FEBRUARY 20)14.6(FEBRUARY 18) Hct L 37.3(FEBRUARY 22)L 36.4(FEBRUARY 21)L 36.0(FEBRUARY 20)42.9(FEBRUARY 18) Plt 143(FEBRUARY 22)135(FEBRUARY 21)L 119(FEBRUARY 20)169(FEBRUARY 18) Na 135(FEBRUARY 22)137(FEBRUARY 21)135(FEBRUARY 20)L 128(FEBRUARY 18) K 3.6(FEBRUARY 22)3.5(FEBRUARY 21)4.1(FEBRUARY 20)5.0(FEBRUARY 19) CO2 L 23(FEBRUARY 22)27(FEBRUARY 21)29(FEBRUARY 20)26(FEBRUARY 18) Cl 97(FEBRUARY 22)L 94(FEBRUARY 21)L 93(FEBRUARY 20)L 90(FEBRUARY 18) Cr H 9.96(FEBRUARY 22)H 7.61(FEBRUARY 21)H 10.40(FEBRUARY 20)H 9.91(FEBRUARY 18) BUN H 69(FEBRUARY 22)H 43(FEBRUARY 21)H 61(FEBRUARY 20)H 57(FEBRUARY 18) Glucose Random H 138(FEBRUARY 22)H 224(FEBRUARY 21)H 352(FEBRUARY 20)H 309(FEBRUARY 18) Ca 8.5(FEBRUARY 22)8.6(FEBRUARY 21)8.5(FEBRUARY 20)10.1(FEBRUARY 18) PT H 14.8(FEBRUARY 18) INR 1.16(FEBRUARY 18) PTT 29.1(FEBRUARY 18) Troponin <0.02(FEBRUARY 18) CK MB 1.6(FEBRUARY 18) Total CK 130(FEBRUARY 18) Vitals and Temp: VitalsTmp(F)[id number] 02/22 12:1598.5 02/22 08:0597.791834/7418------ 02/22 07:4298.423231/7218------ 02/22 04:[id number]--- 02/22 00:0097.894498/[id number]--- 24 Hr Tmax: 98.5F (36.94c) at 02/22 12:15Vital Signs are the last 5 in the past 48 hours. PHYSICAL EXAM CV S1S2 CHEST FAIR FLOW NO ACUTE DISTRESS ABD SOFT NO TENDER HEENT MOIST, NO PALE EXT NO ACUTE, NO EDEMA ASSESSMENT MSSA bacteremia discussed End-stage renal disease on hemodialysis obesity. DEBILITY CXR PENDING PLAN CEFAZOLIN " discussed with the pharmacy about ceftezolin and dosing was grade 2 g IV piggyback after each hemodialysis on days when he gets every other day and 3 g after each hemodialysis after the day he is going to be 3 days off he would need 8 weeks of that in the meantime we will get an echocardiogram recheck a blood cultures will follow" D/W DR. SHARMA Medications (22) Active Scheduled: (10) amLODIPine 5 mg TAB 10 mg 2 tab, PO, Daily carvedilol 12.5 mg TAB 12.5 mg 1 tab, PO, BID ceFAZolin 1 gm VL INJ + water for INJection, sterile 20 mL 2 gm, IV, Q- and Th ceFAZolin 1 gm VL INJ + water for INJection, sterile 30 mL 3 gm, IV, QSat cholecalciferol 1000 intl unit tab (vitamin D3) 2,000 IntlUnit 2 tab, PO, Daily fish oil 1 gm CAP (omega-3 fish oil) 2,000 mg 2 cap, PO, BID folic acid/vit b complex w/c tab (nephro-sindy Rx) 1 tab, PO, Daily furosemide 40 mg TAB 40 mg 1 tab, PO, Daily insulin GLARGINE 1 unit/0.01 mL INJ SYR 57 unit 0.57 mL, SUB-Q, BID pravastatin 20 mg TAB 40 mg 2 tab, PO, Bedtime Continuous: (0) PRN: (12) acetaminophen 325 mg TABLET 650 mg 2 tab, PO, Q4H calcium carbonate 500 mg (200 mg elemental) CHEW 1,500 mg 3 tab, CHEW, Before Meals & Bedtime Dextrose 50% 50 ml INJ syringe 12.5 gm 25 mL, IVP, PRN Dextrose 50% 50 ml INJ syringe 25 gm 50 mL, IVP, PRN glucagon recombinant 1 mg PDR 1 mg, IM, PRN insulin lispro 100 unit/ml 3 ml Vial 2 unit 0.02 mL, SUB-Q, TID-Before Meals insulin lispro 100 unit/ml 3 ml Vial 4 unit 0.04 mL, SUB-Q, TID-Before Meals insulin lispro 100 unit/ml 3 ml Vial 6 unit 0.06 mL, SUB-Q, TID-Before Meals insulin lispro 100 unit/ml 3 ml Vial 8 unit 0.08 mL, SUB-Q, TID-Before Meals insulin lispro 100 unit/ml 3 ml Vial 10 unit 0.1 mL, SUB-Q, TID-Before Meals sodium chloride 0.9% 10 ml flush syr BD 10 mL, IVP, PRN sodium chloride 0.9% 10 ml flush syr BD 10 mL, IVP, PRN Extracted from: Title: Clinical Document Author: Viridiana Sharma MD Date: 02/19/18 Ifectious Disease consult Note [facility] Dr. Viridiana Sharma SUBJECTIVE: Patient seen and examined charts reviewed CHIEF COMPLAINT Fever and chills HPI: Patient was a 62-year-old Turkish male who has history of diabetes mellitus history of obesity history of hypertension end-stage renal disease on hemodialysis comes in with fever and chills for 1 day no skin well abdominal pain apparently patient went to the [email or web address] and had fever chills nausea vomiting came to the emergency room emergency room with fever 103 patient was evaluated and admitted infectious he was consulted. When I saw the patient he was laying in bed he said the nausea and vomiting have resolved his family at the bedside provided information but he remains feeling sick in general. In the emergency room his blood cultures urine cultures CAT scan of the pelvis was done which was negative patient was on Rocephin infectious he was consulted HOME MEDS REVIEWED ROS: General: fever, chills, night sweats, no fatigue HENT: no visual changes, no hearing changes, no headache Pulmonary:no shortness of breath, no cough Cardiac:no arithmea, no chest pain GI: no nausea, no vomitting, no diarrhea : no urgency, no frequency Skin: no rash Neuro: no seizure activity, no focal weakness Psyc: no depression or anxiety Joints: no redness or swelling , no pain Muscular: no weakness or pain All other Systems: within normal limit Diabetic ulcer of right fifth toe Thrombectomy of arteriovenous fistula: 12/12/17 Amputation lesser toe: 11/08/17 Amputation lesser toe: 11/08/17 Amputation lesser toe: 2016 Myocardial perfusion scan: 07/27/16 Echocardiogram: 07/27/16 Colonoscopy: 01/29/14 AV - Creation of arteriovenous fistula: 03/25/13 Cataract extraction and insertion of intraocular lens Amputation great toe Insertion of dialysis catheter into femoral vein Employment/School Details: Status: Disabled due to ESRD on HD. Other: . Alcohol Details: Never Exercise Details: Exercise duration: 15. Exercise frequency: 1-2 times/week. Self assessment: Fair condition. Exercise type: Walking. Tobacco Details: Use: Never smoker. Ready to change: No. Household tobacco concerns: No. Tobacco smoke exposure: Lives with someone who smokes. Did the Patient Smoke Cigarettes Anytime During the Last 365 Days? No. Cessation Counseling Provided? No. Substance Abuse Details: Use: None. Vitals and Temp: VitalsTmp(F)[id number] 02/19 10:00----[id number]--- 02/19 08:09270.6 02/19 08:00----[id number]--- 02/19 04:45----[id number]--- 02/19 04:0099.692-----1396--- 24 Hr Tmax: 103F (39.44c) at 02/18 14:55Vital Signs are the last 5 in the past 48 hours. Input/Output RecordInOutBal 01/2824hr Tot 0 0 0 01/2724hr Tot 1891 0 1891 Physical Exam Gen: alert, no acute distress, follow command HEENT: not pale, not icteric, normal cephalic, Neck: Supple, no jvd, CV: S1, S2, no murmurs Lung: clear bilateral course BS Abd: soft, bowel sound normal, no tenderness Ext: no edema Skin: no rash Neuro: no seizure, no local finding Labs (Last four charted values) WBC 8.1(FEBRUARY 18) Hgb 14.6(FEBRUARY 18) Hct 42.9(FEBRUARY 18) Plt 169(FEBRUARY 18) Na L 128(FEBRUARY 18) K 5.0(FEBRUARY 19)C 6.2(FEBRUARY 18)H 5.7(FEBRUARY 18) CO2 26(FEBRUARY 18) Cl L 90(FEBRUARY 18) Cr H 9.91(FEBRUARY 18) BUN H 57(FEBRUARY 18) Glucose Random H 309(FEBRUARY 18) Ca 10.1(FEBRUARY 18) PT H 14.8(FEBRUARY 18) INR 1.16(FEBRUARY 18) PTT 29.1(FEBRUARY 18) Troponin <0.02(FEBRUARY 18) CK MB 1.6(FEBRUARY 18) Total CK 130(FEBRUARY 18) Medications Scheduled Meds (1):cefTRIAXone + sterile water 10 mL Unscheduled Meds: None PRN Meds (11):Dextrose 50% in Water IV (Dextrose 50% Syringe), Dextrose 50% in Water IV (Dextrose 50% Syringe), acetaminophen (Tylenol), glucagon, insulin lispro, insulin lispro, insulin lispro, insulin lispro, insulin lispro, sodium chloride (Saline Flush 0.9%), sodium chloride (Saline Flush 0.9%) One Time Meds (13):(Completed) Dextrose 50% in Water IV (Dextrose 50% Syringe), (Completed) Dextrose 50% in Water IV (d50 syringe), (Completed) Insulin regular, (Completed) Insulin regular, (Completed) Sodium Chloride 0.9% IV (Sodium Chloride 0.9% (Bolus) IV), (Completed) acetaminophen (Tylenol), (Deleted) calcium gluconate + Sodium Chloride 0.9% IV 100 mL, (Completed) cefepime + sterile water 20 mL, (Completed) ondansetron, (Completed) sodium bicarbonate, (Completed) sodium polystyrene sulfonate, (Completed) sodium polystyrene sulfonate (Kayexalate), (Completed) vancomycin + Dextrose 5% in Water IV 250 mL Continuous Infusions: None ALL LABS REVIEW AND ALL RADIOLOGY REPORTS REVIEWED IMPRESSION Fever chills on admission rule out sepsis patient with end-stage renal disease on hemodialysis concerned about line infection agree with blood cultures urine cultures continue Rocephin and vancomycin await the blood cultures. Differential diagnosis gastroenteritis but the temperatures with the 2 high. End-stage renal disease on hemodialysis. Diabetes mellitus. Continue with IV antibiotic will observe him clinically further recommendations to follow things PLAN
--- OUTSIDE RECORDS SUMMARY | 2018-12-28 11:08 | XMS REPORT | CCD ---
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 Role Phone Monserrat Coates RP Allergies, Adverse Reactions, Alerts Substance Reaction Status NKDA Active Problem List Condition Effective Dates Status CRI (chronic renal insufficiency) Active CVA (cerebral vascular accident) 2006 Resolved DM - Diabetes mellitus Active ESRD - End stage renal disease Active Hyperlipidemia Active Hypertension Active Medications Medication Instructions Start Date End Date Status pneumococcal 0.5 ml, Route: IM, Drug Form: INJ, 03/22/2013 03/22/2013 Completed 23-valent vaccine Start date: 03/22/13 9:00:00, Stop date: 03/22/13 9:00:00 Immunizations Vaccine Date Status pneumococcal 23-valent vaccine 03/22/2013 Auth (Verified)
--- OUTSIDE RECORDS SUMMARY | 2018-12-28 11:08 | XMS REPORT | Summary of Care ---
Author Author [facility] Primary [facility] [place] Organization [facility] Address Unknown Phone Unavailable Encounter [facility] Steffany(FIN) [id number] Date(s): 11/09/18 - 11/10/18 [facility] [address], [address] [place], [place] [id number]- [phone] Vital Signs No data available for this [...] 2Result Comment: fluvirin preservative free (>3 yrs.) [[id number]]. Migrated from OBS ; Data migrated from [employer] on 10/27/2015. 3Result Comment: fluvirin preservative free (>3 yrs.) [[id number]]. Migrated from OBS ; Data migrated from [employer] on 10/27/2015. 4Result Comment: fluvirin preservative free (>3 yrs.) [[id number]]. Migrated from OBS ; Data migrated from [employer] on 10/27/2015. 5Result Comment: fluvirin preservative free (>3 yrs.) [[id number]]. Migrated from OBS ; Data migrated from [employer] on 10/27/2015. 6Location History: [facility] 7Result Comment: done @ dialysis. Migrated from OBS ; Data migrated from [employer] on 10/27/2015. Procedures Procedure Date Related Diagnosis Body Site Status Influenza vaccination 06/25/18 Completed Echocardiography1 01/24/18 Completed Screening for malignant neoplasm of prostate2 12/20/17 Completed Thrombectomy of arteriovenous fistula3 12/12/17 Completed Amputation lesser toe4 11/08/17 Completed Amputation lesser toe5 11/08/17 Completed Amputation lesser toe6 2016 Completed Diabetic retinal eye exam 2016 Completed Echocardiogram7 07/27/16 Completed Myocardial perfusion scan8 07/27/16 Completed Colonoscopy9 01/29/14 Completed AV - Creation of arteriovenous 03/25/13 Completed Pneumococcal [id number] 03/22/13 Completed Amputation great toe12 Completed Cataract [...] Reg Smoking Cessation Counseling No entered on: 10/31/18 Assessment and Plan No data available for this section
--- OUTSIDE RECORDS SUMMARY | 2018-12-28 11:08 | XMS REPORT | Summary of Care ---
Author Author [facility] Organization [facility] Address Unknown Phone Unavailable Encounter [facility] Steffany(FIN) [id number] Date(s): 10/31/18 - 10/31/18 [facility] [address], [address] [place], [place] [id number]- [phone] Discharge Disposition: Home or Self Care Attending Physician: Tamra Landin MD Vital Signs Most recent to 1 oldest [Reference Range]: Height 165.1 cm (10/31/18 8:16 AM) Temperature Oral 98.5 DegF [96.4-99.1 DegF] (10/31/18 8:16 AM) Blood Pressure 127/67 mmHg [90-140/60-90 mmHg] (10/31/18 8:16 AM) Respiratory Rate 18 BRMIN [14-20 BRMIN] (10/31/18 8:16 AM) Peripheral Pulse 61 bpm Rate [60-100 bpm] (10/31/18 8:16 AM) Weight 80.625 kg (10/31/18 8:16 AM) Body Mass Index 29.58 m2 (10/31/18 8:16 AM) Problem List Condition Effective Dates Status [...] Reaction Severity Status NKDA Active Medications No Known Medications Results No data available for this section [...] 2Result Comment: fluvirin preservative free (>3 yrs.) [[id number]]. Migrated from OBS ; Data migrated from [employer] on 10/27/2015. 3Result Comment: fluvirin preservative free (>3 yrs.) [[id number]]. Migrated from OBS ; Data migrated from [employer] on 10/27/2015. 4Result Comment: fluvirin preservative free (>3 yrs.) [[id number]]. Migrated from OBS ; Data migrated from [employer] on 10/27/2015. 5Result Comment: fluvirin preservative free (>3 yrs.) [[id number]]. Migrated from OBS ; Data migrated from [employer] on 10/27/2015. 6Location History: [facility] 7Result Comment: done @ dialysis. Migrated from OBS ; Data migrated from [employer] on 10/27/2015. Procedures Procedure Date Related Diagnosis [...] 01/29/14 Completed AV - Creation of arteriovenous [id number] 03/25/13 Completed Pneumococcal [id number] 03/22/13 Completed Amputation great toe12 Completed Cataract [...]
--- OUTSIDE RECORDS SUMMARY | 2018-12-28 11:08 | XMS REPORT | CCD ---
Author Author Auto Generated Organization [facility] Address Unknown Phone Unavailable Care Team Providers Care Chalker Soles Name Role Phone Vamshi Thompson CP Allergies, Adverse Reactions, Alerts Substance Reaction Status NKDA Active Problem List Condition Effective Dates Status CRI (chronic renal insufficiency) Active CVA (cerebral vascular accident) 2006 Resolved DM - Diabetes mellitus Active ESRD - End stage renal disease Active Hyperlipidemia Active Hypertension Active Medications Medication Instructions Start Date End Date Status albumin human 25 gm, 100 mL, Route: IV, Drug 03/27/2013 03/27/2013 Ordered form: INJ, ONCE, Start date: 03/27/13 10:30:00, Stop date: 03/27/13 10:30:00 furosemide 20 mg, 2 mL, Route: IV, Drug form: 03/22/2013 03/22/2013 Completed INJ, ONCE, Dosing Weight 73.267, kg, Start date: 03/22/13 4:15:00, Stop date: 03/22/13 4:15:00 Diovan 320 mg, 2 tab, Route: PO, Drug 03/22/2013 03/27/2013 Discontinued form: TAB, Daily, Start date: 03/22/13 11:04:00, Duration: 30 day, Stop date: 04/21/13 9:00:00 cefazolin 2 gm, Route: IVPB, ONCE, Dosing 03/22/2013 03/22/2013 Completed Weight 73.267, kg, Start date: 03/22/13 11:30:00, Duration: 1 doses or times, Stop date: 03/22/13 11:30:00 calcium gluconate + 1 gm, 10 mL, Route: IV, ONCE, 03/22/2013 03/22/2013 Completed Sodium Chloride 0.9% Dosing Weight 73.267, kg, Start IV 50 mL date: 03/22/13 4:16:00, Stop date: 03/22/13 4:16:00 Saline Flush 0.9% 5 mL, Route: IVP, Drug Form: INJ, 03/21/2013 03/22/2013 Discontinued Dosing Weight 80.455, kg, Q8H, PRN Line Flush, Start date: 03/21/13 21:27:00, Duration: 30 day, Stop date: 04/20/13 21:26:00, Administer at least once every 8 hours Administer at least once every 8 hours sodium bicarbonate 10 mEq, 10 mL, Route: IVP, Drug 03/22/2013 03/22/2013 Completed 8.4% Form: INJ, Dosing Weight 73.267, kg, ONCE, Start date: 03/22/13 4:11:00, Stop date: 03/22/13 4:11:00 hydrochlorothiazide 25 mg, 1 tab, Route: PO, Drug form: 03/22/2013 03/27/2013 Discontinued 25 mg oral tablet TAB, Daily, Start date: 03/22/13 11:04:00, Duration: 30 day, Stop date: 04/21/13 9:00:00 Sodium Chloride 0.9% 500 mL, Rate: 1,000 ml/hr, Infuse 03/21/2013 03/21/2013 Completed (Bolus) IV 500 mL over: 30 minutes, Route: IV, Dosing Weight 80.455 kg, Total Volume: 500, Priority: STAT, Start date: 03/21/13 22:46:00, Duration: 1 doses or times, Stop date: 03/21/13 23:15:00 albuterol 0.083% 20 mg, Route: NEB, ONCE, Dosing 03/21/2013 03/21/2013 Completed inhalation solution Weight 80.455, kg, Start date: 03/21/13 22:46:00, Stop date: 03/21/13 22:46:00 sodium polystyrene 30 gm, Route: PO, ONCE, Dosing 03/21/2013 03/21/2013 Completed sulfonate Weight 80.455, kg, Start date: 03/21/13 22:46:00, Duration: 1 doses or times, Stop date: 03/21/13 22:46:00 Zofran 4 mg, 2 mL, Route: IV, Drug form: 03/22/2013 03/27/2013 Discontinued INJ, Q12H, Dosing Weight 73.267, kg, PRN as needed for nausea/vomiting, Start date: 03/22/13 3:50:00, Duration: 30 day, Stop date: 04/21/13 3:49:00 Zofran 4 mg, 1 tab, Route: PO, Drug form: 03/22/2013 03/27/2013 Discontinued TAB, Q12H, Dosing Weight 73.267, kg, PRN as needed for nausea/vomiting, Start date: 03/22/13 3:51:00, Duration: 30 day, Stop date: 04/21/13 3:50:00 d50 syringe 25 gm, 50 mL, Route: IVP, Drug 03/22/2013 03/22/2013 Completed Form: INJ, Dosing Weight 73.267, kg, ONCE, Start date: 03/22/13 4:14:00, Stop date: 03/22/13 4:14:00 Saline Flush 0.9% 5 ml, Route: IVP, Drug Form: INJ, 03/22/2013 03/27/2013 Discontinued Dosing Weight 80.455, kg, PRN, PRN Line Flush, Start date: 03/22/13 2:09:00, Duration: 30 day, Stop date: 04/21/13 2:08:00 Insulin regular 10 unit, 0.1 mL, Route: IV, Drug 03/22/2013 03/22/2013 Completed form: INJ, ONCE, Dosing Weight 73.267, kg, Start date: 03/22/13 4:13:00, Stop date: 03/22/13 4:13:00 epoetin leonarda 2,000 unit, 1 mL, Route: IV, Drug 03/22/2013 03/27/2013 Discontinued form: INJ, Q-M-W-F, Start date: 03/22/13 17:00:00, Duration: 30 day, Stop date: 04/19/13 17:00:00 Levemir FlexPen 50 unit, 0.5 mL, Route: SUB-Q, Drug 03/22/2013 03/27/2013 Discontinued form: INJ, Bedtime, Start date: 03/22/13 21:00:00, Duration: 30 day, Stop date: 04/20/13 21:00:00 NovoLog FlexPen 4 unit, 0.04 mL, Route: SUB-Q, Drug 03/25/2013 03/27/2013 Discontinued form: SOLN, Bedtime, PRN Blood Glucose Results, Start date: 03/25/13 0:47:00, Duration: 30 day, Stop date: 04/24/13 0:46:00 NovoLog FlexPen 3 unit, 0.03 mL, Route: SUB-Q, Drug 03/25/2013 03/27/2013 Discontinued form: SOLN, Bedtime, PRN Blood Glucose Results, Start date: 03/25/13 0:47:00, Duration: 30 day, Stop date: 04/24/13 0:46:00 NovoLog FlexPen 2 unit, 0.02 mL, Route: SUB-Q, Drug 03/25/2013 03/27/2013 Discontinued form: SOLN, Bedtime, PRN Blood Glucose Results, Start date: 03/25/13 0:47:00, Duration: 30 day, Stop date: 04/24/13 0:46:00 NovoLog FlexPen 1 unit, 0.01 mL, Route: SUB-Q, Drug 03/25/2013 03/27/2013 Discontinued form: SOLN, Bedtime, PRN Blood Glucose Results, Start date: 03/25/13 0:47:00, Duration: 30 day, Stop date: 04/24/13 0:46:00 NovoLog FlexPen 10 unit, 0.1 mL, Route: SUB-Q, Drug 03/25/2013 03/27/2013 Discontinued form: SOLN, Sliding Scale, PRN Blood Glucose Results, Start date: 03/25/13 0:46:00, Duration: 30 day, Stop date: 04/24/13 0:45:00 NovoLog FlexPen 8 unit, 0.08 mL, Route: SUB-Q, Drug 03/25/2013 03/27/2013 Discontinued form: SOLN, Sliding Scale, PRN Blood Glucose Results, Start date: 03/25/13 0:46:00, Duration: 30 day, Stop date: 04/24/13 0:45:00 Dextrose 50% in 50 mL, Route: IVP, Start date: 03/25/2013 03/27/2013 Discontinued Water IV 03/25/13 0:46:00, Duration: 30 day, Stop date: 04/24/13 0:45:00, PRN Blood Glucose Results glucagon 1 mg, Route: IM, Drug form: 03/25/2013 03/27/2013 Discontinued PDR/INJ, PRN, PRN Blood Glucose Results, Start date: 03/25/13 0:46:00, Duration: 30 day, Stop date: 04/24/13 0:45:00 NovoLog FlexPen 12 unit, 0.12 mL, Route: SUB-Q, 03/25/2013 03/27/2013 Discontinued Drug form: SOLN, Sliding Scale, PRN Blood Glucose Results, Start date: 03/25/13 0:46:00, Duration: 30 day, Stop date: 04/24/13 0:45:00 NovoLog FlexPen 6 unit, 0.06 mL, Route: SUB-Q, Drug 03/25/2013 03/27/2013 Discontinued form: SOLN, Sliding Scale, PRN Blood Glucose Results, Start date: 03/25/13 0:46:00, Duration: 30 day, Stop date: 04/24/13 0:45:00 NovoLog FlexPen 4 unit, 0.04 mL, Route: SUB-Q, Drug 03/25/2013 03/27/2013 Discontinued form: SOLN, Sliding Scale, PRN Blood Glucose Results, Start date: 03/25/13 0:46:00, Duration: 30 day, Stop date: 04/24/13 0:45:00 furosemide 40 mg, 1 tab, Route: PO, Drug form: 03/22/2013 03/27/2013 Discontinued TAB, Daily, Dosing Weight 73.267, kg, Start date: 03/22/13 11:00:00, Duration: 30 day, Stop date: 04/21/13 9:00:00 Lantus 50 unit, Route: SUB-Q, Drug form: 03/22/2013 03/22/2013 Deleted INJ, Bedtime, Dosing Weight 73.267, kg, Start date: 03/22/13 21:00:00, Duration: 30 day, Stop date: 04/20/13 21:00:00 hydrochlorothiazide- 1 tab, Route: PO, Drug Form: TAB, 03/23/2013 03/22/2013 Deleted valsartan 25 mg-320 Dosing Weight 73.267, kg, Daily, mg oral tablet Start date: 03/23/13 9:00:00, Duration: 30 day, Stop date: 04/21/13 9:00:00 insulin aspart 10 unit, 0.1 mL, Route: SUB-Q, Drug 03/23/2013 03/27/2013 Discontinued form: SOLN, Breakfast, Dosing Weight 73.267, kg, Start date: 03/23/13 8:00:00, Duration: 30 day, Stop date: 04/21/13 8:00:00 insulin aspart 10 unit, 0.1 mL, Route: SUB-Q, Drug 03/22/2013 03/27/2013 Discontinued form: SOLN, Dinner, Dosing Weight 73.267, kg, Start date: 03/22/13 17:00:00, Duration: 30 day, Stop date: 04/20/13 17:00:00 sodium bicarbonate 1,000 mL, Rate: 100 ml/hr, Infuse 03/22/2013 03/23/2013 Discontinued 75 mEq + Sodium over: 10.8 hr, Route: IV, Dosing Chloride 0.45% IV Weight 80.455 kg, Total Volume: 1,000 mL 1,075, Start date: 03/22/13 1:34:00, Duration: 30 day, Stop date: 04/21/13 1:33:00 NovoLog FlexPen 2 unit, 0.02 mL, Route: SUB-Q, Drug 03/25/2013 03/27/2013 Discontinued form: NASRINN, Sliding Scale, PRN Blood Glucose Results, Start date: 03/25/13 0:46:00, Duration: 30 day, Stop date: 04/24/13 0:45:00 insulin aspart 10 unit, SUB-Q, Dinner, 03/22/2013 Ordered Substitution Allowed, INJ Rocephin + Sodium 1 gm, Route: IVPB, [id number], Dosing 03/23/2013 03/27/2013 Discontinued Chloride 0.9% IV 100 Weight 73.267, kg, Start date: mL 03/23/13 16:00:00, Duration: 30 day, Stop date: 04/21/13 16:00:00 acetaminophen-hydroc 2 tab, Route: PO, Drug Form: TAB, 03/25/2013 03/27/2013 Discontinued odone 325 mg-5 mg Q4H, PRN Pain Score 4-6, Start oral tablet date: 03/25/13 18:15:00, Duration: 30 day, Stop date: 04/24/13 18:14:00 acetaminophen-hydroc 1 tab, Route: PO, Drug Form: TAB, 03/25/2013 03/27/2013 Discontinued odone 325 mg-5 mg Q4H, PRN Pain Score 1-3, Start oral tablet date: 03/25/13 18:14:00, Duration: 30 day, Stop date: 04/24/13 18:13:00 Nephro-Jeromy Rx 1 tab, Route: PO, Drug Form: TAB, 03/22/2013 03/27/2013 Discontinued Dosing Weight 73.267, kg, QPM, Start date: 03/22/13 17:00:00, Duration: 30 day, Stop date: 04/20/13 17:00:00 mannitol 20% 25 gm, 125 mL, Route: IV, Drug 03/27/2013 03/27/2013 Ordered intravenous solution form: INJ, ONCE, Start date: 03/27/13 9:54:00, Stop date: 03/27/13 9:54:00 Epogen 3,000 unit, 1 mL, Route: IV, Drug 03/22/2013 03/27/2013 Discontinued form: INJ, Q-M-W-F, Dosing Weight 73.267, kg, Start date: 03/22/13 17:00:00, Duration: 30 day, Stop date: 04/19/13 17:00:00 lactulose 20 gm, 30 ml, Route: PO, Drug Form: 03/27/2013 03/27/2013 Discontinued SYRP, Dosing Weight 73.267, kg, Daily, PRN Constipation, NOW, Start date: 03/27/13 14:40:00, Duration: 30 day, Stop date: 04/26/13 14:39:00 Sodium Chloride 0.9% 500 mL, Rate: 25 ml/hr, Infuse 03/25/2013 03/25/2013 Discontinued IV 500 mL over: 20 hr, Route: IV, Dosing Weight 73.267 kg, Total Volume: 500, Start date: 03/25/13 14:43:00, Duration: 30 day, Stop date: 04/24/13 14:42:00 albuterol 0.083% 19.92 mg, 24 mL, Route: NEB, Drug 03/21/2013 03/22/2013 Discontinued inhalation solution form: SOLN, Continuous, Dosing Weight 80.455, kg, PRN Abnormal Lab Result, Start date: 03/21/13 22:53:00, Duration: 30 day, Stop date: 04/20/13 22:52:00 sodium bicarbonate 50 mEq, Route: IVP, ONCE, Dosing 03/21/2013 03/21/2013 Completed Weight 80.455, kg, Priority: STAT, Start date: 03/21/13 22:30:00, Stop date: 03/21/13 22:30:00 sodium polystyrene 30 gm, Route: PO, Drug form: SUSP, 03/21/2013 03/21/2013 Completed sulfonate ONCE, Dosing Weight 80.455, kg, Priority: STAT, Start date: 03/21/13 22:30:00, Stop date: 03/21/13 22:30:00 calcium gluconate 1,000 mg, Route: IVP, ONCE, Dosing 03/21/2013 03/21/2013 Completed Weight 80.455, kg, Priority: STAT, Start date: 03/21/13 22:30:00, Stop date: 03/21/13 22:30:00 Insulin regular 5 unit, Route: IVP, ONCE, Dosing 03/21/2013 03/21/2013 Completed Weight 80.455, kg, Priority: STAT, Start date: 03/21/13 22:30:00, Stop date: 03/21/13 22:30:00 Dextrose 50% Syringe 25 gm, Route: IVP, Dosing Weight 03/21/2013 03/21/2013 Completed 80.455, kg, ONCE, STAT, Start date: 03/21/13 22:30:00, Stop date: 03/21/13 22:30:00 furosemide 40 mg, Route: IVP, ONCE, Dosing 03/21/2013 03/21/2013 Completed Weight 80.455, kg, Priority: STAT, Start date: 03/21/13 22:53:00, Stop date: 03/21/13 22:53:00 Saline Flush 0.9% 5 mL, Route: IVP, Drug Form: INJ, 03/21/2013 03/22/2013 Discontinued Dosing Weight 80.455, kg, PRN, PRN Line Flush, Start date: 03/21/13 22:30:00, Duration: 30 day, Stop date: 04/20/13 22:29:00 fenofibrate 48 mg, 1 tab, Route: PO, Drug form: 03/22/2013 03/27/2013 Discontinued TAB, QPM, Dosing Weight 73.267, kg, Start date: 03/22/13 17:00:00, Duration: 30 day, Stop date: 04/20/13 17:00:00 Coreg 12.5 mg, 1 tab, Route: PO, Drug 03/22/2013 03/27/2013 Discontinued form: TAB, Q12H, Dosing Weight 73.267, kg, Start date: 03/22/13 11:00:00, Duration: 30 day, Stop date: 04/21/13 9:00:00 pneumococcal 0.5 ml, Route: IM, Drug Form: INJ, 03/22/2013 03/22/2013 Completed 23-valent vaccine Start date: 03/22/13 9:00:00, Stop date: 03/22/13 9:00:00 pneumococcal 0.5 ml, Route: IM, Drug Form: INJ, 03/22/2013 03/22/2013 Completed 23-valent vaccine Daily, Start date: 03/22/13 9:00:00, Duration: 1 doses or times, Stop date: 03/22/13 9:00:00 Sodium Chloride 0.9% IV, 500 ml/hr, Q30Min, Start date: 03/27/2013 03/27/2013 Pending IV 03/27/13 10:00:00, Duration: 2, 250 Complete ml fenofibrate 54 mg, PO, Daily, Substitution 03/22/2013 Ordered Allowed, TAB insulin aspart 10 unit, SUB-Q, Breakfast, 03/22/2013 Ordered Substitution Allowed, INJ Coreg 12.5 mg, PO, BID, Substitution 03/22/2013 Ordered Allowed, TAB Sodium Chloride 0.9% 1,000 mL, Rate: 25 ml/hr, Infuse 03/25/2013 03/25/2013 Discontinued IV 1000 mL over: 40 hr, Route: IV, Dosing Weight 73.267 kg, Total Volume: 1,000, Start date: 03/25/13 14:42:00, Duration: 30 day, Stop date: 04/24/13 14:41:00 furosemide 40 mg, PO, Daily, Substitution 03/22/2013 Ordered Allowed, TAB Lantus 50 unit, SUB-Q, Bedtime, 03/22/2013 Ordered Substitution Allowed, INJ hydrochlorothiazide- 1 tab, PO, Daily, Substitution 03/22/2013 Ordered valsartan 25 mg-320 Allowed, Maintenance, TAB mg oral tablet Immunizations Vaccine Date Status pneumococcal 23-valent vaccine 03/22/2013 Auth (Verified) Vital Signs Most recent to oldest [Reference Range]: 1 2 3 Height 167.64 cm (03/22/2013 03:14:00) 167.64 cm (03/21/2013 19:41:00) Temperature Oral [96.4-99.1 DegF] 98.3 DegF (03/27/2013 12:00:00) 98.6 DegF (03/27/2013 04:00:00) 98.9 DegF (03/27/2013 00:00:00) Systolic Blood Pressure [90-140 mmHg] 131 mmHg (03/27/2013 12:00:00) 131 mmHg (03/27/2013 04:00:00) 130 mmHg (03/27/2013 00:00:00) Diastolic Blood Pressure [60-90 mmHg] 71 mmHg (03/27/2013 12:00:00) 71 mmHg (03/27/2013 04:00:00) 73 mmHg (03/27/2013 00:00:00) Respiratory Rate [14-20 BRMIN] 18 BRMIN (03/27/2013 12:00:00) 17 BRMIN (03/27/2013 04:00:00) 17 BRMIN (03/27/2013 00:00:00) Peripheral Pulse Rate [60-100 bpm] 99 bpm (03/27/2013 12:00:00) 92 bpm (03/27/2013 04:00:00) 97 bpm (03/27/2013 00:00:00) Weight 73.267 kg (03/22/2013 03:14:00) 80.455 kg (03/21/2013 19:41:00) Results BEDSIDE GLUCOSE TESTING Most recent to oldest [Reference Range]: 1 2 3 Gluc POC Lifscn [70-99 mg/dL] 145 mg/dL 1 *HI* (03/27/2013 12:33:00) 263 mg/dL 2 *HI* (03/27/2013 06:29:00) 340 mg/dL 3 *HI* (03/26/2013 21:06:00) Comment1 Notify RN/MD *NA* (03/27/2013 12:33:00) Notify RN/MD *NA* (03/27/2013 06:29:00) Notify RN/MD *NA* (03/26/2013 21:06:00) 1Interpretive Data: Upper Reportable Limit: 200 mg/dL. 2Interpretive Data: Upper Reportable Limit: 200 mg/dL. 3Interpretive Data: Upper Reportable Limit: 200 mg/dL. URINALYSIS Most recent to oldest [Reference Range]: 1 2 3 UA Turbidity [Clear] Marked *ABN* (03/21/2013 20:00:00) UA Color [Yellow] Yellow *NA* (03/21/2013 20:00:00) UA pH [5.0-8.0] 5.0 (03/21/2013 20:00:00) UA Spec Grav [<=1.030] 1.014 (03/21/2013 20:00:00) UA Glucose [Negative mg/dL] 150 mg/dL *ABN* (03/21/2013 20:00:00) UA Blood [Negative] Moderate *ABN* (03/21/2013 20:00:00) UA Ketones [Negative mg/dL] Negative mg/dL *NA* (03/21/2013 20:00:00) UA Protein [Negative mg/dL] 100 mg/dL *ABN* (03/21/2013 20:00:00) UA Urobilinogen [0.1-1.0 mg/dL] <=1.0 mg/dL *NA* (03/21/2013 20:00:00) UA Bili [Negative] Negative *NA* (03/21/2013 20:00:00) UA Leuk Est [Negative] Negative (03/21/2013 20:00:00) UA Nitrite [Negative] Negative (03/21/2013 20:00:00) UA WBC [0-5 /HPF] 8 /HPF *HI* (03/21/2013 20:00:00) UA RBC [0-2 /HPF] 1 /HPF (03/21/2013 20:00:00) UA Bacteria [None Seen /HPF] Occasional /HPF *NA* (03/21/2013 20:00:00) UA Sq Epi None Seen *NA* (03/21/2013 20:00:00) UA Hyal Cast [0-2 /LPF] 11 /LPF *HI* (03/21/2013 20:00:00) UA Amorph [place] [None Seen /HPF] Occasional /HPF *NA* (03/21/2013 20:00:00) UA Mucus [None Seen /LPF] Few /LPF *NA* (03/21/2013 20:00:00) CHEMISTRY Most recent to oldest [Reference Range]: 1 2 3 Sodium Lvl [135-145 mEq/L] 136 mEq/L (03/26/2013 11:03:00) 139 mEq/L (03/25/2013 06:01:00) 142 mEq/L (03/23/2013 04:57:00) Potassium Lvl [3.5-5.1 mEq/L] 4.6 mEq/L (03/26/2013 11:03:00) 3.8 mEq/L (03/25/2013 14:15:00) 4.2 mEq/L (03/25/2013 06:01:00) Chloride Lvl [95-109 mEq/L] 99 mEq/L (03/26/2013 11:03:00) 103 mEq/L (03/25/2013 06:01:00) 105 mEq/L (03/23/2013 04:57:00) CO2 [24-32 mEq/L] 26 mEq/L (03/26/2013 11:03:00) 21 mEq/L *LOW* (03/25/2013 06:01:00) 21 mEq/L *LOW* (03/23/2013 04:57:00) AGAP [10.0-20.0 mEq/L] 15.6 mEq/L (03/26/2013 11:03:00) 19.2 mEq/L (03/25/2013 06:01:00) 20.1 mEq/L *HI* (03/23/2013 04:57:00) Creatinine Lvl [0.5-1.4 mg/dL] 5.3 mg/dL *HI* (03/26/2013 11:03:00) 6.9 mg/dL *HI* (03/25/2013 06:01:00) 7.8 mg/dL *HI* (03/23/2013 04:57:00) eGFR 11 mL/min/1.73m2 4 *NA* (03/26/2013 11:03:00) 8 mL/min/1.73m2 5 *NA* (03/25/2013 06:01:00) 7 mL/min/1.73m2 6 *NA* (03/23/2013 04:57:00) BUN [7-22 mg/dL] 49 mg/dL *HI* (03/26/2013 11:03:00) 79 mg/dL *HI* (03/25/2013 06:01:00) 86 mg/dL *HI* (03/23/2013 04:57:00) B/C Ratio [6-25] 12 (03/22/2013 07:53:00) 11 (03/21/2013 21:27:00) Glucose Lvl [70-99 mg/dL] 242 mg/dL 7 *HI* (03/26/2013 11:03:00) 149 mg/dL 8 *HI* (03/25/2013 06:01:00) 222 mg/dL 9 *HI* (03/23/2013 04:57:00) Total Protein [6.4-8.4 g/dL] 7.8 g/dL (03/22/2013 07:53:00) 8.0 g/dL (03/21/2013 21:27:00) Albumin Lvl [3.5-5.0 g/dL] 3.6 g/dL (03/22/2013 07:53:00) 3.7 g/dL (03/21/2013 21:27:00) Globulin [2.0-4.0 g/dL] 4.2 g/dL *HI* (03/22/2013 07:53:00) 4.3 g/dL *HI* (03/21/2013 21:27:00) A/G Ratio [0.7-1.6] 0.9 (03/22/2013 07:53:00) 0.9 (03/21/2013 21:27:00) Calcium Lvl [8.5-10.5 mg/dL] 8.1 mg/dL *LOW* (03/26/2013 11:03:00) 8.0 mg/dL *LOW* (03/25/2013 06:01:00) 7.6 mg/dL *LOW* (03/23/2013 04:57:00) Phosphorus [2.5-4.5 mg/dL] 7.6 mg/dL *HI* (03/23/2013 04:57:00) ALT [0-65 unit/L] 28 unit/L (03/22/2013 07:53:00) 31 unit/L (03/21/2013 21:27:00) AST [0-37 unit/L] 11 unit/L (03/22/2013 07:53:00) 11 unit/L (03/21/2013 21:27:00) Alk Phos [39-136 unit/L] 87 unit/L (03/22/2013 07:53:00) 105 unit/L (03/21/2013 21:27:00) Bili Total [0.2-1.3 mg/dL] 0.3 mg/dL (03/22/2013 07:53:00) 0.2 mg/dL (03/21/2013 21:27:00) Total CK [12-191 unit/L] 486 unit/L *HI* (03/21/2013 21:27:00) CK MB [0.5-3.6 ng/mL] 7.9 ng/mL *HI* (03/21/2013 21:27:00) CK MB Index [0.0-2.5] 1.6 (03/21/2013 21:27:00) Troponin-I [0.00-0.40 ng/mL] <0.02 ng/mL (03/21/2013 21:27:00) BNP [<=100 pg/mL] 61 pg/mL 10 (03/22/2013 07:53:00) Hgb A1C [<=5.6 %] 9.5 % 11 *HI* (03/23/2013 04:57:00) TSH [0.360-3.740 uIU/mL] 1.290 uIU/mL (03/23/2013 04:57:00) 4Result Comment: The eGFR is calculated using [...] be mul tiplied by the estimated BMI. 5Result Comment: The eGFR is calculated using [...] be mul tiplied by the estimated BMI. 6Result Comment: The eGFR is calculated using [...] be mul tiplied by the estimated BMI. 7Interpretive Data: Adult reference range values reflect the clinical guidelines of the [place] [employer]. 8Interpretive Data: Adult reference range values reflect the clinical guidelines of the [place] [employer]. 9Interpretive Data: Adult reference range values reflect the clinical guidelines of the [place] [employer]. 10Interpretive Data: Elevated results are in line with increasing severity of congestive heart failure. Minor elevations between 100 and 300 may be seen with Myocardial Ischemia, Sodium retaining drugs, and compensated/treated heart failure. 11Interpretive Data: The reference range is based on the clinical practice guidelines of the [place] [employer] for diabetes screening; levels of 5.7%-6.4% are indicative of pre-diabetes. HEMATOLOGY Most recent to oldest [Reference Range]: 1 2 3 WBC [3.7-10.4 K/CMM] 11.3 K/CMM *HI* (03/26/2013 11:03:00) 10.7 K/CMM *HI* (03/25/2013 06:01:00) 9.7 K/CMM (03/23/2013 04:57:00) RBC [4.70-6.10 M/CMM] 3.08 M/CMM *LOW* (03/26/2013 11:03:00) 3.26 M/CMM *LOW* (03/25/2013 06:01:00) 3.47 M/CMM *LOW* (03/23/2013 04:57:00) Hgb [14.0-18.0 g/dL] 9.2 g/dL *LOW* (03/26/2013 11:03:00) 9.5 g/dL *LOW* (03/25/2013 06:01:00) 10.1 g/dL *LOW* (03/23/2013 04:57:00) Hct [42.0-54.0 %] 27.5 % *LOW* (03/26/2013 11:03:00) 29.1 % *LOW* (03/25/2013 06:01:00) 30.6 % *LOW* (03/23/2013 04:57:00) MCV [80.0-94.0 fL] 89.3 fL (03/26/2013 11:03:00) 89.4 fL (03/25/2013 06:01:00) 88.1 fL (03/23/2013 04:57:00) MCH [27.0-31.0 pg] 29.9 pg (03/26/2013 11:03:00) 29.2 pg (03/25/2013 06:01:00) 29.0 pg (03/23/2013 04:57:00) MCHC [32.0-36.0 g/dL] 33.4 g/dL (03/26/2013 11:03:00) 32.7 g/dL (03/25/2013 06:01:00) 32.9 g/dL (03/23/2013 04:57:00) RDW [11.5-14.5 %] 14.2 % (03/26/2013 11:03:00) 13.9 % (03/25/2013 06:01:00) 14.4 % (03/23/2013 04:57:00) Platelet [133-450 K/CMM] 228 K/CMM (03/26/2013 11:03:00) 241 K/CMM (03/25/2013 06:01:00) 250 K/CMM (03/23/2013 04:57:00) MPV [7.4-10.4 fL] 7.2 fL *LOW* (03/26/2013 11:03:00) 7.5 fL (03/25/2013 06:01:00) 7.6 fL (03/23/2013 04:57:00) Segs [45.0-75.0 %] 81.1 % *HI* (03/26/2013 11:03:00) 74.9 % (03/25/2013 06:01:00) 75.0 % (03/23/2013 04:57:00) Lymphocytes [20.0-40.0 %] 8.0 % *LOW* (03/26/2013 11:03:00) 12.4 % *LOW* (03/25/2013 06:01:00) 12.9 % *LOW* (03/23/2013 04:57:00) Monocytes [2.0-12.0 %] 8.1 % (03/26/2013 11:03:00) 8.2 % (03/25/2013 06:01:00) 10.0 % (03/23/2013 04:57:00) Eosinophils [0.0-4.0 %] 2.6 % (03/26/2013 11:03:00) 4.1 % *HI* (03/25/2013 06:01:00) 2.0 % (03/23/2013 04:57:00) Basophils [0.0-1.0 %] 0.2 % (03/26/2013 11:03:00) 0.4 % (03/25/2013 06:01:00) 0.1 % (03/23/2013 04:57:00) Segs-Bands # [1.5-8.1 K/CMM] 9.4 K/CMM *HI* (03/26/2013 11:03:00) 8.0 K/CMM (03/25/2013 06:01:00) 7.3 K/CMM (03/23/2013 04:57:00) Lymphocytes # [1.0-5.5 K/CMM] 0.9 K/CMM *LOW* (03/26/2013 11:03:00) 1.3 K/CMM (03/25/2013 06:01:00) 1.3 K/CMM (03/23/2013 04:57:00) Monocytes # [0.0-0.8 K/CMM] 0.9 K/CMM *HI* (03/26/2013 11:03:00) 0.9 K/CMM *HI* (03/25/2013 06:01:00) 1.0 K/CMM *HI* (03/23/2013 04:57:00) Eosinophils # [0.0-0.5 K/CMM] 0.3 K/CMM (03/26/2013 11:03:00) 0.4 K/CMM (03/25/2013 06:01:00) 0.2 K/CMM (03/23/2013 04:57:00) Basophils # [0.0-0.2 K/CMM] 0.0 K/CMM (03/26/2013 11:03:00) 0.0 K/CMM (03/25/2013 06:01:00) 0.0 K/CMM (03/23/2013 04:57:00) IMMUNOLOGY Most recent to oldest [Reference Range]: 1 2 3 Hep Bs Ag [Negative] Negative *NA* (03/22/2013 10:57:00) Hep Bs Ab [<=7.4 mIU/mL] <1.0 mIU/mL 12 (03/22/2013 10:57:00) Hep B Core Ab [Negative] Negative *NA* (03/22/2013 10:57:00) Hep C Ab [Negative] Negative *NA* (03/22/2013 10:57:00) 12Interpretive Data: <=7.4 mIU/mL--------Negative for Anti-HBs. Not immune to HBV infection. 7.5-12.4 mIU/mL--Borderline for Anti-HBs and immune status should be further assessed by considering other factors such as clinical status follow-up testing, associated risk factors, and the use of additional diagnostic information. >12.4 mIU/mL-------Positive for Anti-HBs. Immune to HBV infection Procedures Procedures Date Related Diagnosis Amputation of the foot Cataract extraction and insertion of intraocular lens
--- OUTSIDE RECORDS SUMMARY | 2018-12-28 11:08 | XMS REPORT | Summary of Care ---
Author Author [facility] Organization [facility] Address Unknown Phone Unavailable Encounter HQ Steffany(FIN) [id number] Date(s): 12/05/18 - 12/05/18 [facility] [address], [address] [place], [place] [id number]- [phone] Discharge Disposition: Home or Self Care Attending Physician: Tamra Landin MD Vital Signs Most recent to 1 oldest [Reference Range]: Height 165.1 cm (12/05/18 1:27 PM) Temperature Oral 97.5 DegF [96.4-99.1 DegF] (12/05/18 1:27 PM) Blood Pressure 141/67 mmHg [90-140/60-90 mmHg] *HI* (12/05/18 1:27 PM) Respiratory Rate 16 BRMIN [14-20 BRMIN] (12/05/18 1:27 PM) Peripheral Pulse 87 bpm Rate [60-100 bpm] (12/05/18 1:27 PM) Weight 80.17 kg (12/05/18 1:27 PM) Body Mass Index 29.41 m2 (12/05/18 1:27 PM) Problem List Condition Effective Dates Status Health [...] Active clearance(Confirmed) Screening for colon Active cancer(Confirmed) Syncope(Confirmed) Active 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 Migrated from OBS ; Data migrated from [employer] on 10/27/2015. 3Result Comment: fluvirin preservative free (>3 yrs.) [[id number]]. Migrated from OBS ; Data migrated from [employer] on 10/27/2015. 4Result Comment: fluvirin preservative free (>3 yrs.) [[id number]]. Migrated from OBS ; Data migrated from [employer] on 10/27/2015. 5Result Comment: fluvirin preservative free (>3 yrs.) [[id number]]. Migrated from OBS ; Data migrated from [employer] on 10/27/2015. 6Location History: [facility] 7Result Comment: done @ dialysis. Migrated from OBS ; Data migrated from [employer] on 10/27/2015. Procedures Procedure Date Related Diagnosis [...] 01/29/14 Completed AV - Creation of arteriovenous [id number] 03/25/13 Completed Pneumococcal 03/22/13 Completed Amputation great toe12 Completed Cataract [...] Reg Smoking Cessation Counseling No entered on: 12/05/18 Assessment and Plan No data available for this section
--- OUTSIDE RECORDS SUMMARY | 2018-12-28 11:08 | XMS REPORT | CCD ---
Author Author Auto Generated Organization [facility] Address Unknown Phone Unavailable Care Team Providers Care Strip Picker Name Role Phone Adriano Stone CP Allergies, Adverse Reactions, Alerts Substance Reaction Status NKDA Active Problem List Condition Effective Dates Status CRI (chronic renal insufficiency) Active CVA (cerebral vascular accident) 2006 Resolved DM - Diabetes mellitus Active ESRD - End stage renal disease Active Hyperlipidemia Active Hypertension Active Medications Medication Instructions Start Date End Date Status predniSONE 20 mg 60 mg=3 tab, PO, Daily, Take 3 10/13/2013 10/18/2013 Ordered oral tablet tablets for 60 mg dose, # 15 tab, 0 Refill(s) Take 3 tablets for 60 mg dose acetaminophen-hydroc 15 ml, Route: PO, Drug Form: ELIX, 10/13/2013 10/13/2013 Completed odone 334 mg-5 mg/10 Dosing Weight 77.273, kg, ONCE, mL oral elixir Start date: 10/13/13 14:44:00, Stop date: 10/13/13 14:44:00(acetaminophen-hydrocodone 334-5 mg/10 ml oral ELIX) Do not exceed 4gm/day of acetaminophen. DuoNeb inhalation 3 ml, Route: INHALATION, Drug Form: 10/13/2013 10/13/2013 Discontinued solution SOLN, Dosing Weight 77.273, kg, PRN, PRN Respiratory Protocol, Start date: 10/13/13 14:44:00, Duration: 30 day, Stop date: 11/12/13 14:43:00(Same as: Duoneb) pneumococcal 0.5 ml, Route: IM, Drug Form: INJ, 03/22/2013 03/22/2013 Completed 23-valent vaccine Start date: 03/22/13 9:00:00, Stop date: 03/22/13 9:00:00 Immunizations Vaccine Date Status pneumococcal 23-valent vaccine 03/22/2013 Auth (Verified) Vital Signs Most recent to oldest [Reference Range]: 1 2 Height 167.64 cm (10/13/2013 14:16:00) Temperature Oral [96.4-99.1 DegF] 98.1 DegF (10/13/2013 17:11:00) 98.5 DegF (10/13/2013 14:17:00) Systolic Blood Pressure [90-140 mmHg] 181 mmHg *HI* (10/13/2013 17:11:00) 184 mmHg *HI* (10/13/2013 14:17:00) Diastolic Blood Pressure [60-90 mmHg] 81 mmHg (10/13/2013 17:11:00) 82 mmHg (10/13/2013 14:17:00) Respiratory Rate [14-20 BRMIN] 20 BRMIN (10/13/2013 17:11:00) 18 BRMIN (10/13/2013 14:17:00) Peripheral Pulse Rate [60-100 bpm] 86 bpm (10/13/2013 17:11:00) 94 bpm (10/13/2013 14:17:00) Weight 77.273 kg (10/13/2013 14:16:00)
--- OUTSIDE RECORDS SUMMARY | 2018-12-28 11:08 | XMS REPORT | Summary of Care ---
Author Author [facility] Organization [facility] Address Unknown Phone Unavailable Encounter LUÍS Jeter(FIN) [id number] Date(s): 12/20/17 - 12/20/17 [facility] [address], [address] [place] [address] [phone] Discharge Disposition: Home or Self Care Attending Physician: Tamra Landin MD Vital Signs Most recent to 1 oldest [Reference Range]: Height 162.56 cm (12/20/17 11:26 AM) Temperature Oral 98.3 DegF [96.4-99.1 DegF] (12/20/17 11:26 AM) Blood Pressure 147/71 mmHg [90-140/60-90 mmHg] *HI* (12/20/17 11:26 AM) Respiratory Rate 17 BRMIN [14-20 BRMIN] (12/20/17 11:26 AM) Peripheral Pulse 75 bpm Rate [60-100 bpm] (12/20/17 11:26 AM) Weight 81.136 kg (12/20/17 11:26 AM) Body Mass Index 30.7 m2 (12/20/17 11:26 AM) Problem List Condition Effective Dates Status [...] 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 Dose increased. Start Date: 12/20/17 Status: Ordered NovoLOG FlexPen 100 units/mL subcutaneous solution 26 unit, SUB-Q, TID-Before Meals, # 4 box, 2 Refill(s), Pharmacy: [facility] # [id number], Dose increased Start Date: 12/20/17 Status: Ordered Results No data available for this section Immunizations Given and Recorded Vaccine Date Status Refusal Reason Hx influenza vaccine-unspecified1 06/25/17 Recorded Hx influenza vaccine-unspecified2 07/09/13 Given pneumococcal 23-valent vaccine 03/22/13 Given influenza virus vaccine, inactivated3 08/10/10 Given influenza virus vaccine, inactivated4 08/05/09 Given influenza virus vaccine, inactivated5 06/15/09 Given influenza virus vaccine, inactivated6 07/14/08 Given 1Location History: [facility] 2Result Comment: done @ dialysis. Migrated from OBS ; Data migrated from [employer] on 10/27/2015. 3Result Comment: fluvirin preservative free (>3 yrs.) [[id number]]. Migrated from OBS ; Data migrated from [employer] on 10/27/2015. 4Result Comment: fluvirin preservative free (>3 yrs.) [[id number]]. Migrated from OBS ; Data migrated from [employer] on 10/27/2015. 5Result Comment: fluvirin preservative free (>3 yrs.) [[id number]]. Migrated from OBS ; Data migrated from [employer] on 10/27/2015. 6Result Comment: fluvirin preservative free (>3 yrs.) [[id number]]. Migrated from OBS ; Data migrated from [employer] on 10/27/2015. Procedures Procedure Date Related Diagnosis Body Site Status Echocardiography1 01/24/18 Completed Screening for malignant neoplasm of prostate2 12/20/17 Completed Thrombectomy of arteriovenous fistula3 12/12/17 Completed Amputation lesser toe4 11/08/17 Completed Amputation lesser toe5 11/08/17 Completed Influenza vaccination 06/25/17 Completed Amputation lesser toe6 2016 Completed Diabetic retinal eye exam 2016 Completed Echocardiogram7 07/27/16 Completed Myocardial perfusion scan8 07/27/16 Completed Colonoscopy9 01/29/14 Completed AV - Creation of arteriovenous [id number] 03/25/13 Completed Pneumococcal [id number] 03/22/13 Completed Amputation great toe12 Completed Cataract [...]
--- OUTSIDE RECORDS SUMMARY | 2018-12-28 11:08 | XMS REPORT | CCD ---
Author Author Auto Generated Organization [facility] Address Unknown Phone Unavailable Care Team Providers Care Director Of Transportation Name Role Phone [place] [phone] Allergies, Adverse Reactions, Alerts Substance Reaction Status NKDA Active Problem List Condition Effective Dates Status CRI (chronic renal insufficiency) Active CVA (cerebral vascular accident) 2006 Resolved DM - Diabetes mellitus Active ESRD - End stage renal disease Active Hyperlipidemia Active Hypertension Active Medications Medication Instructions Start Date End Date Status ondansetron 4 mg, 2 mL, Route: IVP, Drug form: 10/03/2013 10/04/2013 Completed INJ, ONCE, Dosing Weight 73.267, kg, Priority: STAT, Start date: 10/03/13 23:34:00, Stop date: 10/03/13 23:34:00(Same as: Zofran) Saline Flush 0.9% 5 mL, Route: IVP, Drug Form: INJ, 10/03/2013 10/04/2013 Discontinued Dosing Weight 73.267, kg, Q8H, PRN Line Flush, Start date: 10/03/13 23:34:00, Duration: 30 day, Stop date: 11/02/13 23:33:00, Administer at least once every 8 hours Administer at least once every 8 hours(Same as: BD Posiflush) Tamiflu 75 mg oral 75 mg=1 cap, PO, BID, # 14 cap, 0 10/04/2013 Ordered capsule Refill(s) Tylenol 975 mg, Route: PO, Drug form: TAB, 10/03/2013 10/03/2013 Completed ONCE, Dosing Weight 73.267, kg, Priority: STAT, Start date: 10/03/13 20:07:00, Stop date: 10/03/13 20:07:00 Tylenol 500 mg, Route: PO, ONCE, Dosing 10/04/2013 10/04/2013 Completed Weight 73.267, kg, Start date: 10/04/13 2:28:00, Stop date: 10/04/13 2:28:00 pneumococcal 0.5 ml, Route: IM, Drug Form: INJ, 03/22/2013 03/22/2013 Completed 23-valent vaccine Start date: 03/22/13 9:00:00, Stop date: 03/22/13 9:00:00 azithromycin 500 mg, 250 mL, Route: IVPB, Drug 10/03/2013 10/04/2013 Completed form: PDR/INJ, ONCE, Dosing Weight 73.267, kg, Priority: STAT, Start date: 10/03/13 23:35:00, Stop date: 10/03/13 23:35:00Same as: Zithromax Immunizations Vaccine Date Status pneumococcal 23-valent vaccine 03/22/2013 Auth (Verified) Vital Signs Most recent to oldest [Reference Range]: 1 2 3 Temperature Oral [96.4-99.1 DegF] 99.2 DegF *HI* (10/04/2013 03:26:00) 100.5 DegF *HI* (10/04/2013 02:23:00) 99.3 DegF *HI* (10/03/2013 23:09:00) Systolic Blood Pressure [90-140 mmHg] 140 mmHg (10/04/2013 03:26:00) 146 mmHg *HI* (10/04/2013 02:23:00) 150 mmHg *HI* (10/03/2013 23:09:00) Diastolic Blood Pressure [60-90 mmHg] 80 mmHg (10/04/2013 03:26:00) 80 mmHg (10/04/2013 02:23:00) 69 mmHg (10/03/2013 23:09:00) Respiratory Rate [14-20 BRMIN] 18 BRMIN (10/04/2013 03:26:00) 18 BRMIN (10/04/2013 02:23:00) 18 BRMIN (10/03/2013 23:09:00) Peripheral Pulse Rate [60-100 bpm] 90 bpm (10/04/2013 03:26:00) 94 bpm (10/04/2013 02:23:00) 88 bpm (10/03/2013 23:09:00) Results URINALYSIS Most recent to oldest [Reference Range]: 1 UA Turbidity [Clear] Clear (10/03/2013 23:43:00) UA Color Ltyellow *NA* (10/03/2013 23:43:00) UA pH [5.0-8.0] 7.0 (10/03/2013 23:43:00) UA Spec Grav [<=1.030] 1.011 (10/03/2013 23:43:00) UA Glucose [Negative mg/dL] 500 mg/dL *ABN* (10/03/2013 23:43:00) UA Blood [Negative] Small *ABN* (10/03/2013 23:43:00) UA Ketones [Negative mg/dL] Negative mg/dL *NA* (10/03/2013 23:43:00) UA Protein [Negative mg/dL] >=300 mg/dL *ABN* (10/03/2013 23:43:00) UA Urobilinogen [0.1-1.0 mg/dL] <=1.0 mg/dL *NA* (10/03/2013 23:43:00) UA Bili [Negative] Negative *NA* (10/03/2013 23:43:00) UA Leuk Est [Negative] Negative (10/03/2013 23:43:00) UA Nitrite [Negative] Negative (10/03/2013 23:43:00) UA WBC [0-5 /HPF] <1 /HPF (10/03/2013 23:43:00) UA RBC [0-2 /HPF] 2 /HPF (10/03/2013 23:43:00) UA Bacteria [None Seen /HPF] Occasional /HPF *NA* (10/03/2013 23:43:00) UA Sq Epi None Seen *NA* (10/03/2013 23:43:00) VIRAL - SEROLOGY Most recent to oldest [Reference Range]: 1 Influ A [Negative] Positive 1 *ABN* (10/03/2013 00:33:00) Influ B [Negative] Negative 2 (10/03/2013 00:33:00) 1Result Comment: "Significant Findings called to terrance krishnan__at 10/04/2013 02:05__by amrs__.Read Back OK." 2Interpretive Data: Influenza A&B Antigen: Due to the low sensitivity of this test a negative result does not exclude influ thom virus infection. A diagnosis of influenza should be considered based on a p atient's clinical presentation and empiric antiviral treatment should be conside red, if indicated. If more conclusive testing is desired, follow-up confirmatory testing with either viral culture or PCR is warranted. CHEMISTRY Most recent to oldest [Reference Range]: 1 Sodium Lvl [135-145 mEq/L] 133 mEq/L *LOW* (10/04/2013 00:01:00) Potassium Lvl [3.5-5.1 mEq/L] 4.0 mEq/L (10/04/2013 00:01:00) Chloride Lvl [95-109 mEq/L] 97 mEq/L (10/04/2013 00::00) CO2 [24-32 mEq/L] 23 mEq/L *LOW* (10/04/2013::00) AGAP [10.0-20.0 mEq/L] 17.0 mEq/L (10/04/2013 00:01:00) Creatinine Lvl [0.5-1.4 mg/dL] 8.4 mg/dL *HI* (10/04/2013 00:01:00) eGFR 6 mL/min/1.73m2 3 *NA* (10/04/2013 00:01:00) BUN [7-22 mg/dL] 69 mg/dL *HI* (10/04/2013 00:01:00) B/C Ratio [6-25] 8 (10/04/2013 00:01:00) Glucose Lvl [70-99 mg/dL] 257 mg/dL 4 *HI* (10/04/2013 00:01:00) Total Protein [6.4-8.4 g/dL] 8.4 g/dL (10/04/2013 00:01:00) Albumin Lvl [3.5-5.0 g/dL] 3.7 g/dL (10/04/2013 00:01:00) Globulin [2.0-4.0 g/dL] 4.7 g/dL *HI* (10/04/2013 00:01:00) A/G Ratio [0.7-1.6] 0.8 (10/04/2013 00:01:00) Calcium Lvl [8.5-10.5 mg/dL] 8.0 mg/dL *LOW* (10/04/2013 00:01:00) Phosphorus [2.5-4.5 mg/dL] 4.9 mg/dL *HI* (10/04/2013::00) Magnesium Lvl [1.8-2.4 mg/dL] 2.1 mg/dL (10/04/2013:01:00) ALT [0-65 unit/L] 24 unit/L (10/04/2013::00) AST [0-37 unit/L] 21 unit/L (10/04/2013::00) Alk Phos [39-136 unit/L] 112 unit/L (10/04/2013::00) Bili Total [0.2-1.3 mg/dL] 0.3 mg/dL (10/04/2013::00) Total CK [12-191 unit/L] 373 unit/L *HI* (10/04/2013::00) CK MB [0.5-3.6 ng/mL] 0.8 ng/mL (10/04/2013::00) CK MB Index [0.0-2.5] 0.2 (10/04/2013::00) Troponin-I [0.00-0.40 ng/mL] 0.03 ng/mL (10/04/2013 00::00) BNP [<=100 pg/mL] 312 pg/mL 5 *HI* (10/04/2013::00) 3Result Comment: The eGFR is calculated using [...] be mul tiplied by the estimated BMI. 4Interpretive Data: Adult reference range values reflect the clinical guidelines of the [place] [employer]. 5Interpretive Data: Elevated results are in line with increasing severity of congestive heart failure. Minor elevations between 100 and 300 may be seen with Myocardial Ischemia, Sodium retaining drugs, and compensated/treated heart failure. HEMATOLOGY Most recent to oldest [Reference Range]: 1 WBC [3.7-10.4 K/CMM] 10.1 K/CMM (10/04/2013 00:01:00) RBC [4.70-6.10 M/CMM] 3.65 M/CMM *LOW* (10/04/2013 00::00) Hgb [14.0-18.0 g/dL] 11.2 g/dL *LOW* (10/04/2013 00:01:00) Hct [42.0-54.0 %] 33.3 % *LOW* (10/04/2013::00) MCV [80.0-94.0 fL] 91.2 fL (10/04/2013 00:01:00) MCH [27.0-31.0 pg] 30.7 pg (10/04/2013 00::00) MCHC [32.0-36.0 g/dL] 33.6 g/dL (10/04/2013 00:01:00) RDW [11.5-14.5 %] 14.3 % (10/04/2013 00::00) Platelet [133-450 K/CMM] 233 K/CMM (10/04/2013:01:00) MPV [7.4-10.4 fL] 7.7 fL (10/04/2013 00:01:00) Segs [45.0-75.0 %] 74.8 % (10/04/2013::00) Lymphocytes [20.0-40.0 %] 11.5 % *LOW* (10/04/2013::00) Monocytes [2.0-12.0 %] 11.9 % (10/04/2013 00:01:00) Eosinophils [0.0-4.0 %] 1.5 % (10/04/2013 00:01:00) Basophils [0.0-1.0 %] 0.3 % (10/04/2013 00:01:00) Segs-Bands # [1.5-8.1 K/CMM] 7.6 K/CMM (10/04/2013 00:01:00) Lymphocytes # [1.0-5.5 K/CMM] 1.2 K/CMM (10/04/2013 00:01:00) Monocytes # [0.0-0.8 K/CMM] 1.2 K/CMM *HI* (10/04/2013 00:01:00) Eosinophils # [0.0-0.5 K/CMM] 0.2 K/CMM (10/04/2013 00:01:00) Basophils # [0.0-0.2 K/CMM] 0.0 K/CMM (10/04/2013 00:01:00) PT [12.0-14.7 seconds] 14.0 seconds (10/04/2013 00:01:00) INR [0.85-1.17] 1.09 6 (10/04/2013 00:01:00) PTT [22.9-35.8 seconds] 35.5 seconds 7 (10/04/2013 00:01:00) 6Interpretive Data: RECOMMENDED RANGES FOR PROTIME INR: 2.0-3.0 for most medical and surgical thromboembolic states. 2.5-3.5 for artificial heart valves and recurrent embolism. INR SHOULD BE USED ONLY FOR PATIENTS ON STABLE ANTICOAGULANT THERAPY. 7Interpretive Data: Heparin Therapeutic Range: 57 - 92 Seconds
--- OUTSIDE RECORDS SUMMARY | 2018-12-28 11:08 | XMS REPORT | Summary of Care ---
Author Author [facility] Organization [facility] Address Unknown Phone Unavailable Encounter HQ Steffany(FIN) [id number] Date(s): 11/09/18 - 11/10/18 [facility] [address], [address] [place], [place] [address]- [phone] Vital Signs No data available for this [...] Daily, # 90 tab, 2 Refill(s), [id number] Start Date: 11/10/18 Status: Ordered carvedilol 12.5 mg oral tablet 12.5 mg=1 tab, PO, BID, # 180 tab, 2 Refill(s), Pharmacy: [id number] Start Date: 11/10/18 Status: Ordered Results No data available for [...] 2Result Comment: fluvirin preservative free (>3 yrs.) [[id number]]. Migrated from OBS ; Data migrated from [employer] on 10/27/2015. 3Result Comment: fluvirin preservative free (>3 yrs.) [[id number]]. Migrated from OBS ; Data migrated from [employer] on 10/27/2015. 4Result Comment: fluvirin preservative free (>3 yrs.) [[id number]]. Migrated from OBS ; Data migrated from [employer] on 10/27/2015. 5Result Comment: fluvirin preservative free (>3 yrs.) [[id number]]. Migrated from OBS ; Data migrated from [employer] on 10/27/2015. 6Location History: [facility] 7Result Comment: done @ dialysis. Migrated from OBS ; Data migrated from [employer] on 10/27/2015. Procedures Procedure Date Related Diagnosis [...] 01/29/14 Completed AV - Creation of arteriovenous [id number] 03/25/13 Completed Pneumococcal [id number] 03/22/13 Completed Amputation great toe12 Completed Cataract [...]
--- OUTSIDE RECORDS SUMMARY | 2018-12-28 11:09 | XMS REPORT | Summary of Care ---
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)1 Benign hypertensive Active heart and kidney disease and end stage renal disease(Confirmed) Body mass index 30+ 01/06/14 Active - obesity2 Congestive 03/20/13 Active cardiomyopathy(Confi rmed)3 DM (diabetes < 09/28/16 Resolved mellitus)(Confirmed) Dialysis Active patient(Confirmed) ESRD on Active hemodialysis(Confirm ed) ESRD (end stage Active renal disease)(Confirmed) Hemodialysis-associa 04/29/13 Active manju hypotension4 Long-term insulin Active use(Confirmed) History of stroke Active without residual deficits(Confirmed) HTN < 09/28/16 Resolved (hypertension)(Confi rmed) Mixed 03/20/13 Active hyperlipidemia5 Type 2 diabetes Active mellitus with ESRD (end-stage renal disease)(Confirmed) Type 2 diabetes Active mellitus with hyperglycemia(Confir med) Ventricular 01/12/15 Active premature beats6, 7 Vitamin [...] Refusal Reason Hx influenza vaccine-unspecified1 07/09/13 Given influenza virus vaccine, inactivated2 08/10/10 Given influenza virus vaccine, inactivated3 08/05/09 Given influenza virus vaccine, inactivated4 06/15/09 Given influenza virus vaccine, inactivated5 07/14/08 Given pneumococcal 23-valent vaccine 03/22/13 Given 1Result Comment: done @ dialysis. Migrated from OBS ; Data migrated from [employer] on 10/27/2015. 2Result Comment: fluvirin preservative free (>3 yrs.) [[id number]]. Migrated from OBS ; Data migrated from [employer] on 10/27/2015. 3Result Comment: fluvirin preservative free (>3 yrs.) [[id number]]. Migrated from OBS ; Data migrated from [employer] on 10/27/2015. 4Result Comment: fluvirin preservative free (>3 yrs.) [[id number]]. Migrated from OBS ; Data migrated from [employer] on 10/27/2015. 5Result Comment: fluvirin preservative free (>3 yrs.) [[id number]]. Migrated from OBS ; Data migrated from [employer] on 10/27/2015. Procedures Procedure Date Related Diagnosis Body Site Echocardiogram1 07/27/16 Myocardial perfusion scan2 07/27/16 Colonoscopy3 01/29/14 Amputation great toe4 AV - Creation of arteriovenous fistula Cataract extraction and insertion of intraocular lens 1EF: 55-60%, LV size and systolic function normal 2Normal perfusion imaging with no evidence of stress induced ischemia 3polyps, repeat in 3 years 4left foot Social History Social History Type Response [...]
--- OUTSIDE RECORDS SUMMARY | 2018-12-28 11:09 | XMS REPORT | Summary of Care ---
Author Author [facility] Organization [facility] Address Unknown Phone Unavailable Encounter LUÍS Jeter(TEOFILO) [id number] Date(s): 07/28/16 - 07/28/16 [facility] [address] [place] [address] [phone] Discharge Diagnosis: Acute cystitis Discharge Disposition: Home or Self Care Attending Physician: Yamilex Julian MD Vital Signs 1 2 3 Most recent to oldest [Reference Range]: 167.64 cm (07/28/16 12:12 PM) Height 98.4 DegF (07/28/16 4:03 PM) Temperature Oral [96.4-99.1 DegF] 98.5 DegF (07/28/16 12:12 PM) Temperature Oral [96.8-99.7 DegF] 134/68 mmHg (07/28/16 4:03 PM) 122/52 mmHg (07/28/16 1:56 PM) Blood Pressure [90-140/60-90 mmHg] 134/83 mmHg *HI* (07/28/16 12:12 PM) Blood Pressure [46-97/38-71 mmHg] 16 BRMIN (07/28/16 1:56 PM) Respiratory Rate [14-20 BRMIN] 18 BRMIN *LOW* (07/28/16 12:12 PM) Respiratory Rate [30-60 BRMIN] 88 bpm (07/28/16 4:03 PM) 89 bpm (07/28/16 1:56 PM) 95 bpm (07/28/16 12:12 PM) Peripheral Pulse Rate [60-100 bpm] 79.545 kg (07/28/16 12:12 PM) Weight 28.3 m2 (07/28/16 12:12 PM) Body Mass Index Problem List Condition Effective Dates Status Health Status Informant Abdominal Active bloating(Confirmed) 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1 Benign hypertensive Active heart and kidney disease and end stage renal disease(Confirmed) Body mass index 30+ 01/06/14 Active - obesity2 Congestive 03/20/13 Active cardiomyopathy3 DM (diabetes Active mellitus)(Confirmed) Dialysis Active patient(Confirmed) ESRD on Active hemodialysis(Confirm ed) ESRD (end stage Active renal disease)(Confirmed) Hemodialysis-associa 04/29/13 Active manju hypotension4 Long-term insulin Active use(Confirmed) History of stroke Active without residual deficits(Confirmed) HTN Active (hypertension)(Confi rmed) Mixed 03/20/13 Active hyperlipidemia5 Type [...] Substance Reaction Severity Status NKDA Active Medications cefpodoxime 100 mg oral tablet 100 mg=1 tab, PO, Q12H, X 7 day, # 14 tab, 0 Refill(s) Start Date: 07/28/16 Stop Date: 08/04/16 Status: Ordered cefTRIAXone + sodium chloride 0.9% INJ 100 mL 1 gm, Route: IVPB, ONCE, Dosing Weight 79.545, kg, Priority: STAT, Start date: 09/27/15 15:41:00 CDT, Stop date: 07/28/16 15:41:00 CDT Notes: (Same As: Rocephin).Use with 100 mL NS and infuse over 30 min MEDICA TION WASTE Product Size: 1000 mgProduct Wasted: ___ mg Start Date: 07/28/16 Stop Date: 07/28/16 Status: Completed Saline Flush 0.9% 10 mL, Route: IVP, Drug Form: INJ, Dosing Weight 79.545, kg, PRN, PRN Line Flush , Start date: 07/28/16 13:16:00 CDT, Duration: 30 day, Stop date: 08/27/16 12:15 :00 UNDER BASTER Notes: (Same as: BD Posiflush) Start Date: 07/28/16 Stop Date: 07/28/16 Status: Discontinued Results ELECTROLYTES Most recent to 1 oldest [Reference Range]: Sodium Lvl [135-145 134 mEq/L mEq/L] *LOW* (07/28/16 1:58 PM) Potassium Lvl 4.5 mEq/L [3.5-5.1 mEq/L] (07/28/16 1:58 PM) Chloride Lvl [95-109 93 mEq/L mEq/L] *LOW* (07/28/16 1:58 PM) CO2 [24-32 mEq/L] 30 mEq/L (07/28/16 1:58 PM) AGAP [10.0-20.0 15.5 mEq/L mEq/L] (07/28/16 1:58 PM) CHEM PANEL Most recent to 1 oldest [Reference Range]: Creatinine Lvl 6.30 mg/dL [0.50-1.40 mg/dL] *HI* (07/28/16 1:58 PM) eGFR 9 mL/min/1.73m2 1 *NA* (07/28/16 1:58 PM) BUN [7-22 mg/dL] 25 mg/dL *HI* (07/28/16 1:58 PM) B/C Ratio [6-25] 4 *LOW* (07/28/16 1:58 PM) Glucose Lvl [70-99 293 mg/dL mg/dL] *HI* (07/28/16 1:58 PM) Total Protein 9.0 g/dL [6.4-8.4 g/dL] *HI* (07/28/16 1:58 PM) Albumin Lvl [3.5-5.0 3.4 g/dL g/dL] *LOW* (07/28/16 1:58 PM) Globulin [2.7-4.2 5.6 g/dL g/dL] *HI* (07/28/16 1:58 PM) A/G Ratio [0.7-1.6] 0.6 *LOW* (07/28/16 1:58 PM) Calcium Lvl 9.6 mg/dL [8.5-10.5 mg/dL] (07/28/16 1:58 PM) ALT [0-65 unit/L] 37 unit/L (07/28/16 1:58 PM) AST [0-37 unit/L] 39 unit/L *HI* (07/28/16 1:58 PM) Alk Phos [39-136 111 unit/L unit/L] (07/28/16 1:58 PM) Bili Total [0.2-1.3 0.4 mg/dL mg/dL] (07/28/16 1:58 PM) 1Result Comment: The eGFR is calculated using [...] be mul tiplied by the estimated BMI. URINE AND STOOL Most recent to 1 oldest [Reference Range]: UA Turbidity [Clear] Cloudy *ABN* (07/28/16 1:59 PM) UA Color [Yellow] Red *ABN* (07/28/16 1:59 PM) UA pH [5.0-8.0] 6.0 (07/28/16 1:59 PM) UA Spec Grav >=1.030 [<=1.030] *ABN* (07/28/16 1:59 PM) UA Glucose [Negative >=1000 mg/dL mg/dL] *ABN* (07/28/16 1:59 PM) UA Blood [Negative] Large *ABN* (07/28/16 1:59 PM) UA Ketones Trace [Negative] *ABN* (07/28/16 1:59 PM) UA Protein [Negative >=300 mg/dL mg/dL] *ABN* (07/28/16 1:59 PM) UA Urobilinogen 0.2 EU/dL [0.1-1.0 EU/dL] (07/28/16 1:59 PM) UA Bili [Negative] Small *ABN* (07/28/16 1:59 PM) UA Leuk Est Trace [Negative] *ABN* (07/28/16 1:59 PM) UA Nitrite Negative [Negative] (07/28/16 1:59 PM) UA WBC [0-5 /HPF] 3-5 /HPF (07/28/16 1:59 PM) UA RBC [0-2 /HPF] >100 /HPF *ABN* (07/28/16 1:59 PM) UA Bacteria [None Occasional /HPF Seen /HPF] (07/28/16 1:59 PM) UA Sq Epi [Few /LPF] Occasional /LPF 1 (07/28/16 1:59 PM) 1Result Comment: Microscopic done on unspun specimen due to <1 ml urine received. HEMATOLOGY Most recent to 1 oldest [Reference Range]: WBC [3.7-10.4 K/CMM] 12.1 K/CMM *HI* (07/28/16 1:58 PM) RBC [4.70-6.10 4.69 M/CMM M/CMM] *LOW* (07/28/16 1:58 PM) Hgb [14.0-18.0 g/dL] 13.8 g/dL *LOW* (07/28/16 1:58 PM) Hct [42.0-54.0 %] 43.3 % (07/28/16 1:58 PM) MCV [80.0-94.0 fL] 92.2 fL (07/28/16 1:58 PM) MCH [27.0-31.0 pg] 29.5 pg (07/28/16 1:58 PM) MCHC [32.0-36.0 31.9 g/dL g/dL] *LOW* (07/28/16 1:58 PM) RDW [11.5-14.5 %] 14.5 % (07/28/16 1:58 PM) Platelet [133-450 269 K/CMM K/CMM] (07/28/16 1:58 PM) MPV [7.4-10.4 fL] 7.5 fL (07/28/16 1:58 PM) Segs [45.0-75.0 %] 76.0 % *HI* (07/28/16 1:58 PM) Lymphocytes 9.8 % [20.0-40.0 %] *LOW* (07/28/16 1:58 PM) Monocytes [2.0-12.0 11.1 % %] (07/28/16 1:58 PM) Eosinophils [0.0-4.0 1.9 % %] (07/28/16 1:58 PM) Basophils [0.0-1.0 1.2 % %] *HI* (07/28/16 1:58 PM) Segs-Bands # 9.2 K/CMM [1.5-8.1 K/CMM] *HI* (07/28/16 1:58 PM) Lymphocytes # 1.2 K/CMM [1.0-5.5 K/CMM] (07/28/16 1:58 PM) Monocytes # [0.0-0.8 1.3 K/CMM K/CMM] *HI* (07/28/16 1:58 PM) Eosinophils # 0.2 K/CMM [0.0-0.5 K/CMM] (07/28/16 1:58 PM) Basophils # [0.0-0.2 0.2 K/CMM K/CMM] (07/28/16 1:58 PM) RBC Morph Normal (07/28/16 1:58 PM) Plt Morph Normal (07/28/16 1:58 PM) PT [12.0-14.7 13.1 seconds seconds] (07/28/16 1:58 PM) INR [0.85-1.17] 0.97 (07/28/16 1:58 PM) PTT [22.9-35.8 30.1 seconds seconds] (07/28/16 1:58 PM) Immunizations Given and Recorded Vaccine Date Status Refusal Reason Hx influenza vaccine-unspecified1 07/09/13 Given influenza virus vaccine, inactivated2 08/10/10 Given influenza virus vaccine, inactivated3 08/05/09 Given influenza virus vaccine, inactivated4 06/15/09 Given influenza virus vaccine, inactivated5 07/14/08 Given pneumococcal 23-valent vaccine 03/22/13 Given 1Result Comment: done @ dialysis. Migrated from OBS ; Data migrated from [employer] on 10/27/2015. 2Result Comment: fluvirin preservative free (>3 yrs.) [[id number]]. Migrated from OBS ; Data migrated from [employer] on 10/27/2015. 3Result Comment: fluvirin preservative free (>3 yrs.) [[id number]]. Migrated from OBS ; Data migrated from [employer] on 10/27/2015. 4Result Comment: fluvirin preservative free (>3 yrs.) [[id number]]. Migrated from OBS ; Data migrated from [employer] on 10/27/2015. 5Result Comment: fluvirin preservative free (>3 yrs.) [[id number]]. Migrated from OBS ; Data migrated from [employer] on 10/27/2015. Procedures Procedure Date Related Diagnosis Body Site Colonoscopy1 01/29/14 Amputation great toe2 AV - Creation of arteriovenous fistula Cataract extraction and insertion of intraocular lens 1polyps, repeat in 3 years 2left foot Social History Social History Type Response Substance Abuse Use: None. Exercise Exercise duration: 15. Exercise frequency: 1-2 times/week. Self assessment: Fair condition. Exercise type: Walking. Employment/School Status: Disabled due to ESRD on HD. Alcohol Never Smoking Status Never smoker; Exposure to Tobacco Smoke None; Cigarette Smoking Last 365 Days No; Reg Smoking Cessation Counseling No Assessment and Plan No data available for this section
--- OUTSIDE RECORDS SUMMARY | 2018-12-28 11:09 | XMS REPORT | Summary of Care ---
Author Organization Unknown Address Unknown Phone Unavailable Encounter HQ Steffany(TEOFILO) [id number] Date(s): 03/04/15 - 03/05/15 [facility] [address] [place] [address]- [phone] Discharge Diagnosis: Hydronephrosis Discharge Diagnosis: Nephrolithiasis Discharge Disposition: Home Physician Attending: Yamilex Julian MD Vital Signs 1 2 3 Most recent to oldest [Reference Range]: 167.64 cm (03/04/15 9:21 PM) Height 97.8 DegF (03/05/15 5:02 AM) 97.8 DegF (03/05/15 3:50 AM) 97.8 DegF (03/04/15 9:21 PM) Temperature Oral [96.4-99.1 DegF] 148/77 mmHg *HI* (03/05/15 5:02 AM) 158/75 mmHg *HI* (03/05/15 3:50 AM) 158/72 mmHg *HI* (03/05/15 1:30 AM) Blood Pressure [90-140/60-90 mmHg] 18 BRMIN (03/05/15 5:02 AM) 18 BRMIN (03/05/15 3:50 AM) 18 BRMIN (03/05/15 1:30 AM) Respiratory Rate [14-20 BRMIN] 76 bpm (03/05/15 5:02 AM) 78 bpm (03/05/15 3:50 AM) 77 bpm (03/05/15 1:30 AM) Peripheral Pulse Rate [60-100 bpm] 81.818 kg (03/04/15 9:21 PM) Weight 29.11 m2 (03/04/15 9:21 PM) Body Mass Index Problem List Condition Effective Dates Status Health Status Informant 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1 Body mass index 30+ 01/06/14 Active - obesity2 Congestive 03/20/13 Active cardiomyopathy3 CRI (chronic renal Active insufficiency)(Confi rmed) CVA (cerebral 2007 Resolved vascular accident)(Confirmed) Diabetic renal 03/20/13 Active disease4 DM - Diabetes Active mellitus(Confirmed) End stage renal 04/05/13 Active disease5 ESRD - End stage Active renal disease(Confirmed) Hemodialysis-associa 04/29/13 Active manju hypotension6 Hyperlipidemia(Confi Active rmed) Hypertension(Confirm Active ed) 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 2Data migrated from [employer] on 02/21/15. 3Data migrated from [employer] on 02/21/15. 4Data migrated from [employer] on 02/21/15. 5Data migrated from [employer] on 02/21/15. 6Data migrated from [employer] on 02/21/15. 7Data migrated from [employer] on 02/21/15. 8Data migrated from [employer] on 02/21/15. 9Data migrated from [employer] on 02/21/15. 10Data migrated from [employer] on 02/21/15. 11Data migrated from [employer] on 02/24/15. 12Data migrated from [employer] on 02/24/15. 13Data migrated from [employer] on 02/24/15. Allergies, Adverse Reactions, Alerts Substance Reaction Severity Status NKDA Active Medications Flomax 0.4 mg oral capsule 0.4 mg=1 cap, PO, Daily, # 14 cap, 0 Refill(s) Start Date: 03/05/15 Stop Date: 03/19/15 Status: Ordered morphine Sulfate 4 mg, Route: IVP, Drug form: INJ, ONCE, Dosing Weight 81.818, kg, Priority: STAT , Start date: 03/05/15 1:39:00, Stop date: 03/05/15 1:39:00 Start Date: 03/05/15 Stop Date: 03/05/15 Status: Completed Zofran 4 mg, Route: IVP, Drug form: INJ, ONCE, Dosing Weight 81.818, kg, Priority: STAT , Start date: 03/05/15 1:39:00, Stop date: 03/05/15 1:39:00 Start Date: 03/05/15 Stop Date: 03/05/15 Status: Completed Zofran ODT 4 mg oral tablet, disintegrating 4 mg=1 tab, PO, TID, Dissolve tab under tongue, X 3 day, # 15 tab, 0 Refill(s) Special Instructions: Dissolve tab under tongue Start Date: 03/05/15 Stop Date: 03/08/15 Status: Ordered Results ELECTROLYTES Most recent to 1 oldest [Reference Range]: Sodium Lvl [135-145 137 mEq/L mEq/L] (03/04/15 10:05 PM) Potassium Lvl 5.5 mEq/L [3.5-5.1 mEq/L] *HI* (03/04/15 10:05 PM) Chloride Lvl [95-109 104 mEq/L mEq/L] (03/04/15 10:05 PM) CO2 [24-32 mEq/L] 21 mEq/L *LOW* (03/04/15 10:05 PM) AGAP [10.0-20.0 17.5 mEq/L mEq/L] (03/04/15 10:05 PM) CHEM PANEL Most recent to 1 oldest [Reference Range]: Creatinine Lvl 8.6 mg/dL [0.5-1.4 mg/dL] *HI* (03/04/15 10:05 PM) eGFR 6 mL/min/1.73m2 1 *NA* (03/04/15 10:05 PM) BUN [7-22 mg/dL] 49 mg/dL *HI* (03/04/15 10:05 PM) B/C Ratio [6-25] 6 (03/04/15 10:05 PM) Glucose Lvl [70-99 170 mg/dL 2 mg/dL] *HI* (03/04/15 10:05 PM) Total Protein 8.5 g/dL [6.4-8.4 g/dL] *HI* (03/04/15 10:05 PM) Albumin Lvl [3.5-5.0 4.1 g/dL g/dL] (03/04/15 10:05 PM) Globulin [2.0-4.0 4.4 g/dL g/dL] *HI* (03/04/15 10:05 PM) A/G Ratio [0.7-1.6] 0.9 (03/04/15 10:05 PM) Calcium Lvl 9.3 mg/dL [8.5-10.5 mg/dL] (03/04/15 10:05 PM) ALT [0-65 unit/L] 47 unit/L (03/04/15 10:05 PM) AST [0-37 unit/L] 19 unit/L (03/04/15 10:05 PM) Alk Phos [39-136 92 unit/L unit/L] (03/04/15 10:05 PM) Bili Total [0.2-1.3 0.4 mg/dL mg/dL] (03/04/15 10:05 PM) Lipase Lvl [73-393 267 unit/L unit/L] (03/04/15 8:05 PM) 1Result Comment: The eGFR is calculated [...] be mul tiplied by the estimated BMI. 2Interpretive Data: Adult reference range values reflect the clinical guidelines of the [place] [employer]. URINE AND STOOL Most recent to 1 oldest [Reference Range]: UA Turbidity [Clear] Clear (03/04/15 9:29 PM) UA Color Ltyellow *NA* (03/04/15 9:29 PM) UA pH [5.0-8.0] 7.0 (03/04/15 9:29 PM) UA Spec Grav 1.008 [<=1.030] (03/04/15 9:29 PM) UA Glucose [Negative 500 mg/dL mg/dL] *ABN* (03/04/15 9:29 PM) UA Blood [Negative] Small *ABN* (03/04/15 9:29 PM) UA Ketones [Negative Negative mg/dL mg/dL] *NA* (03/04/15 9:29 PM) UA Protein [Negative 100 mg/dL mg/dL] *ABN* (03/04/15 9:29 PM) UA Urobilinogen <=1.0 mg/dL [0.1-1.0 mg/dL] *NA* (03/04/15 9:29 PM) UA Bili [Negative] Negative *NA* (03/04/15 9:29 PM) UA Leuk Est Negative [Negative] (03/04/15 9:29 PM) UA Nitrite Negative [Negative] (03/04/15 9:29 PM) UA WBC [0-5 /HPF] 1 /HPF (03/04/15 9:29 PM) UA RBC [0-2 /HPF] 6 /HPF *HI* (03/04/15 9:29 PM) UA Bacteria [None Occasional /HPF Seen /HPF] *NA* (03/04/15 9:29 PM) UA Sq Epi [Few /LPF] Occasional /LPF *NA* (03/04/15 9:29 PM) HEMATOLOGY Most recent to 1 oldest [Reference Range]: WBC [3.7-10.4 K/CMM] 10.8 K/CMM *HI* (03/04/15 10:05 PM) RBC [4.70-6.10 4.15 M/CMM M/CMM] *LOW* (03/04/15 10:05 PM) Hgb [14.0-18.0 g/dL] 12.6 g/dL *LOW* (03/04/15 10:05 PM) Hct [42.0-54.0 %] 37.1 % *LOW* (03/04/15 10:05 PM) MCV [80.0-94.0 fL] 89.4 fL (6/10/15 10:05 PM) MCH [27.0-31.0 pg] 30.3 pg (03/04/15 10:05 PM) MCHC [32.0-36.0 33.8 g/dL g/dL] (03/04/15 10:05 PM) RDW [11.5-14.5 %] 14.3 % (03/04/15 10:05 PM) Platelet [133-450 280 K/CMM K/CMM] (03/04/15 10:05 PM) MPV [7.4-10.4 fL] 7.8 fL (03/04/15 10:05 PM) Segs [45.0-75.0 %] 82.3 % *HI* (03/04/15 10:05 PM) Lymphocytes 9.4 % [20.0-40.0 %] *LOW* (03/04/15 10:05 PM) Monocytes [2.0-12.0 4.9 % %] (03/04/15 10:05 PM) Eosinophils [0.0-4.0 2.5 % %] (03/04/15 10:05 PM) Basophils [0.0-1.0 0.9 % %] (03/04/15 10:05 PM) Segs-Bands # 8.9 K/CMM [1.5-8.1 K/CMM] *HI* (03/04/15 10:05 PM) Lymphocytes # 1.0 K/CMM [1.0-5.5 K/CMM] (03/04/15 10:05 PM) Monocytes # [0.0-0.8 0.5 K/CMM K/CMM] (03/04/15 10:05 PM) Eosinophils # 0.3 K/CMM [0.0-0.5 K/CMM] (03/04/15 10:05 PM) Basophils # [0.0-0.2 0.1 K/CMM K/CMM] (03/04/15 10:05 PM) Immunizations Vaccine Date Refusal Reason pneumococcal 23-valent vaccine 03/22/13 Procedures Procedure Date Related Diagnosis Body Site Amputation of the foot Cataract extraction and insertion of intraocular lens Insertion of stent into arteriovenous fistula Social History Social History Type Response Smoking Status Former smoker; Exposure to Tobacco Smoke None; Cigarette Smoking Last 365 Days No; Reg Smoking Cessation Counseling No Assessment and Plan No data available for this section
--- OUTSIDE RECORDS SUMMARY | 2018-12-28 11:09 | XMS REPORT | CCD ---
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 Name Role Phone JayVamshi khan Paula CP Allergies, Adverse Reactions, Alerts Substance Reaction Status NKDA Active Problem List Condition Effective Dates Status CRI (chronic renal insufficiency) Active CVA (cerebral vascular accident) 2006 Resolved DM - Diabetes mellitus Active ESRD - End stage renal disease Active Hyperlipidemia Active Hypertension Active Medications Medication Instructions Start Date End Date Status nitroglycerin 2% 0.5 inch, Route: TOP, Drug Form: 11/04/2013 11/04/2013 Completed ointment OINT, Dosing Weight 73, kg, ONCE, STAT, Start date: 11/04/13 22:13:00, Stop date: 11/04/13 22:13:001 gram is approximately 1 inch of nitroglycerin ointment (20 mg NTG per gram) (Same as:Nitro-Bid) simvastatin 10 mg 10 mg=1 tab, PO, Bedtime, # 30 tab, 11/05/2013 Ordered oral tablet 0 Refill(s) predniSONE 20 mg 60 mg=3 tab, PO, Daily, Take 3 11/05/2013 11/05/2013 Discontinued oral tablet tablets for 60 mg dose, # 15 tab, 0 Refill(s) Take 3 tablets for 60 mg dose nitroglycerin 0.4 mg 0.4 mg, 1 tab, Route: SL, Drug 11/05/2013 11/05/2013 Discontinued sublingual tablet form: TAB, Q5Min, PRN Chest Pain, Start date: 11/05/13 14:20:00, Duration: 30 day, Stop date: 12/05/13 15:19:00(Same as:Nitroquick, Nitrostat)"Do Not Crush" Sublingual tablet atropine 0.5 mg, 5 mL, Route: IVP, Drug 11/05/2013 11/05/2013 Discontinued form: INJ, PRN, PRN Bradycardia, Start date: 11/05/13 14:20:00, Duration: 30 day, Stop date: 12/05/13 15:19:00 Nephro-Jeromy Rx 1 tab, Route: PO, Drug Form: TAB, 11/06/2013 11/05/2013 Canceled Dosing Weight 73, kg, Daily, Start date: 11/06/13 9:00:00, Duration: 30 day, Stop date: 12/05/13 9:00:00(Same as: Nephro-Jeromy Rx and Diatx) Give with food. nitroglycerin SL Tab 0.4 mg, 1 tab, Route: SL, Drug 11/05/2013 11/05/2013 Discontinued form: TAB, Q5Min, Dosing Weight 73, kg, PRN Chest Pain, Start date: 11/05/13 1:19:00, Duration: 3 doses or times, Stop date: Limited # of times(Same as:Nitroquick, Nitrostat)"Do Not Crush" Sublingual tablet Saline Flush 0.9% 5 ml, Route: IVP, Drug Form: INJ, 11/05/2013 11/05/2013 Discontinued Dosing Weight 73, kg, Q12H, Start date: 11/05/13 9:00:00, Duration: 30 day, Stop date: 12/04/13 21:00:00(Same as: BD Posiflush) Saline Flush 0.9% 5 ml, Route: IVP, Drug Form: INJ, 11/05/2013 11/05/2013 Discontinued Dosing Weight 73, kg, PRN, PRN Line Flush, Start date: 11/05/13 1:19:00, Duration: 30 day, Stop date: 12/05/13 2:18:00(Same as: BD Posiflush) aspirin 325 mg 325 mg, 1 tab, Route: PO, Drug 11/05/2013 11/05/2013 Ordered tablet form: TAB, ONCE, Dosing Weight 73, kg, Start date: 11/05/13 1:19:00, Stop date: 11/05/13 1:19:00Take with food. Norvasc 10 mg oral 10 mg=1 tab, PO, Daily, # 30 tab, 0 11/05/2013 Ordered tablet Refill(s) insulin aspart 2 unit, 0.02 mL, Route: SUB-Q, Drug 11/05/2013 11/05/2013 Discontinued form: SOLN, Sliding Scale, Dosing Weight 73, kg, PRN Blood Glucose Results, Start date: 11/05/13 1:19:00, Duration: 30 day, Stop date: 12/05/13 2:18:00Roll in palms of hands gently; Do not shake vigorously. (Same as: NovoLOG)"single patient use only" Stable for 28 days at room temperature.Expires in days from Date insulin aspart 4 unit, 0.04 mL, Route: SUB-Q, Drug 11/05/2013 11/05/2013 Discontinued form: SOLN, Sliding Scale, Dosing Weight 73, kg, PRN Blood Glucose Results, Start date: 11/05/13 1:19:00, Duration: 30 day, Stop date: 12/05/13 2:18:00Roll in palms of hands gently; Do not shake vigorously. (Same as: NovoLOG)"single patient use only" Stable for 28 days at room temperature.Expires in days from Date insulin aspart 8 unit, 0.08 mL, Route: SUB-Q, Drug 11/05/2013 11/05/2013 Discontinued form: SOLN, Sliding Scale, Dosing Weight 73, kg, PRN Blood Glucose Results, Start date: 11/05/13 1:19:00, Duration: 30 day, Stop date: 12/05/13 2:18:00Roll in palms of hands gently; Do not shake vigorously. (Same as: NovoLOG)"single patient use only" Stable for 28 days at room temperature.Expires in days from Date insulin aspart 6 unit, 0.06 mL, Route: SUB-Q, Drug 11/05/2013 11/05/2013 Discontinued form: SOLN, Sliding Scale, Dosing Weight 73, kg, PRN Blood Glucose Results, Start date: 11/05/13 1:19:00, Duration: 30 day, Stop date: 12/05/13 2:18:00Roll in palms of hands gently; Do not shake vigorously. (Same as: NovoLOG)"single patient use only" Stable for 28 days at room temperature.Expires in days from Date insulin aspart 10 unit, 0.1 mL, Route: SUB-Q, Drug 11/05/2013 11/05/2013 Discontinued form: SOLN, Sliding Scale, Dosing Weight 73, kg, PRN Blood Glucose Results, Start date: 11/05/13 1:19:00, Duration: 30 day, Stop date: 12/05/13 2:18:00Roll in palms of hands gently; Do not shake vigorously. (Same as: NovoLOG)"single patient use only" Stable for 28 days at room temperature.Expires in days from Date Dextrose 50% Syringe 12.5 gm, 25 mL, Route: IVP, Drug 11/05/2013 11/05/2013 Discontinued Form: INJ, Dosing Weight 73, kg, PRN, PRN Blood Glucose Results, Start date: 11/05/13 1:19:00, Duration: 30 day, Stop date: 12/05/13 2:18:00 Dextrose 50% Syringe 25 gm, 50 mL, Route: IVP, Drug 11/05/2013 11/05/2013 Discontinued Form: INJ, Dosing Weight 73, kg, PRN, PRN Blood Glucose Results, Start date: 11/05/13 1:19:00, Duration: 30 day, Stop date: 12/05/13 2:18:00 glucagon 1 mg, Route: IM, Drug form: 11/05/2013 11/05/2013 Discontinued PDR/INJ, PRN, Dosing Weight 73, kg, PRN Blood Glucose Results, Start date: 11/05/13 1:19:00, Duration: 30 day, Stop date: 12/05/13 2:18:00 pneumococcal 0.5 ml, Route: IM, Drug Form: INJ, 03/22/2013 03/22/2013 Completed 23-valent vaccine Start date: 03/22/13 9:00:00, Stop date: 03/22/13 9:00:00 aspirin 324 mg, 4 tab, Route: PO, Drug 11/04/2013 11/04/2013 Completed form: CHEWTAB, ONCE, Dosing Weight 73, kg, Priority: STAT, Start date: 11/04/13 21:46:00, Stop date: 11/04/13 21:46:00Take with food. Saline Flush 0.9% 5 mL, Route: IVP, Drug Form: INJ, 11/04/2013 11/05/2013 Discontinued Dosing Weight 73, kg, Q8H, PRN Line Flush, Start date: 11/04/13 21:46:00, Duration: 30 day, Stop date: 12/04/13 21:45:00, Administer at least once every 8 hours Administer at least once every 8 hours(Same as: BD Posiflush) Immunizations Vaccine Date Status pneumococcal 23-valent vaccine 03/22/2013 Auth (Verified) Vital Signs Most recent to oldest [Reference Range]: 1 2 3 Height 167.64 cm (11/04/2013 21:07:00) Temperature Oral [96.4-99.1 DegF] 97.9 DegF (11/05/2013 08:49:00) 98.8 DegF (11/05/2013 04:01:00) 98.3 DegF (11/04/2013 21:07:00) Systolic Blood Pressure [90-140 mmHg] 164 mmHg *HI* (11/05/2013 17:58:00) 157 mmHg *HI* (11/05/2013 15:46:00) 152 mmHg *HI* (11/05/2013 14:45:00) Diastolic Blood Pressure [60-90 mmHg] 83 mmHg (11/05/2013 17:58:00) 93 mmHg *HI* (11/05/2013 15:46:00) 78 mmHg (11/05/2013 14:45:00) Respiratory Rate [14-20 BRMIN] 24 BRMIN *HI* (11/05/2013 17:58:00) 17 BRMIN (11/05/2013 15:46:00) 15 BRMIN (11/05/2013 08:49:00) Peripheral Pulse Rate [60-100 bpm] 105 bpm *HI* (11/05/2013 14:45:00) 80 bpm (11/05/2013 05:47:00) 84 bpm (11/05/2013 04:01:00) Weight 73 kg (11/04/2013 21:07:00) Results BEDSIDE GLUCOSE TESTING Most recent to oldest [Reference Range]: 1 2 3 Glucose POC [70-99 mg/dL] 326 mg/dL 1 *HI* (11/05/2013 15:35:00) 164 mg/dL 2 *HI* (11/05/2013 09:14:00) 223 mg/dL 3 *HI* (11/05/2013 05:08:00) Gluc POC Comment 1 Notified RN/MD *NA* (11/05/2013 05:08:00) 1Interpretive Data: Upper Reportable Limit: 200 mg/dL. 2Interpretive Data: Upper Reportable Limit: 200 mg/dL. 3Interpretive Data: Upper Reportable Limit: 200 mg/dL. URINALYSIS Most recent to oldest [Reference Range]: 1 2 3 UA Turbidity [Clear] Clear (11/05/2013 03:00:36) UA Color Ltyellow *NA* (11/05/2013 03:00:36) UA pH [5.0-8.0] 7.0 (11/05/2013 03:00:36) UA Spec Grav [<=1.030] 1.009 (11/05/2013 03:00:36) UA Glucose [Negative mg/dL] 500 mg/dL *ABN* (11/05/2013 03:00:36) UA Blood [Negative] Small *ABN* (11/05/2013 03:00:36) UA Ketones [Negative mg/dL] Negative mg/dL *NA* (11/05/2013 03:00:36) UA Protein [Negative mg/dL] >=300 mg/dL *ABN* (11/05/2013 03:00:36) UA Urobilinogen [0.1-1.0 mg/dL] <=1.0 mg/dL *NA* (11/05/2013 03:00:36) UA Bili [Negative] Negative *NA* (11/05/2013 03:00:36) UA Leuk Est [Negative] Negative (11/05/2013 03:00:36) UA Nitrite [Negative] Negative (11/05/2013 03:00:36) UA WBC [0-5 /HPF] <1 /HPF (11/05/2013 03:00:36) UA RBC [0-2 /HPF] 2 /HPF (11/05/2013 03:00:36) UA Sq Epi [Few /LPF] Occasional /LPF *NA* (11/05/2013 03:00:36) UA Hyal Cast [0-2 /LPF] 2 /LPF (11/05/2013 03:00:36) CHEMISTRY Most recent to oldest [Reference Range]: 1 2 3 Sodium Lvl [135-145 mEq/L] 143 mEq/L (11/05/2013:29:00) 138 mEq/L (11/04/2013 23:00:00) Potassium Lvl [3.5-5.1 mEq/L] 3.9 mEq/L (11/05/201329:00) 3.7 mEq/L (11/04/2013:00:00) Chloride Lvl [95-109 mEq/L] 104 mEq/L (11/05/2013::00) 101 mEq/L (11/04/2013 23:00:00) CO2 [24-32 mEq/L] 28 mEq/L (11/05/2013:29:00) 26 mEq/L (11/04/2013 23:00:00) AGAP [10.0-20.0 mEq/L] 14.9 mEq/L (11/05/201329:00) 14.7 mEq/L (11/04/2013 23:00:00) Creatinine Lvl [0.5-1.4 mg/dL] 3.6 mg/dL *HI* (11/05/201329:00) 7.1 mg/dL *HI* (11/04/2013:00:00) eGFR 18 mL/min/1.73m2 4 *NA* (11/05/201329:00) 8 mL/min/1.73m2 5 *NA* (11/04/2013 23:00:00) BUN [7-22 mg/dL] 19 mg/dL (11/05/2013:29:00) 49 mg/dL *HI* (11/04/2013 23:00:00) B/C Ratio [6-25] 7 (11/04/2013 23:00:00) Glucose Lvl [70-99 mg/dL] 187 mg/dL 6 *HI* (11/05/2013:29:00) 264 mg/dL 7 *HI* (11/04/2013:00:00) Total Protein [6.4-8.4 g/dL] 7.4 g/dL (11/04/2013:00:00) Albumin Lvl [3.5-5.0 g/dL] 3.5 g/dL (11/04/2013:00:00) Globulin [2.0-4.0 g/dL] 3.9 g/dL (11/04/2013:00:00) A/G Ratio [0.7-1.6] 0.9 (11/04/2013:00:00) Calcium Lvl [8.5-10.5 mg/dL] 9.1 mg/dL (11/05/201329:00) 9.4 mg/dL (11/04/2013:00:00) Phosphorus [2.5-4.5 mg/dL] 3.4 mg/dL (11/04/2013:00:00) Magnesium Lvl [1.8-2.4 mg/dL] 2.2 mg/dL (11/04/2013:00:00) ALT [0-65 unit/L] 29 unit/L (11/04/2013:00:00) AST [0-37 unit/L] 18 unit/L (11/04/2013:00:00) Alk Phos [39-136 unit/L] 193 unit/L *HI* (11/04/2013:00:00) Bili Total [0.2-1.3 mg/dL] 0.3 mg/dL (11/04/2013 23:00:00) Total CK [12-191 unit/L] 183 unit/L (11/05/2013 10:00:00) 182 unit/L (11/05/2013 04:50:00) 253 unit/L *HI* (11/04/2013 23:00:00) CK MB [0.5-3.6 ng/mL] 2.4 ng/mL (11/05/2013 10:00:00) 2.2 ng/mL (11/05/2013 04:50:00) 3.0 ng/mL (11/04/2013 23:00:00) CK MB Index [0.0-2.5] 1.3 (11/05/2013 10:00:00) 1.2 (11/05/2013 04:50:00) 1.2 (11/04/2013 23:00:00) Troponin-I [0.00-0.40 ng/mL] 0.04 ng/mL (11/05/2013 10:00:00) 0.03 ng/mL (11/05/2013 04:50:00) 0.04 ng/mL (11/04/2013 23:00:00) BNP [<=100 pg/mL] 236 pg/mL 8 *HI* (11/04/2013 23:00:00) CHD Risk [4.00-7.30] 7.51 *HI* (11/05/2013 04:50:00) Chol [<=199 mg/dL] 278 mg/dL *HI* (11/05/2013 04:50:00) Trig [<=149 mg/dL] 440 mg/dL *HI* (11/05/2013 04:50:00) HDL [>=61 mg/dL] 37 mg/dL *LOW* (11/05/2013 04:50:00) LDL (Calculated) [<=99 mg/dL] See Note mg/dL 9 *NA* (11/05/2013 04:50:00) Hgb A1C [<=5.6 %] 8.3 % *HI* (11/05/2013 14:29:00) 4Result Comment: The eGFR is calculated using [...] be mul tiplied by the estimated BMI. 6Interpretive Data: Adult reference range values reflect the clinical guidelines of the [place] [employer]. 7Interpretive Data: Adult reference range values reflect the clinical guidelines of the [place] [employer]. 8Interpretive Data: Elevated results are in line with increasing severity of congestive heart failure. Minor elevations between 100 and 300 may be seen with Myocardial Ischemia, Sodium retaining drugs, and compensated/treated heart failure. 9Result Comment: LDL cholesterol cannot be calculated due to very high triglycerides (>400 mg/dL). Recommend Direct LDL if clinically indicated. HEMATOLOGY Most recent to oldest [Reference Range]: 1 2 3 WBC [3.7-10.4 K/CMM] 8.6 K/CMM (11/05/2013 14:29:00) 8.2 K/CMM (11/05/2013 04:50:00) 7.9 K/CMM (11/04/2013 23:00:00) RBC [4.70-6.10 M/CMM] 4.47 M/CMM *LOW* (11/05/2013 14:29:00) 3.96 M/CMM *LOW* (11/05/2013 04:50:00) 4.03 M/CMM *LOW* (11/04/2013 23:00:00) Hgb [14.0-18.0 g/dL] 13.4 g/dL *LOW* (11/05/2013:29:00) 11.9 g/dL *LOW* (11/05/2013:50:00) 12.3 g/dL *LOW* (11/04/2013 23:00:00) Hct [42.0-54.0 %] 40.1 % *LOW* (11/05/2013:29:00) 35.3 % *LOW* (11/05/2013:50:00) 36.3 % *LOW* (11/04/2013 23:00:00) MCV [80.0-94.0 fL] 89.8 fL (11/05/2013:29:00) 89.3 fL (11/05/2013:50:00) 90.0 fL (11/04/2013 23:00:00) MCH [27.0-31.0 pg] 30.1 pg (11/05/2013:29:00) 30.2 pg (11/05/2013:50:00) 30.4 pg (11/04/2013 23:00:00) MCHC [32.0-36.0 g/dL] 33.5 g/dL (11/05/2013:29:00) 33.8 g/dL (11/05/2013:50:00) 33.8 g/dL (11/04/2013 23:00:00) RDW [11.5-14.5 %] 14.1 % (11/05/2013:29:00) 14.2 % (11/05/2013:50:00) 14.4 % (11/04/2013 23:00:00) Platelet [133-450 K/CMM] 291 K/CMM (11/05/2013:29:00) 256 K/CMM (11/05/2013:50:00) 273 K/CMM (11/04/2013 23:00:00) MPV [7.4-10.4 fL] 7.0 fL *LOW* (11/05/2013:29:00) 7.3 fL *LOW* (11/05/2013 04:50:00) 7.4 fL (11/04/2013 23:00:00) Segs [45.0-75.0 %] 71.8 % (11/05/2013 14:29:00) 62.9 % (11/05/2013 04:50:00) 63.6 % (11/04/2013 23:00:00) Lymphocytes [20.0-40.0 %] 16.8 % *LOW* (11/05/2013 14:29:00) 21.8 % (11/05/2013 04:50:00) 23.1 % (11/04/2013 23:00:00) Monocytes [2.0-12.0 %] 7.0 % (11/05/2013 14:29:00) 8.9 % (11/05/2013 04:50:00) 6.8 % (11/04/2013 23:00:00) Eosinophils [0.0-4.0 %] 4.0 % (11/05/2013 14:29:00) 6.1 % *HI* (11/05/2013 04:50:00) 6.1 % *HI* (11/04/2013 23:00:00) Basophils [0.0-1.0 %] 0.4 % (11/05/2013 14:29:00) 0.3 % (11/05/2013 04:50:00) 0.4 % (11/04/2013 23:00:00) Segs-Bands # [1.5-8.1 K/CMM] 6.2 K/CMM (11/05/2013 14:29:00) 5.1 K/CMM (11/05/2013 04:50:00) 5.0 K/CMM (11/04/2013 23:00:00) Lymphocytes # [1.0-5.5 K/CMM] 1.4 K/CMM (11/05/2013 14:29:00) 1.8 K/CMM (11/05/2013 04:50:00) 1.8 K/CMM (11/04/2013 23:00:00) Monocytes # [0.0-0.8 K/CMM] 0.6 K/CMM (11/05/2013 14:29:00) 0.7 K/CMM (11/05/2013 04:50:00) 0.5 K/CMM (11/04/2013 23:00:00) Eosinophils # [0.0-0.5 K/CMM] 0.3 K/CMM (11/05/2013 14:29:00) 0.5 K/CMM (11/05/2013 04:50:00) 0.5 K/CMM (11/04/2013 23:00:00) Basophils # [0.0-0.2 K/CMM] 0.0 K/CMM (11/05/2013:29:00) 0.0 K/CMM (11/05/2013 04:50:00) 0.0 K/CMM (11/04/2013 23:00:00) PT [12.0-14.7 seconds] 12.7 seconds (11/05/2013:15) 12.6 seconds (11/04/2013:00:00) INR [0.85-1.17] 0.96 10 (11/05/2013:15) 0.95 11 (11/04/2013 23:00:00) PTT [22.9-35.8 seconds] 26.7 seconds 12 (11/04/2013 23:00:00) 10Interpretive Data: RECOMMENDED RANGES FOR PROTIME INR: 2.0-3.0 for most medical and surgical thromboembolic states. 2.5-3.5 for artificial heart valves and recurrent embolism. INR SHOULD BE USED ONLY FOR PATIENTS ON STABLE ANTICOAGULANT THERAPY. 11Interpretive Data: RECOMMENDED RANGES FOR PROTIME INR: 2.0-3.0 for most medical and surgical thromboembolic states. 2.5-3.5 for artificial heart valves and recurrent embolism. INR SHOULD BE USED ONLY FOR PATIENTS ON STABLE ANTICOAGULANT THERAPY. 12Interpretive Data: Heparin Therapeutic Range: 57 - 92 Seconds IMMUNOLOGY Most recent to oldest [Reference Range]: 1 2 3 CDC HIV 4th GEN [Negative] Negative (11/04/2013 23:00:00) Hep Bs Ag [Negative] Negative *NA* (11/05/2013:00:00)
--- OUTSIDE RECORDS SUMMARY | 2018-12-28 11:09 | XMS REPORT | Summary of Care ---
Author Author [facility] Organization [facility] Address Unknown Phone Unavailable Encounter LUÍS Jeter(TEOFILO) [id number] Date(s): 12/09/16 - 12/09/16 [facility] [address] [place] [address]- [phone] Discharge Disposition: Home or Self Care Attending Physician: Tamra Landin MD Referring Physician: Tamra Landin MD Vital Signs No data available for this section Problem List Condition Effective Dates Status Health Status Informant Abdominal Active bloating(Confirmed) 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 Migrated from OBS ; Data migrated from [employer] on 10/27/2015. 3Result Comment: fluvirin preservative free (>3 yrs.) [[id number]]. Migrated from OBS ; Data migrated from [employer] on 10/27/2015. 4Result Comment: fluvirin preservative free (>3 yrs.) [[id number]]. Migrated from OBS ; Data migrated from [employer] on 10/27/2015. 5Result Comment: fluvirin preservative free (>3 yrs.) [[id number]]. Migrated from OBS ; Data migrated from [employer] on 10/27/2015. Procedures Procedure Date Related Diagnosis Body Site Amputation lesser toe1 2016 Echocardiogram2 07/27/16 Myocardial perfusion scan3 07/27/16 Colonoscopy4 [...]
--- OUTSIDE RECORDS SUMMARY | 2018-12-28 11:09 | XMS REPORT ---
Author Author [facility] Address Unknown Phone Unavailable Care Team Providers Care Watch Assembly Inspector Name Role Phone IMANI SCOTT Unavailable Unavailable CALDERON ZARAGOZA Unavailable Unavailable Nuno CANNON Unavailable Unavailable Problems This patient has no known problems. Allergies, Adverse Reactions, Alerts This patient has no known allergies or adverse reactions. Medications This patient has no known medications. Results Test Description Test Time Test Comments Text Results Atomic Results Result Comments PET, CARDIAC PERFUSION MULTIPLE STUDIES, REST AND STRESS 2018-06-13 20:46:00 Reason for Exam:->pretransplant eval FINAL REPORT PROCEDURE: Rest/Stress MYOCARDIAL PERFUSION PET with regadenoson\XA9\ CPT CODE: 20438 INDICATION: Preoperative evaluation for renal transplant, risk strat ification HISTORY: Cardiac risk factors: Diabetes, hypertension, dyslipidemia, [...] Normal extracardiac tracer distribution. 6. No previous [facility] study for comparison. NONINVASIVE RISK STRATIFICATION: The above findings are considered low risk (<1% annual or UT) based on the following criterion:- Normal or small myocardial perfusion defect at rest or with stress encumbering <5% of the myocardium- Normal stress or no change of limited resting wall motion abnormalities during stress(JACC. 2017;69(20):2212- 91.) Signed: Blas Polo MDReport Verified Date/Time: 06/13/2018 20:46:58 Reading Location: [address] Reading Room 2018-06-13 13:57:00 PROSTATE SPECIFIC ANTIGEN (BEAKER) (test nolk=379) 1.2 ng/mL 0.0-4.0 FLOW PRA CLASS I AND [id number] 12:51:00* Test Item Value Reference Range Comments DATE OF SERUM (BEAKER) (test wnur=2236) [id number] SERUM # (BEAKER) (test trkb=4831) [id number] FLOW PRA CLASS I AND II (test dwdg=9797) See Scanned Report FLOW PRA CLASS I AND [id number] 22:17:00* Test Item Value Reference Range Comments DATE OF SERUM (BEAKER) (test fsfl=3109) [id number] SERUM # (BEAKER) (test dbrs=1734) [id number] FLOW PRA CLASS I AND II (test muij=2207) See Scanned Report FLOW PRA CLASS I AND [id number] 10:16:00* Test Item Value Reference Range Comments DATE OF SERUM (BEAKER) (test ntpb=4587) [id number] SERUM # (BEAKER) (test kahn=5965) [id number] FLOW PRA CLASS I AND II (test aeiw=4043) See Scanned Report FLOW PRA CLASS I AND [id number] 09:47:00* Test Item Value Reference Range Comments DATE OF SERUM (BEAKER) (test znot=1318) [id number] SERUM # (BEAKER) (test vizb=9602) [id number] FLOW PRA CLASS I AND II (test keun=7566) See Scanned Report [id number] 09:01:00* Test Item Value Reference Range Comments PROSTATE SPECIFIC ANTIGEN (BEAKER) (test xctb=350) 1.1 ng/mL 0.0-4.0 AB SPECIFICITY CLASS [id number] 13:40:00* Test Item Value Reference Range Comments DATE OF SERUM (BEAKER) (test wdcg=5417) [id number] SERUM # (BEAKER) (test hamm=4603) 55791 AB SPECIFICITY CLASS I (BEAKER) (test stkl=6559) See Scanned Report FLOW PRA CLASS I AND [id number] 07:26:00* Test Item Value Reference Range Comments DATE OF SERUM (BEAKER) (test tble=2671) [id number] SERUM # (BEAKER) (test qtni=4279) 05494 FLOW PRA CLASS I AND II (test vpkr=1950) See Scanned Report MODIFIED BA. SWALLOW [place] [address] Patient Name: Sisi CHAVEZ MR #: [id number] : 1955 Age/Sex: 61/M Req #: [id number] Adm Physician: Ordered by: CALDERON ZARAGOZA MD Report #: [id number] Location: DX Room/Bed: Procedure: [id number] DX/MODIFIED BA. SWALLOW E xam Date: 05/12/17 Exam Time: 0900 REPORT STATU S: Signed PROCEDURE: X-RAY MODIFIED BARIUM SWALLOW COMPARISON: None . INDICATIONS: Not provided. DISCUSSION: Fluoroscopic examinatio n was performed in conjunction with speech pathology, during swallowing of a variety of thin and thick liquid consistencies. The radiologist was in atten dance monitoring the examination. Fluoroscopy time: 1.7 minutes Total dose: 38.46 mGy CONCLUSION: 1. No penetration or aspiration. 2. Evaluation of the distal esophagus shows some dysmotility with tertiary waves of the esophagus. 3. Please see the report from speech pathology for complete details. Pasquale Collier D.O. Dictated by: Pasquale Collire D.O. on 05/12/2017 at 14:44 Electronically approved by: Pasquale Collier D.O. on 05/12/2017 at 14:44 Dictated By: PASQUALE Dutton [facility] Signed By: PASQUALE COLLIER DO on 05/12/17 1444 Transcribed By: MARIANO on 1444 COPY TO: CALDERON ZARAGOZA MD
[2018-12-28 12:59] LABS: BASOPHILS # (AUTO) 0.1 (0.0-0.1); BASOPHILS % 1.1 % (0.0-1.0); EOSINOPHILS # (AUTO) 0.5 (0.0-0.4); EOSINOPHILS % 5.3 % (0.0-6.0); HEMATOCRIT 42.4 % (38.2-49.6); HEMOGLOBIN 13.8 g/dL (14.0-18.0); LYMPHOCYTES # (AUTO) 1.8 (1.0-3.2); LYMPHOCYTES % 20.1 % (18.0-39.1); MEAN CORPUSCULAR HEMOGLOBIN 30.7 pg (28-32); MEAN CORPUSCULAR HGB CONC 32.5 g/dL (31-35); MEAN CORPUSCULAR VOLUME 94.2 fL (81-99); MONOCYTES % 11.5 % (4.4-11.3); NEUTROPHILS # (AUTO) 5.3 (2.1-6.9); NEUTROPHILS % 61.2 % (38.7-80.0); PLATELET COUNT 235 x10e3/uL (140-360); RED CELL DISTRIBUTION WIDTH 12.4 % (11.7-14.4)
== END | disposition home or self-care (01) ==
LOC: RAD 05:00 → OR 12-28 10:55 → EDSTATUS 12-28 11:00
PROVIDERS: ATTEND Internal Medicine Gastroenterology
DX: Z09 Encounter for follow-up examination after completed treatment for conditions other than malignant neoplasm (principal); Z01.810 Encounter for preprocedural cardiovascular examination; Z53.09 Procedure and treatment not carried out because of other contraindication
CPT/HCPCS: 36415; 82948; 84132; 85025; 93005; J7040

== ENCOUNTER → 2019-01-25 | Day surgery (SDC) | payer MEDICARE, BC ==
[~2019-01-25] MED LIST changes: +EPHEDRINE SULFATE INJ 50 MG/10 ML SYR ONE; +HYOSCYAMINE SULFATE 0.5 MG/ML INJ ONE; +KETAMINE HCL INJ 50 MG/ML 10 ML VIAL ONE; +LIDOCAINE HCL 2% LOCAL INJ 5 ML SDV VIAL INJ ONE; +MIDAZOLAM HCL 2 MG/2 ML VIAL ONE; +PROPOFOL IV EMULSION 10 MG/ML 50 ML VIAL ONE
--- OUTSIDE RECORDS SUMMARY | 2019-01-25 07:03 | XMS REPORT | Clinical Summary ---
Author Author KALEY [facility] Address Unknown Phone Unavailable Care Team Providers Care Track Rider Name Role Phone Monserrat Coates MD 3 [...] Description Date Type Specialty Nathalia Muñoz Appointment 01/02/2019 Telephone Transplant Nathalia Muñoz Appointment 12/11/2018 Telephone Transplant Malu Aguila RN Awaiting transplantation of kidney (Primary Dx) 09/26/2018 Orders Only Transplant Lien Pierre MD 06/25/2018 Orders Only Transplant [place] Ponce II, MD Yao, June, MD Patient awaiting renal transplant (Primary Dx) 06/13/2018 Evaluation Transplant France Ponce II, MD Patient awaiting renal transplant; ESRD (end stage renal disease) on dialysis ([facility]) 06/13/2018 Hospital Cardiology Encounter France Ponce II, MD Encounter for preprocedural cardiovascular examination ; Patient awaiting renal transplant; ESRD (end stage renal disease) on dialysis ([facility]) 06/13/2018 Hospital Radiology Encounter Flaca Noel RN 06/06/2018 Orders Only Transplant Roro Sosa 05/14/2018 Documentation Transplant Malu Aguila RN Patient awaiting renal transplant (Primary Dx); ESRD (end stage renal disease) on dialysis ([facility]); Encounter for preprocedural cardiovascular examination 03/06/2018 Documentation Transplant after 01/24/2018 Family History Medical History Relation Name Comments [...] Diagnosis FLOW PRA CLASS II WITH Routine 01/11/2019 Awaiting transplantation REFLEX TO ANTIBODY 1:42 PM CDT of kidney SPECIFICITY FLOW PRA CLASS I WITH Routine 01/11/2019 Awaiting transplantation REFLEX TO ANTIBODY 1:42 PM CDT of kidney SPECIFICITY FLOW PRA CLASS II WITH Routine 09/10/2018 Awaiting transplantation REFLEX TO ANTIBODY 2:59 PM HOTEL CASINO FLOORPERSON of kidney SPECIFICITY ESRD (end stage renal disease) on dialysis ([facility]) FLOW PRA CLASS I WITH Routine 09/10/2018 Awaiting transplantation REFLEX TO ANTIBODY 2:59 PM HOTEL CASINO FLOORPERSON of kidney SPECIFICITY ESRD (end stage renal disease) on dialysis ([facility]) ECHOCARDIOGRAM REPORT - 06/14/2018 SCAN 1:20 PM CDT PSA Routine 06/13/2018 Patient awaiting renal 12:45 PM CDT transplant ESRD (end stage renal disease) on dialysis ([facility]) FLOW PRA CLASS II WITH Routine 06/13/2018 [...] ESRD (end stage renal disease) on dialysis ([facility]) TREADMILL Routine 06/13/2018 TOLERANCE(NON-NUCLEAR 10:52 AM CDT TREADMILL) ECG 12-LEAD Routine 06/13/2018 10:42 AM CDT ECG 12-LEAD Routine 06/13/2018 10:42 AM CDT Procedure Note - Interface, External Ris In - 06/13/2018 11:07 AM CDT Ventricula r Rate 72 BPM Atrial Rate 72 BPM P-R Interval 236 ms QRS Duration 98 ms Q-T Interval 378 ms QTC Calculatio n(Bazett) 413 ms P [place] 71 degrees R [place] 108 degrees T [place] 106 degrees Sinus rhythm with 1st degree A-V block Rightward axis Nonspecifi c T wave abnormalit y Abnormal ECG FLOW PRA CLASS II WITH Routine 06/11/2018 Awaiting transplantation REFLEX TO ANTIBODY 3:51 PM CDT of kidney SPECIFICITY ESRD (end stage renal disease) on dialysis ([facility]) FLOW PRA CLASS I WITH Routine 06/11/2018 Awaiting transplantation REFLEX TO ANTIBODY 3:51 PM CDT of kidney SPECIFICITY ESRD (end stage renal disease) on dialysis ([facility]) FLOW PRA CLASS II WITH Routine 03/09/2018 Awaiting transplantation REFLEX TO ANTIBODY 12:00 PM CDT of kidney SPECIFICITY ESRD (end stage renal disease) on dialysis ([facility]) FLOW PRA CLASS I WITH Routine 03/09/2018 Awaiting transplantation REFLEX TO ANTIBODY 12:00 PM CDT of kidney SPECIFICITY ESRD (end stage renal disease) on dialysis ([facility]) ECHO W CONTRAST & DOPPLER Routine 02/19/2018 ECHO W CONTRAST & DOPPLER Routine 02/19/2018 after 01/24/2018 Results * FLOW PRA CLASS II WITH REFLEX TO ANTIBODY SPECIFICITY (01/11/2019 1:42 PM CDT) Only the most recent of 5 results within the time period is included. Flow Class II Percent 0 [facility] Positive Flow Class Report [facility] Comments Specimen Blood Narrative Performed At Disclaimer: [facility] This test was developed and its performance characteristics determined by the [facility]. It has not been cleared [...] complexity clinical laboratory testing. Performing Organization Address City/State/[facility] Phone Number [facility] ONE Michele Pinzon, MS: [id number], [place] [address] CLIA#[id number] CAP#[id number] UNOS#[id number] * FLOW PRA CLASS I WITH REFLEX TO ANTIBODY SPECIFICITY (01/11/2019 1:42 PM CDT) Only the most recent of 5 results within the time period is included. Flow Class I Percent 0 [facility] Positive Flow Class Report [facility] Comments Specimen Blood Narrative Performed At Disclaimer: [facility] This test was developed and its performance characteristics determined by the [facility]. It has not been cleared [...] complexity clinical laboratory testing. Performing Organization Address City/State/Zipcode Phone Number [facility] Michele Pinzon, MS: [id number], [place] [address] CLIA#[id number] CAP#[id number] UNOS#[id number] * ECHOCARDIOGRAM REPORT - SCAN (06/14/2018 1:20 PM CDT) Narrative Performed At * PSA (06/13/2018 12:45 PM CDT) PSA 1.2 0.0 - 4.0 ng/mL [facility] [place] Specimen Blood Performing Organization Address City/State/Zipcode Phone Number [facility] [address] [place] [address] MEDICAL CENTER * 2D Echo W/Doppler(CW/PW/Color) (06/13/2018 12:13 PM CDT) Ejection Fraction [facility] Specimen Narrative Performed At Transthoracic Echocardiography Report (TTE) [facility] Demographics [facility] Patient Name Corey FLORES of Study 06/13/2018 VIEIAR [id number] GenderMale Visit Number [id number] RaceUnknown [id number] Number op Number Date of1955 Referring Rosario Silvestre Physician Age62 year(s) Design Assistant Karthikeyan Jacobs, NB, RDCS,RVT,RDMS AnalystAlex ZadeInterpretingTristian Lewis MD Physician Procedure Type of Study [...] Name ASHOK FLORES Date of Study 06/13/2018 VIEIRA Gender Male Visit Number [id number] Race Unknown Room Number op Number Date of 1955 Referring Rosario Reina Nirmala Physician Age 62 year(s) Design Assistant Karthikeyan Jacobs, JOSE MIGUEL, RDCS,RVT,RDMS Tool And Machine Maintainer Panchito Sanchez Interpreting Tristian Lewis MD Physician [...] Performing Organization Address City/State/Zipcode Phone Number [facility] myocardial perfusion PET (rest and stress) (06/13/2018 11:12 AM CDT) Specimen Narrative Performed At FINAL REPORT [employer] PROCEDURE: Rest/Stress MYOCARDIAL PERFUSION PET with regadenoson\\XA9\\ CPT CODE: 73030 INDICATION: Preoperative evaluation for renal transplant, risk [...] stress.5. Normal extracardiac tracer distribution.6. No previous [facility] study for comparison. NONINVASIVE RISK STRATIFICATION: The above findings are considered low risk (<1% annual or MS) based on the following criterion: - Normal or small myocardial perfusion defect at rest or with stress encumbering <5% of the myocardium - Normal stress or no change of limited resting wall motion abnormalities during stress (JACC. 2017;69(17):2212-75.) Signed: Aneta Polo MD Report Verified Date/Time:06/13/2018 20:46:58 Reading Location: [address] Reading Room Procedure Note Interface, External Ris In - 06/13/2018 8:49 PM CDT FINAL REPORT PROCEDURE: Rest/Stress MYOCARDIAL PERFUSION PET with regadenoson\\XA9\\ CPT CODE: 10340 INDICATION: Preoperative evaluation for renal transplant, risk [...] Normal extracardiac tracer distribution. 6. No previous [facility] study for comparison. NONINVASIVE RISK STRATIFICATION: The above findings are considered low risk (<1% annual or MS) based on the following criterion: - Normal or small myocardial perfusion defect at rest or with stress encumbering <5% of the myocardium - Normal stress or no change of limited resting wall motion abnormalities during stress (JACC. 2017;69(17):3432-41.) Signed: Aneta Polo MD Report Verified Date/Time: 06/13/2018 20:46:58 Reading Location: [address] Reading Room Performing Organization Address City/State/Zipcode Phone Number [facility] RIS * Treadmill tolerance(Non-Nuclear Treadmill) (06/13/2018 10:52 AM CDT) Specimen Narrative Performed At Protocol Name Regadenoson [facility]USE Time In Exercise Phase 00:01:00 Max. Systolic [...] 1:17:03 PM Confirmed by MD SHIN JORGE ([id number]) on 06/22/2018 12:26:46 PM Procedure Note Interface, External Ris In - 06/22/2018 12:26 PM CDT Protocol Name Regadenoson Time In Exercise Phase 00:01:00 Max. Systolic [...] 1:17:03 PM Confirmed by MD SHIN JORGE ([id number]) on 06/22/2018 12:26:46 PM Performing Organization Address City/State/[facility] Phone Number [facility] MUSE * ECG 12 lead (06/13/2018 10:42 AM CDT) Specimen Narrative Performed At Ventricular Rate 72 BPM [facility] Atrial Rate 72 BPM P-R Interval 236 ms QRS Duration 98 ms Q-T Interval 378 ms QTC Calculation(Bazett) 413 ms P [place] 71 degrees R [place] 108 degrees T [place] 106 degrees Sinus rhythm with 1st degree A-V block Rightward axis Nonspecific T wave abnormality Abnormal ECG No previous ECGs available Confirmed by Bora REYNA BASANT ([id number]) on 06/14/2018 8:14:19 AM Procedure Note Interface, External Ris In - 06/14/2018 8:14 AM CDT Ventricular Rate 72 BPM Atrial Rate 72 BPM P-R Interval 236 ms QRS Duration 98 ms Q-T Interval 378 ms QTC Calculation(Bazett) 413 ms P [place] 71 degrees R [place] 108 degrees T [place] 106 degrees Sinus rhythm with 1st degree A-V block Rightward axis Nonspecific T wave abnormality Abnormal ECG No previous ECGs available Confirmed by Bora REYNA BASANT ([id number]) on 06/14/2018 8:14:19 AM Performing Organization Address City/State/Zipcode Phone Number [facility] MUSE * ECHO W CONTRAST & DOPPLER (02/19/2018) * ECHO W CONTRAST & DOPPLER (02/19/2018) after 01/24/2018 Insurance Payer Benefit Subscriber ID Type Phone Address Plan / Group MEDICARE MEDICARE A xxxxxxxxxx Medicare B BLUE CROSS/BLUE SHIELD BCBS OS xxxxxxxxxxxx PPO [phone] [address] [place] [address] O
[2019-01-25 07:54] LABS: ANION GAP 18.4 mmol/L (8-16); CALCIUM 11.3 mg/dL (8.4-10.2); CREATININE, SERUM 7.56 mg/dL (0.72-1.25); POTASSIUM 4.4 mmol/L (3.5-5.1)
[2019-01-25 09:30] VITALS: BP 146/87
--- NOTE | 2019-01-25 10:35 | Operative Report ---
DATE OF PROCEDURE: 01/25/2019 SURGEON: Jonas Dubon MD PROCEDURE: Colonoscopy and polypectomy. INDICATIONS FOR COLONOSCOPY: Surveillance colonoscopy, 16 polyps removed on a previous colonoscopy. MEDICATION: The patient was done under MAC, please see anesthesiologist's note. PROCEDURE IN DETAIL: With the patient in left lateral decubitus position, flexible fiberoptic Olympus colonoscope was inserted into the rectum with ease and advanced all the way to the cecum. It was then withdrawn slowly and mucosa overlying the cecum appeared to be within normal limits. One polyp was hot biopsied from the ascending colon. An approximately 1 cm sessile polyp was removed per snare electrocautery from the proximal transverse colon and the polypectomy site was hemoclipped x2. One polyp was hot biopsied from the transverse colon, three polyps were hot biopsied from the descending and one polyp was snared from the sigmoid. The rectum appeared to be within normal limits. The scope was then retroflexed into the distal rectum and small internal hemorrhoids were noted, none of which was actively bleeding. The scope was then straightened out, it was subsequently withdrawn. The patient tolerated procedure well. IMPRESSION: 1. Ascending colon polyp, hot biopsied. 2. Transverse colon polyps x2, one snared and polypectomy site hemoclipped x2 and one hot biopsied. 3. Descending colon polyps x3, hot biopsied. 4. Sigmoid colon polyp x1, snared. 5. Internal hemorrhoids, none actively bleeding. PLAN: Follow up histology. Initiate high-fiber, low-fat diet. Initiate high-fiber supplement. The patient might benefit from a followup colonoscopy in 3 years. Jonas Dubon MD [facility] /[id number] cc: Tamra Ladnin MD
== END | disposition home or self-care (01) ==
LOC: OR 06:32
PROVIDERS: ATTEND Internal Medicine Gastroenterology
DX: Z09 Encounter for follow-up examination after completed treatment for conditions other than malignant neoplasm (principal); D12.3 Benign neoplasm of transverse colon; K64.8 Other hemorrhoids; E78.5 Hyperlipidemia, unspecified; E11.22 Type 2 diabetes mellitus with diabetic chronic kidney disease; I12.0 Hypertensive chronic kidney disease with stage 5 chronic kidney disease or end stage renal disease; N18.6 End stage renal disease; Z79.4 Long term (current) use of insulin; Z86.73 Personal history of transient ischemic attack (TIA), and cerebral infarction without residual deficits; Z99.2 Dependence on renal dialysis
CPT/HCPCS: 36415; 45384; 45385; 80048; 82948; 88305; J1980; J2001; J2250; J2704; J7040; 45378